=== PATIENT | female | born 1950 | race Caucasian/White ===

== ENCOUNTER → 2016-07-18 | Day surgery (SDC) | payer OTHER ==
[2016-07-14 15:34] VITALS: BMI 65.0
[~2016-07-18] VITALS: Ht 170.2 cm; Wt 189.0 kg
[~2016-07-18] MED LIST: ADVIN10/60 INH; ARGI500T PO; ASCO500T16 PO; ATROPINE SULFATE 0.1 MG/ML 5ML SYR IV PRN; BACITRACIN OINT 15 GM TUBE TOP ONE; CITA40TA4 PO; CLINDAMYCIN 600 MG/54 ML D5W IV SCH; CYCL10TA6 PO; ERGO500037 PO; ESCI1TAB18 PO; FENTANYL CITRATE INJ 50 MCG/1 ML 2 ML VIAL IV PRN; FENTANYL CITRATE INJ 50 MCG/1 ML 2 ML VIAL ONE; FEXO1TAB58 PO; FLUSH IV ONE; FURO-85 PO; GLUC10007 PO; HEPARIN 100 UNIT/ML IV ONE; LACTATED RINGER'S 1000ML 1,000 ML IV SCH; LAMO200T35 PO; LEVO50TA6 PO; LIDOCAINE HCL 2% 2 ML VIAL (20MG/ML) ONE; LIOT5TAB9 PO; LOPE-5 PO; LPT/20 PO; LSN40 PO; LXP/20 PO; MIDAZOLAM HCL 1 MG/ML 2ML VIAL ONE; MIX: 0.5% BUPIVICAINE 20ML/1% LIDO 20ML INJ ONE; MODA200T42 PO; MULT-506 PO; MoRPHine SULFATE 4 MG/ML 1 ML CARP\\VIAL IV PRN; NAPR1TAB9 PO; NRN100 PO; ONDANSETRON INJ 2 MG/ML 2 ML VIAL IV PRN; OXYC-57 PO; OXYCODONE/ACETAMINOPHEN 5-325 TAB PO PRN; POTA10TA33 PO; PROPOFOL IV EMULSION 10 MG/ML 20 ML VIAL IV ONE; SODIUM CHLORIDE 0.9% 1000ML 1,000 ML IV SCH; SPRIN INH; TRMCR515 TOP; VRPSR240 PO; tumeric PO
[2016-07-18 06:14] VITALS: BP 162/67; PULSE 81; TEMP 36.9; O2SAT 94; Ht 170.2 cm; Wt 189.0 kg
--- NOTE | 2016-07-18 07:24 | History & Physical Bridge Note ---
H&P Re-Evaluation Bridge Note: I have examined the patient, reviewed the History & Physical and in the interval since the performance of the History & Physical I have noted the following changes of clinical significance: No changes noted
--- NOTE | 2016-07-18 09:51 | Discharge Instructions ---
Discharge Instructions Visit Reason for Visit: Breast Cancer Discharge Goals Goal(s): Decrease discomfort, Improve function Activity Recommendations Activity Limitations: per Instructions/Follow-up section Lifting Limitations: no more than 25 pounds Exercise/Sports Limitations: gradually increase as tolerated May Resume Sexual Activity: when tolerated Shower/Bathe: may shower/bathe in 3 days Driving or Machine Use: resume 3 days after discharge Anesthesia . Post Anesthesia Instructions: If you have had General Anesthesia or IV Sedation: * Do not drive today. * Resume driving when surgeon permits. * Do not make important decisions or sign legal documents today. * Call surgeon for: 1. Temperature elevations greater than 101 degrees F. 2. Uncontrollable pain. 3. Excessive bleeding. 4. Persistent nausea and vomiting. 5. Medication intolerance (nausea, vomiting or rash). * For nausea and vomiting use only clear liquids such as: tea, soda, bouillon until nausea subsides, then gradually increase diet as tolerated. * If you have any concerns or questions, call your surgeon's office. If physician is unavailable and it is an emergency, call 911 or go to the nearest emergency room. . Instructions / Follow-Up Instructions / Follow-Up keep the dressing on for 4 days, she can take a shower on 07/22/2016. Follow up 1 week, Procedures Procedures Performed: Infusaport Insertion - Right Internal Jugular Vein Medical Emergencies . Who to Call and When: Medical Emergencies: If at any time you feel your situation is an emergency, please call 911 immediately. . Non-Emergent Contact Call Non-Emergent contact if: you have a fever, temperature is above 100.5, your pain is not controlled, your pain is worsening, wound has increased drainage, wound has increased redness . . "Provider Documentation" section prepared by Geo Thao.
--- NOTE | 2016-07-18 09:58 | [facility] Post Operative Brief Note ---
Immediate Operative Summary Operative Date Jul 18, 2016. Pre-Operative Diagnosis S/P Breast Cancer surgery, needed for IV access Post-Operative Diagnosis S/P Breast Cancer surgery, needed for IV access Procedure(s) Performed Infusaport Insertion - Right Internal Jugular Vein Surgeon Dr. 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 Marcello Hollis who help to finding the RIJ,the procedure went well, Fluids (cc crystalloids) 1000ml Specimens None per surgeon Drains none Complication(s) None Disposition Recovery Room / PACU
[2016-07-18 10:05] VITALS: BP 149/62; PULSE 62; TEMP 36.4; O2SAT 92
--- NOTE | 2016-07-18 10:05 | DIAGNOSTIC IMAGING REPORT ---
CHEST ONE VIEW PORTABLE CLINICAL HISTORY: Post-op dyspnea COMPARISON STUDY: No previous studies for comparison. FINDINGS: Right-sided central catheter placed from an internal jugular approach. Tip is in the superior vena cava at the juncture with the right subclavian vein. No evidence pneumothorax. Lungs otherwise appear clear. IMPRESSION: Central catheter placed at the juncture of the superior vena cava and right subclavian vein. No evidence pneumothorax. Electronically signed by: Josep Rodriges M.D. 07/18/2016 10:03 AM
[2016-07-18 10:35] VITALS: BP 145/62; PULSE 66; O2SAT 92
[2016-07-18 10:45] VITALS: BP 156/62; PULSE 61; TEMP 36.5; O2SAT 92
--- NOTE | 2016-07-18 11:35 | Anesthesiology Progress Note ---
Anesthesia Post Op Note Date & Time Jul 18, 2016 at 11:35 Vital Signs Pain Intensity: 0 Vital Signs Past 12 Hours Date Time Temp Pulse Resp B/P Pulse Ox O2 Delivery O2 Flow Rate FiO2 07/18/16 10:45 36.5 61 18 156/62 92 07/18/16 10:35 66 18 145/62 92 Room Air 07/18/16 10:05 36.4 62 18 149/62 92 Room Air 07/18/16 09:55 36.4 60 20 110/64 96 Room Air 07/18/16 09:45 66 20 136/67 91 Room Air 07/18/16 09:35 68 20 116/58 97 Room Air 07/18/16 09:25 36.1 70 20 94/80 96 Room Air 07/18/16 06:14 36.9 81 22 162/67 94 Room Air Notes Mental Status: alert / awake / arousable, participated in evaluation Pt Amnestic to Procedure: Yes Nausea / Vomiting: adequately controlled Pain: adequately controlled Airway Patency, RR, SpO2: stable & adequate BP & HR: stable & adequate Hydration State: stable & adequate Anesthetic Complications: no major complications apparent
--- NOTE | 2016-07-18 11:40 | OPERATIVE REPORT ---
DATE OF OPERATION: 07/18/2016 PREOPERATIVE DIAGNOSIS: Status post right breast cancer surgery, difficult intravenous access. POSTOPERATIVE DIAGNOSIS: Same. PROCEDURE: Uchn-l-[id number] insertion. SURGEON: Dr. Geo Thao. ANESTHESIA: General. ESTIMATED BLOOD LOSS: About 10 mL. IV FLUIDS: 1000 mL. FINDINGS: At the beginning it was difficult to find the right IJ. I called vascular surgeon Dr. Roberts who helped me to find the right IJ and I finish the rest of the procedure. Otherwise, the patient tolerated the procedure well. COMPLICATIONS: None. INDICATIONS FOR THE PROCEDURE: This is a 65-year-old female who is postop right breast cancer surgery. The patient in need of chemotherapy. The patient required to do insertion [id number] and otherwise patient is obesity. I did talk to the patient about the benefit and risk alternate procedure. I indicated the risks may include but not limited such as bleeding, infection, injury to bowel, may need chest tube, injury nerves causing the patient pain, myocardial infarction, blood clot, damage to catheter, stroke, pulmonary emboli, even . The patient understands. She signed informed consent and I answered all questions. DETAILS OF PROCEDURE: We brought the patient to the OR, put the patient in the supine position. The patient received SCD on bilateral legs to prevent DVT. Also, the patient received 600 mg of clindamycin IV for prophylactic antibiotic. The patient received conscious sedation. Right side of the neck and upper chest was prepped and draped in the routine sterile fashion. After time out, I injected local anesthesia in the neck by using 1% lidocaine mixed with 0.5% Marcaine around the right side of the neck. I used ultrasound to locate the right IJ; however puncture couple of times and got some blood returned, tried to place the catheter wire in and could not. At this moment I decided to call the vascular surgeon Dr. Roberts who came in to help me to find the right IJ puncture, passed the wire in and then I finished the rest of the procedure. Then I injection the local on the right upper chest made close the pouch on the right upper chest and tunneled the catheter from the right upper chest to the neck. Then I used the dilator catheter, passed the wire in, used fluoro to confirm the catheter located SVC. Then I passed the catheter through the sheath and removed the sheath after the catheter in. Then I used fluoro on the tip of the catheter to locate the SVC. The catheter was connected to the port. Once we connected the catheter to the port, then I used heparin saline injected the port easily, blood returned and injection heparin and saline. Then I used 2-0 Vicryl x3, fixed to the [id number]-[id number] on the chest wall. Then hemostasis obtained. Then I used 2-0 Vicryl to close the subcutaneous layer continuous running, used 4-0 Vicryl to close skin continuous running. Then I put another needle through the skin reaching the port and easy blood return and I injected 2 mL heparin, 1 mL heparin equal 100 units heparin. Then, we put the dressing on. The patient tolerated the procedure well. The patient transferred to recovery room in stable condition. All the instrument, needle and sponge count correct x2 at the end of the case. I attest to the content of the Intraoperative Record and any orders documented therein. Any exceptions are noted below. MARYURI
== END | disposition home or self-care (01) ==
LOC: C.ACU 05:35
PROVIDERS: ATTEND Surgery
DX: C50.911 Malignant neoplasm of unspecified site of right female breast (principal); J44.9 Chronic obstructive pulmonary disease, unspecified; E11.9 Type 2 diabetes mellitus without complications; E66.01 Morbid (severe) obesity due to excess calories; G47.33 Obstructive sleep apnea (adult) (pediatric); I10 Essential (primary) hypertension; Z88.0 Allergy status to penicillin; F17.200 Nicotine dependence, unspecified, uncomplicated; Z90.89 Acquired absence of other organs; Z98.890 Other specified postprocedural states; Z90.11 Acquired absence of right breast and nipple; Z82.3 Family history of stroke; Z82.0 Family history of epilepsy and other diseases of the nervous system; Z82.49 Family history of ischemic heart disease and other diseases of the circulatory system

== ENCOUNTER → 2016-12-25 | Outpatient (CLI) | payer OTHER ==
[~2016-12-25] VITALS: Ht 172.7 cm; Wt 196.6 kg
[~2016-12-25] MED LIST changes: -ADVIN10/60 INH; -ATROPINE SULFATE 0.1 MG/ML 5ML SYR IV PRN; -BACITRACIN OINT 15 GM TUBE TOP ONE; -CLINDAMYCIN 600 MG/54 ML D5W IV SCH; -FENTANYL CITRATE INJ 50 MCG/1 ML 2 ML VIAL IV PRN; -FENTANYL CITRATE INJ 50 MCG/1 ML 2 ML VIAL ONE; -FLUSH IV ONE; -HEPARIN 100 UNIT/ML IV ONE; -LACTATED RINGER'S 1000ML 1,000 ML IV SCH; -LAMO200T35 PO; +LAMO200T38 PO; -LIDOCAINE HCL 2% 2 ML VIAL (20MG/ML) ONE; -MIDAZOLAM HCL 1 MG/ML 2ML VIAL ONE; -MIX: 0.5% BUPIVICAINE 20ML/1% LIDO 20ML INJ ONE; -MoRPHine SULFATE 4 MG/ML 1 ML CARP\\VIAL IV PRN; -ONDANSETRON INJ 2 MG/ML 2 ML VIAL IV PRN; -OXYC-57 PO; -OXYCODONE/ACETAMINOPHEN 5-325 TAB PO PRN; -PROPOFOL IV EMULSION 10 MG/ML 20 ML VIAL IV ONE; -SODIUM CHLORIDE 0.9% 1000ML 1,000 ML IV SCH
[2016-12-25 14:48] VITALS: BP 159/59; PULSE 92; Ht 172.7 cm; Wt 196.6 kg
== END | disposition home or self-care (01) ==
LOC: C.NEUR 14:25
PROVIDERS: ATTEND Physician Assistant
DX: G47.30 Sleep apnea, unspecified (principal)

== ENCOUNTER → 2017-03-15 | Outpatient (CLI) | payer OTHER ==
[~2017-03-15] MED LIST changes: -CITA40TA4 PO; -LXP/20 PO; +MODA1TAB6 PO; -MODA200T42 PO
[2017-03-15 13:28] VITALS: BP 149/79; PULSE 92; TEMP 36.9; O2SAT 93
--- NOTE | 2017-03-15 14:44 | Radiation Oncology Follow-Up ---
Radiation Oncology Follow-Up Date of Visit Mar 15, 2017. Reason For Visit One-month follow-up and cancer survivorship care plan Radiation Completion Date 02/07/17 Diagnosis (1) Breast cancer Status: Resolved Onset Date: 05/10/2016 Stage: l (A) Permanent Comment: Abnormal right breast mammogram Status post biopsy 05/10/2016 revealing 2 lesions Status post lumpectomy and sentinel lymph node biopsy 06/20/2016 Lesion # 1 pT1b [id number], estrogen receptor negative, progesterone receptor positive and HER-2/paulino positive Lesion #2 pT1b [id number], estrogen receptor negative, progesterone receptor negative, HER-2/paulino positive Planned for systemic chemotherapy followed by radiation Last Edited By: Franca Washington on Jul 13, 2016 13:01 History of Present Illness Ms. Mcclure is a 66-year-old female without a family history of breast cancer. Who is been followed with screening mammograms. On 03/30/2016 patient underwent a bilateral digital screening mammogram with CAD. This identified a 5 cm focal asymmetry with associated microcalcifications in the 12:00 middle one third of the right breast. Comparison to prior mammograms was recommended. They were able to obtain prior outside mammograms from the doctor's clinic and ordered on dated 05/17/2012 and 08/09/2009. The very vague asymmetry with associated loosely grouped microcalcifications in the 12:00 middle one third of the right breast was not clearly seen on the prior outside mammograms and therefore remains indeterminate. Additional spot magnification views were recommended. On 04/18/2016 the patient underwent a unilateral right digital diagnostic mammogram. Spot magnification right CC and ML views were obtained. There was a persistent 5 x 4 cm asymmetry with associated clusters of amorphous microcalcifications in the upper outer middle one third of the right breast. This asymmetry is new as the calcifications. A right breast surgical excision biopsy was recommended for the new subtle 5 x 4 centimeter focal asymmetry. On 05/10/2016 the patient underwent a needle localization right breast biopsy performed by Dr. Manuel Chakraborty. 2 tumors were identified. Tumor #1 (central tumor) measured 0.6 cm in greatest dimension. This was invasive mammary carcinoma no special type. Sergio grade 3 of 3 with no lymphovascular invasion. Estrogen receptors were negative (0% staining). Progesterone receptors were positive (10%, weak staining, H score: 10). HER-2/paulino overexpression was positive (score 3+, 100% strong diffuse staining). Ki-67 proliferation index was high at 50%. Tumor #2 (inferior tumor) measured 1.0 cm. This was an invasive mammary carcinoma no special type. This was a Omak grade 2 with no lymphovascular invasion. Estrogen receptors were negative (0% staining).. Progesterone receptors were negative (0% staining). HER-2/paulino overexpression was positive (score 3+, 100% strong diffuse staining). Ki-67 proliferation index was high at 35%. 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 The DCIS measured at least 2.0 cm in greatest dimension. The margins of the invasive carcinoma were uninvolved with the central tumor 0.6 cm from the posterior margin in the inferior tumor 0.3 cm anterior margin. The en face DCIS inferior, medial and lateral margins are involved by multiple areas of DCIS. In addition DCIS approaches to within less than 1 mm of the anterior and posterior margins. Both tumors were sent for FISH analysis. Both tumors were positive for HER-2 FISH evaluation. Case: [id number]. Patient was seen by Dr. Coffey for surgical evaluation on 05/18/2016. She discussed the treatment options. She considered an MRI but given the patient's body habitus she would not fit into the MRI scanner. She discussed breast conserving therapy with reexcision lumpectomy and sentinel node biopsy. The patient agreed to this procedure. On 06/20/2016 patient underwent a reexcision right breast lumpectomy and sentinel node biopsy. 3 sentinel nodes were identified and all 3 sentinel nodes were benign. The reexcision partial mastectomy specimen revealed no residual invasive carcinoma. There was residual DCIS cribriform, grade 3 with central (expansive "comedo" necrosis). The margins were uninvolved by DCIS with the distance from the closest margin being 3 mm. The final AJCC pathologic staging was therefore pT1b pN0(sn-) ER negative RI positive HER-2/paulino positive for tumor #1 and pT1b pN0(sn-) ER negative, RI negative and HER-2/paulino positive for tumor #2. The patient was subsequently seen by Dr. Christopher Kauffman on 07/12/2016. She recommended consideration of adjuvant chemotherapy including Herceptin for 1 year with 12 weeks of systemic therapy. The patient is to be scheduled for port placement. The patient has agreed to systemic therapy. She developed drainage from her recent partial mastectomy incision. The drainage was yellowish and the area was mildly tender. According to patient she was subsequently seen by Dr. Coffey and the area was drained and has since healed with only minimal drainage to date. We were asked to see the patient in referral for discussion of the ultimate goal of adjuvant radiation following completion of her systemic chemotherapy. She completed systemic chemotherapy. She will return to our office and underwent radiation therapy. This was completed 02/07/2017. She received 6120 cGy. Interim History She has had steady improvement of her breast over this past month. The the redness has improved as well as the swelling. She did have some nipple changes. At times there would be a small amount of white discharge just at the nipple. She denies pain. At the end of treatment there was peeling of the skin. This has resolved with the use of Silvadene. She continues regular follow-up with Dr. Kauffman. She continues on Herceptin. She has seen Dr. Coffey and has been scheduled for follow-up mammography. Her energy levels have steadily improved. Allergies Coded Allergies: BEE STING (Verified Allergy, Severe, swelling,, 07/14/16) Adhesives (Verified Allergy, Unknown, SKIN IRRITATION, 07/14/16) Cephalexin (Verified Allergy, Unknown, diarrhea, "out of it", 07/14/16) Ciprofloxacin (Verified Allergy, Unknown, feels faint,SEVERE DIARRHEA, ) Home Medications Scheduled Arginine (Arginine), 500 MG PO QAM Ascorbic Acid (Ascorbic Acid), 500 MG PO QAM Atorvastatin (Atorvastatin Calcium), 20 MG PO QPM Ergocalciferol (Vitamin D 18943 Unit), 1 CAP PO 3XWEEK Escitalopram Oxalate (Lexapro), 1 TAB PO BID Fexofenadine-Pseudoephedrine (Liana-D 24 Hour Allergy), 1 TAB PO QAM Furosemide (Lasix), 40 MG PO QAM Gabapentin (Gabapentin), 100 MG PO DAILY Glucosamine Sulfate (Glucosamine), 1,000 MG PO DAILY Lamotrigine (Lamictal), 200 MG PO QPM Levothyroxine Sodium (Levothyroxine Sodium), 50 MCG PO QAM Liothyronine Sodium (Liothyronine Sodium), 3 TABS PO QAM Lisinopril (Lisinopril), 40 MG PO QAM Modafinil (Provigil), 200 MG PO QAM Multivitamin (Multivitamin), 1 TAB PO QAM Potassium Chloride (Potassium Chloride Sr), 40 MEQ PO QAM Tiotropium [place] (Spiriva Handihaler), 2 PUFF INH DAILY Verapamil HCl (Verapamil HCl ER), 240 MG PO QAM Scheduled PRN Cyclobenzaprine Hcl (Flexeril), 10 MG PO TID PRN for Muscle Spasms Loperamide Hcl (Imodium A-D), 1 TAB PO DIRECTED PRN for Diarrhea Naproxen (Aleve), 220 MG PO Q6H PRN for Moderate Pain Triamcinolone Acet (Triamcinolone Acetonide), 1 APPLN 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 of Systems Gastrointestinal: Symptoms: WNL, Diarrhea GI Comments: Bouts of diarrhea from time to time;Immodium PRN; Oral: Symptoms: No Problems Respiratory: Symptoms: SOB With Exertion, Productive Cough Sputum Character: clear to white sputum;Lingering cough from recent cold; Other Respiratory: SOB w/exertion is without change; Urinary: Symptoms: Incontinence, Frequency Comments: Urinary continence without change; Skin: Other Skin Symptoms: Generalized slight pink color to right breast;Not using any skin care Breast: Right Upper Arm Measurement: 51.0 Right Mid Arm Measurement: 32.3 Right Wrist Measurement: 20.0 Left Upper Arm Measurement: 51.0 Left Mid Arm Measurement: 32.5 Left Wrist Measurement: 20.0 Arm Dominence: Right Physical Exam Vital Signs Date Time Temp Pulse Resp B/P (MAP) Pulse Ox O2 Delivery O2 Flow Rate FiO2 03/15/17 13:28 36.9 92 20 149/79 93 Fatigue: None General Appearance: no apparent distress, + obese Eyes: normal inspection, EOMI ENT: normal ENT inspection, hearing grossly normal Neck: no adenopathy, thyroid normal Respiratory/Chest: no respiratory distress, no accessory muscle use, + pertinent finding (mild bronchial sounds.) Breast: Large pendulous breasts. Resolving hyperpigmentation on the right underside of the breast. There is generalized erythema which is improved. There is minimal edema. There is hyperpigmentation noted of the nipple. There are no masses or tenderness and no change of the axilla. Using the Schurz score cosmesis she has a a fair outcome. This will improve as skin changes resolved. The left breast showed no masses or tenderness and no axillary adenopathy. Cardiovascular: regular rate, rhythm, no gallop, no murmur Extremities: no pedal edema Neurologic/Psychiatric: no motor/sensory deficits, alert, normal mood/affect Skin: warm/dry Laboratory Studies Test 12/20/16 09:30 White Blood Count 6.55 K/uL (4.8-10.8) Red Blood Count 3.89 M/uL (4.2-5.4) Hemoglobin 12.5 g/dL (12.0-16.0) Hematocrit 38.2 % (37-47) Mean Corpuscular Volume 98.2 fL (80-100) Mean Corpuscular Hemoglobin 32.1 pg (25-34) Mean Corpuscular Hemoglobin Concent 32.7 g/dl (32-36) Platelet Count 186 K/uL (130-400) Mean Platelet Volume 9.7 fL (7.4-10.4) Neutrophils (%) (Auto) 59.6 % Lymphocytes (%) (Auto) 25.8 % Monocytes (%) (Auto) 10.1 % Eosinophils (%) (Auto) 3.8 % Basophils (%) (Auto) 0.2 % Neutrophils # (Auto) 3.91 K/uL (1.4-6.5) Lymphocytes # (Auto) 1.69 K/uL (1.2-3.4) Monocytes # (Auto) 0.66 K/uL (0.11-0.59) Eosinophils # (Auto) 0.25 K/uL (0-0.5) Basophils # (Auto) 0.01 K/uL (0-0.2) RDW Standard Deviation 47.0 fL (36.4-46.3) RDW Coefficient of Variation 13.1 % (11.5-14.5) Immature Granulocyte % (Auto) 0.5 % Immature Granulocyte # (Auto) 0.03 K/uL (0.00-0.02) Assessment & Plan Continue follow-up with Dr. Coffey, Dr. Kauffman, and Dr. Dick. She is scheduled for follow-up mammography. She continues on the Herceptin every 3 weeks for a total of one year. Today we completed a cancer survivorship care plan. A copy of the document was given to the patient. The swelling of her breast has greatly resolved. She currently does not need referral for lymphedema therapy. The nipple changes are steadily improving. She may use Silvadene to any area of irritation. We asked her to return to our office in 6 months. She may call if she has any questions or concerns in the interim. Total Time In Follow-Up I spent 20 minutes speaking to the patient and performing examination. I spent 20 minutes reviewing information, completing the survivorship document, and completing this note. Copy To Staci Coffey MD; Christopher Kauffman MD; Randal Dick, D.O.Int.Med. Problem Qualifiers (1) Breast cancer: Breast location: central portion of breast Estrogen receptor status: negative Patient sex: female Laterality: right Qualified Codes: C50.111 - Malignant neoplasm of central portion of right female breast; Z17.1 - Estrogen receptor negative status [ER-]
== END | disposition home or self-care (01) ==
LOC: C.ONC 13:15
PROVIDERS: ATTEND Physician Assistant Medical
DX: Z08 Encounter for follow-up examination after completed treatment for malignant neoplasm (principal); Z92.3 Personal history of irradiation; Z85.3 Personal history of malignant neoplasm of breast

== ENCOUNTER → 2017-04-20 | Outpatient (CLI) | payer OTHER ==
[~2017-04-20] MED LIST changes: -tumeric PO
--- NOTE | 2017-04-20 15:48 | MAMMOGRAPHY REPORT ---
BILATERAL DIGITAL DIAGNOSTIC MAMMOGRAM TOMOSYNTHESIS WITH CAD AND TARGETED RIGHT ULTRASOUND: 7 CLINICAL HISTORY: History right breast cancer status post lumpectomy as well as chemoradiation, who p resents for her first follow-up after treatment. Due for routine mammography of the left breast. Th e patient reports an area of thickening near her right nipple. TECHNIQUE: Breast tomosynthesis in addition to standard 2D mammography was performed. Current study was also evaluated with a Computer Aided Detection (CAD) system. Bilateral CC and MLO 2-D and tomosy nthesis images and spot magnification right cc and ML views were obtained. COMPARISON: Comparison is made to exams dated: 04/20/2017 ultrasound, 05/10/2016 localization, 016 mammogram, 03/30/2016 mammogram - [facility], 05/17/2012 mammogram, and 08/09/2009 mammogram - [facility], [facility]. BREAST COMPOSITION: The tissue of both breasts is almost entirely fatty. FINDINGS: There are new post surgical changes in the right central/6:00 breast from prior lumpectomy , including new architectural distortion at the surgical bed as well as an oval 6.9 cm mass. There i s diffuse right breast skin and trabecular thickening, likely related to radiation therapy. The junior la nena of both breasts are stable compared to prior exams, without suspicious masses, calcifications, or areas of architectural distortion noted. Targeted ultrasound was performed of the lumpectomy bed. In the right breast at 6:00, 8 cm from the nipple, there is an oval anechoic fluid collection with internal septations which is too large to acc urately measure on ultrasound but measures at least 5.2 x 2.9 cm. This corresponds with the 6.9 cm m ammographic mass and is compatible with a postoperative seroma/hematoma. Targeted ultrasound was also performed of the area of prominent thickening pointed out by the patient in the right upper outer quadrant periareolar region. At this site there is significant skin thicke henok measuring up to 9 mm, which is likely due to radiation therapy. No suspicious mass is noted in the underlying breast parenchyma. IMPRESSION: ACR-BI-RADS CATEGORY 3: PROBABLY BENIGN, TARGETED ULTRASOUND ACR-BI-RADS CATEGORY 3: PRO BABLY BENIGN Expected post treatment changes in the right breast, including a benign postoperative hematoma/seroma at the lumpectomy bed measuring 6.9 cm. No mammographic evidence of malignancy in either breast. R ecommend follow-up diagnostic mammograms of the right breast in 6 months to reevaluate posttreatment changes. The patient has been verbally notified of the results. Approximately 10% of breast cancers are not detected with mammography. A negative mammographic report should not delay biopsy if a clinically suggestive mass is present. Belinda Parks M.D. ah/:04/20/2017 15:17:11 Formal Service Waiter: Cyndy MONTELONGO(Pierre)(Carmen), [facility] letter sent: Personal History 3 BI-RADS Code: ACR-BI-RADS Category 3: Probably Benign Ultrasound BI-RADS: ACR-BI-RADS Category 3: Pr obably Benign
== END | disposition home or self-care (01) ==
LOC: C.MAMM 14:03
PROVIDERS: ATTEND Surgery
DX: Z12.31 Encounter for screening mammogram for malignant neoplasm of breast (principal); Z08 Encounter for follow-up examination after completed treatment for malignant neoplasm; Z85.3 Personal history of malignant neoplasm of breast; Z92.21 Personal history of antineoplastic chemotherapy; Z92.3 Personal history of irradiation

== ENCOUNTER → 2017-07-05 | Outpatient (CLI) | payer OTHER ==
[~2017-07-05] VITALS: Ht 172.7 cm; Wt 185.9 kg
[~2017-07-05] MED LIST changes: +LAMO200T35 PO; -LAMO200T38 PO; -MODA1TAB6 PO; +MODA200T42 PO
[2017-07-05 15:04] VITALS: BP 150/90; Ht 172.7 cm; Wt 185.9 kg
== END | disposition home or self-care (01) ==
LOC: C.NEUR 13:55
PROVIDERS: ATTEND Physician Assistant
DX: J44.9 Chronic obstructive pulmonary disease, unspecified (principal); G47.30 Sleep apnea, unspecified; R05 Cough; Z79.899 Other long term (current) drug therapy; F31.9 Bipolar disorder, unspecified; I10 Essential (primary) hypertension; E55.9 Vitamin D deficiency, unspecified

== ENCOUNTER → 2017-09-20 | Outpatient (CLI) | payer OTHER ==
[~2017-09-20] MED LIST changes: +ANAS1TAB6 PO; +ASPI-232 PO; -LPT/20 PO; +LPT20 PO
[2017-09-20 15:00] VITALS: BP 168/82; PULSE 89; TEMP 36.4; O2SAT 93
--- NOTE | 2017-09-20 16:02 | Radiation Oncology Follow-Up ---
Radiation Oncology Follow-Up Date of Visit Sep 20, 2017. Reason For Visit Six-month follow-up Radiation Completion Date 02/07/17 Diagnosis (1) Breast cancer Status: Resolved Onset Date: 05/10/2016 Stage: l (A) Permanent Comment: Abnormal right breast mammogram Status post biopsy 05/10/2016 revealing 2 lesions Status post lumpectomy and sentinel lymph node biopsy 06/20/2016 Lesion # 1 pT1b [id number], estrogen receptor negative, progesterone receptor positive and HER-2/paulino positive Lesion #2 pT1b [id number], estrogen receptor negative, progesterone receptor negative, HER-2/paulino positive Status post systemic chemotherapy with paclitaxel/Herceptin weekly for 12 weeks followed by maintenance Herceptin for 1 year Status post completion of radiation therapy February 07, 2017. She received 6120 cGy. Last Edited By: Franca Washington on Sep 20, 2017 15:56 History of Present Illness Ms. Rees is without a family history of breast cancer. Who is been followed with screening mammograms. On 03/30/2016 patient underwent a bilateral digital screening mammogram with CAD. This identified a 5 cm focal asymmetry with associated microcalcifications in the 12:00 middle one third of the right breast. Comparison to prior mammograms was recommended. They were able to obtain prior outside mammograms from the doctor's clinic and ordered on dated and 08/09/2009. The very vague asymmetry with associated loosely grouped microcalcifications in the 12:00 middle one third of the right breast was not clearly seen on the prior outside mammograms and therefore remains indeterminate. Additional spot magnification views were recommended. On 04/18/2016 the patient underwent a unilateral right digital diagnostic mammogram. Spot magnification right CC and ML views were obtained. There was a persistent 5 x 4 cm asymmetry with associated clusters of amorphous microcalcifications in the upper outer middle one third of the right breast. This asymmetry is new as the calcifications. A right breast surgical excision biopsy was recommended for the new subtle 5 x 4 centimeter focal asymmetry. On 05/10/2016 the patient underwent a needle localization right breast biopsy performed by Dr. Manuel Chakraobrty. 2 tumors were identified. Tumor #1 (central tumor) measured 0.6 cm in greatest dimension. This was invasive mammary carcinoma no special type. Sergio grade 3 of 3 with no lymphovascular invasion. Estrogen receptors were negative (0% staining). Progesterone receptors were positive (10%, weak staining, H score: 10). HER-2/paulino overexpression was positive (score 3+, 100% strong diffuse staining). Ki-67 proliferation index was high at 50%. Tumor #2 (inferior tumor) measured 1.0 cm. This was an invasive mammary carcinoma no special type. This was a [place] grade 2 with no lymphovascular invasion. Estrogen receptors were negative (0% staining).. Progesterone receptors were negative (0% staining). HER-2/paulino overexpression was positive (score 3+, 100% strong diffuse staining). Ki-67 proliferation index was high at 35%. 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 The DCIS measured at least 2.0 cm in greatest dimension. The margins of the invasive carcinoma were uninvolved with the central tumor 0.6 cm from the posterior margin in the inferior tumor 0.3 cm anterior margin. The en face DCIS inferior, medial and lateral margins are involved by multiple areas of DCIS. In addition DCIS approaches to within less than 1 mm of the anterior and posterior margins. Both tumors were sent for FISH analysis. Both tumors were positive for HER-2 FISH evaluation. Case: [id number]. Patient was seen by Dr. Coffey for surgical evaluation on 05/18/2016. She discussed the treatment options. She considered an MRI but given the patient's body habitus she would not fit into the MRI scanner. She discussed breast conserving therapy with reexcision lumpectomy and sentinel node biopsy. The patient agreed to this procedure. On 06/20/2016 patient underwent a reexcision right breast lumpectomy and sentinel node biopsy. 3 sentinel nodes were identified and all 3 sentinel nodes were benign. The reexcision partial mastectomy specimen revealed no residual invasive carcinoma. There was residual DCIS cribriform, grade 3 with central (expansive "comedo" necrosis). The margins were uninvolved by DCIS with the distance from the closest margin being 3 mm. The final AJCC pathologic staging was therefore pT1b pN0(sn-) ER negative LA positive HER-2/paulino positive for tumor #1 and pT1b pN0(sn-) ER negative, LA negative and HER-2/paulino positive for tumor #2. The patient was subsequently seen by Dr. Christopher Kauffman on 07/12/2016. She recommended consideration of adjuvant chemotherapy including Herceptin for 1 year with 12 weeks of systemic therapy. The patient is to be scheduled for port placement. The patient has agreed to systemic therapy. She developed drainage from her recent partial mastectomy incision. The drainage was yellowish and the area was mildly tender. According to patient she was subsequently seen by Dr. Coffey and the area was drained and has since healed with only minimal drainage to date. We were asked to see the patient in referral for discussion of the ultimate goal of adjuvant radiation following completion of her systemic chemotherapy. She completed systemic chemotherapy. She will return to our office and underwent radiation therapy. This was completed 02/07/2017. She received 6120 cGy. Interim History She has been doing well over the past 6 months. She is noted no changes to her breast. She has noted no masses or tenderness and no change of the axilla she has had no swelling of her arm. She is up-to-date on mammography. She has occasional very brief discomfort. This occurs rarely and does not require any kind of pain medication. Allergies Coded Allergies: BEE STING (Verified Allergy, Severe, swelling,, 07/14/16) Adhesives (Verified Allergy, Unknown, SKIN IRRITATION, 07/14/16) Cephalexin (Verified Allergy, Unknown, diarrhea, "out of it", 07/14/16) Ciprofloxacin (Verified Allergy, Unknown, feels faint,SEVERE DIARRHEA, ) Home Medications Scheduled Anastrozole (Anastrozole), 1 TAB PO DAILY Arginine (Arginine), 500 MG PO QAM Ascorbic Acid (Ascorbic Acid), 500 MG PO QAM Aspirin (Aspir-81), 1 TAB PO DAILY Atorvastatin (Lipitor), 30 MG PO QPM Ergocalciferol (Vitamin D 84754 Unit), 1 CAP PO 3XWEEK Escitalopram Oxalate (Lexapro), 1 TAB PO BID Fexofenadine-Pseudoephedrine (Liana-D 24 Hour Allergy), 1 TAB PO QAM Furosemide (Lasix), 40 MG PO QAM Gabapentin (Gabapentin), 100 MG PO DAILY Glucosamine Sulfate (Glucosamine), 1,000 MG PO DAILY Lamotrigine (Lamictal), 200 MG PO QPM Levothyroxine Sodium (Levothyroxine Sodium), 50 MCG PO QAM Liothyronine Sodium (Liothyronine Sodium), 3 TABS PO QAM Lisinopril (Lisinopril), 40 MG PO QAM Modafinil (Provigil), 200 MG PO QAM Multivitamin (Multivitamin), 1 TAB PO QAM Potassium Chloride (Potassium Chloride Sr), 40 MEQ PO QAM Tiotropium [place] (Spiriva Handihaler), 2 PUFF INH DAILY Verapamil HCl (Verapamil HCl ER), 240 MG PO QAM Scheduled PRN Cyclobenzaprine Hcl (Flexeril), 10 MG PO TID PRN for Muscle Spasms Loperamide Hcl (Imodium A-D), 1 TAB PO DIRECTED PRN for Diarrhea Naproxen (Aleve), 220 MG PO Q6H PRN for Moderate Pain Triamcinolone Acet (Triamcinolone Acetonide), 1 APPLN TOP TID PRN for event planner of Systems Gastrointestinal: Symptoms: WNL, Nausea, Diarrhea GI Comments: Occ nausea in AM's, diarrhea from time to time Oral: Symptoms: No Problems Respiratory: Symptoms: WNL, SOB With Exertion Urinary: Symptoms: WNL, Incontinence Skin: Symptoms: No Problems Breast: Right Upper Arm Measurement: 47.8 Right Mid Arm Measurement: 33.4 Right Wrist Measurement: 18.5 Left Upper Arm Measurement: 49.0 Left Mid Arm Measurement: 32.8 Left Wrist Measurement: 19.0 Arm Dominence: Right Cosmetic Comments: 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 There are no masses or tenderness and no axillary adenopathy. She continues to have some hyperpigmentation. She also has edema in the dependent portion of the breast. She has large pendulous breasts. Using the [place] score of cosmesis she has a good outcome. The left breast showed no masses or tenderness and no axillary adenopathy. Cardiovascular: regular rate, rhythm, no gallop, no murmur Neurologic/Psychiatric: no motor/sensory deficits, alert, normal mood/affect Skin: warm/dry Pain Management Patient Reports Pain: No Initial Pain Intensity: 0.0 Pain Management Plan She denies pain therefore requires no pain management. Laboratory Laboratory Results: not applicable Pathology Pathology Results: not applicable Imaging Imaging Studies: were reviewed, and pertinent findings noted below Imaging Comments Patient: ARIEL REES Rec: [id number] Address1: [address] Address2: Acct ID: [id number] Date: 1950 Sex: F Ref Phy: Staci Coffey MD Att Phy: Staci Coffey MD Rebecca Phy: No Doctor, Assigned Inter Phy: Belinda Parks MD [facility] Zip: [place] [address] SC: C.MAMM Report #: [id number] Religious Leader: MARCO A Diagnosis: ASYMPTOMATIC HX OF BREAST CA Service Date: 04/20/17 MNE: [id number] Ordering Dr: Staci Coffey MD CC: Staci Coffey MD CONF: DICTATED BY: Belinda Parks MD MAMMOGRAPHY REPORT BILATERAL DIGITAL DIAGNOSTIC MAMMOGRAM TOMOSYNTHESIS WITH CAD AND TARGETED RIGHT ULTRASOUND: 04/20/2017 CLINICAL HISTORY: History right breast cancer status post lumpectomy as well as chemoradiation, who presents for her first follow-up after treatment. Due for routine mammography of the left breast. The patient reports an area of thickening near her right nipple. TECHNIQUE: Breast tomosynthesis in addition to standard 2D mammography was performed. Current study was also evaluated with a Computer Aided Detection (CAD ) system. Bilateral CC and MLO 2-D and tomosynthesis images and spot magnification right cc and ML views were obtained. COMPARISON: Comparison is made to exams dated: 04/20/2017 ultrasound, 2015 localization, 04/18/2016 mammogram, 03/30/2016 mammogram - [facility], 05/17/2012 mammogram, and 08/09/2009 mammogram - [facility], [facility]. BREAST COMPOSITION: The tissue of both breasts is almost entirely fatty. FINDINGS: There are new post surgical changes in the right central/6:00 breast from prior lumpectomy, including new architectural distortion at the surgical bed as well as an oval 6.9 cm mass. There is diffuse right breast skin and trabecular thickening, likely related to radiation therapy. The remainder of both breasts are stable compared to prior exams, without suspicious masses, calcifications, or areas of architectural distortion noted. Targeted ultrasound was performed of the lumpectomy bed. In the right breast at 6:00, 8 cm from the nipple, there is an oval anechoic fluid collection with internal septations which is too large to accurately measure on ultrasound but measures at least 5.2 x 2.9 cm. This corresponds with the 6.9 cm mammographic mass and is compatible with a postoperative seroma/hematoma. Targeted ultrasound was also performed of the area of prominent thickening pointed out by the patient in the right upper outer quadrant periareolar region. At this site there is significant skin thickening measuring up to 9 mm , which is likely due to radiation therapy. No suspicious mass is noted in the underlying breast parenchyma. IMPRESSION: ACR-BI-RADS CATEGORY 3: PROBABLY BENIGN, TARGETED ULTRASOUND ACR-BI -RADS CATEGORY 3: PROBABLY BENIGN Expected post treatment changes in the right breast, including a benign postoperative hematoma/seroma at the lumpectomy bed measuring 6.9 cm. No mammographic evidence of malignancy in either breast. Recommend follow-up diagnostic mammograms of the right breast in 6 months to reevaluate posttreatment changes. The patient has been verbally notified of the results. Approximately 10% of breast cancers are not detected with mammography. A negative mammographic report should not delay biopsy if a clinically suggestive mass is present. Belinda Parks M.D. ah/:04/20/2017 15:17:11 Venetian Blind Tape Cutter: Cyndy MONTELONGO(Pierre)(M), [facility] letter sent: Personal History 3 BI-RADS Code: ACR-BI-RADS Category 3: Probably Benign Ultrasound BI-RADS: ACR- BI-RADS Category 3: Probably Benign Dictated by: Belinda Parks MD Signed by: Belinda Parks MD Assessment & Plan Plan: Continue with scheduled mammography. She continues follow-up with medical oncology and her primary care physician. We asked her to return to our office in 1 year. She may call if she has any questions or concerns in the interim. Total Time In Follow-Up I spent 20 minutes speaking to the patient and performing examination. I spent 15 minutes reviewing information and completing this note. Copy To Staci Coffey MD; Christopher Kauffman MD; Sandra JAMISON M.D. Problem Qualifiers (1) Breast cancer: Breast location: central portion of breast Estrogen receptor status: negative Patient sex: female Laterality: right Qualified Codes: C50.111 - Malignant neoplasm of central portion of right female breast; Z17.1 - Estrogen receptor negative status [ER-]
== END | disposition home or self-care (01) ==
LOC: C.ONC 14:52
PROVIDERS: ATTEND Physician Assistant Medical
DX: Z08 Encounter for follow-up examination after completed treatment for malignant neoplasm (principal); Z92.3 Personal history of irradiation; Z85.3 Personal history of malignant neoplasm of breast

== ENCOUNTER → 2017-10-23 | Outpatient (CLI) | payer OTHER ==
[~2017-10-23] MED LIST changes: -ANAS1TAB6 PO; +ANAS1TAB7 PO
--- NOTE | 2017-10-23 15:26 | MAMMOGRAPHY REPORT ---
UNILATERAL RIGHT DIGITAL DIAGNOSTIC MAMMOGRAM TOMOSYNTHESIS WITH CAD: 10/23/2017 CLINICAL HISTORY: 67-year-old woman with a personal history of right breast cancer status post lumpec dean and radiation therapy. She presents for close follow-up in the right breast after treatment. TECHNIQUE: Right breast tomosynthesis in addition to standard 2D mammography was performed. Spot mag nification right CC and ML views were obtained. Additional tiling views and additional spot magnific ation views were obtained to include all tissue within the [id number]. Current study was also jayla luated with a Computer Aided Detection (CAD) system. COMPARISON: Comparison is made to exams dated: 04/20/2017 mammogram, 04/20/2017 ultrasound, 05/10/2016 localization, 04/18/2016 mammogram, 03/30/2016 mammogram - [facility], and 05/17/2012 mammogram - [facility], [facility]. BREAST COMPOSITION: There are scattered areas of fibroglandular density in the right breast. FINDINGS: A linear scar marker overlies the inferior right breast, denoting the skin surgical scar fr om prior lumpectomy. There is stable 5.7 x 2.8 cm focal asymmetry and expected architectural distort ion at the surgical site in the 5:00 to 6:00 posterior right breast. The spot magnification views pe rformed over the surgical site do not demonstrate any suspicious grouped or clustered calcifications. Another spot magnification view performed more anteriorly in the right breast demonstrates a few sc attered punctate microcalcifications without suspicious grouping or cluster. No suspicious mass, asy mmetry or unexpected distortion is identified. Recommend another close follow-up of the right breast in 6 months to ensure longer stability after treatment. Annual left mammography will also be due at that time. IMPRESSION: ACR-BI-RADS CATEGORY 3: PROBABLY BENIGN Stable posttreatment changes in the right breast, without definite mammographic evidence of malignanc y. Recommend another six-month close follow-up right diagnostic mammogram to ensure longer stability after treatment. Annual left mammography will also be due at that time. These results and recommendations were discussed with the patient at the time of the exam. Approximately 10% of breast cancers are not detected with mammography. A negative mammographic report should not delay biopsy if a clinically suggestive mass is present. Selene Allen M.D. ay/:10/23/2017 14:37:03 [employer] Worker: Cyndy Lu, [facility] letter sent: Follow Up Recommended 3 BI-RADS Code: ACR-BI-RADS Category 3: Probably Benign
== END | disposition home or self-care (01) ==
LOC: C.MAMM 13:53
PROVIDERS: ATTEND Surgery
DX: Z85.3 Personal history of malignant neoplasm of breast (principal); Z08 Encounter for follow-up examination after completed treatment for malignant neoplasm

== ENCOUNTER 2020-01-30 23:34 | Inpatient (IN) ==
[2020-01-31] MEDS ORDERED: DEXAMETHASONE **PF** INJ 10 MG/ML VIAL IV ONE (00:05)
[2020-01-31] MEDS ORDERED: ALBUT/IPRATROP 3MG/0.5MG NEB 3 ML VIAL NEB ONE (00:05)
[2020-01-31] MEDS ORDERED: HYDROCODONE/APAP 2.5MG/108MG ELIX 5 ML UDP PO STA (00:09)
--- NOTE | 2020-01-31 00:09 | Emergency Department Note ---
Impression & Plan Acute exacerbation of chronic obstructive pulmonary disease, Acute respiratory infection ED Provider Note Name: ARIEL REES Age: 69 Sex: F Arrives Via: Walk-In Informant: Patient ED Provider: Gilmar Paris MD Chief Complaint: Shortness of breath Impression: Acute exacerbation of chronic obstructive pulmonary disease Acute Respiratory infection Medical Decision Makin yr old female with history of COPD arrives with shortness of breath and mild hypoxia. Admits recent travel to [place] during Covid outbreak. She is ill appearing and significant respiratory distress on arrival. She was given hour long neb, IV fluids, and empiric abx (zosyn/azithro) along with IV decadron. She does not have clear infiltrate on CXR and maybe some mild congestion. Labs consistent with sepsis though not in shock. Given IV fluids but does not require 30ml/kg IV fluids given normal BP and no lactic acidosis. Suspect UA is contaminate rather than infection. Covid test pending and kept in isolation. Patient agreeable to hospitalization. I do not feel that this is consistent with PE given her vast improvement with nebs, but will defer further testing to hospitalist given need for admission. I will note patient without calf pain/ttp and has likely diagnosis COPD given history. Prior Medical Record and Triage/Nursing Notes reviewed by Me Additional history obtained from chart Differentials:Reactive airway disease, covid, pneumonia, pneumothorax, COPD, CHF, infections, cardiac ischemia, pulmonary embolism, musculoskeletal, gastrointestinal, as well as other pathologies. Vital Signs: reviewed and remarkable for mild hypoxia Interventions: saline lock, nss bolus 1 L IV, hycodan 5ml PO, zosyn 4.5mg IV, azithromycin 500mg IV, decadron 10mg IV Labs:Reviewed and remarkable for WBC 19 Imaging:X ray results are stated below per my interpretation: Chest: 1 view: Bilateral mild lower congestion EKG:Per My Interpretation: Indication Shortness of breath: NSR 86 bpm, qtc 447. No Ectopy. No Ischemia. Compared to EKG 06/28/18, no significant changes. Cardiac/Tele Monitoring: Cardiac Monitoring: An Order was placed for continuous cardiac monitoring. The monitor shows a rate of 80 with a normal sinus rhythm. Consults:Dr Arabella RAMIREZ Hospitalist Plan: Disposition:Hospitalization. Condition: Fair Blood pressure:Normal.No Referral necessary Prescriptions:none PDMP: n/a History of Present Illness:69 / F arrives for evaluation of shortness of breath. Patient with hsitory of COPD/Bronchitis who uses BIPAP at night. She notes traveling to [place] 5 days ago where she met some family. The following day started having a sore throat and runny nose. This was rapidly associated with shortness of breath, cough, chills, body aches, fatigue, nausea, and malaise. She notes productive yellow sputum. No chest pain except with heavy coughing. Denies calf/leg swelling specifically on discussion. She has had no increase weight gain recently. No syncope, abdominal pain, back pain, diarrhea, urinary symptoms, measured fevers, headache, neck pain, rashes, nor other symptoms. No medications taken for this. Exertion and coughing makes worse. Laying down makes worse. Rest makes better ROS: See above HPI for pertinent positives & negatives. A total of 10 systems reviewed and were otherwise negative. Past Medical History:HTN, Anxiety, Depression, Obesity, breast ca, hypothyroid, hyperlipidemia Past Surgical History:oophorectomy, hernia repat, neck surgery, partial mastectomy Family History:none contributory Social History:Regular marijuana, has boyfriend, and lives alone, retired, occasional etoh, n+smoking Home Medications:See Below Allergies:Cipro, keflex, adhesive, bees Vitals:Blood Pressure: 153/77, Pulse 96, RR 28, T 37.4C, O2 93% on RA Physical Exam: GENERAL: Patient is uncomfortable appearing and in moderate distress. EYES: No scleral icterus, unremarkable pupils. ENT: Mucous membranes moist, no nasal congestion. NECK: No masses appreciated, nomeningismus, trachea is midline. RESPIRATORY: Dyspneic, tachypneic, productive green sputum cough, diffuse loud insp/exp wheezing, tight lung sounds throughout. no rhonchi. CARDIOVASCULAR: Regular rate and rhythm.No murmurs, rubs, gallops appreciated. GASTROINTESTINAL: Abdomen soft, non-tender, no peritonitis.Bowel sounds positive.No masses appreciated. BACK: No midline tenderness, no CVA tenderness EXTREMITIES: Normal motion all extremities, no cyanosis, no edema. NEUROLOGIC: Alert and oriented, no acute motor or sensory deficits, no focal weakness, cranial nerves grossly intact. SKIN: No rash, no jaundice, no diaphoresis. PSYCH: Appropriate GCS: 15 ED Course: Times/Reassessments: multiple, improving respiratory. Full covid precautions used throughout Gilmar Paris MD Past Med/Surg History Medical History (Updated 01/31/20 @ 05:04 by Mikayla Gould, GEMINI) Amaya's cyst, ruptured (Resolved) Breast cancer (Resolved 05/10/16) "Abnormal right breast mammogram Status post biopsy 05/10/2016 revealing 2 lesions Status post lumpectomy and sentinel lymph node biopsy 06/20/2016 Lesion # 1 pT1b [id number], estrogen receptor negative, progesterone receptor positive and HER-2/paulino positive Lesion #2 pT1b [id number], estrogen receptor negative, progesterone receptor negative, HER-2/paulino positive Status post systemic chemotherapy with paclitaxel/Herceptin weekly for 12 weeks followed by maintenance Herceptin for 1 year Status post completion of radiation therapy February 07, 2017. She received 6120 cGy." On 07/13/16 13:01 Franca Washington wrote "Abnormal right breast mammogram Status post biopsy 05/10/2016 revealing 2 lesions Status post lumpectomy and sentinel lymph node biopsy 06/20/2016 Lesion # 1 pT1b [id number], estrogen receptor negative, progesterone receptor positive and HER-2/paulino positive Lesion #2 pT1b [id number], estrogen receptor negative, progesterone receptor negative, HER-2/paulino positive Planned for systemic chemotherapy followed by radiation " Hyperlipidemia Sciatica (Resolved) Sleep apnea Surgical History History of herniorrhaphy (Resolved) Hx of oophorectomy (Resolved) Hx of partial mastectomy (Resolved) right Hx of removal of neck cyst (Resolved) as child Social History Preferred Language: Upper Sorbian Communication Ability: Effective Visual Impairment: No Limitations Hearing Ability: Normal General Supervisor Required: No Beliefs That Will Affect Care: None marital status: Current Living Situation: Significant Other current occupational status: retired Other Information That Helps Us Care for You: No Feels Safe at Home: Yes Safety Concerns: Feels Safe At This Time Smoking Status: Current every day smoker Tobacco Type: cigarettes ; Do You Dip or Chew Tobacco: No ; Second Hand Exposure: No ; Hx Alcohol Use: Yes Alcohol type: wine Alcohol type Comment: occassionally Hx Substance Use: Yes substance use type: marijuana Substance Use Type Other:: Medical Marijuana Allergies Allergies Allergy/AdvReac Type Severity Reaction Status Date / Time bee venom protein (honey bee) Allergy Severe swelling, Verified 01/31/20 01:57 adhesive Allergy Unknown SKIN Verified 01/31/20 01:57 IRRITATION cephalexin Allergy Unknown diarrhea, Verified 01/31/20 01:57 "out of it" Cipro Allergy Unknown feels Verified 07/14/16 15:25 faint,SEVERE DIARRHEA ciprofloxacin Allergy Unknown feels Verified 01/31/20 01:57 faint,SEVERE DIARRHEA Home Meds Home Medications Medication Instructions Recorded Confirmed Centrum Silver Women 1 tab PO QAM 06/26/18 01/31/20 Chantix 0.5 mg PO BID 06/26/18 01/31/20 anastrozole 1 mg PO QAM 06/26/18 01/31/20 atorvastatin 40 mg PO PM 06/26/18 01/31/20 cyclobenzaprine 10 mg PO DAILY PRN 06/26/18 01/31/20 escitalopram oxalate [Lexapro] 10 mg PO BID 06/26/18 01/31/20 fexofenadine [Liana Allergy] 180 mg PO QAM 06/26/18 01/31/20 furosemide 40 mg PO DAILY PRN 06/26/18 01/31/20 lamotrigine 100 mg PO QAM 06/26/18 01/31/20 lamotrigine 200 mg PO QPM 06/26/18 01/31/20 liothyronine 15 mcg PO QAM 06/26/18 01/31/20 lisinopril 40 mg PO QAM 06/26/18 01/31/20 potassium chloride [Klor-Con M20] 20 meq PO QAM PRN 06/26/18 01/31/20 triamcinolone acetonide 1 applic TOPICAL DAILY PRN 06/26/18 01/31/20 verapamil 240 mg PO QAM 06/26/18 01/31/20 docusate sodium [Colace] 100 mg PO DAILY PRN 06/28/18 01/31/20 albuterol sulfate 90 mcg/actuation 2 puffs INH Q6H PRN 03/12/19 01/31/20 breath activated powder inhaler ergocalciferol (vitamin D2) 1,250 50,000 unit PO WK cap 03/12/19 01/31/20 mcg (50,000 unit) capsule umeclidinium 62.5 mcg/actuation 1 puffs INH DAILY 03/12/19 01/31/20 blister powder for inhalation medical marijuana 1 dose INHALATION QID 04/08/19 01/31/20 Previous Rx's Medication Instructions Recorded levothyroxine 50 mcg tablet 50 mcg PO QAM #90 tab 02/12/19 modafinil 200 mg tablet See Rx Instructions .ROUTE 01/29/20 .COMPLEX #30 tablet Results & Data (ED) Vital Signs Vital Signs - 24 hr 01/30/20 23:42 01/31/20 01:09 01/31/20 01:53 Temperature 37.4 C 37.3 C Temperature Source Oral Pulse Rate 96 H 89 Pulse Rate [Right Radial] 90 Pulse Rate from SpO2 Sensor 89 Respiratory Rate 28 H 25 H 18 Respiratory Effort / Characteristics Non-Labored Spontaneous Labored Non-Labored Spontaneous Respiratory Depth Normal Blood Pressure 153/77 H 132/80 Blood Pressure Mean 102 102 Blood Pressure Position Sitting Pulse Oximetry 93 90 94 Pulse Oximetry [Right 2nd Toe] Oxygen Delivery Method Room Air Nasal Cannula Oxygen Delivery Method [Right 2nd Toe] Oxygen Flow Rate 4 Oxygen Flow Rate [Right 2nd Toe] Sepsis Recent Fever Within 48 Hours No Sepsis New/Unexplained Change in Mental Status No Sepsis Action Taken by Nursing No Action Required 01/31/20 02:00 01/31/20 03:06 01/31/20 03:35 Temperature Temperature Source Pulse Rate 86 97 H Pulse Rate [Right Radial] Pulse Rate from SpO2 Sensor 85 98 H Respiratory Rate 21 18 Respiratory Effort / Characteristics Respiratory Depth Blood Pressure 152/80 H 137/47 L Blood Pressure Mean 130 87 Blood Pressure Position Pulse Oximetry 95 91 Pulse Oximetry [Right 2nd Toe] Oxygen Delivery Method Nasal Cannula Room Air Nasal Cannula Oxygen Delivery Method [Right 2nd Toe] Oxygen Flow Rate 3 3 Oxygen Flow Rate [Right 2nd Toe] Sepsis Recent Fever Within 48 Hours Sepsis New/Unexplained Change in Mental Status Sepsis Action Taken by Nursing 01/31/20 04:12 Temperature Temperature Source Pulse Rate 82 Pulse Rate [Right Radial] Pulse Rate from SpO2 Sensor Respiratory Rate Respiratory Effort / Characteristics Respiratory Depth Blood Pressure Blood Pressure Mean Blood Pressure Position Pulse Oximetry Pulse Oximetry [Right 2nd Toe] 92 Oxygen Delivery Method Oxygen Delivery Method [Right 2nd Toe] Nasal Cannula Oxygen Flow Rate Oxygen Flow Rate [Right 2nd Toe] 5 Sepsis Recent Fever Within 48 Hours Sepsis New/Unexplained Change in Mental Status Sepsis Action Taken by Nursing Laboratory Data Result diagrams: 01/31/20 00:48 01/31/20 00:48 Lab Results 01/31/20 01/31/20 01/31/20 Range/Units 00:48 00:48 01:00 WBC 19.66 H (4.8-10.8) K/uL RBC 4.49 (4.2-5.4) M/uL Hgb 14.5 (12.0-16.0) g/dL Hct 43.0 (37-47) % MCV 95.8 (80-100) fL MCH 32.3 (25-34) pg MCHC 33.7 (32-36) g/dL RDW Std Deviation 44.4 (36.4-46.3) fL RDW Coeff of [place] 12.8 (11.5-14.5) % Plt Count 222 (130-400) K/uL MPV 10.5 H (7.4-10.4) fL Immature Gran % (Auto) 0.4 % Neut % (Auto) 75.2 % Lymph % (Auto) 12.3 % Power % (Auto) 10.0 % Eos % (Auto) 1.8 % Baso % (Auto) 0.3 % Neut # (Auto) 14.80 H (1.4-6.5) K/uL Lymph # (Auto) 2.41 (1.2-3.4) K/uL Power # (Auto) 1.97 H (0.11-0.59) K/uL Eos # (Auto) 0.35 (0-0.5) K/uL Baso # (Auto) 0.05 (0-0.2) K/uL Immature Gran # (Auto) 0.08 H (0.00-0.02) K/uL VBG pH (7.36-7.41) VBG pCO2 (38-50) mmHg VBG pO2 mmHg VBG HCO3 mmol/L VBG O2 Saturation % VBG Base Excess mEq/L Barometric Pressure mm/Hg Sodium 138 (136-145) mmol/L Potassium 3.3 L (3.5-5.1) mmol/L Chloride 105 (98-107) mmol/L Carbon Dioxide 29 (21-32) mmol/L Anion Gap 4.0 (3-11) BUN 20 H (7-18) mg/dl Creatinine 0.83 (0.6-1.2) mg/dl Est Cr Clr Drug Dosing 92.6 ml/min Est GFR ( Amer) 84.6 Est GFR (Non-Af Amer) 73.0 BUN/Creatinine Ratio 23.5 H (10-20) Glucose 107 H (70-99) mg/dl Lactate (0.4-2.0) mmol/L Calcium 9.1 (8.5-10.1) mg/dl Magnesium 1.7 L (1.8-2.4) mg/dl Total Bilirubin 0.6 (0.2-1) mg/dl Direct Bilirubin 0.1 (0-0.2) mg/dl AST 16 (15-37) U/L ALT 19 (12-78) U/L Alkaline Phosphatase 79 (45-117) U/L Troponin I < 0.015 (0-0.045) ng/ml Total Protein 7.5 (6.4-8.2) gm/dl Albumin 3.2 L (3.4-5.0) gm/dl Urine Color Dark Yellow Urine Appearance Cloudy A (Clear) Urine pH 5.0 (4.5-7.5) Ur Specific [place] 1.031 H (1.000-1.030) Urine Protein Trace H (Negative) Urine Glucose (UA) Negative (Negative) Urine Ketones Trace H (Negative) Urine Blood 1+ H (Negative) Urine Nitrite Negative (Negative) Urine Bilirubin Negative (Negative) Urine Urobilinogen Negative (Negative) Ur Leukocyte Esterase 3+ H (Negative) Urine WBC (Auto) >30 H (0-5) /hpf Urine RBC (Auto) 0-4 (0-4) /hpf U Hyaline Cast (Auto) 1-5 (0-5) /lpf U Epithel Cells (Auto) >30 H (0-5) /lpf Urine Bacteria (Auto) 1+ H (Negative) 01/31/20 01/31/20 Range/Units 01:08 01:08 WBC (4.8-10.8) K/uL RBC (4.2-5.4) M/uL Hgb (12.0-16.0) g/dL Hct (37-47) % MCV (80-100) fL MCH (25-34) pg MCHC (32-36) g/dL RDW Std Deviation (36.4-46.3) fL RDW Coeff of [place] (11.5-14.5) % Plt Count (130-400) K/uL MPV (7.4-10.4) fL Immature Gran % (Auto) % Neut % (Auto) % Lymph % (Auto) % Power % (Auto) % Eos % (Auto) % Baso % (Auto) % Neut # (Auto) (1.4-6.5) K/uL Lymph # (Auto) (1.2-3.4) K/uL Power # (Auto) (0.11-0.59) K/uL Eos # (Auto) (0-0.5) K/uL Baso # (Auto) (0-0.2) K/uL Immature Gran # (Auto) (0.00-0.02) K/uL VBG pH 7.45 H (7.36-7.41) VBG pCO2 39 (38-50) mmHg VBG pO2 55 mmHg VBG HCO3 27 mmol/L VBG O2 Saturation 88.5 % VBG Base Excess 2.6 mEq/L Barometric Pressure 735.0 mm/Hg Sodium (136-145) mmol/L Potassium (3.5-5.1) mmol/L Chloride (98-107) mmol/L Carbon Dioxide (21-32) mmol/L Anion Gap (3-11) BUN (7-18) mg/dl Creatinine (0.6-1.2) mg/dl Est Cr Clr Drug Dosing ml/min Est GFR ( Amer) Est GFR (Non-Af Amer) BUN/Creatinine Ratio (10-20) Glucose (70-99) mg/dl Lactate 0.8 (0.4-2.0) mmol/L Calcium (8.5-10.1) mg/dl Magnesium (1.8-2.4) mg/dl Total Bilirubin (0.2-1) mg/dl Direct Bilirubin (0-0.2) mg/dl AST (15-37) U/L ALT (12-78) U/L Alkaline Phosphatase (45-117) U/L Troponin I (0-0.045) ng/ml Total Protein (6.4-8.2) gm/dl Albumin (3.4-5.0) gm/dl Urine Color Urine Appearance (Clear) Urine pH (4.5-7.5) Ur Specific [place] (1.000-1.030) Urine Protein (Negative) Urine Glucose (UA) (Negative) Urine Ketones (Negative) Urine Blood (Negative) Urine Nitrite (Negative) Urine Bilirubin (Negative) Urine Urobilinogen (Negative) Ur Leukocyte Esterase (Negative) Urine WBC (Auto) (0-5) /hpf Urine RBC (Auto) (0-4) /hpf U Hyaline Cast (Auto) (0-5) /lpf U Epithel Cells (Auto) (0-5) /lpf Urine Bacteria (Auto) (Negative) Administered Medications Discontinued Medications Hydrocodone Bitart/Acetaminophen (Lortab) 5 ml PO NOW STA Stop: 01/31/20 00:15 Last Admin: 01/31/20 01:16 Dose: Not Given Documented by: [id number] Albuterol (Duoneb) 12 ml NEB ONE ONE Stop: 01/31/20 00:06 Last Admin: 01/31/20 01:52 Dose: 12 ml Documented by: [id number] Dexamethasone Sodium Phosphate (Decadron Pf) 10 mg IV NOW ONE Stop: 01/31/20 00:06 Last Admin: 01/31/20 00:48 Dose: 10 mg Documented by: [id number] Hydrocodone Bit/Homatropine Methylb (Hycodan) 5 ml PO NOW STA Stop: 01/31/20 00:23 Last Admin: 01/31/20 00:48 Dose: 5 ml Documented by: [id number] Piperacillin Sod/Tazobactam Sod (Zosyn) 4.5 gm in 120 mls @ 240 mls/hr IV NOW ONE Stop: 01/31/20 02:14 Last Infusion: 01/31/20 03:07 Dose: 0 mls/hr Documented by: [id number] Admin: 01/31/20 02:20 Dose: 240 mls/hr Documented by: [id number] Azithromycin 500 mg/ Dextrose 255 mls @ 127.5 mls/hr IV NOW STA Stop: 01/31/20 03:44 Last Infusion: 01/31/20 05:07 Dose: 0 mls/hr Documented by: [id number] Admin: 01/31/20 03:07 Dose: 127.5 mls/hr Documented by: [id number] Discharge Plan Visit Data Chief Complaint: Cough Stated Complaint: COUGH, CONGESTION ED Provider: Gilmar Paris Discharge Problem: Acute exacerbation of chronic obstructive pulmonary disease, Acute respiratory infection Patient Disposition: Admitted As Inpatient Discharge Instructions Interventions: ED Discharge Assessment Last Done: 01/31/20 03:35
[2020-01-31] MEDS ORDERED: ACETAMINOPHEN/HYDROCODONE ELIX 15 ML/CUP UDP PO STA (00:14)
[2020-01-31] MEDS ORDERED: HYDROCODONE/HOMATROPINE SYRUP 5MG/1.5MG 5ML UDP PO STA (00:22)
[2020-01-31 01:24] LABS: Basophils # (auto) 0.05 K/uL (0-0.2); Basophils % (auto) 0.3 %; Eosinophils # (auto) 0.35 K/uL (0-0.5); Eosinophils % (auto) 1.8 %; Hemoglobin 14.5 g/dL (12.0-16.0); Immature Granulocytes # (auto) 0.08 K/uL (0.00-0.02); Immature Granulocytes % (auto) 0.4 %; Lymphocytes # (auto) 2.41 K/uL (1.2-3.4); Lymphocytes % (auto) 12.3 %; Mean Corpuscular Hemoglobin 32.3 pg (25-34); Mean Corpuscular Hgb Conc 33.7 g/dL (32-36); Mean Corpuscular Volume 95.8 fL (80-100); Mean Platelet Volume 10.5 fL (7.4-10.4); Monocytes # (auto) 1.97 K/uL (0.11-0.59); Neutrophils % (auto) 75.2 %; Platelet Count 222 K/uL (130-400); RDW Coefficient of Variation 12.8 % (11.5-14.5); RDW Standard Deviation 44.4 fL (36.4-46.3); Red Blood Count 4.49 M/uL (4.2-5.4); White Blood Count 19.66 K/uL (4.8-10.8)
[2020-01-31 01:28] LABS: INR 1.1 (0.9-1.1); Prothrombin Time 11.1 Seconds (9.0-12.0)
[2020-01-31 01:28] LABS: Appearance Urine Cloudy (Clear); Bacteria Urine Automated 1+ (Negative); Bilirubin Urine Negative (Negative); Blood Urine 1+ (Negative); Color Urine Dark Yellow; Epithelial Cell Urine Auto >30 /lpf (0-5); Glucose Urine UA Negative (Negative); Ketones Urine Trace (Negative); Leukocyte Esterase Urine 3+ (Negative); Nitrite Urine Negative (Negative); Protein Urine Trace (Negative); Specific Gravity Urine 1.031 (1.000-1.030); Urobilinogen Urine Negative (Negative); WBC Urine Automated >30 /hpf (0-5)
[2020-01-31 01:41] LABS: RBC Urine Automated 0-4 /hpf (0-4)
[2020-01-31 01:42] LABS: Base Excess VBG 2.6 mEq/L; Oxygen Saturation VBG 88.5 %; pH VBG 7.45 (7.36-7.41)
[2020-01-31] MEDS ORDERED: PIPERACILLIN/TAZOBACTAM 4.5 GM/120 ML BAG IV ONE (01:45)
[2020-01-31] MEDS ORDERED: PIPERACILL/TAZOBAC CONSULT ACTIVE PRN ×2 (01:45→04:12)
[2020-01-31] MEDS ORDERED: AZITHROMYCIN 500 MG in DEXTROSE 5% 250 ML IV STA (01:45)
[2020-01-31 01:53] LABS: Alanine Aminotransferase 19 U/L (12-78); Albumin Level 3.2 gm/dl (3.4-5.0); Aspartate Aminotransferase 16 U/L (15-37); BUN Creatinine Ratio 23.5 (10-20); Bilirubin Direct 0.1 mg/dl (0-0.2); Blood Urea Nitrogen 20 mg/dl (7-18); Calcium 9.1 mg/dl (8.5-10.1); Carbon Dioxide 29 mmol/L (21-32); Chloride 105 mmol/L (98-107); Creatinine Clr Calc Pharmacy 92.6 ml/min; Est GFR (African American) 84.6; Glucose 107 mg/dl (70-99); Magnesium 1.7 mg/dl (1.8-2.4); Potassium 3.3 mmol/L (3.5-5.1); Sodium 138 mmol/L (136-145)
[2020-01-31 01:57] LABS: Alkaline Phosphatase 79 U/L (45-117); Bilirubin,Total 0.6 mg/dl (0.2-1); Total Protein 7.5 gm/dl (6.4-8.2); Troponin I < 0.015 ng/ml (0-0.045)
--- NOTE | 2020-01-31 02:52 | History & Physical Report ---
Date of Service January 31, 2020 Assessment & Plan (1) COVID-19 virus IgM antibody test result unknown: COVID-19 testing pending at this time. Present on Admission?: Yes (2) Acute respiratory failure with hypoxia: Acute respiratory failure with hypoxia/COPD exacerbation/bronchitis/COVID- 19 risk- Continue Zosyn and azithromycin IV begun in the ED. Given Decadron 10 mg IV, and will continue at 6 mg IV every 12 hours. Duonebs every 4 hours while awake and every 2 hours when necessary Nasal cannula presently on 4 L oxygen, titrate to keep pulse ox 94 to 95%. No home oxygen use. BiPAP 20/14 at bedtime as used at home. Present on Admission?: Yes (3) COPD exacerbation: See above Present on Admission?: Yes (4) Depression: Depression/anxiety/narcolepsy without cataplexy- Continue Lexapro 10 mg p.o. twice daily, lamotrigine and modafinil. Present on Admission?: Yes (5) Narcolepsy due to underlying condition without cataplexy: See above Present on Admission?: Yes (6) High cholesterol: Continue atorvastatin 40 mg daily Present on Admission?: Yes (7) Hypothyroid: Continue levothyroxine 50 mcg daily and liothyronine 15 mcg every morning. Present on Admission?: Yes (8) Hypertension: Continue verapamil, potassium chloride, and lisinopril. Present on Admission?: Yes (9) Sleep apnea: Continue BiPAP 20/14 at bedtime Present on Admission?: Yes (10) Chronic low back pain: Continue cyclobenzaprine. Present on Admission?: Yes History of Present Illness Chief Complaint: The patient presents to the emergency department with complaint of shortness of breath and fatigue. Primary Care Provider: Sandra Garcia MD The patient is a 69-year-old female with a past medical history including chronic low back pain, myofascial pain, hypertension, hyperlipidemia, hypothyroidism, COPD, medical cannabis use, anxiety with depression, urinary stress incontinence, morbid obesity, narcolepsy due to underlying condition without cataplexy and breast cancer. She presents to the emergency department with what she feels are symptoms similar to previous episodes of bronchitis. In particular,: A cough, shortness of breath and dyspnea exertion, and generalized fatigue. She reports that she had traveled to [place] recently, and did try to maintain social distancing due to the current issues with COVID pandemic, but did have someone hug her who she thinks may have been sick, but has no known direct covert exposures. Allergies Allergy/AdvReac Type Severity Reaction Status Date / Time bee venom protein (honey bee) Allergy Severe swelling, Verified 01/31/20 01:57 adhesive Allergy Unknown SKIN Verified 01/31/20 01:57 IRRITATION cephalexin Allergy Unknown diarrhea, Verified 01/31/20 01:57 "out of it" Cipro Allergy Unknown feels Verified 07/14/16 15:25 faint,SEVERE DIARRHEA ciprofloxacin Allergy Unknown feels Verified 01/31/20 01:57 faint,SEVERE DIARRHEA Home Medications Home Medications Medication Instructions Recorded Confirmed Type Centrum Silver Women 1 tab PO QAM 06/26/18 01/31/20 History Chantix 0.5 mg PO BID 06/26/18 01/31/20 History anastrozole 1 mg PO QAM 06/26/18 01/31/20 History atorvastatin 40 mg PO PM 06/26/18 01/31/20 History cyclobenzaprine 10 mg PO DAILY PRN 06/26/18 01/31/20 History escitalopram oxalate [Lexapro] 10 mg PO BID 06/26/18 01/31/20 History fexofenadine [Liana Allergy] 180 mg PO QAM 06/26/18 01/31/20 History furosemide 40 mg PO DAILY PRN 06/26/18 01/31/20 History lamotrigine 100 mg PO QAM 06/26/18 01/31/20 History lamotrigine 200 mg PO QPM 06/26/18 01/31/20 History liothyronine 15 mcg PO QAM 06/26/18 01/31/20 History lisinopril 40 mg PO QAM 06/26/18 01/31/20 History potassium chloride [Klor-Con M20] 20 meq PO QAM PRN 06/26/18 01/31/20 History triamcinolone acetonide 1 applic TOPICAL DAILY PRN 06/26/18 01/31/20 History verapamil 240 mg PO QAM 06/26/18 01/31/20 History docusate sodium [Colace] 100 mg PO DAILY PRN 06/28/18 01/31/20 History levothyroxine 50 mcg tablet 50 mcg PO QAM #90 tab 02/12/19 01/31/20 Rx albuterol sulfate 90 mcg/actuation 2 puffs INH Q6H PRN 03/12/19 01/31/20 History breath activated powder inhaler ergocalciferol (vitamin D2) 1,250 50,000 unit PO WK cap 03/12/19 01/31/20 History mcg (50,000 unit) capsule umeclidinium 62.5 mcg/actuation 1 puffs INH DAILY 03/12/19 01/31/20 History blister powder for inhalation medical marijuana 1 dose INHALATION QID 04/08/19 01/31/20 History modafinil 200 mg tablet See Rx Instructions .ROUTE 01/29/20 01/31/20 Rx .COMPLEX #30 tablet Past Med/Surg History Social History Preferred Language: German Communication Ability: Effective Visual Impairment: No Limitations Hearing Ability: Normal Beliefs That Will Affect Care: None marital status: Current Living Situation: Alone current occupational status: retired Feels Safe at Home: Yes Smoking Status: Current every day smoker Tobacco Type: cigarettes ; Second Hand Exposure: Yes ; Hx Alcohol Use: Yes Alcohol type: wine Alcohol type Comment: occassionally Hx Substance Use: Yes substance use type: marijuana Review of Systems Review of Systems: The patient denies chest pain, palpitations, lower extremity swelling, sore throat, fevers, chills, sweats, nausea, vomiting, diarrhea , constipation, abdominal pain, pelvic pain, blood in urine or stool, dysuria, urinary frequency or urgency, lightheadedness, dizziness, headache, memory loss, loss of consciousness, rash, abnormal bruising or bleeding, imbalance, focal weakness, numbness or tingling in arms or legs, change in back or neck pain, or night sweats. The review of systems is otherwise negative other than for that already noted above, and at least 10 systems have been reviewed. Physical Exam Physical Exam: The patient is awake, alert and oriented 3, normocephalic and atraumatic, sitting upright in bed and in no acute distress. HEENT--PERRL, EOMI, mucous membranes and oropharynx normal. Neck--supple. No JVD. No bruits. Thyroid normal, trachea midline, no adenopathy. Heart--normal S1 and S2. No murmurs, rubs or gallops. Lungs--few coarse breath sounds bilaterally. Mild respiratory distress, no accessory muscle use. Abdomen--normal bowel sounds and soft. Nontender. Nondistended. Morbidly obese Extremities--no cyanosis or clubbing. No edema. Dermatologic--normal skin turgor, normal color, no abnormal lymph nodes, no rash. Neurologic--cranial nerves II through XII grossly intact. Rheumatologic--normal range of motion. Psychiatric--normal affect. Results & Data Results & Data ([facility]) Vital Signs (Past 12 Hours) Vital Signs Temp Pulse Pulse Resp BP Pulse Ox 01/31/20 02:00 86 21 152/80 H 95 01/31/20 01:53 90 18 94 01/31/20 01:09 99.1 F 89 25 H 132/80 90 01/30/20 23:42 99.3 F 96 H 28 H 153/77 H 93 Laboratory Results Laboratory Results WBC 19.66 K/uL (4.8-10.8) H 01/31/20 00:48 RBC 4.49 M/uL (4.2-5.4) 01/31/20 00:48 Hgb 14.5 g/dL (12.0-16.0) 01/31/20 00:48 Hct 43.0 % (37-47) 01/31/20 00:48 MCV 95.8 fL (80-100) 01/31/20 00:48 MCH 32.3 pg (25-34) 01/31/20 00:48 MCHC 33.7 g/dL (32-36) 01/31/20 00:48 RDW Std Deviation 44.4 fL (36.4-46.3) 01/31/20 00:48 RDW Coeff of [place] 12.8 % (11.5-14.5) 01/31/20 00:48 Plt Count 222 K/uL (130-400) 01/31/20 00:48 MPV 10.5 fL (7.4-10.4) H 01/31/20 00:48 Immature Gran % (Auto) 0.4 % 01/31/20 00:48 Neut % (Auto) 75.2 % 01/31/20 00:48 Lymph % (Auto) 12.3 % 01/31/20 00:48 [place] % (Auto) 10.0 % 01/31/20 00:48 Eos % (Auto) 1.8 % 01/31/20 00:48 Baso % (Auto) 0.3 % 01/31/20 00:48 Neut # (Auto) 14.80 K/uL (1.4-6.5) H 01/31/20 00:48 Lymph # (Auto) 2.41 K/uL (1.2-3.4) 01/31/20 00:48 [place] # (Auto) 1.97 K/uL (0.11-0.59) H 01/31/20 00:48 Eos # (Auto) 0.35 K/uL (0-0.5) 01/31/20 00:48 Baso # (Auto) 0.05 K/uL (0-0.2) 01/31/20 00:48 Immature Gran # (Auto) 0.08 K/uL (0.00-0.02) H 01/31/20 00:48 PT 11.1 Seconds (9.0-12.0) 01/31/20 Unknown INR 1.1 (0.9-1.1) 01/31/20 Unknown VBG pH 7.45 (7.36-7.41) H 01/31/20 01:08 VBG pCO2 39 mmHg (38-50) 01/31/20 01:08 VBG pO2 55 mmHg 01/31/20 01:08 VBG HCO3 27 mmol/L 01/31/20 01:08 VBG O2 Saturation 88.5 % 01/31/20 01:08 VBG Base Excess 2.6 mEq/L 01/31/20 01:08 Barometric Pressure 735.0 mm/Hg 01/31/20 01:08 Sodium 138 mmol/L (136-145) 01/31/20 00:48 Potassium 3.3 mmol/L (3.5-5.1) L 01/31/20 00:48 Chloride 105 mmol/L (98-107) 01/31/20 00:48 Carbon Dioxide 29 mmol/L (21-32) 01/31/20 00:48 Anion Gap 4.0 (3-11) 01/31/20 00:48 BUN 20 mg/dl (7-18) H 01/31/20 00:48 Creatinine 0.83 mg/dl (0.6-1.2) 01/31/20 00:48 Est Cr Clr Drug Dosing 92.6 ml/min 01/31/20 00:48 Est GFR ( Amer) 84.6 01/31/20 00:48 Est GFR (Non-Af Amer) 73.0 01/31/20 00:48 BUN/Creatinine Ratio 23.5 (10-20) H 01/31/20 00:48 Glucose 107 mg/dl (70-99) H 01/31/20 00:48 Lactate 0.8 mmol/L (0.4-2.0) 01/31/20 01:08 Calcium 9.1 mg/dl (8.5-10.1) 01/31/20 00:48 Magnesium 1.7 mg/dl (1.8-2.4) L 01/31/20 00:48 Total Bilirubin 0.6 mg/dl (0.2-1) 01/31/20 00:48 Direct Bilirubin 0.1 mg/dl (0-0.2) 01/31/20 00:48 AST 16 U/L (15-37) 01/31/20 00:48 ALT 19 U/L (12-78) 01/31/20 00:48 Alkaline Phosphatase 79 U/L (45-117) 01/31/20 00:48 Troponin I < 0.015 ng/ml (0-0.045) 01/31/20 00:48 Total Protein 7.5 gm/dl (6.4-8.2) 01/31/20 00:48 Albumin 3.2 gm/dl (3.4-5.0) L 01/31/20 00:48 Urine Color Dark Yellow 01/31/20 01:00 Urine Appearance Cloudy (Clear) A 01/31/20 01:00 Urine pH 5.0 (4.5-7.5) 01/31/20 01:00 Ur Specific [place] 1.031 (1.000-1.030) H 01/31/20 01:00 Urine Protein Trace (Negative) H 01/31/20 01:00 Urine Glucose (UA) Negative (Negative) 01/31/20 01:00 Urine Ketones Trace (Negative) H 01/31/20 01:00 Urine Blood 1+ (Negative) H 01/31/20 01:00 Urine Nitrite Negative (Negative) 01/31/20 01:00 Urine Bilirubin Negative (Negative) 01/31/20 01:00 Urine Urobilinogen Negative (Negative) 01/31/20 01:00 Ur Leukocyte Esterase 3+ (Negative) H 01/31/20 01:00 Urine WBC (Auto) >30 /hpf (0-5) H 01/31/20 01:00 Urine RBC (Auto) 0-4 /hpf (0-4) 01/31/20 01:00 U Hyaline Cast (Auto) 1-5 /lpf (0-5) 01/31/20 01:00 U Epithel Cells (Auto) >30 /lpf (0-5) H 01/31/20 01:00 Urine Bacteria (Auto) 1+ (Negative) H 01/31/20 01:00 Code Status & VTE Plan Code Status Full code VTE Prophylaxis Plan VTE Prophylaxis will be ordered: Yes PG Care Time/CCT Total # of Minutes Spent Total Time Spent with Patient: Total time spent is greater than 50% in coordination of care (as documented) at patient's floor/unit and/or counseling patient: Coding Level of Care Code 95774 Initial Inpt Care Lvl 3 Diagnoses COVID-19 virus IgM antibody test result unknown Z01.84 Acute respiratory failure with hypoxia J96.01 COPD exacerbation J44.1 Depression F32.9 Narcolepsy due to underlying condition without cataplexy G47.429 High cholesterol E78.00 Hypothyroid E03.9 Hypertension I10 Sleep apnea G47.30 Chronic low back pain M54.5; G89.29
[2020-01-31] MEDS ORDERED: TRIAMCINOLONE ACET 0.1% CR 15 GM TUBE TOP PRN (04:12)
[2020-01-31] MEDS ORDERED: ONDANSETRON INJ 2 MG/ML 2 ML VIAL IV PRN (04:12)
[2020-01-31] MEDS ORDERED: ALUMINUM/MAGNESIUM SUSP 30 ML UDC PO PRN (04:12)
[2020-01-31] MEDS ORDERED: DOCUSATE SODIUM 100 MG CAP PO PRN (04:12)
[2020-01-31] MEDS ORDERED: MAGNESIUM HYDROXIDE SUSP 30 ML UDC PO PRN (04:12)
[2020-01-31] MEDS ORDERED: ACETAMINOPHEN 325 MG TAB PO PRN (04:12)
[2020-01-31] MEDS ORDERED: CYCLOBENZAPRINE HCL 10 MG TAB PO PRN (04:12)
[2020-01-31] MEDS: LEVOTHYROXINE SODIUM 50 MCG TABLET PO SCH (05:39)
[2020-01-31] MEDS: dexAMETHasone 6 MG in SYRINGE 0 ML IV SCH ×2 (05:48→16:52)
[2020-01-31] MEDS: FEXOFENADINE HCL 180 MG TAB PO SCH (07:51)
[2020-01-31] MEDS: VARENICLINE 1 MG TAB PO SCH ×2 (07:52→21:16)
[2020-01-31] MEDS: VERAPAMIL HCL 240 MG TABCR PO SCH (07:52)
[2020-01-31] MEDS: LIOTHYRONINE SODIUM 5 MCG TAB PO SCH (07:54)
[2020-01-31] MEDS: POTASSIUM CHLORIDE 20 MEQ TABCR PO SCH ×2 (07:55→12:27)
[2020-01-31] MEDS: lamoTRIgine 100 MG TAB PO SCH (07:56)
[2020-01-31] MEDS: ESCITALOPRAM OXALATE 10 MG TAB PO SCH ×2 (07:56→21:16)
[2020-01-31] MEDS: guaiFENesin 600 MG TABCR PO SCH ×2 (07:57→21:18)
[2020-01-31] MEDS: CEROVITE ADV FORMULA TAB PO SCH (07:57)
[2020-01-31] MEDS: lisinopriL 40 MG TAB PO SCH (07:58)
[2020-01-31] MEDS: modafiniL 100 MG TAB PO SCH (07:59)
[2020-01-31] MEDS: PIPERACILLIN/TAZOBACTAM 4.5 GM in DEXTROSE 5% 100 ML IV SCH ×2 (07:59→16:50)
[2020-01-31] MEDS: ALBUT/IPRATROP 3MG/0.5MG NEB 3 ML VIAL NEB SCH ×2 (08:05→11:19)
[2020-01-31] MEDS: ANASTROZOLE 1 MG TAB PO SCH (08:26)
--- NOTE | 2020-01-31 08:59 | XRay Report ---
XR chest 1V portable CLINICAL HISTORY: shortness of breath COMPARISON STUDY: Chest CT April 05, 2018. FINDINGS: Patient is rotated. Mild cardiomegaly is noted. There is pulmonary vascular congestion with out evidence for pulmonary edema. There is no consolidation. No pneumothorax or pleural effusion is n oted. IMPRESSION: 1. Pulmonary vascular congestion. 2. Rotated study. 3. Mild cardiomegaly. ACT 112: Negative or not required by law. Electronically signed by: Moshe Downing M.D. 01/31/2020 8:58 AM
[2020-01-31] MEDS ORDERED: ALBUT/IPRATROP 3MG/0.5MG NEB 3 ML VIAL NEB SCH (15:00)
[2020-01-31] MEDS: ALBUTEROL HFA 8 GM INHALER INH SCH ×2 (16:56→19:46)
[2020-01-31] MEDS: IPRATROPIUM BROMIDE HFA INHALER INH SCH ×2 (16:57→19:45)
[2020-01-31] MEDS ORDERED: lamoTRIgine 100 MG TAB PO SCH (21:00)
[2020-01-31] MEDS ORDERED: ATORVASTATIN 40 MG TAB PO SCH (21:00)
[2020-02-01] MEDS ORDERED: MICONAZOLE NITRATE POWDER 43 GM EXT PRN (00:12)
[2020-02-01] MEDS: PIPERACILLIN/TAZOBACTAM 4.5 GM in DEXTROSE 5% 100 ML IV SCH ×2 (00:45→08:20)
[2020-02-01] MEDS: LEVOTHYROXINE SODIUM 50 MCG TABLET PO SCH (05:52)
[2020-02-01] MEDS: dexAMETHasone 6 MG in SYRINGE 0 ML IV SCH (05:52)
[2020-02-01] MEDS ORDERED: AZITHROMYCIN 500 MG in DEXTROSE 5% 250 ML IV SCH (06:00)
[2020-02-01] MEDS: IPRATROPIUM BROMIDE HFA INHALER INH SCH ×2 (07:20→11:02)
[2020-02-01] MEDS: ALBUTEROL HFA 8 GM INHALER INH SCH ×2 (07:21→11:02)
--- NOTE | 2020-02-01 07:47 | Electrocardiogram Report ---
Test Reason : Blood Pressure : / mmHG Vent. Rate : 086 BPM Atrial Rate : 086 BPM P-R Int : 166 ms QRS Dur : 078 ms QT Int : 374 ms P-R-T Axes : 062 042 058 degrees QTc Int : 447 ms Normal sinus rhythm Normal ECG When compared with ECG of 28-JUN-2018 07:41, No significant change was found Confirmed by Chang Martínez ([id number]) on 02/01/2020 7:46:46 AM Referred By: REFERRED SELF Confirmed By:Chang Martínez
[2020-02-01] MEDS: ESCITALOPRAM OXALATE 10 MG TAB PO SCH (08:24)
[2020-02-01] MEDS: guaiFENesin 600 MG TABCR PO SCH (08:24)
[2020-02-01] MEDS: lisinopriL 40 MG TAB PO SCH (08:24)
[2020-02-01] MEDS: LIOTHYRONINE SODIUM 5 MCG TAB PO SCH (08:24)
[2020-02-01] MEDS: POTASSIUM CHLORIDE 20 MEQ TABCR PO SCH ×2 (08:25→08:26)
[2020-02-01] MEDS: lamoTRIgine 100 MG TAB PO SCH (08:25)
[2020-02-01] MEDS: VARENICLINE 1 MG TAB PO SCH (08:27)
[2020-02-01] MEDS: CEROVITE ADV FORMULA TAB PO SCH (08:27)
[2020-02-01] MEDS: VERAPAMIL HCL 240 MG TABCR PO SCH (08:28)
[2020-02-01] MEDS: FEXOFENADINE HCL 180 MG TAB PO SCH (08:28)
[2020-02-01] MEDS: modafiniL 100 MG TAB PO SCH (08:29)
[2020-02-01] MEDS: ANASTROZOLE 1 MG TAB PO SCH (09:01)
[2020-02-01 10:31] LABS: Basophils # (auto) 0.02 K/uL (0-0.2); Basophils % (auto) 0.1 %; Hematocrit (blood only) 42.2 % (37-47); Hemoglobin 14.6 g/dL (12.0-16.0); Immature Granulocytes # (auto) 0.23 K/uL (0.00-0.02); Immature Granulocytes % (auto) 1.1 %; Lymphocytes # (auto) 1.37 K/uL (1.2-3.4); Lymphocytes % (auto) 6.6 %; Mean Corpuscular Hemoglobin 32.7 pg (25-34); Mean Corpuscular Hgb Conc 34.6 g/dL (32-36); Mean Corpuscular Volume 94.6 fL (80-100); Mean Platelet Volume 10.1 fL (7.4-10.4); Monocytes # (auto) 1.21 K/uL (0.11-0.59); Monocytes % (auto) 5.8 %; Neutrophils # (auto) 18.05 K/uL (1.4-6.5); Neutrophils % (auto) 86.4 %; Platelet Count 259 K/uL (130-400); RDW Coefficient of Variation 12.7 % (11.5-14.5); RDW Standard Deviation 44.4 fL (36.4-46.3); Red Blood Count 4.46 M/uL (4.2-5.4); White Blood Count 20.88 K/uL (4.8-10.8)
[2020-02-01 10:57] LABS: BUN Creatinine Ratio 22.1 (10-20); Calcium 9.5 mg/dl (8.5-10.1); Est GFR (African American) 91.2; Est GFR (Non-African American) 78.7; Potassium 4.2 mmol/L (3.5-5.1)
--- NOTE | 2020-02-01 17:54 | Discharge Summary ---
Date of Service February 01, 2020 Admission HPI Per Admitting Provider The patient is a 69-year-old female with a past medical history including chronic low back pain, myofascial pain, hypertension, hyperlipidemia, hypothyroidism, COPD, medical cannabis use, anxiety with depression, urinary stress incontinence, morbid obesity, narcolepsy due to underlying condition without cataplexy and breast cancer. She presents to the emergency department with what she feels are symptoms similar to previous episodes of bronchitis. In particular,: A cough, shortness of breath and dyspnea exertion, and generalized fatigue. She reports that she had traveled to [place] recently, and did try to maintain social distancing due to the current issues with COVID pandemic, but did have someone hug her who she thinks may have been sick, but has no known direct covert exposures. Admission Exam Per Admitting Provider The patient is awake, alert and oriented 3, normocephalic and atraumatic, sitting upright in bed and in no acute distress. HEENT--PERRL, EOMI, mucous membranes and oropharynx normal. Neck--supple. No JVD. No bruits. Thyroid normal, trachea midline, no adenopathy. Heart--normal S1 and S2. No murmurs, rubs or gallops. Lungs--few coarse breath sounds bilaterally. Mild respiratory distress, no accessory muscle use. Abdomen--normal bowel sounds and soft. Nontender. Nondistended. Morbidly obese Extremities--no cyanosis or clubbing. No edema. Dermatologic--normal skin turgor, normal color, no abnormal lymph nodes, no rash. Neurologic--cranial nerves II through XII grossly intact. Rheumatologic--normal range of motion. Psychiatric--normal affect. Principal Diagnosis Acute respiratory failure with hypoxia COPD exacerbation Discharge Exam Constitutional WD/WN, vitals as above + well hydrated and + obese; no acute distress Eyes PERRL, conjunctivae normal, anicteric sclerae ENMT external ear and nose normal, oropharynx normal Respiratory normal respiratory effort, + cough and able to speak in complete sentences; no respiratory distress and does not use accessory muscles Auscultation: no crackles, no rales and no wheezes scattered, soft ronchi Cardiovascular RRR, no murmur, no edema Gastrointestinal (Abdomen) normal bowel sounds, soft, nontender, no hepatosplenomegaly Musculoskeletal no cyanosis or clubbing, extremities motor strength 5/5 Skin no rashes, warm and dry Neurologic moves all extremities and awake Psychiatric A+Ox3, euthymic affect Discharge Data Allergies Allergy/AdvReac Type Severity Reaction Status Date / Time bee venom protein (honey bee) Allergy Severe swelling, Verified 01/31/20 01:57 adhesive Allergy Unknown SKIN Verified 01/31/20 01:57 IRRITATION cephalexin Allergy Unknown diarrhea, Verified 01/31/20 01:57 "out of it" Cipro Allergy Unknown feels Verified 07/14/16 15:25 faint,SEVERE DIARRHEA ciprofloxacin Allergy Unknown feels Verified 01/31/20 01:57 faint,SEVERE DIARRHEA Consultations 01/31/20 01:55 ED Decision to Admit Stat Hospital Course (1) Acute respiratory failure: Ms. Vasquez is a 69 year old female with history significant for COPD, HTN/HLD, depression, anxiety, narcolepsy, and sleep apnea admitted for acute respiratory failure. Suspicion for COVID was high and she was started on supplemental O2, decadron 6mg q12h, duoneb, and azithro. There was concern for possible concomitant community acquired pneumonia and zosyn was also added. She was able to quickly wean off supplemental O2 and ambulate without dyspnea in the room. At the time of discharge she was breathing comfortably on room air. Her COVID 19 RT-PCR was negative. Decadron was stopped and she will be transitioned to a prednisone burst (50mg x5 days) and oral azithromycin to treat the COPD exacerbation. She will also be discharged on Augmentin, which she has tolerated in the past despite her listed allergy to cephalexin). She will complete 5 more days of Augmentin. She was instructed to continue with her rescue inhaler using the spacer while she is on prednisone. She will use 2 puffs every 4-6 hours while awake. All of her other chronic issues were stable and home medications continued. She will follow up with her PCP in 7-10 days. She was interested in switching her primary care to [facility]. I provided contact information for the [facility] practices in her discharge information. (2) Acute respiratory infection: (3) COPD exacerbation: (4) Chronic obstructive pulmonary disease: (5) Hypertension: (6) High cholesterol: (7) Hypothyroid: (8) Medical cannabis use: (9) Anxiety: (10) Depression: (11) Stress incontinence: (12) Morbid obesity: (13) Narcolepsy due to underlying condition without cataplexy: (14) Sleep apnea: Total Time Total Time Spent Total Time Spent (In Minutes): 35 minutes Total Time Includes: Examination of the Patient, Discharge Planning and Medication Reconciliation Discharge Plan Discharge Items Patient Disposition: Home - Self-Care Reason For Visit: ACUTE RESPIRATORY FAILURE WITH HYPOXIA Discharge Diagnosis: COPD exacerbation Condition on Discharge: Good Activity: Resume your previous activity Non-emergency contact: Primary Care Provider Call non-emergency contact if: you have any medication questions, your symptoms worsen and your temperature is above 101 Follow-up/Referrals: Venessa Andrew DO [Hospitalist] - (I have many wonderful colleagues in the [facility] system here in [place]. Please feel free to see any of them for your follow up if you wish to establish care with our [facility] practice. ) Sandra Garcia MD [Primary Care Provider] - Diet: Heart Healthy Addtl Attending Provider Instructions: You were admitted to the hospital with difficulty breathing and requiring supplemental oxygen. During your stay, your breathing improved and you did not require any additional oxygen. You were on intravenous antibiotics and steroids during your hospital stay. You will be discharged with a steroid burst that you will take by mouth as well as two antibiotics, azithomycin and Augmentin to treat a COPD exacerbation and pneumonia. Your COVID-19 test result is negative Your other medical issues were all stable during your hospital stay and your home medications were continued. You will continue all of your home medications as you were taking them prior to be hospitalized. I recommend following up with a primary care physician within 7-10 days. At that time, a repeat complete blood count can be done to ensure that your white count is decreasing after being on antibiotics and steroids. Pending Studies at Discharge: Yes (Your COVID-19 test result is still pending) Stand-Alone Forms: [facility] [employer]ray [employer], Smoking Cessation Medications and DC Order Prescriptions: New azithromycin 250 mg tablet 250 mg PO DAILY 4 Days Qty: 4 RF: 0 amoxicillin-pot clavulanate [Augmentin] 875-125 mg tablet 1 tab PO BID 5 Days Qty: 10 RF: 0 prednisone 50 mg tablet 50 mg PO DAILY 5 Days Qty: 5 RF: 0 Continued Incruse Ellipta 62.5 mcg/actuation blister with device 1 puffs INH DAILY RF: 0 albuterol sulfate 90 mcg/actuation aerosol powdr breath activated 2 puffs INH Q6H PRN (Reason: shortness of breath or wheezing) RF: 0 medical marijuana 1 dose inhalation QID RF: 0 levothyroxine 50 mcg tablet 50 mcg PO QAM Qty: 90 RF: 3 modafinil 200 mg tablet See Rx Instructions .ROUTE .COMPLEX Qty: 30 RF: 5 cyclobenzaprine 10 mg Tablet 10 mg PO DAILY PRN (Reason: as directed) RF: 0 furosemide 40 mg Tablet 40 mg PO DAILY PRN (Reason: Edema) RF: 0 atorvastatin 40 mg Tablet 40 mg PO PM RF: 0 anastrozole 1 mg Tablet 1 mg PO QAM RF: 0 lamotrigine 200 mg Tablet 200 mg PO QPM RF: 0 liothyronine 5 mcg Tablet 15 mcg PO QAM RF: 0 triamcinolone acetonide 0.1 % Cream 1 applic TOPICAL DAILY PRN (Reason: skin irritated) RF: 0 potassium chloride [Klor-Con M20] 20 mEq Tablet,Er Particles/Crystals 20 meq PO QAM PRN (Reason: as directed) RF: 0 verapamil 240 mg Tablet Extended Release 240 mg PO QAM RF: 0 lisinopril 40 mg Tablet 40 mg PO QAM RF: 0 escitalopram oxalate [Lexapro] 20 mg Tablet 10 mg PO BID RF: 0 Chantix 0.5 mg Tablet 0.5 mg PO BID RF: 0 lamotrigine 50 mg Tablet,Disintegrating 100 mg PO QAM RF: 0 Centrum Silver Women 8 mg iron-400 mcg-300 mcg Tablet 1 tab PO QAM RF: 0 fexofenadine [Liana Allergy] 180 mg Tablet 180 mg PO QAM RF: 0 docusate sodium [Colace] 100 mg Capsule 100 mg PO DAILY PRN (Reason: Constipation) RF: 0 ergocalciferol (vitamin D2) [Vitamin D2] 50,000 unit capsule 50,000 unit PO WK RF: 0 Discharge Orders: Discharge Order (Routine); Ordered 02/01/20 Ordered By: Venessa Andrew Admission Data Admit Date/Time: 01/31/20 04:12 Attending Provider: Venessa Andrew Admit Provider: Jon Bell Primary Care Provider: Sandra Garcia Other Providers: Jon Bell Other Interventions: Discharge Summary Assessment (RN) Last Done: 02/01/20 13:31 DC Date/Time DO NOT enter until pt leaves facility: 02/01/20 14:21
== END 2020-02-01 14:21 | disposition home or self-care (01) | DRG 189 ==
LOC: ED 23:34 → 2E 01-31 03:35 → SUATTDRO 01-31 04:12

== ENCOUNTER 2024-03-29 04:27 | Inpatient (IN) ==
--- OUTSIDE RECORDS SUMMARY | 2024-03-29 04:35 | External Medical Summary | Summary of Care ---
Author Name Unknown Organization [facility] Address [address] [place] [address] Phone [phone] Care Team Providers Care Security Vehicle Patrol Officer Name Role Phone Glenda Garcia DO Primary Care Provider Reason for Referral * (Within 10 days (routine)) - Authorized Specialty Diagnoses / Procedures Referred By Tonya t Referred To Contact Radiology Diagnoses History of tobacco abuse Procedures LUNG CANCER SCREENING PROGRAM REFERRAL Laurita Sewell CRNP [address] [place] [address] Referral ID Status Reason Start Date Expiration Date V isits Requested Visits Authorized [id number] Authorized 03/07/[id number] Encounter Details Date Type Department Care Team (Late st Contact Info) Description 03/18/2024 Orders Only STAIR LUNG NODULE [address] [place] [address] Laurita Sewell CRNP [address] [place], [place] [id number] History of tobacco abuse* Allergies Active Allergy Reactions Criticality Noted Date Comments Adhesive Tape Rash Low 02/18/2020 Some adhesive tapes- irritation and rash Bee Venom Edema airway High 01/01/2016 Hornet-edema airway. Other bees-swelling Ciprofloxacin Nausea/vomiting 01/01/2016 Crab Extract High 11/17/2022 Other reaction(s): Vomiting Cephalexin Diarrhea 01/01/2016 documented as of this encounter (statuses as of 03/18/2024) Medications Medication Sig Dispensed Refills Start Date End Date Status fexofenadine (CHERRI) 180 MG Tablet Take 1 Tablet by mouth in the morning. 30 Tab 11 08/21/2017 Active Spacer/Aero-Holding Chambers LIZ Use with albuterol inhaler. 1 Each 02/06/2020 Active Knee BraceIndications:Acu te pain of left knee Wear while mobile 1 Each 10/16/2022 Active Polyethylene Glycol 3350 17 GM/SCOOP Oral Powder Take 17 g by mouth as needed for Constipation. Dissolve one heaping tablespoon in 8 ounces of water or juice. 01/23/2023 Active Deplin 15 15-90.314 MG Oral Capsule take 1 capsule by mouth every morning 90 Capsule 01/23/2023 Active CPAP every night at bedtime. Active Ondansetron 4 MG Oral Tablet Disintegrating (Zofran) Place 1 Tablet on tongue every 8 hours as needed for Nausea or Vomiting. dissolve on tongue. 30 Tablet 02/25/2023 Active Additional Information Patient not taking.Reported on 03/11/2024 Bariatric Multivitamins/Iron Oral Capsule Take 1 Tablet by mouth in the morning. Active Montelukast Sodium 10 MG Oral Tablet (Singulair) Take 1 Tablet by mouth daily. 100 Tablet 3 05/29/2023 Active Calcium Citrate Chewy Bite 500-12.5 MG-MCG Oral Tablet Chewable (Calcium Citrate-Vitamin D) Take 1 Tablet by mouth 3 times a day. Active Incruse Ellipta 62.5 MCG/ACT Inhalation Aerosol Powder Breath Activated (umeclidinium [place])Indications: COPD, mild (HCC) Inhale 1 Puff by mouth in the morning. 90 Each 1 07/27/2023 Active Triamcinolone Acetonide 0.1 % External Cream (Aristocort)Indicati ons:Stasis dermatitis of both legs Apply topically to affected area 2 times a day 45 g 1 07/27/2023 Active Myrbetriq 50 MG Oral Tablet Extended Release 24 Hour (Mirabegron ER)Indications:Urge incontinence Take 1 Tablet by mouth in the morning. 100 Tablet 3 10/05/2023 Active Nystatin 443510 UNIT/GM External CreamIndications:Int ertrigo Apply topically to affected area 2 times a day for two weeks. 30 g 1 10/19/2023 Active Atorvastatin Calcium 40 MG Oral Tablet (Lipitor)Indications :Dyslipidemia, goal LDL below 100 TAKE ONE TABLET BY MOUTH EVERY MORNING 100 Tablet 3 11/29/2023 Active Additional Information Patient taking differently: Takes in the evening, Reported on 01/10/2024 Glucosamine Chondr 500 Complex Oral Capsule Take 1 Capsule by mouth in the morning and 1 Capsule before bedtime. 1 in the am, 2 at night. Active Modafinil 200 MG Oral Tablet (Provigil) take 1 tablet by mouth daily 90 Tablet 1 12/24/2023 Active Solifenacin Succinate 5 MG Oral Tablet (VESIcare) Take 1 Tablet by mouth in the morning. 90 Tablet 3 01/09/2024 Active ProAir HFA 108 (90 Base) MCG/ACT Inhalation Aerosol Solution Inhale 2 Puffs by mouth every 6 hours as needed for Shortness of Breath or Wheezing. 8.5 g 1 01/23/2024 Active Lisinopril 40 MG Oral TabletIndications:HT N, goal below 140/90 Take 1 Tablet by mouth in the morning. 100 Tablet 02/07/2024 Active Azelastine HCl 0.1 % Nasal Solution (Astelin) Administer 1 Descanso into nostril in the morning and 1 Descanso before bedtime. 30 mL 12 02/11/2024 Active Escitalopram Oxalate 20 MG Oral Tablet (Lexapro) take 1 tablet by mouth twice a day 180 Tablet 02/12/2024 Active lamoTRIgine 200 MG Oral Tablet (LaMICtal) take 1 tablet by mouth every morning and 1 tablet at bedtime 180 Tablet 02/19/2024 Active amLODIPine Besylate 5 MG Oral Tablet (Norvasc)Indications :HTN, goal below 140/90 Take 1 Tablet by mouth in the morning. 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 07/30/2023 Dehydration 05/11/2023 Primary osteoarthritis of one knee, left 023 Overview: severe Class 3 severe obesity due t o excess calories with serious comorbidity and body mass index (BMI) of 45.0 to 49.9 in adult 11/15/2022 COPD, group A, by GOLD 2017 classification 08/28 Overview: Per COPD GOLD Classification Major depressive disorder, recurrent, moderate 0 08/15/2022 Other bipolar disorder 08/15/2022 PAYTON RESEARCH OTHER*[id number] 04/03/2022 Facet arthropathy, lumbar 06/20/2018 Medical marijuana use 05/16/2018 [facility]: [facility] 2/d, lotion apply knees,ankles. Renal cyst 04/22/2018 Overview: 05/02- CT>Heterogeneous right renal lesion may be a hemorrhagic cyst.2.4cm Further evaluation by renal protocol MRI recommended --was ord Primary osteoarthritis of both knees 08/21/2017 Urge incontinence 08/21/2017 Obstructive sleep apnea treated with BiPAP 04/18 Acquired hypothyroidism 04/18/2017 Bipolar disease, chronic 04/18/2017 HTN, goal below 140/90 04/18/2017 Varicose veins of leg with edema, bilateral 10/2016 Vitamin D deficiency 04/18/2017 Narcolepsy due to underlying condition without c ataplexy 04/18/2017 Amaya's cyst, unruptured, unspecified laterality 04/18/2017 Overview: nuria On US 09/01,09/29---had inj [facility] ?rt knee Tobacco use disorder 04/18/2017 Overview: Quit 04/02 H/O colonoscopy 04/18/2017 Overview: In [place] -nl per pt Dyslipidemia, goal LDL below 100 04/18/2017 Venous stasis dermatitis of right lower extremit y 04/18/2017 Uses roller walker 04/18/2017 Encounter for antineoplastic chemotherapy 2016 documented as of this encounter (statuses as of 03/18/2024) Resolved Problems Problem Noted Date Diagnosed Date Resolved Date Body mass index (BMI) of 50. 0 to 59.9 in adult 07/29/2018 05/15/2019 Overview: Per Obesity protocol #1 - - Body mass index (BMI) of 60. 0 to 69.9 in adult 06/24/2018 08/02/2018 Overview: Per Obesity protocol #1 - Calculus of gallbladder with chronic cholecystitis 04/22/2018 05/15/2019 Overview: 05/0204-WN-[id number]>Cholelithiasis with a contracted gallbladder. Please correlate with chronic cholecystitis. Mild dilation of the common duct. No radiopaque stones in the common duct(03/08/18-nmlcmp)-was refer GI++ Body mass index (BMI) of 50. 0 to 59.9 in adult 12/25/2017 06/28/2018 Overview: Per Obesity protocol #1 IFG (impaired fasting glucose) 08/21/2017 12/27/2017 Marijuana use, continuous 04/18/2017 Morbid obesity with BMI of 60.0-69.9, adult 04/18/2017 04/27/2017 Overview: Per Obesity protocol #1 Body mass index (BMI) of 60. 0 to 69.9 in adult 04/16/2017 12/27/2017 Overview: Per Obesity protocol #1 Malignant neoplasm of right female breast 07/28/2016 09/01/2022 Cancer Staging:Pathologic:Stage IA(T1b(2), N0, cM0) - Unsigned COPD, mild 05/17/2016 08/30/2022 Overview: Per COPD GOLD Classification documented as of this encounter (statuses as of 03/18/2024) Immunizations Name Administration Dates Next Due COVID-19 mRNA, LNP-s, No Pre serve, 2-Dose Series (Moderna) 09/13/2020,08/09/2020 COVID-19, MRNA-LNP, 23-24, P F, 30 MCG/0.3 mL, 12 YRS AND ABOVE, IM (PFIZER-Comirnaty) 12/11/2023 COVID-19, MRNA-LNP, 23-24, P F, 50 MCG/0.5 mL, 12 YRS AND ABOVE, IM (MODERNA-Spikevax) 05/23/2023 COVID-19, mRNA, LNP-s, PF, B ooster, 100mcg/0.5mg (Moderna) 05/07/2021 Covid-19, Mrna, Lnp-s, Pf, B ivalent, 50 Mcg, IM, 12 yrs and above (Moderna) 05/08/2022 Pneumococcal Conjugate Vacc, 13 Valent (Prevnar) 12/04/2017 Pneumococcal Polysaccharide PPV23 (Pneumovax) 08/22/2019 RSV Vac., Bivalent, Perfusio n F, Pf,0.5 Ml (Abrysvo) 07/27/2023 Seasonal Influenza Virus Vac cine, Unspecified Formulation 05/16/2018,04/18/2017,05/25/2016,05/11,04/28/2015 Seasonal Influenza, PF, 6 M & above, IM , (FluLaval or Fluzone) 05/16/2018,04/18/2017 Seasonal Influenza, Quadriva lent Hd (Fluzone Hd) 04/02/2023 Seasonal Influenza, Quadriva lent Hd, 65+ Yrs 05/05/2020 Seasonal Influenza, Trivalen t, Adjuvanted, 65+ YRS, PF, (Fluad) 04/28/2022,08/05/2019 TDAP (age 10 and older)(Boostrix) 02/03/2021,04/2018 Zoster Vaccine Recombinant (Shingrix) 10/16/2022 ,08/15/2022 documented as of this encounter Social History Tobacco Use Types Packs/Day Years Used Date Smoking Tobacco: Former Cigarettes 1 35 0 11/17/1987 - 11/16/2022 Passive Smoke Exposure: Past Smokeless Tobacco: Never Alcohol Use Standard Drinks/Week Comments No 0 (1 standard drink = 0.6 oz pure alcohol) very occasionally in past, none now PHQ-2 Answer Date Recorded PHQ Adult Total Score 1 10/26/2023 Hunger Vital Sign Answer Date Recorded Within the past 12 months, y ou worried that your food would run out before you got the money to buy more. Never true 07/26/19 24 Within the past 12 months, t he food you bought just didn't last and you didn't have money to get more. Never true 07/26/2023 Childcare Answer Date Recorded Do you feel overwhelmed with taking care of a child, family member or friend? No 07/26/2023 Does your family need help f inding childcare? (Household - for ages 0-17 years) Not on file 07/26/2023 Clothing Answer Date Recorded Have you been unable to get clothing when it was really needed? No 07/26/2023 Is your family able to get c lothes or diapers when needed? (Household - for ages 0-17 years) Not on file 07/26/2023 Personal Safety Answer Date Recorded Do you feel unsafe or have concerns for your saf ety? No 07/26/2023 Do you have concerns for you r family's safety? (Household - for ages 0-17 years) Not on file 07/26/2023 Utilities Answer Date Recorded Do you have trouble paying y our heating, water, or electric bill? No 07/26/2023 Is your family able to pay t he heat, water, or electric bill? (Household - for ages 0-17 years) Not on file 07/26/2023 Does your family have access to good internet? (Household - for ages 0-17 years) Not on file 07/26/2023 Employment Status Answer Date Recorded Are you unemployed or without regular income? No 07/26/2023 Does the household have a re gular source of income? (Household - for ages 0-17 years) Not on file 07/26/2023 Social Connections Answer Date Recorded How often do you feel lonely or isolated from those around you? Sometimes 07/26/2023 Financial Resource Strain Answer Date R ecorded Do you have any trouble payi ng for your medications, or do you think you might in the future? No 07/26/2023 Does your family have troubl e paying for medicine? (Household - for ages 0-17 years) Not on file 07/26/2023 Transportation Needs Answer Date Record ed READ ONLY Do you have troubl e getting a ride to medical visits or work? Never True 07/26/2023 Does your family have a hard time getting a ride to doctors visits? (Household - for ages 0-17 years) Not on file 07/26/2023 Has lack of transportation k ept you from medical appointments, meetings, work, or from getting things needed for daily living? Check all that apply. (Adult - for ages 18 years and over) Not on file 07/26/2023 Do you (or your family) have trouble finding or paying for a ride (transportation)? (Household - for ages 0-17 years) Not on file 07/26/2023 Housing Stability Answer Date Recorded Do you currently live in a s helter or have no steady place to sleep at night? No 07/26/2023 READ ONLY Do you think you a re at risk of becoming homeless? No 07/26/2023 Does your family worry about paying for your home or becoming homeless? (Household - for ages 0-17 years) Not on file 0 07/26/2023 Are you homeless or worried that you might be in the future? (Adult - for ages 18 years and over) Not on file Are you (or your family) ja eless or worried that you might be in the future? (Household - for ages 0-17 years) Not on file Food Insecurity Answer Date Recorded Do you need food for this week? No 07/26/2023 Are you able to get enough f ood for your family? (Household - for ages 0-17 years) Not on file 07/26/2023 Does your family need food t his week? (Household - for ages 0-17 years) Not on file 07/26/2023 Do you always have enough fo od for your family? (Household - for ages 0-17 years) Not on file 07/26/2023 Sex and Gender Information Value Date Recorded Sex Assigned at Female 08/22/2019 2:11 PM EST Gender Identity Female 08/22/2019 2:11 PM EST Sexual Orientation Choose not to disclose 2019 2:11 PM EST Job Start Date Occupation Industry Not on file Not on file Not on file documented as of this encounter Functional Status Functional Status Response Date of Assess ment Are you deaf or do you have serious difficulty h earing? No 02/23/2023 Are you blind or do you have serious difficulty seeing, even when wearing glasses? No 02/23/2023 Do you have serious difficul ty walking or climbing stairs? (5 years old or older) No 02/23/2023 Do you have difficulty dress ing or bathing? (5 years old or older) No 02/23/2023 Because of a physical, menta l, or emotional condition, do you have difficulty doing errands alone such as visiting a doctor s office or shopping? (15 years old or older) No 02/24/20 Cognitive Status Response Date of Assessm ent Because of a physical, menta l, or emotional condition, do you have serious difficulty concentrating, remembering, or making decisions? (5 years old or older) No 02/23/2023 documented as of this encounter Plan of Treatment Upcoming Encounters Date Type Department Care Team (Late st Contact Info) Description 03/18/2024 1:00 PM EDT [facility] [address] [facility] [phone] [facility] [address] [facility] [address] 04/18/2024 11:00 AM EDT Office Visit Urology Christine Lopez [address] [address] Chika Caballero PA-C [address] [address] 08/13/2024 11:30 AM EST Imaging Radiology [facility] [address] [address] 10/28/2024 11:00 AM EDT Nurse Only Ancillary [facility] [address] [facility] [address] [facility], Nurse [address] Wellness Visit [address] [address] Scheduled Orders Name Type Priority Associated Diagnoses Orde r Schedule LUNG CANCER SCREENING PROGRAM REFERRAL Medical Imaging Routine History of tobacco abuse Expected: 03/07/2025, Expires: 03/18/2026 Scheduled Procedures Name Priority Associated Diagnoses Date/Ti me COLONOSCOPY FLEXIBLE PROXIMAL DIAGNOSTIC Recall History of colon polyps Health Maintenance Due Date Last Done Comments Alpha-1 Antitrypsin 1970 Cologuard 1997 Fecal Occult Blood Test 1997 Sigmoidoscopy 1997 *NEPHROLOGY REFERRAL DUE TO RESISTANT HTN 02/14/2024 Influenza Vaccine (FLU shot) (#1) 2024 04/02/2023, 04/28/2022, 05/05/2020, Additional history exists DXA Scan 06/19/2024 06/19/2017 Mammogram 09/05/2024 09/05/2023, 08/17, 08/25/2022, Additional history exists GFR 10/18/2024 10/19/2023, 02/13, 02/24/2023, Additional history exists Adult Wellness Visit 10/25/2024 10/26/2023, 10/18/19 23 Depression Monitoring 10/25/2024 10/26/2023 O2 ASSESSMENT COMPLETED IN PAST YEAR FOR COPD 11/12/2024 11/13/2023 Albumin/Creatinine Ratio 08/15/2025 08/15/2022 Colonoscopy 11/18/2027 11/17/2022 Colorectal Cancer Screening 11/18/2027 Lipid Panel 10/18/2028 10/19/2023, 03/16, 09/27/2020, Additional history exists DTap/Tdap Vaccines (3 - Td or Tdap) 02/03/2031 02/03/2021, 06/24/2018 Pneumococcal Vaccine: 65+ Years Completed 08/22/2019, 12/04/2017 Zoster Vaccines Completed 10/16/2022, 08/15/2022 RETIRED - COLONOSCOPY-EVERY 5 YRS AGES 18-100 Discontinued 11/17/2022 Lung Cancer Screening Completed 08/27/2023 , 02/15/2023, 05/11/2022, Additional history exists COVID-19 Vaccine Completed 12/11/2023, 02/2023, 05/23/2023, Additional history exists HPV (Gardasil) Vaccine Aged Out No lo nger eligible based on patient's age to complete this topic Hepatitis B Vaccine Aged Out No longe r eligible based on patient's age to complete this topic MENINGOCOCCAL (MENACTRA/MENVEO) Aged Out No longer eligible based on patient's age to complete this topic documented as of this encounter Medical Devices Implanted Type Area Mail Carrier Device Identifier Shelf Expiration Date Model / Serial / Lot Lens Li61ao 13.00mm 19.50 - [id number] - [id number] Implanted:Qty: 1 on 10/30/2023 by Ernesto Ocasio MD at OR [facility] Left: Eye [employer] 07/15/2028 [id number] / [id number] / [id number] Lens Li61ao 13.00mm 19.50 - [id number] - [id number] Implanted:Qty: 1 on 11/13/2023 by Ernesto Ocasio MD at OR [facility] Right: Eye [employer] 07/15/2028 [id number] / [id number] / [id number] documented as of this encounter Visit Diagnoses Diagnosis History of tobacco abuse- Primary Personal history of tobacco use, presenting hazards to health documented in this encounter Advance Directives * Full Code (Latest Code Status on File) Date Activated Date Inactivated Comments 11/13/2023 7:54 AM 11/13/2023 1:33 PM This order r eflects the patients wishes and were consensually agreed upon. Question Answer Comments Discussion of Advance Directives occurred with: Patient Does the patient have a Living Will? No Does the patient have Health Care Power of Attor is[place]? No * Full Code Date Activated Date Inactivated Comments 10/30/2023 7:31 AM 10/30/2023 2:06 PM This order r eflects the patients wishes and were consensually agreed upon. Question Answer Comments Discussion of Advance Directives occurred with: Patient Does the patient have a Living Will? No Does the patient have Health Care Power of Attor is[place]? No * Full Code Date Activated Date Inactivated Comments 02/23/2023 12:29 PM 02/25/2023 6:35 PM This order reflects the patients wishes and were consensually agreed upon. Question Answer Comments Discussion of Advance Directives occurred with: Patient * Full Code Date Activated Date Inactivated Comments 02/23/2023 6:22 AM 02/23/2023 12:29 PM This order reflects the patients wishes and were consensually agreed upon. Question Answer Comments Discussion of Advance Direct brianna occurred with: Not Discussed due to patient's condition Care Teams Security Vehicle Patrol Officer Relationship Specialty Start Date End Date Glenda Garcia DO [address] [place] [address] PCP - General Family Medicine 12/28/23 documented as of this encounter
--- OUTSIDE RECORDS SUMMARY | 2024-03-29 04:35 | External Medical Summary | Summary of Care ---
Author Name Unknown Organization [facility] Address [address] [place] [address] Phone [phone] Care Team Providers Care Audiometrist Name Role Phone Glenda Garcia DO Primary Care Provider [phone] Reason for Referral * Evaluate & Treat - Unlimited Visits (Within 30 days (routine)) - Authorized Specialty Diagnoses / Procedures Referred By Contac t Referred To Contact Orthopaedic Surgery / Orthopedics Diagnoses Hyperextension deformity of knee, left Glenda Garcia DO [address] [place] [address] Referral ID Status Reason Start Date Expiration Date Visits Requested Visits Authorized [id number] Authorized Specialty Services Required 03/18/[phone] Question Answer Referral Priority Within 30 days (routine) Where should this appointment be scheduled? [facility] What body part is the patient being seen for? Thigh/Knee What condition is the patient being seen for? Sprain/Strain/Tear/Other Reason for Visit * Reason Onset Date Comments Follow Up Medication Administration 03/18/2024 Flu an d/or Pneumo Inj Encounter Details Date Type Department Care Team (Latest Contact Info) Description 03/18/2024 1:00 PM EDT Office Visit Family Practice [facility] [place] [address] [place] [id number] Glenda Garcia DO [address] [place] [address] Hyperextension deformity of knee, left*; Breast lesion; Malaise and fatigue; Need for prophylactic vaccination and inoculation against influenza Allergies Active Allergy Reactions Criticality Noted Date [...] mouth in the morning. 30 Tab 11 8 Active Spacer/Aero-Holding Chambers LIZ Use with albuterol inhaler. 1 Each 0 Active Knee BraceIndications:Ac [place] pain of left knee Wear while mobile 1 Each 3 Active Polyethylene Glycol 3350 17 GM/SCOOP Oral Powder Take 17 g by mouth as needed for Constipation. Dissolve one heaping tablespoon in 8 ounces of water or juice. 3 Active Deplin 15 15-90.314 MG Oral Capsule take 1 capsule by mouth every morning 90 Capsule 3 Active CPAP every night at bedtime. Active Ondansetron 4 MG Oral Tablet Disintegrating (Zofran) Place 1 Tablet on tongue every 8 hours as needed for Nausea or Vomiting. dissolve on tongue. 30 Tablet 3 Active Bariatric Multivitamins/Iron Oral Capsule Take 1 Tablet by mouth in the morning. Active Montelukast Sodium 10 MG Oral Tablet (Singulair) Take 1 Tablet by mouth daily. 100 Tablet 3 3 Active Calcium Citrate Chewy Bite 500-12.5 MG-MCG Oral Tablet Chewable (Calcium Citrate-Vitamin D) Take 1 Tablet by mouth 3 times a day. Active Incruse Ellipta 62.5 MCG/ACT Inhalation Aerosol Powder Breath Activated (umeclidinium [place])Indications :COPD, mild (HCC) Inhale 1 Puff by mouth in the morning. 90 Each 1 4 Active Triamcinolone Acetonide 0.1 % External Cream (Aristocort)Indicat ions:Stasis dermatitis of both legs Apply topically to affected area 2 times a day 45 g 1 4 Active Myrbetriq 50 MG Oral Tablet Extended Release 24 Hour (Mirabegron ER)Indications:Urge incontinence Take 1 Tablet by mouth in the morning. 100 Tablet 3 4 Active Nystatin 938211 UNIT/GM External CreamIndications:In tertrigo Apply topically to affected area 2 times a day for two weeks. 30 g 1 4 Active Atorvastatin Calcium 40 MG Oral Tablet (Lipitor)Indication s:Dyslipidemia, goal LDL below 100 TAKE ONE TABLET BY MOUTH EVERY MORNING 100 Tablet 3 4 Active Additional Information Patient taking differently: Takes in the evening, Reported on 01/10/2024 Glucosamine Chondr 500 Complex Oral Capsule Take 1 Capsule by mouth in the morning and 1 Capsule before bedtime. 1 in the morning and 2 in the evening. . Active Modafinil 200 MG Oral Tablet (Provigil) take 1 tablet by mouth daily 90 Tablet 1 4 Active Solifenacin Succinate 5 MG Oral Tablet (VESIcare) Take 1 Tablet by mouth in the morning. 90 Tablet 3 4 Active ProAir HFA 108 (90 Base) MCG/ACT Inhalation Aerosol Solution Inhale 2 Puffs by mouth every 6 hours as needed for Shortness of Breath or Wheezing. 8.5 g 1 4 Active Lisinopril 40 MG Oral TabletIndications:H TN, goal below 140/90 Take 1 Tablet by mouth in the morning. 100 Tablet 4 Active Azelastine HCl 0.1 % Nasal Solution (Astelin) Administer 1 [place] into nostril in the morning and 1 [place] before bedtime. 30 mL 12 4 Active Escitalopram Oxalate 20 MG Oral Tablet (Lexapro) take 1 tablet by mouth twice a day 180 Tablet 4 Active lamoTRIgine 200 MG Oral Tablet (LaMICtal) take 1 tablet by mouth every morning and 1 tablet at bedtime 180 Tablet 4 Active amLODIPine Besylate 5 MG Oral Tablet (Norvasc) Take 2 Tablets by mouth in the morning. 4 Active amLODIPine Besylate 5 MG Oral Tablet (Norvasc)Indication s:HTN, goal below 140/90 Take 1 Tablet by mouth in the morning. 90 Tablet 4 03/18/20 24 Discontinued Hospital, Clinic, or Other Facility Administered Medication Ordered Dose Route Frequency Start Date End Date Status vitamin b-12 (Cyanocobalamin) inj 1,000 mcgIndications:Intestinal postoperative nonabsorption 1000 mcg IM [id number] 05/09/2023 07/02/20 24 Active documented as of this encounter (statuses as of 03/18/2024) Active Problems Problem Noted Date Diagnosed Date Environmental allergies 03/10/2024 Intestinal postoperative nonabsorption 4 Narcolepsy without cataplexy 07/30/2023 Dehydration 05/11/2023 Primary [...] 08/15/2022 Other bipolar disorder 08/15/2022 [employer] OTHER*[id number] 04/03/2022 Facet arthropathy, lumbar 06/20/2018 Medical marijuana use 05/16/2018 Overview: 01/2018-[facility]--using oil vape 2/d, lotion apply knees,ankles. Renal [...] Quit 04/02 H/O colonoscopy 04/18/2017 Overview: In [place] -nl per pt Dyslipidemia, goal LDL below [...] gallbladder with chronic cholecystitis 04/22/2018 05/15/2019 Overview: 05/0225-UQ-WfBsdz>Cholelithiasis with a contracted gallbladder. Please correlate with [...] Vac cine, Unspecified Formulation 05/16/2018,04/18/2017,05/25/2016,05/11,04/28/2015 Seasonal Influenza, High Dos e, Trivalent, PF, IM (Fluzone HD) 03/18/2024 Seasonal Influenza, PF, 6 M & above, [...] Passive Smoke Exposure: Past Smokeless Tobacco: Never Tobacco Cessation:Counseling Given: Yes Alcohol Use Standard Drinks/Week Comments No 0 [...] on file documented as of this encounter Last Filed Vital Signs Vital Sign Reading Time Taken Comments Blood Pressure 148/72 03/18/2024 1:23 PM EDT Pulse 60 03/18/2024 1:23 PM EDT Temperature 36.7 C (98 F) 03/18/2024 1:23 PM EDT Respiratory Rate 14 03/18/2024 1:23 PM EDT Oxygen Saturation 92% 03/18/2024 1:23 PM EDT Inhaled Oxygen Concentration - - Weight 105.6 kg (232 lb 12.8 oz) 03/18/2024 1:23 PM EDT Height 170.2 cm (5' 7") 03/18/2024 1:23 PM EDT Body Mass Index 36.46 03/18/2024 1:23 PM EDT documented in this encounter Functional Status Functional Status Response [...] No 02/23/2023 documented as of this encounter Patient Instructions * Patient Instructions* Juliann Lezama LPN - 03/18/2024 1:20 PM EDT ~~PATIENT INSTRUCTIONS FOR FLU SHOT~~ Possible side effects of influenza vaccine, (flu shot), are usually mild and include: 1. Soreness or redness at injection site 2. Low grade fever 3. Body aches You may use Tylenol/Acetaminophen as needed for these symptoms. LET YOUR DOCTOR KNOW IMMEDIATELY IF YOU HAVE DIFFICULTY BREATHING OR SWALLOWING, EXPERIENCE ITCHINGOF FEET OR HANDS, HAVE SWELLING OF EYES, FACE OR INSIDE OF NOSE. documented in this encounter Progress Notes * Juliann Lezama LPN - 03/18/2024 1:20 PM EDT PRE - ADMINISTRATION DOCUMENTATION Are you experiencing any cold symptoms or fever? No Have you had Guillain-Conyers Syndrome (an illness that causes paralysis) within the last 6 weeks? No Have you had the flu shot in the past? YES Have you ever had a reaction to the flu shot? No Juliann Lezama LPN, 03/18/2024 1:20 PM Immunization Administration Documentation Time Out Procedure Performed: Yes Patient Identified (Ask Name/Date of ): Yes Does the patient have a fever greater than 101 degrees today? No Patient allergic to latex? No [facility] Stock: No Immunization(s) verified: Yes, Immunization Name: Flu, VIS Sheet(s) given: Yes Verified Side and Site: Yes Verified Shot(s) with Parent(s)/Patient: Yes Pulse ox per physician: Rest - 96 % With exercise - 92-94 % Rest - 95 % * Glenda Garcia DO - 03/18/2024 1:16 PM EDT SUBJECTIVE: Chief Complaint Patient presents with Follow Up Medication Administration Flu and/or Pneumo Inj HPI: Yelena Mcclure is a 73 year old female who presents today for regular return. Pt states that shehad some episodes of fatigue. She notes that she was checking her oxygen and it will be between 90 and 93. Pt notes that she has some discomfort in her left knee. It is behind her leg in her thigh. It bothers her when she goes to stand up above and below the knee. No pain with walking. She has no pain if her leg is stretched out in her chair. It does not happen every time she changes position. Does not seem to matter which chair/couch. This started about 3 months or so and getting worse. Pt had CT scan. They noted area in right breast likely secondary to previous treatment but unclear.Had mammogram in August that was normal. PHM: Patient Active Problem List Diagnosis Encounter for antineoplastic chemotherapy Obstructive sleep apnea treated with BiPAP Acquired hypothyroidism Bipolar disease, chronic (HCC) HTN, goal below 140/90 Varicose veins of leg with edema, bilateral Vitamin D deficiency Narcolepsy due to underlying condition without cataplexy Amaya's cyst, unruptured, unspecified laterality Tobacco use disorder H/O colonoscopy Dyslipidemia, goal LDL below 100 Venous stasis dermatitis of right lower extremity Uses roller walker Primary osteoarthritis of both knees Urge incontinence Renal cyst Medical marijuana use Facet arthropathy, lumbar [employer] OTHER*[id number] Major depressive disorder, recurrent, moderate (HCC) Other bipolar disorder (HCC) COPD, group A, by GOLD 2017 classification ([facility]) Class 3 severe obesity due to excess calories with serious comorbidity and body mass index (BMI) of45.0 to 49.9 in adult (HCC) Primary osteoarthritis of one knee, left Dehydration 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 30 Tab 11 Deplin 15 15-90.314 MG Oral Capsule take 1 capsule by mouth every morning 90 Capsule 0 CPAP every night at bedtime. Ondansetron 4 MG Oral Tablet Disintegrating (Zofran) Place 1 Tablet on tongue every 8 hours as needed for Nausea or Vomiting. dissolve on tongue. 30 Tablet 0 Bariatric Multivitamins/Iron Oral Capsule Take 1 Tablet by mouth in the morning. Montelukast Sodium 10 MG Oral Tablet (Singulair) Take 1 Tablet by mouth daily. 100 Tablet 3 Calcium Citrate Chewy Bite 500-12.5 MG-MCG Oral Tablet Chewable (Calcium Citrate-Vitamin D) Take 1 Tablet by mouth 3 times a day. Incruse Ellipta 62.5 MCG/ACT Inhalation Aerosol Powder Breath Activated (umeclidinium [place]) Inhale 1 Puff by mouth in the morning. 90 Each 1 Triamcinolone Acetonide 0.1 % External Cream (Aristocort) Apply topically to affected area 2 times a day 45 g 1 Myrbetriq 50 MG Oral Tablet Extended Release 24 Hour (Mirabegron ER) Take 1 Tablet by mouth in the morning. 100 Tablet 3 Nystatin 708472 UNIT/GM External Cream Apply topically to affected area 2 times a day for two weeks. 30 g 1 Atorvastatin Calcium 40 MG Oral Tablet (Lipitor) TAKE ONE TABLET BY MOUTH EVERY MORNING (Patient taking differently: Takes in the evening) 100 Tablet 3 Glucosamine Chondr 500 Complex Oral Capsule Take 1 Capsule by mouth in the morning and 1 Capsule before bedtime. 1 in the morning and 2 in the evening. . Modafinil 200 MG Oral Tablet (Provigil) take 1 tablet by mouth daily 90 Tablet 1 Solifenacin Succinate 5 MG Oral Tablet (VESIcare) Take 1 Tablet by mouth in the morning. 90 Tablet 3 ProAir HFA 108 (90 Base) MCG/ACT Inhalation Aerosol Solution Inhale 2 Puffs by mouth every 6 hours as needed for Shortness of Breath or Wheezing. 8.5 g 1 Lisinopril 40 MG Oral Tablet Take 1 Tablet by mouth in the morning. 100 Tablet 0 Azelastine HCl 0.1 % Nasal Solution (Astelin) Administer 1 [place] into nostril in the morning and 1 [place] before bedtime. 30 mL 12 Escitalopram Oxalate 20 MG Oral Tablet (Lexapro) take 1 tablet by mouth twice a day 180 Tablet 0 lamoTRIgine 200 MG Oral Tablet (LaMICtal) take 1 tablet by mouth every morning and 1 tablet at bedtime 180 Tablet 0 amLODIPine Besylate 5 MG Oral Tablet (Norvasc) Take 1 Tablet by mouth in the morning. 90 Tablet 0 Spacer/Aero-Holding Chambers LIZ Use with albuterol inhaler. 1 Each 0 Knee Brace Wear while mobile 1 Each 0 Polyethylene Glycol 3350 17 GM/SCOOP Oral Powder Take 17 g by mouth as needed for Constipation. Dissolve one heaping tablespoon in 8 ounces of water or juice. Current Facility-Administered Medications Medication Dose Route Frequency Provider Last Rate Last Admin vitamin b-12 (Cyanocobalamin) inj 1,000 mcg 1,000 mcg Intramuscular Q12 Weeks Nicole Samuel PA-C 1,000 mcg at 10/19/23 1604 Past Medical History: Diagnosis Date Acute bronchitis Arthritis Breast cancer (HCC) 05/10/2016 Invasive Carcinoma Cellulitis of right leg COPD, mild (HCC) Herpes zoster Impaired fasting glucose INFORMATION lyphadema Left knee pain Measles Mumps Muscle spasm Obesity Uterine leiomyoma Varicella Past Surgical History: Procedure Laterality Date BIOPSY OF BREAST, OPEN Right 05/10/2016 invasive carcinoma BX LYMPH NODE DEEP AXIL Right 06/20/2016 BIOPSY LYMPH NODE DEEP AXILLARY OPEN performed by Staci Coffey MD at OR [facility] CHEMOTHERAPY 2017 Taxol & Herceptin COLONOSCOPY, DIAGNOSTIC (RECTUM) 11/17/2022 benign adenomatous polyps, diverticulosis, repeat 5 yrs / [facility] EGD, FLEXIBLE, DIAGNOSTIC 04/21/2022 normal bx / [facility] EGD, FLEXIBLE, DIAGNOSTIC N/A 02/23/2023 ESOPHAGOGASTRODUODENOSCOPY (EGD), FLEXIBLE, TRANSORAL, DIAGNOSTIC performed by Sterling Azevedo MD at OR [facility] ERCP 06/28/2018 Choledocholithiasis/[facility] IDENTIFY SENTINEL NODE, RADIOACTIVE TRACER Right 06/20/2016 INJECTION PROCEDURE FOR IDENTIFICATION SENTINEL NODE performed by Staci Coffey MD at OR [facility] IMPLANTABLE ACCESS SYST PERC Right 07/2016 INFORMATION 1960 cyst removed from throat IR BIOPSY 11/05/2023 IR BIOPSY 12/06/2023 IR EMBOLIZATION UTERINE FIBROID 1975 LAPAROSCOPE PROCEDURE, LIVER N/A 02/23/2023 UNLISTED LAPAROSCOPIC PROCEDURE LIVER performed by Sterling Azevedo MD at OR [facility] LAPAROSCOPY; CHOLECYSTECTOMY N/A 02/23/2023 LAPAROSCOPIC CHOLECYSTECTOMY performed by Sterling Azevedo MD at [facility] MASTECTOMY, PARTIAL Right 06/20/2016 MASTECTOMY PARTIAL - right performed by Staci Coffey MD at OR [facility] 06/20/2016 RADIATION THERAPY Right 02/08/2016 6120 cGy REMOVAL OF OVARY(S) 1975 REMOVE CATARACT, INSERT LENS PROSTH Left 10/30/2023 LEFT EXTRACAPSULAR CATARACT REMOVAL WITH INTRAOCULAR LENS performed by Ernesto Ocasio MD at OR [facility] REMOVE CATARACT, INSERT LENS PROSTH Right 11/13/2023 RIGHT EXTRACAPSULAR CATARACT REMOVAL WITH INTRAOCULAR LENS performed by Ernesto Ocasio [facility] OR [facility] SLEEVE GASTRECTOMY, LAPROSCOPY N/A 02/23/2023 LAPAROSCOPY SLEEVE GASTRECTOMY performed by Sterling Azevedo MD at OR [facility] SURGICAL REMOVAL, ERUPTED TOOTH AND BONE 06/2015 multiple extractions and implants UMBIL HERNIA REPAIR (REDUCIBLE) AGE 5+YR 2000 Review of patient's allergies indicates: Allergen Reactions Bee Venom Edema airway Hornet-edema airway. Other bees-swelling Crab Extract Other reaction(s): Vomiting Ciprofloxacin Nausea/vomiting Keflex [Cephalexin] Diarrhea Adhesive Tape Rash Some adhesive tapes- irritation and rash Family History Problem Relation Name Age of Onset Arthritis Mother passed at 90 Stroke Mother Other (Varicose veins) Mother Other (Vascular dementia) Mother Neurological Disorder Father Parkinson's Other (cabg) Father passed at 84 Other (coronary artery disease) Father Other (parkinson's disease) Father Other (Varicose veins) Father Alcohol and Other Disorders Associated Brother Obesity Brother Other (malignant neoplasm of cervix) Grandmother (Maternal) Breast Cancer No significant family history Family Status Relation Status Mo Fa Bro Alive MGMA (Not Specified) No history (Not Specified) Social History Tobacco Use Smoking status: Former Current packs/day: 0.00 Average packs/day: 1 pack/day for 35.0 years (35.0 ttl pk-yrs) Types: Cigarettes Start date: 11/17/1987 Quit date: 11/16/2022 Years since quittin.3 Passive exposure: Past Smokeless tobacco: Never Substance Use Topics Alcohol use: No Comment: very occasionally in past, none now Vaping/E-Cigarette Use Vaping/E-Cigarette Use Current Every Day User Vaping/E-Cigarette Substances THC Yes Vaping/E-Cigarette Devices Other volcano REVIEW OF SYSTEMS: Review of Systems Constitutional: Negative for chills, fatigue, fever and unexpected weight change. Respiratory: Negative for cough, chest tightness, shortness of breath and wheezing. Cardiovascular: Negative for chest pain, palpitations and leg swelling. Gastrointestinal: Negative for abdominal pain, constipation, diarrhea, nausea and vomiting. Musculoskeletal: Positive for arthralgias. Negative for gait problem and joint swelling. Skin: Negative for color change, pallor and rash. OBJECTIVE: BP 148/72 (BP Site: Left Arm, BP Position: Sitting, BP Cuff Size: Large) | Pulse 60 | Temp 36.7 C(98 F) (Tympanic) | Resp 14 | Ht 1.702 m (5' 7") | Wt 105.6 kg (232 lb 12.8 oz) | SpO2 92% | BMI 36.46 kg/m | BSA 2.23 m PHYSICAL EXAM: Physical Exam Constitutional: General: She is not in acute distress. Appearance: She is well-developed. Cardiovascular: Rate and Rhythm: Normal rate and regular rhythm. Heart sounds: Normal heart sounds. No murmur heard. No friction rub. No gallop. Pulmonary: Effort: Pulmonary effort is normal. No respiratory distress. Breath sounds: Normal breath sounds. No wheezing or rales. Abdominal: General: Bowel sounds are normal. There is no distension. Palpations: Abdomen is soft. Tenderness: There is no abdominal tenderness. There is no guarding. Musculoskeletal: General: Deformity (hyperextension of both knees with valgus deformity noted) present. No tenderness. Normal range of motion. Skin: General: Skin is warm and dry. Coloration: Skin is not pale. Findings: No erythema or rash. Neurological: Mental Status: She is alert and oriented to person, place, and time. ASSESSMENT/PLAN: (M21.862) Hyperextension deformity of knee, left (primary encounter diagnosis) Plan: ORTHOPAEDICS REFERRAL OP Pt with hyperextension at knee and valgus deformity. Will have her see orthopedics. (N64.9) Breast lesion Plan: message sent to radiology to see if any additional imaging is needed given CT findings. (R53.81, R53.83) Malaise and fatigue Plan: PULSE OX W/ REST/EXERCISE, MULTIPLE (OP) Pulse ox with no issues. Did miss her B12 2 months ago. B12 given today. (Z23) Need for prophylactic vaccination and inoculation against influenza Plan: INFLUENZA VAC., TRIVALENT, HD, PF, 65 AND ABOVE, 0.5 ML IM (FLUZONE HD) Vaccine given. See admin record. E11.9 Hypertension, goal <140/90 Plan: BP remained elevated upon recheck. Will have her increase amlodipine to 10mg. NV in 2 weeks. Follow-up: 3 months, NV 2 weeks Total time today including reviewing chart before the visit, pertinent labs, imaging reports, face to face time, and documentation time was 43 minutes. Glenda Garcia DO documented in this encounter Nursing Notes * Juliann Lezama LPN - 03/18/2024 2:10 PM EDT Pre-Administration Time Out Procedure Performed: Yes Patient Identified (Ask Name/Date of ): Yes Does the patient have a fever greater than 101 degrees today? No Patient allergic to latex? No Has the patient ever fainted after receiving an injection? No VFC Stock: No Injection(s) verified: Yes, Injection Name: B12 Verified Side and Site: Yes Verified Shot(s) with Parent(s)/Patient: Yes Verified with Pt, PCP, and pharmacist, OK to give B12 injection today. * Juliann Lezama LPN - 03/18/2024 1:17 PM EDT Patient here for routine follow up visit. Reports left knee has been bothering her. Pt reports her nose is sore from sinus issues. Using saline nasal wash daily. documented in this encounter Plan of Treatment Upcoming Encounters Date Type Department Care Team (Late st Contact Info) Description 03/24/2024 11:00 AM EDT Office Visit Orthopaedics [facility] [address] [address] Masood Borges PA-C [address] [address] 04/01/2024 11:00 AM EDT Nurse Only Family Practice [address] [place] [address] [address] [place] [phone] [place], Nurse Fam Prac [address] [facility] [address] [place] [address] 04/18/2024 11:00 AM EDT Office Visit Urology Christine Lopez [address] [address] Chika Caballero PA-C [address] [address] 05/19/2024 1:00 PM EST Office Visit Family Practice 65 [facility] [address] [place] [address] Gledna Garcia DO [address] [place] [address] 08/13/2024 11:30 AM EST Imaging Radiology [facility] [address] [facility] [address] [place] [address] 10/28/2024 11:00 AM EDT Nurse Only Ancillary 65 [facility] [address] [place] [address] [place], Nurse Annual Wellness Visit [address] [place] [address] Scheduled Orders Name Type Priority Associated Diagnoses Orde r Schedule PULSE OX W/ REST/EXERCISE, MULTIPLE (OP) Procedures Routine Malaise and fatigue Ordered: 03/18/2024 Scheduled Procedures Name Priority Associated Diagnoses Date/Ti me COLONOSCOPY FLEXIBLE PROXIMAL DIAGNOSTIC Recall History of colon polyps Scheduled Referrals Name Type Priority Associated Diagnoses Order Schedule ORTHOPAEDICS REFERRAL OP Referral Within 30 days (routine) Hyperextension deformity of knee, left Ordered: 03/18/2024 Health Maintenance Due Date Last Done Comments Alpha-1 Antitrypsin 1970 Cologuard 1997 Fecal Occult Blood Test 1997 Sigmoidoscopy 1997 *NEPHROLOGY REFERRAL DUE TO RESISTANT HTN 02/14/2024 DXA Scan 06/19/2024 06/19/2017 Mammogram 09/05/2024 09/05/2023, [...] Completed 12/11/2023, 02/2023, 05/23/2023, Additional history exists Influenza Vaccine (FLU shot) Completed 03/18/2024, 04/02/2023, 04/28/2022, Additional history exists HPV (Gardasil) Vaccine Aged Out No lo nger eligible based on patient's age to complete this topic Hepatitis B Vaccine Aged Out No longe r eligible based on patient's age to complete this topic MENINGOCOCCAL (MENACTRA/MENVEO) Aged Out No longer eligible based on patient's age to complete this topic documented as of this encounter Medical Devices Implanted Type Area Travel Service Consultant Device Identifier Shelf Expiration Date Model / Serial / Lot Lens Li61ao 13.00mm 19.50 - [id number] - [id number] Implanted:Qty: 1 on 10/30/2023 by Ernesto Ocasio MD at OR [facility] Left: Eye [employer] 07/15/2028 [id number] / [id number] / [id number] Lens Li61ao 13.00mm 19.50 - [id number] - [id number] Implanted:Qty: 1 on 11/13/2023 by Ernesto Ocasio MD at OR [facility] Right: Eye [employer] 07/15/2028 [id number] / [id number] / [id number] documented as of this encounter Visit Diagnoses Diagnosis Hyperextension deformity of knee, left- Primary Breast lesion Unspecified breast disorder Malaise and fatigue Other malaise and fatigue Need for prophylactic vaccination and inoculation against influenza documented in this encounter Administered Medications Active Administered Medications - up to 3 most recent administrations Medication Order MAR Action Action Date Dose Rate Site vitamin b-12 (Cyanocobalamin) inj 1,000 mcg 1,000 mcg, Intramuscular, [id number], First dose on Sun05/09/23 at 1230, Last dose on Sun04/09/24 at 1230, For 5 doses Given 03/18/2024 2:11 PM EDT 1,000 mcg Thigh Left Given 10/19/2023 4:04 PM EDT 1,000 mcg De ltoid Left Upper Given 08/10/2023 1:21 PM EST 1,000 mcg Ar m Left Upper documented in this encounter Advance Directives * [...] Discussed due to patient's condition Care Teams Audiometrist Relationship Specialty Start Date End Date Glenda Garcia DO [address] [place] [address] PCP - General Family Medicine 12/28/23 documented as of this encounter
--- OUTSIDE RECORDS SUMMARY | 2024-03-29 04:35 | External Medical Summary | Summary of Care ---
Author Name Unknown Organization [facility] Address [address] [place] [address] Phone [phone] Care Team Providers Care Bag Valver Name Role Phone lGenda Garcia DO Primary Care Provider Reason for Referral * Evaluate & Treat - Unlimited Visits (Within 30 days (routine)) - Authorized Specialty Diagnoses / Procedures Referred By Contac t Referred To Contact Orthopaedic Surgery / Orthopedics Diagnoses Hyperextension deformity of knee, left Glenda Garcia DO [address] [place] [address] Referral ID Status Reason Start Date Expiration Date Visits Requested Visits Authorized [id number] Authorized Specialty Services Required 03/18/[phone] Question Answer Referral Priority Within 30 days [...] PM EDT Office Visit Family Practice [address] [facility] [place] [place] [phone] Glenda Garcia DO [address] [place] [address] Hyperextension deformity of knee, left*; Breast lesion; [...] as of this encounter (statuses as of 03/19/2024) Medications Medication Sig Dispensed Refills Start Date End Date Status fexofenadine (CHERRI) 180 MG Tablet Take 1 Tablet by mouth in the morning. 30 Tab 11 8 Active Spacer/Aero-Holding Chambers LIZ Use with albuterol inhaler. 1 Each 0 Active Knee BraceIndications:Ac [place] pain of left knee Wear while mobile [...] MCG/ACT Inhalation Aerosol Powder Breath Activated (umeclidinium [place])Indications :COPD, mild (HCC) Inhale 1 Puff by [...] morning. 100 Tablet 3 4 Active Nystatin 853064 UNIT/GM External CreamIndications:In tertrigo Apply topically to [...] 0.1 % Nasal Solution (Astelin) Administer 1 [place] into nostril in the morning and 1 [place] before bedtime. 30 mL 12 4 Active [...] 1,000 mcgIndications:Intestinal postoperative nonabsorption 1000 mcg IM [id number] 05/09/2023 07/02/20 24 Active documented as of this encounter (statuses as of 03/19/2024) Active Problems Problem Noted Date Diagnosed Date [...] 08/15/2022 Other bipolar disorder 08/15/2022 [facility] [employer] OTHER*[id number] 04/03/2022 Facet arthropathy, lumbar 06/20/2018 Medical marijuana use 05/16/2018 Overview: 01/2018-[facility]--using oil vape 2/d, lotion apply knees,ankles. Renal [...] Quit 04/02 H/O colonoscopy 04/18/2017 Overview: In [place] -nl per pt Dyslipidemia, goal LDL below 100 04/18/2017 Venous stasis dermatitis of right lower extremit y 04/18/2017 Uses roller walker 04/18/2017 Encounter for antineoplastic chemotherapy 2016 documented as of this encounter (statuses as of 03/19/2024) Resolved Problems Problem Noted Date Diagnosed Date Resolved Date Body mass index (BMI) of 50. 0 to 59.9 in adult 07/29/2018 05/15/2019 Overview: Per Obesity protocol #1 - - Body mass index (BMI) of 60. 0 to 69.9 in adult 06/24/2018 08/02/2018 Overview: Per Obesity protocol #1 - Calculus of gallbladder with chronic cholecystitis 04/22/2018 05/15/2019 Overview: 05/0265-GA-[id number]>Cholelithiasis with a contracted gallbladder. Please correlate with [...] as of this encounter (statuses as of 03/19/2024) Immunizations Name Administration Dates Next Due COVID-19 [...] symptoms or fever? No Have you had Guillain-Fitzgerald Syndrome (an illness that causes paralysis) within [...] today? No Patient allergic to latex? No [facility] Stock: No Immunization(s) verified: Yes, Immunization Name: [...] marijuana use Facet arthropathy, lumbar [employer] OTHER*[id number] Major depressive disorder, recurrent, moderate (HCC) Other bipolar disorder (HCC) COPD, group A, by GOLD 2017 classification ([facility]) Class 3 severe obesity due to excess [...] MCG/ACT Inhalation Aerosol Powder Breath Activated (umeclidinium [place]) Inhale 1 Puff by mouth in the morning. 90 Each 1 Triamcinolone Acetonide 0.1 % External Cream (Aristocort) Apply topically to affected area 2 times a day 45 g 1 Myrbetriq 50 MG Oral Tablet Extended Release 24 Hour (Mirabegron ER) Take 1 Tablet by mouth in the morning. 100 Tablet 3 Nystatin 400165 UNIT/GM External Cream Apply topically to affected [...] 0.1 % Nasal Solution (Astelin) Administer 1 [place] into nostril in the morning and 1 [place] before bedtime. 30 mL 12 Escitalopram Oxalate [...] performed by Staci Coffey MD at OR [facility] CHEMOTHERAPY 2017 Taxol & Herceptin COLONOSCOPY, DIAGNOSTIC (RECTUM) 11/17/2022 benign adenomatous polyps, diverticulosis, repeat 5 yrs / [facility] EGD, FLEXIBLE, DIAGNOSTIC 04/21/2022 normal bx / [facility] EGD, FLEXIBLE, DIAGNOSTIC N/A 02/23/2023 ESOPHAGOGASTRODUODENOSCOPY (EGD), FLEXIBLE, TRANSORAL, DIAGNOSTIC performed by Sterling Azevedo MD at [facility] ERCP 06/28/2018 Choledocholithiasis/[facility] IDENTIFY SENTINEL NODE, RADIOACTIVE TRACER Right 06/20/2016 INJECTION PROCEDURE FOR IDENTIFICATION SENTINEL NODE performed by Staci Coffey MD at OR [facility] IMPLANTABLE ACCESS SYST PERC Right 07/2016 INFORMATION 1960 cyst removed from throat IR BIOPSY 11/05/2023 IR BIOPSY 12/06/2023 IR EMBOLIZATION UTERINE FIBROID 1975 LAPAROSCOPE PROCEDURE, LIVER N/A 02/23/2023 UNLISTED LAPAROSCOPIC PROCEDURE LIVER performed by Sterling Azevedo MD at [facility] LAPAROSCOPY; CHOLECYSTECTOMY N/A 02/23/2023 LAPAROSCOPIC CHOLECYSTECTOMY performed by Sterling Azevedo MD at [facility] MASTECTOMY, PARTIAL Right 06/20/2016 MASTECTOMY PARTIAL - right performed by Staci Coffey MD at OR [facility] 06/20/2016 RADIATION THERAPY Right 02/08/2016 6120 cGy REMOVAL OF OVARY(S) 1975 REMOVE CATARACT, INSERT LENS PROSTH Left 10/30/2023 LEFT EXTRACAPSULAR CATARACT REMOVAL WITH INTRAOCULAR LENS performed by Ernesto Ocasio MD at OR [facility] REMOVE CATARACT, INSERT LENS PROSTH Right 11/13/2023 RIGHT EXTRACAPSULAR CATARACT REMOVAL WITH INTRAOCULAR LENS performed by Ernesto Ocasio [facility] OR [facility] SLEEVE GASTRECTOMY, LAPROSCOPY N/A 02/23/2023 LAPAROSCOPY SLEEVE GASTRECTOMY performed by Sterling Azevedo MD at [facility] SURGICAL REMOVAL, ERUPTED TOOTH AND BONE 06/2015 [...] to give B12 injection today. * Juliann Lzeama LPN - 03/18/2024 1:17 PM EDT Patient here for routine follow up visit. Reports left knee has been bothering her. Pt reports her nose is sore from sinus issues. Using saline nasal wash daily. documented in this encounter Plan of Treatment Upcoming Encounters Date Type Department Care Team (Late st Contact Info) Description 03/24/2024 11:00 AM EDT Office Visit Orthopaedics [facility] [address] [phone] Masood Borges PA-C [address] [address] 04/01/2024 11:00 AM EDT Nurse Only Family Practice [address] [place] [address] [address] [phone] [place], Nurse Fam Prac [address] [facility] [address] [place] [address] 04/18/2024 11:00 AM EDT Office Visit Urology Christine Lopez [address] [address] Chika Caballero PA-C [address] [address] 05/19/2024 1:00 PM EST Office Visit Family Practice 65 [facility] [address] [place] [phone] Glenda Garcia DO [address] [place] [address] 08/13/2024 11:30 AM EST Imaging Radiology [facility] [address] [facility] [address] [address] 10/28/2024 11:00 AM EDT Nurse Only Ancillary 65 [facility] [address] [place] [address] [place], Nurse Annual Wellness Visit [address] [place] [address] Scheduled Orders Name Type Priority Associated Diagnoses [...] this encounter Medical Devices Implanted Type Area Actuarial Intern Device Identifier Shelf Expiration Date Model / Serial / Lot Lens Li61ao 13.00mm 19.50 - [id number] - [id number] Implanted:Qty: 1 on 10/30/2023 by Ernesto Ocasio MD at OR [facility] Left: Eye [employer] 07/15/2028 [id number] / [id number] / [id number] Lens Li61ao 13.00mm 19.50 - [id number] - [id number] Implanted:Qty: 1 on 11/13/2023 by Ernesto Ocasio MD at OR [facility] Right: Eye [employer] 07/15/2028 [id number] / [id number] / [id number] documented as of this encounter Visit Diagnoses [...] (Cyanocobalamin) inj 1,000 mcg 1,000 mcg, Intramuscular, [id number], First dose on Sun05/09/23 at 1230, Last [...] Discussed due to patient's condition Care Teams Bag Valver Relationship Specialty Start Date End Date Glenda Garcia DO [address] [place] [address] PCP - General Family Medicine 12/28/23 documented as of this encounter
--- OUTSIDE RECORDS SUMMARY | 2024-03-29 04:35 | External Medical Summary | Summary of Care ---
Author Name Unknown Organization [facility] Address [address] [place] [address] Phone [phone] Care Team Providers Care Shipping Associate Name Role Phone Glenda Garcia DO Primary Care Provider Reason for Visit * Reason Comments NEW PATIENT NEW pt is here for h er ongoing L knee pain. * Evaluate & Treat - Unlimited Visits (Within 30 days (routine)) - Authorized Specialty Diagnoses / Procedures Referred By Tonya t Referred To Contact Orthopaedic Surgery / Orthopedics Diagnoses Hyperextension deformity of knee, left Glenda Garcia DO [address] [place] [address] Referral ID Status Reason Start Date Expiration Date Visits Requested Visits Authorized [id number] Authorized Specialty Services Required 03/18/[phone] Encounter Details Date Type Department Care Team (Latest Contact Info) Description 03/24/2024 11:00 AM EDT Office [facility] [address] [facility] [place] [address] Masood Borges PA-C [address] [facility] [place] [address] Primary osteoarthritis of left knee* Allergies Active Allergy Reactions Criticality Noted Date Comments Adhesive Tape Rash Low 02/18/2020 Some adhesive tapes- irritation and rash Bee Venom Edema airway High 01/01/2016 Hornet-edema airway. Other bees-swelling Ciprofloxacin Nausea/vomiting 01/01/2016 Crab Extract High 11/17/2022 Other reaction(s): Vomiting Cephalexin Diarrhea 01/01/2016 documented as of this encounter (statuses as of 03/24/2024) Medications Medication Sig Dispensed Refills Start Date [...] dissolve on tongue. 30 Tablet 02/25/2023 Active Bariatric Multivitamins/Iron Oral Capsule Take 1 [...] MCG/ACT Inhalation Aerosol Powder Breath Activated (umeclidinium [place])Indications: COPD, mild (HCC) Inhale 1 Puff by [...] morning. 100 Tablet 3 10/05/2023 Active Nystatin 441371 UNIT/GM External CreamIndications:Int ertrigo Apply topically to [...] 0.1 % Nasal Solution (Astelin) Administer 1 [employer] into nostril in the morning and 1 [employer] before bedtime. 30 mL 12 02/11/2024 Active Escitalopram Oxalate 20 MG Oral Tablet (Lexapro) take 1 tablet by mouth twice a day 180 Tablet 02/12/2024 Active lamoTRIgine 200 MG Oral Tablet (LaMICtal) take 1 tablet by mouth every morning and 1 tablet at bedtime 180 Tablet 02/19/2024 Active amLODIPine Besylate 5 MG Oral Tablet (Norvasc) Take 2 Tablets by mouth in the morning. 03/18/2024 Active Hospital, Clinic, or Other Facility Administered Medication Ordered Dose Route Frequency Start Date End Date Status vitamin b-12 (Cyanocobalamin) inj 1,000 mcgIndications:Intestinal postoperative nonabsorption 1000 mcg IM [id number] 05/09/2023 07/02/20 24 Active lidocaine 1% 1 mL - triamcinolone acetonide 40 mg/mL 1 mL inj 2 mLIndications:Primary osteoarthritis of left knee 2 mL IJ ONCE 03/24/2024 03/25/20 24 Active documented as of this encounter (statuses as of 03/24/2024) Active Problems Problem Noted Date Diagnosed Date [...] 08/15/2022 Other bipolar disorder 08/15/2022 [employer] OTHER*[id number] 04/03/2022 Facet arthropathy, lumbar 06/20/2018 Medical marijuana use 05/16/2018 Overview: 01/2018-[facility]--using oil vape 2/d, lotion apply knees,ankles. Renal [...] Quit 04/02 H/O colonoscopy 04/18/2017 Overview: In [place] -[place] per pt Dyslipidemia, goal LDL below 100 04/18/2017 Venous stasis dermatitis of right lower extremit y 04/18/2017 Uses roller walker 04/18/2017 Encounter for antineoplastic chemotherapy 2016 documented as of this encounter (statuses as of 03/24/2024) Resolved Problems Problem Noted Date Diagnosed Date Resolved Date Body mass index (BMI) of 50. 0 to 59.9 in adult 07/29/2018 05/15/2019 Overview: Per Obesity protocol #1 - - Body mass index (BMI) of 60. 0 to 69.9 in adult 06/24/2018 08/02/2018 Overview: Per Obesity protocol #1 - Calculus of gallbladder with chronic cholecystitis 04/22/2018 05/15/2019 Overview: 05/0295-[id number]>Cholelithiasis with a contracted gallbladder. Please correlate with [...] as of this encounter (statuses as of 03/24/2024) Immunizations Name Administration Dates Next Due COVID-19 [...] No 02/23/2023 documented as of this encounter Progress Notes * Masood Borges PA-C - 03/24/2024 11:24 AM EDTAssociated Order(s): LG Joint Inj/Arthro: L knee Post-Procedure Diagnose(s): Primary osteoarthritis of left knee Subjective Yelena Mcclure is a 73 year old female. Chief Complaint Patient presents with NEW PATIENT NEW pt is here for her ongoing L knee pain. HPI: New patient referred regarding left knee pain. Patient reports her symptoms are chronic in nature. Denies any recent injury or fall. Worsened with weight- bearing activity and intermittently rest. Denies any mechanical symptoms or instability. No swelling or redness. No calf pain. Will need to get x-rays today. Had [address] Najera numerous years ago at [facility]. The patient reports that worked very well for her and had no adverse reactions otherwise. 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 30 Tab 11 Spacer/Aero-Holding Chambers LIZ Use with albuterol inhaler. 1 Each 0 Knee Brace Wear while mobile 1 Each 0 Polyethylene Glycol 3350 17 GM/SCOOP Oral Powder Take 17 g by mouth as needed for Constipation.Dissolve one heaping tablespoon in 8 ounces of water or juice. Deplin 15 15-90.314 MG Oral Capsule take [...] MCG/ACT Inhalation Aerosol Powder Breath Activated (umeclidinium [place]) Inhale 1 Puff by mouth in the morning. 90 Each 1 Triamcinolone Acetonide 0.1 % External Cream (Aristocort) Apply topically to affected area 2 times a day 45 g 1 Myrbetriq 50 MG Oral Tablet Extended Release 24 Hour (Mirabegron ER) Take 1 Tablet by mouth in the morning. 100 Tablet 3 Nystatin 440732 UNIT/GM External Cream Apply topically to affected [...] 0.1 % Nasal Solution (Astelin) Administer 1 [employer] into nostril in the morning and 1 [employer] before bedtime. 30 mL 12 Escitalopram Oxalate 20 MG Oral Tablet (Lexapro) take 1 tablet by mouth twice a day 180 Tablet 0 lamoTRIgine 200 MG Oral Tablet (LaMICtal) take 1 tablet by mouth every morning and 1 tablet at bedtime 180 Tablet 0 amLODIPine Besylate 5 MG Oral Tablet (Norvasc) Take 2 Tablets by mouth in the morning. Current Facility-Administered Medications Medication Dose Route Frequency Provider Last Rate Last Admin vitamin b-12 (Cyanocobalamin) inj 1,000 mcg 1,000 mcg Intramuscular Q12 Weeks Nicole Samuel PA-C 1,000 mcg at 03/18/24 1411 Past Medical History: Diagnosis Date Acute bronchitis [...] performed by Staci Coffey MD at OR [facility] CHEMOTHERAPY 2017 Taxol & Herceptin COLONOSCOPY, DIAGNOSTIC (RECTUM) 11/17/2022 benign adenomatous polyps, diverticulosis, repeat 5 yrs / [facility] EGD, FLEXIBLE, DIAGNOSTIC 04/21/2022 normal bx / [facility] EGD, FLEXIBLE, DIAGNOSTIC N/A 02/23/2023 ESOPHAGOGASTRODUODENOSCOPY (EGD), FLEXIBLE, TRANSORAL, DIAGNOSTIC performed by Sterling Azevedo MD at OR [facility] ERCP 06/28/2018 Choledocholithiasis/[facility] IDENTIFY SENTINEL NODE, RADIOACTIVE TRACER Right 06/20/2016 INJECTION PROCEDURE FOR IDENTIFICATION SENTINEL NODE performed by Staci Coffey MD at OR [facility] IMPLANTABLE ACCESS SYST PERC Right 07/2016 INFORMATION 1960 cyst removed from throat IR BIOPSY 11/05/2023 IR BIOPSY 12/06/2023 IR EMBOLIZATION UTERINE FIBROID 1975 LAPAROSCOPE PROCEDURE, LIVER N/A 02/23/2023 UNLISTED LAPAROSCOPIC PROCEDURE LIVER performed by Sterling Azevedo MD at [facility] LAPAROSCOPY; CHOLECYSTECTOMY N/A 02/23/2023 LAPAROSCOPIC CHOLECYSTECTOMY performed by Sterling Azevedo MD at [facility] MASTECTOMY, PARTIAL Right 06/20/2016 MASTECTOMY PARTIAL - right performed by Staci Coffey MD at OR [facility] 06/20/2016 RADIATION THERAPY Right 02/08/2016 6120 cGy REMOVAL OF OVARY(S) 1975 REMOVE CATARACT, INSERT LENS PROSTH Left 10/30/2023 LEFT EXTRACAPSULAR CATARACT REMOVAL WITH INTRAOCULAR LENS performed by Ernesto Ocasio MD at OR [facility] REMOVE CATARACT, INSERT LENS PROSTH Right 11/13/2023 RIGHT EXTRACAPSULAR CATARACT REMOVAL WITH INTRAOCULAR LENS performed by Ernesto Ocasio MDa OR [facility] SLEEVE GASTRECTOMY, LAPROSCOPY N/A 02/23/2023 LAPAROSCOPY SLEEVE GASTRECTOMY performed by Sterling Azevedo MD at [facility] SURGICAL REMOVAL, ERUPTED TOOTH AND BONE 06/2015 [...] Specified) No history (Not Specified) Social History Socioeconomic History Marital status: Spouse name: Not on file Number of children: Not on file Years of education: Not on file Highest education level: Not on file Occupational History Not on file Tobacco Use Smoking status: Former Current packs/day: 0.00 Average packs/day: 1 pack/day for 35.0 years (35.0 ttl pk-yrs) Types: Cigarettes Start date: 11/17/1987 Quit date: 11/16/2022 Years since quittin.3 Passive exposure: Past Smokeless tobacco: Never Vaping Use Vaping status: Every Day Substances: THC Devices: volcano Substance and Sexual Activity Alcohol use: No Comment: very occasionally in past, none now Drug use: Yes Frequency: 7.0 times per week Types: Marijuana Comment: Current medical marijuana- vape (dry flower) Sexual activity: Yes Comment: self Other Topics Concern Not on file Social History Narrative Not on file Social Determinants of Health Financial Resource Strain: Low Risk (07/26/2023) Financial Resource Strain Do you have any trouble paying for your medications, or do you think you might in the future? (Adult - for ages 18 years and over): No Does your family have trouble paying for medicine? (Household - for ages 0- 17 years): Not on file Food Insecurity: No Food Insecurity (07/26/2023) Food Insecurity Do you need food for this week? (Adult - for ages 18 years and over): No Are you able to get enough food for your family? (Household - for ages 0-17 years): Not on file Does your family need food this week? (Household - for ages 0-17 years): Not on file Do you always have enough food for your family? (Household - for ages 0-17 years): Not on file Transportation Needs: No Transportation Needs (07/26/2023) Transportation Needs Do you have trouble getting a ride to medical visits or work? (Adult - for ages 18 years and over): Never True Does your family have a hard time getting a ride to doctors visits? (Household - for ages 0-17 years): Not on file Has lack of transportation kept you from medical appointments, meetings, work, or from getting things needed for daily living? Check all that apply. (Adult - for ages 18 years and over): Not on file Do you (or your family) have trouble finding or paying for a ride (transportation)? (Household - for ages 0-17 years): Not on file Social Connections: Socially Integrated (07/26/2023) Social Connections How often do you feel lonely or isolated from those around you? (Adult - for ages 18 years and over): Sometimes Housing Stability: Low Risk (07/26/2023) Housing Stability Do you currently live in a mcfp or have no steady place to sleep at night? (Adult - for ages18 years and over): No Do you think you are at risk of becoming homeless? (Adult - for ages 18 years and over): No Does your family worry about paying for your home or becoming homeless? (Household - for ages 0-17 years): Not on file Are you homeless or worried that you might be in the future? (Adult - for ages 18 years and over): Not on file Are you (or your family) homeless or worried that you might be in the future? (Household - for ages 0-17 years): Not on file Objective There were no vitals taken for this visit. complete review of systems negative General: alert and oriented x3 female, no acute distress, appears currently stated age, pleasant, well nourished Skin: Left knee does not reveal any erythema, effusion, ecchymosis, abrasion, laceration, skin breakdown otherwise Neurovascular: Left lower extremity is neurovascularly intact with good sensation strength throughout, calf supple nontender, toes were mobile, +5 strength dorsi and plantar flexion of the foot Musculoskeletal: Left knee ROM 0-95 secondary to pain at endpoints, jointline tenderness, advanced crepitation noted in PFJ, femoral condyles are tender as well. Ligamentously stable regarding cruciate and collateral ligaments. Extensor mechanism intact. No obvious cystic change or masses the popliteal fossa. Pes anserine bursa and patellar tendon nontender. Hip and ankle atraumatic. Bilateral valgus alignment. X-rays of the left knee four views reveal advanced tricompartmental osteoarthritis with [id number]-[id number] joint space narrowing, sclerotic changes and osteophytosis. No acute findings such as fracture dislocation or subluxation. Unable to identify any type of obvious cystic changes or masses in the bone. Official radiology report to follow accordingly and we listed in the patient's chart under imaging. Personal interpretation and documentation regarding today's plain film radiographs performed by myself. ASSESSMENT/PLAN: Left knee pain (Primary) - XR KNEE 4 OR MORE VIEWS Primary osteoarthritis of left knee Impression: Left knee osteoarthritis Plan: Today 's findings were discussed with the patient. They were educated regarding their diagnosis. Multiple treatment options discussed and agreed upon, including offering a corticosteroid injection left knee as this worked well for her in the past. The patient is in agreement and written consent time-out performed and obtained today. Telephonic visit 4 weeks to discuss results. Failure to provide upwards of 3 months relief and we would have a discussion regarding COVARRUBIAS injections. The patientis in agreement. The patient has no other questions or concerns. Pleased with today 's care. Call sooner if needed. Patient instructed to call or return to clinic for fever or warmth and redness at injection site for potential infection. Patient also advised as to potential for steroid flare reaction including increased pain and redness at injection site which should be treated with ice and resolve within 24 hours. LG Joint Inj/Arthro: L knee on 03/24/2024 11:46 AM Indications: pain Details: 22 G needle, anteromedial approach Medications: (Triamcinolone lidocaine) Outcome: tolerated well, no immediate complications Procedure, treatment alternatives, risks and benefits explained, specific risks discussed. Consent was given by the patient. Immediately prior to procedure a time out was called to verify the correctpatient, procedure, equipment, direct support staff member and site/side marked as required. Patient was prepped and draped in the usual sterile fashion. This chart was completed in part utilizing [employer] Speech Voice Recognition Software. Grammatical errors, random word insertions, prounoun errors, and incomplete sentences are an occasional consequence of this system due to software limitations, ambient noise, and hardware issues. Any formal questions or concerns about the content, text, or information contained within the body of this dictation should be directly addressed to the provider for clarification. Masood Borges PA-C documented in this encounter Nursing Notes * Susi Overton CMA - 03/24/2024 11:08 AM EDT NEW pt is here for her ongoing L knee pain. documented in this encounter Plan of Treatment Upcoming Encounters Date Type Department Care Team (Late st Contact Info) Description 04/01/2024 11:00 AM EDT Nurse Only Family Practice [address] [facility] [address] [place] [address] College, Nurse Fam Prac [address] [place] [address] 293 [place] [address] 04/18/2024 11:00 AM EDT Office Visit Urology Christine Lopez [address] [facility] [address] [place] [address] Chika Caballero PA-C [address] [place] [address] 04/21/2024 3:30 PM EDT Telemedicine Orthopaedics [facility] 132 [facility] [place] [address] Masood Borges PA-C [address] [facility] [place] [address] 05/19/2024 1:00 PM EST Office Visit Family Practice [address] [facility] [address] [facility] [address] Glenda Garcia DO 293 [place] [address] 08/13/2024 11:30 AM EST Imaging Radiology [facility] 132 [facility] [place] [address] 10/28/2024 11:00 AM EDT Nurse Only Ancillary [address] [place] [address] [facility] [address] College, Nurse Annual Wellness Visit [address] [facility] [address] [facility] [address] Pending Results Name Type Priority Associated Diagnoses Date /Time XR KNEE 4 OR MORE VIEWS Medical Imaging Routine 03/24/2024 11:24 AM EDT Scheduled Procedures Name Priority Associated Diagnoses Date/Ti me COLONOSCOPY FLEXIBLE PROXIMAL DIAGNOSTIC Recall History of colon polyps Health Maintenance Due Date Last Done Comments Alpha-1 Antitrypsin 1970 Cologuard 1997 Fecal Occult Blood Test 1997 Sigmoidoscopy 1997 *NEPHROLOGY REFERRAL DUE TO RESISTANT HTN 02/14/2024 COVID-19 Vaccine ( season) 2024 12/11/2023, 05/23/2023, 05/23/2023, Additional history exists DXA Scan 06/19/2024 06/19/2017 [...] 08/27/2023 , 02/15/2023, 05/11/2022, Additional history exists Influenza Vaccine (FLU shot) [...] this encounter Medical Devices Implanted Type Area Dietary Director Device Identifier Shelf Expiration Date Model / Serial / Lot Lens Li61ao 13.00mm 19.50 - [id number] - [id number] Implanted:Qty: 1 on 10/30/2023 by Ernesto Ocasio MD at OR [facility] Left: Eye [employer] 07/15/2028 [id number] / [id number] / [id number] Lens Li61ao 13.00mm 19.50 - [id number] - [id number] Implanted:Qty: 1 on 11/13/2023 by Ernesto Ocasio MD at OR [facility] Right: Eye [employer] 07/15/2028 [id number] / [id number] / [id number] documented as of this encounter Procedures Procedure Name Priority Date/Time Associated Diagnosis Comments OK ARTHROCENTESIS ASPIR&/INJ MAJOR JT/BURSA W/O US Routine 03/24/2024 11:46 AM EDT Primary osteoarthritis of left knee documented in this encounter Results * OK ARTHROCENTESIS ASPIR&/INJ MAJOR JT/BURSA W/O US (03/24/2024 11:46 AM EDT) Narrative Masood Borges PA-C - 03/24/2024 11:46 AM EDT Masood Borges PA-C 03/24/2024 11:47 AM LG Joint Inj/Arthro: L knee on 03/24/2024 11:46 AM Indications: pain Details: 22 G needle, anteromedial approach Medications: (Triamcinolone lidocaine) Outcome: tolerated well, no immediate complications Procedure, treatment alternatives, risks and benefits explained, specific risks discussed. Consent was given by the patient. Immediately prior to procedure a time out was called to verify the correct patient, procedure, equipment, direct support staff member and site/side marked as required. Patient was prepped and draped in the usual sterile fashion. Masood Borges PA-C PROCDOC FORM documented in this encounter Visit Diagnoses Diagnosis Primary osteoarthritis of left knee- Primary Primary localized osteoarthrosis, lower leg documented in this encounter Advance Directives * [...] Discussed due to patient's condition Care Teams Shipping Associate Relationship Specialty Start Date End Date Glenda Garcia DO [address] [place] [address] PCP - General Family Medicine 12/28/23 documented as of this encounter
--- OUTSIDE RECORDS SUMMARY | 2024-03-29 04:35 | External Medical Summary | Summary of Care ---
Author Name Unknown Organization [facility] Address [address] [facility] [place] [address] Phone [phone] Care Team Providers Care Fisher Eel Spear Name Role Phone Glenda Garcia DO Primary Care Provider [phone] Reason for Visit * Reason Comments NEW PATIENT NEW pt is here for h er ongoing L knee pain. * Evaluate & Treat - Unlimited Visits (Within 30 days (routine)) - Authorized Specialty Diagnoses / Procedures Referred By Tonya t Referred To Contact Orthopaedic Surgery / Orthopedics Diagnoses Hyperextension deformity of knee, left Glenda Garcia DO [address] [place] [address] Referral ID Status Reason Start Date Expiration Date Visits Requested Visits Authorized [id number] Authorized Specialty Services Required 03/18/2024 [id number] Encounter Details Date Type Department Care Team (Latest Contact Info) Description 03/24/2024 11:00 AM EDT Office Visit [facility]opa[facility] [address] [facility] [place] [address] Masood Borges PA-C [address] [facility] [place] [address] Primary osteoarthritis of left knee* Allergies Active [...] MCG/ACT Inhalation Aerosol Powder Breath Activated (umeclidinium [place])Indications: COPD, mild (HCC) Inhale 1 Puff by [...] morning. 100 Tablet 3 10/05/2023 Active Nystatin 352475 UNIT/GM External CreamIndications:Int ertrigo Apply topically to [...] 0.1 % Nasal Solution (Astelin) Administer 1 [place] into nostril in the morning and 1 [place] before bedtime. 30 mL 12 02/11/2024 Active [...] 1,000 mcgIndications:Intestinal postoperative nonabsorption 1000 mcg IM [id number] 05/09/2023 07/02/20 24 Active lidocaine 1% 1 mL - triamcinolone acetonide 40 mg/mL 1 mL inj 2 mLIndications:Primary osteoarthritis of left knee 2 mL IJ ONCE 03/24/2024 03/24/20 24 Ended documented as of this encounter (statuses as [...] 08/15/2022 Other bipolar disorder 08/15/2022 PAY[place] RESEARCH OTHER*[id number] 04/03/2022 Facet arthropathy, lumbar 06/20/2018 Medical marijuana use 05/16/2018 Overview: 01/2018-[facility]--using oil vape 2/d, lotion apply knees,ankles. Renal [...] Quit 04/02 H/O colonoscopy 04/18/2017 Overview: In [place] -[place] per pt Dyslipidemia, goal LDL below [...] gallbladder with chronic cholecystitis 04/22/2018 05/15/2019 Overview: 05/0276-MB-FqQrtj>Cholelithiasis with a contracted gallbladder. Please correlate with [...] by Dr. Najera numerous years ago at [facility]. The patient reports that worked very well [...] marijuana use Facet arthropathy, lumbar PAYTON RESEARCH OTHER*[id number] Major depressive disorder, recurrent, moderate ([facility]) Other bipolar disorder ([facility]) COPD, group A, by GOLD 2017 classification ([facility]) Class 3 severe obesity due to excess calories with serious comorbidity and body mass index (BMI) of 45.0 to 49.9 in adult ([facility]) Primary osteoarthritis of one knee, left [...] MCG/ACT Inhalation Aerosol Powder Breath Activated (umeclidinium [place]) Inhale 1 Puff by mouth in the morning. 90 Each 1 Triamcinolone Acetonide 0.1 % External Cream (Aristocort) Apply topically to affected area 2 times a day 45 g 1 Myrbetriq 50 MG Oral Tablet Extended Release 24 Hour (Mirabegron ER) Take 1 Tablet by mouth in the morning. 100 Tablet 3 Nystatin 350790 UNIT/GM External Cream Apply topically to affected [...] 0.1 % Nasal Solution (Astelin) Administer 1 [place] into nostril in the morning and 1 Mercer before bedtime. 30 mL 12 Escitalopram Oxalate [...] LYMPH NODE DEEP AXILLARY OPEN performed by tSaci Coffey MD at OR [facility] CHEMOTHERAPY 2017 Taxol & Herceptin COLONOSCOPY, DIAGNOSTIC (RECTUM) 11/17/2022 benign adenomatous polyps, diverticulosis, repeat 5 yrs / [facility] EGD, FLEXIBLE, DIAGNOSTIC 04/21/2022 normal bx / [facility] EGD, FLEXIBLE, DIAGNOSTIC N/A 02/23/2023 ESOPHAGOGASTRODUODENOSCOPY (EGD), FLEXIBLE, TRANSORAL, DIAGNOSTIC performed by Sterling Azevedo MD at [facility] ERCP 06/28/2018 Choledocholithiasis/[facility] IDENTIFY SENTINEL NODE, RADIOACTIVE TRACER Right 06/20/2016 INJECTION PROCEDURE FOR IDENTIFICATION SENTINEL NODE performed by Staci Coffey MD at OR [facility] IMPLANTABLE ACCESS SYST PERC Right 07/2016 INFORMATION 1960 cyst removed from throat IR BIOPSY 11/05/2023 IR BIOPSY 12/06/2023 IR EMBOLIZATION UTERINE FIBROID 1975 LAPAROSCOPE PROCEDURE, LIVER N/A 02/23/2023 UNLISTED LAPAROSCOPIC PROCEDURE LIVER performed by Sterling Azevedo MD at [facility] LAPAROSCOPY; CHOLECYSTECTOMY N/A 02/23/2023 LAPAROSCOPIC CHOLECYSTECTOMY performed by Sterling Azevedo MD at [facility] MASTECTOMY, PARTIAL Right 06/20/2016 MASTECTOMY PARTIAL - right performed by Staci Coffey MD at OR [facility] 06/20/2016 RADIATION THERAPY Right 02/08/2016 6120 cGy REMOVAL OF OVARY(S) 1975 REMOVE CATARACT, INSERT LENS PROSTH Left 10/30/2023 LEFT EXTRACAPSULAR CATARACT REMOVAL WITH INTRAOCULAR LENS performed by Ernesto Ocasio MD at OR [facility] REMOVE CATARACT, INSERT LENS PROSTH Right 11/13/2023 RIGHT EXTRACAPSULAR CATARACT REMOVAL WITH INTRAOCULAR LENS performed by Ernesto Ocasio MDa OR [facility] SLEEVE GASTRECTOMY, LAPROSCOPY N/A 02/23/2023 LAPAROSCOPY SLEEVE GASTRECTOMY performed by Sterling Azevedo MD at [facility] SURGICAL REMOVAL, ERUPTED TOOTH AND BONE 06/2015 [...] Stability Do you currently live in a fdc or have no steady place to sleep [...] four views reveal advanced tricompartmental osteoarthritis with [id number] joint space narrowing, sclerotic changes and osteophytosis. [...] called to verify the correctpatient, procedure, equipment, system support specialist and site/side marked as required. Patient was prepped and draped in the usual sterile fashion. This chart was completed in part utilizing [employer] Speech Voice Recognition Software. Grammatical errors, random [...] AM EDT Nurse Only Family Practice [address] [facility] 293 [place] [address] College, Nurse Fam Prac [address] [place] [address] 293 [place] [address] 04/18/2024 11:00 AM EDT Office Visit Urology Christine Lopez [address] [facility] [address] [place] [address] Chika Caballero PA-C [address] [place] [address] 04/21/2024 3:30 PM EDT Telemedicine Orthopaedics [facility] 132 [facility] [place] [address] Masood Borges PA-C 132 [facility] [place] [address] 05/19/2024 1:00 PM EST Office Visit Family Practice 65 [facility] 293 [place] [address] Glenda Garcia DO 293 [facility] [place] [address] 08/13/2024 11:30 AM EST Imaging Radiology [facility] 132 [facility] [place] [address] 10/28/2024 11:00 AM EDT Nurse Only Ancillary [address] [place] [address] College, Nurse Annual Wellness Visit [address] [facility] [address] [place] [address] Pending Results Name Type Priority Associated Diagnoses [...] this encounter Medical Devices Implanted Type Area Header Up Device Identifier Shelf Expiration Date Model / Serial / Lot Lens Li61ao 13.00mm 19.50 - [id number] - [id number] Implanted:Qty: 1 on 10/30/2023 by Ernesto Ocasio MD at OR [facility] Left: Eye [employer]USCH [employer] LOMB 07/15/2028 [id number] / [id number] / [id number] Lens Li61ao 13.00mm 19.50 - [id number] - [id number] Implanted:Qty: 1 on 11/13/2023 by Ernesto Ocasio MD at OR [facility] Right: Eye BAUSCH & LOMB 07/15/2028 [id number] / [id number] / [id number] documented as of this encounter Procedures Procedure Name Priority Date/Time Associated Diagnosis Comments SC ARTHROCENTESIS ASPIR&/INJ MAJOR JT/BURSA W/O US Routine 03/24/2024 11:46 AM EDT Primary osteoarthritis of left knee documented in this encounter Results * SC ARTHROCENTESIS ASPIR&/INJ MAJOR JT/BURSA W/O US (03/24/2024 [...] to verify the correct patient, procedure, equipment, system support specialist and site/side marked as required. Patient was prepped and draped in the usual sterile fashion. Masood Borges PA-C PROCDOC FORM documented in this encounter Visit Diagnoses Diagnosis Primary osteoarthritis of left knee- Primary Primary localized osteoarthrosis, lower leg documented in this encounter Administered Medications Inactive Administered Medications - up to 3 most recent administrations Medication Order MAR Action Action Date Dose Rate Site lidocaine 1% 1 mL - triamcinolone acetonide 40 mg/mL 1 mL inj 2 mL 2 mL, Injection, ONCE, On Sun03/24/24 at 1230, For 1 dose, Lidocaine 1% 1mL Triamcinolone Acetonide 40 mg/mL 1 mL (Final concentration = 20 mg/mL) REFRIGERATE and SHAKE WELL Given 03/24/2024 12:55 PM EDT 2 mL Knee Left documented in this encounter Advance Directives * [...] Discussed due to patient's condition Care Teams Fisher Eel Spear Relationship Specialty Start Date End Date Glenda Garcia DO [address] [place] [address] PCP - General Family Medicine 12/28/23 documented as of this encounter
--- OUTSIDE RECORDS SUMMARY | 2024-03-29 04:35 | External Medical Summary | Summary of Care ---
Author Name Unknown Organization [facility] Address [address] [facility] [place] [address] Phone [phone] Care Team Providers Care Funeral Arrangement Director Name Role Phone Glenda Garcia DO Primary Care Provider [phone] Reason for Visit * Reason Comments Follow Up Encounter Details Date Type Department Care Team (Late st Contact Info) Description 03/11/2024 2:15 PM EDT Office Visit Urogynecology Billy Beard [address] [place] [address] Gilmar Jimenes MD [address] [place] [address] Nurse Lencho Beard [address] [place] [address] Urge incontinence*; Urinary urgency; Urinary frequency Allergies Active Allergy Reactions Criticality Noted Date Comments Adhesive Tape Rash Low 02/18/2020 Some adhesive tapes- irritation and rash Bee Venom Edema airway High 01/01/2016 Hornet-edema airway. Other bees-swelling Ciprofloxacin Nausea/vomiting 01/01/2016 Crab Extract High 11/17/2022 Other reaction(s): Vomiting Cephalexin Diarrhea 01/01/2016 documented as of this encounter (statuses as of 03/11/2024) Medications Medication Sig Dispensed Refills Start Date [...] MCG/ACT Inhalation Aerosol Powder Breath Activated (umeclidinium [place])Indications: COPD, mild (HCC) Inhale 1 Puff by [...] morning. 100 Tablet 3 10/05/2023 Active Nystatin 010162 UNIT/GM External CreamIndications:Int ertrigo Apply topically to [...] 0.1 % Nasal Solution (Astelin) Administer 1 [place] into nostril in the morning and 1 [place] before bedtime. 30 mL 12 02/11/2024 Active [...] 1,000 mcgIndications:Intestinal postoperative nonabsorption 1000 mcg IM [id number] 05/09/2023 07/02/20 24 Active documented as of this encounter (statuses as of 03/11/2024) Active Problems Problem Noted Date Diagnosed Date [...] 08/15/2022 Other bipolar disorder 08/15/2022 PAYTON RESEARCH OTHER*[id number] 04/03/2022 Facet arthropathy, lumbar 06/20/2018 Medical marijuana use 05/16/2018 Overview: 01/2018-[facility]--using oil vape 2/d, lotion apply knees,ankles. Renal [...] Quit 04/02 H/O colonoscopy 04/18/2017 Overview: In [place] -nl per pt Dyslipidemia, goal LDL below 100 04/18/2017 Venous stasis dermatitis of right lower extremit y 04/18/2017 Uses roller walker 04/18/2017 Encounter for antineoplastic chemotherapy 2016 documented as of this encounter (statuses as of 03/11/2024) Resolved Problems Problem Noted Date Diagnosed Date Resolved Date Body mass index (BMI) of 50. 0 to 59.9 in adult 07/29/2018 05/15/2019 Overview: Per Obesity protocol #1 - - Body mass index (BMI) of 60. 0 to 69.9 in adult 06/24/2018 08/02/2018 Overview: Per Obesity protocol #1 - Calculus of gallbladder with chronic cholecystitis 04/22/2018 05/15/2019 Overview: 05/0234-RC-IsZtqy>Cholelithiasis with a contracted gallbladder. Please correlate with [...] as of this encounter (statuses as of 03/11/2024) Immunizations Name Administration Dates Next Due COVID-19 mRNA, LNP-s, No Pre serve, 2-Dose Series (Moderna) 09/13/2020,08/09/2020 COVID-19, MRNA-LNP, 23-24, P F, 30 MCG/0.3 mL, 12 YRS AND ABOVE, IM ([employer]-Comirnat) 12/11/2023 COVID-19, MRNA-LNP, 23-24, P F, 50 [...] 05/05/2020 Seasonal Influenza, Trivalen t, Adjuvanted, 65+ yrs 04/28/2022,08/05/2019 TDAP (age 10 and older)(Boostrix) 02/03/2021,04/2018 Zoster Vaccine Recombinant (Shingrix) 10/16/2022 ,08/15/2022 documented as of this encounter Social History Tobacco Use Types Packs/Day Years Used Date Smoking Tobacco: Former Cigarettes 1 35 0 11/17/1987 - 11/16/2022 Passive Smoke Exposure: Past Smokeless Tobacco: Never Tobacco Cessation:Counseling Given: Not Answered Alcohol Use Standard Drinks/Week Comments No 0 (1 standard drink = 0.6 oz pure alcohol) very occasionally in past, none now PHQ-2 Answer Date Recorded PHQ Adult Total Score 1 10/26/2023 Hunger Vital Sign Answer Date Recorded Within the past 12 months, y ou worried that your food would run out before you got the money to buy more. Never true 01/11/20 24 Within the past 12 months, t [...] as of this encounter Progress Notes * Gilmar Jimenes MD - 03/11/2024 2:27 PM EDT Yelena Mcclure presents for a follow up visit at [facility]. She was previously seen for (N39.41) Urge incontinence (primary encounter diagnosis) (R39.15) Urinary urgency (R35.0) Urinary frequency She started the combination of Vesicare with Myrbetriq. No side effects reported.. Urinary: nocturia is only once a night. In the day time, she has more time to reach the restroom. She has less incontinence. Overall is pleased with current treatment plan and wishes to continue current treatment. Concerns: none Allergies: Review of patient's allergies indicates: Allergen Reactions Bee Venom Edema airway Hornet-edema airway. Other bees-swelling Crab Extract Other reaction(s): Vomiting Ciprofloxacin Nausea/vomiting Keflex [Cephalexin] Diarrhea Adhesive Tape Rash Some adhesive tapes- irritation and rash Active Medications: Current Outpatient Medications Medication Sig Dispense Refill [...] Capsule 0 CPAP every night at bedtime. Bariatric Multivitamins/Iron Oral Capsule Take 1 Tablet by mouth in the morning. Montelukast Sodium 10 MG Oral Tablet (Singulair) Take 1 Tablet by mouth daily. 100 Tablet 3 Calcium Citrate Chewy Bite 500-12.5 MG-MCG Oral Tablet Chewable (Calcium Citrate-Vitamin D) Take 1 Tablet by mouth 3 times a day. Incruse Ellipta 62.5 MCG/ACT Inhalation Aerosol Powder Breath Activated (umeclidinium [place]) Inhale 1 Puff by mouth in the morning. 90 Each 1 Triamcinolone Acetonide 0.1 % External Cream (Aristocort) Apply topically to affected area 2 times a day 45 g 1 Myrbetriq 50 MG Oral Tablet Extended Release 24 Hour (Mirabegron ER) Take 1 Tablet by mouth in the morning. 100 Tablet 3 Nystatin 040023 UNIT/GM External Cream Apply topically to affected [...] 1 in the am, 2 at night. Modafinil 200 MG Oral Tablet (Provigil) take [...] 0.1 % Nasal Solution (Astelin) Administer 1 [place] into nostril in the morning and 1 [place] before bedtime. 30 mL 12 Escitalopram Oxalate 20 MG Oral Tablet (Lexapro) take 1 tablet by mouth twice a day 180 Tablet 0 lamoTRIgine 200 MG Oral Tablet (LaMICtal) take 1 tablet by mouth every morning and 1 tablet at bedtime 180 Tablet 0 amLODIPine Besylate 5 MG Oral Tablet (Norvasc) Take 1 Tablet by mouth in the morning. 90 Tablet 0 Ondansetron 4 MG Oral Tablet Disintegrating (Zofran) Place 1 Tablet on tongue every 8 hours as needed for Nausea or Vomiting. dissolve on tongue. (Patient not taking: Reported on 03/11/2024) 30 Tablet0 Current Facility-Administered Medications Medication Dose Route Frequency Provider Last Rate Last Admin vitamin b-12 (Cyanocobalamin) inj 1,000 mcg 1,000 mcg Intramuscular Q12 Weeks Nicole Samuel PA-C 1,000 mcg at 10/19/23 1604 ROS: No Change since previous visit Impression: This is a 73 year old with Urge incontinence (Primary) Urinary urgency Urinary frequency Continue Kegel exercises, limit bladder irritants in the diet, Vesicare with Myrbetriq. All questions answered. Follow up in 1 year. I spent a total of 20 minutes on the date of service in preparation, delivery, and documentation ofthe care provided to Yelena Mcclure excluding any time spent in the performance of separately billed services. Gilmar Jimenes MD 03/11/2024 2:27 PM documented in this encounter Nursing Notes * Cristal Sams LPN - 03/11/2024 2:21 PM EDT Pt reports to clinic for medication f/u Vesicare and mybetriq -improved Denies CLEVE documented in this encounter Plan of Treatment Upcoming Encounters Date Type Department Care Team (Late st Contact Info) Description 03/18/2024 1:00 PM EDT Office Visit Family Practice [address] [facility] [place] [address] Glenda Garcia DO 293 [place] [address] 04/18/2024 11:00 AM EDT Office Visit Urology Christine Lopez [address] [place] [address] Chika Caballero PA-C [address] [place] [address] 08/13/2024 11:30 AM EST Imaging Radiology [facility] [address] [place] [address] 10/28/2024 11:00 AM EDT Nurse Only Ancillary 65 [facility] 293 [place] [address] College, Nurse Annual Wellness Visit 65 [facility] [address] [facility] [address] Scheduled Procedures Name Priority Associated Diagnoses Date/Ti [...] exists Adult Wellness Visit 10/25/2024 10/26/2023, 10/18/19 Depression Monitoring 10/25/2024 10/26/2023 O2 ASSESSMENT COMPLETED [...] this encounter Medical Devices Implanted Type Area Environmental Health Manager Device Identifier Shelf Expiration Date Model / Serial / Lot Lens Li61ao 13.00mm 19.50 - [id number] - [id number] Implanted:Qty: 1 on 10/30/2023 by Ernesto Ocasio MD at OR [facility] Left: Eye [employer]OMB 07/15/2028 [id number] / [id number] / [id number] Lens Li61ao 13.00mm 19.50 - [id number] - [id number] Implanted:Qty: 1 on 11/13/2023 by Ernesto Ocasio MD at OR [facility] Right: Eye BAUSCH & LOMB 07/15/2028 [id number] / [id number] / [id number] documented as of this encounter Visit Diagnoses Diagnosis Urge incontinence- Primary Urinary urgency Urgency of urination Urinary frequency documented in this encounter Advance Directives * [...] Discussed due to patient's condition Care Teams Funeral Arrangement Director Relationship Specialty Start Date End Date Glenda Garcia DO [address] [place] [address] PCP - General Family Medicine 12/28/23 documented as of this encounter
--- OUTSIDE RECORDS SUMMARY | 2024-03-29 04:35 | External Medical Summary | Summary of Care ---
Author Name Unknown Organization [facility] Address [address] [place] [address] Phone [phone] Care Team Providers Care Bender Hand Name Role Phone Glenda Garcia DO Primary Care Provider Reason for Referral * Evaluate & Treat - Unlimited Visits (Within 30 days (routine)) - Authorized Specialty Diagnoses / Procedures Referred By Contac t Referred To Contact Orthopaedic Surgery / Orthopedics Diagnoses Hyperextension deformity of knee, left Glenda Garcia DO [address] [place] [address] Referral ID Status Reason Start Date Expiration Date Visits Requested Visits Authorized [id number] Authorized Specialty Services Required 03/18/[phone] Question Answer Referral Priority Within 30 days [...] PM EDT Office Visit Family Practice 65 [facility] [place] [address] [place] [phone] Glenda Garcia DO [address] [place] [address] Hyperextension deformity of knee, left*; Breast lesion; [...] inhaler. 1 Each 0 Active Knee BraceIndications:Ac belkofski pain of left knee Wear while mobile [...] MCG/ACT Inhalation Aerosol Powder Breath Activated (umeclidinium [place])Indications :COPD, mild (HCC) Inhale 1 Puff by [...] morning. 100 Tablet 3 4 Active Nystatin [id number] UNIT/GM External CreamIndications:In tertrigo Apply topically to [...] 0.1 % Nasal Solution (Astelin) Administer 1 [place] into nostril in the morning and 1 [place] before bedtime. 30 mL 12 4 Active [...] 1,000 mcgIndications:Intestinal postoperative nonabsorption 1000 mcg IM [id number] 05/09/2023 07/02/20 24 Active documented as of [...] 08/15/2022 Other bipolar disorder 08/15/2022 [facility] OTHER*[id number] 04/03/2022 Facet arthropathy, lumbar 06/20/2018 Medical marijuana use 05/16/2018 Overview: 01/2018-[facility]--using oil vape 2/d, lotion apply knees,ankles. Renal [...] gallbladder with chronic cholecystitis 04/22/2018 05/15/2019 Overview: 05/0215-ZZ-UrJvml>Cholelithiasis with a contracted gallbladder. Please correlate with [...] symptoms or fever? No Have you had Guillain-Cisco Syndrome (an illness that causes paralysis) within [...] today? No Patient allergic to latex? No [facility] Stock: No Immunization(s) verified: Yes, [...] marijuana use Facet arthropathy, lumbar [employer] OTHER*[id number] Major depressive disorder, recurrent, moderate (HCC) Other bipolar disorder (HCC) COPD, group A, by GOLD 2017 classification ([facility]) Class 3 severe obesity due to excess [...] MCG/ACT Inhalation Aerosol Powder Breath Activated (umeclidinium [place]) Inhale 1 Puff by mouth in the morning. 90 Each 1 Triamcinolone Acetonide 0.1 % External Cream (Aristocort) Apply topically to affected area 2 times a day 45 g 1 Myrbetriq 50 MG Oral Tablet Extended Release 24 Hour (Mirabegron ER) Take 1 Tablet by mouth in the morning. 100 Tablet 3 Nystatin 171409 UNIT/GM External Cream Apply topically to affected [...] 0.1 % Nasal Solution (Astelin) Administer 1 [place] into nostril in the morning and 1 [place] before bedtime. 30 mL 12 Escitalopram Oxalate [...] performed by Staci Coffey MD at OR [facility] CHEMOTHERAPY 2017 Taxol & Herceptin COLONOSCOPY, DIAGNOSTIC (RECTUM) 11/17/2022 benign adenomatous polyps, diverticulosis, repeat 5 yrs / [facility] EGD, FLEXIBLE, DIAGNOSTIC 04/21/2022 normal bx / [facility] EGD, FLEXIBLE, DIAGNOSTIC N/A 02/23/2023 ESOPHAGOGASTRODUODENOSCOPY (EGD), FLEXIBLE, TRANSORAL, DIAGNOSTIC performed by Sterling Azevedo MD at [facility] ERCP 06/28/2018 Choledocholithiasis/[facility] IDENTIFY SENTINEL NODE, RADIOACTIVE TRACER Right 06/20/2016 INJECTION PROCEDURE FOR IDENTIFICATION SENTINEL NODE performed by Staci Coffey MD at OR [facility] IMPLANTABLE ACCESS SYST PERC Right 07/2016 INFORMATION 1960 cyst removed from throat IR BIOPSY 11/05/2023 IR BIOPSY 12/06/2023 IR EMBOLIZATION UTERINE FIBROID 1975 LAPAROSCOPE PROCEDURE, LIVER N/A 02/23/2023 UNLISTED LAPAROSCOPIC PROCEDURE LIVER performed by Sterling Azevedo MD at [place] [facility] LAPAROSCOPY; CHOLECYSTECTOMY N/A 02/23/2023 LAPAROSCOPIC CHOLECYSTECTOMY performed by Sterling Azevedo MD at [facility] MASTECTOMY, PARTIAL Right 06/20/2016 MASTECTOMY PARTIAL - right performed by Staci Coffey MD at OR [facility] 06/20/2016 RADIATION THERAPY Right 02/08/2016 6120 cGy REMOVAL OF OVARY(S) 1975 REMOVE CATARACT, INSERT LENS PROSTH Left 10/30/2023 LEFT EXTRACAPSULAR CATARACT REMOVAL WITH INTRAOCULAR LENS performed by Ernesto Ocasio MD at OR [facility] REMOVE CATARACT, INSERT LENS PROSTH Right 11/13/2023 RIGHT EXTRACAPSULAR CATARACT REMOVAL WITH INTRAOCULAR LENS performed by Ernesto Ocasio [facility] OR [facility] SLEEVE GASTRECTOMY, LAPROSCOPY N/A 02/23/2023 LAPAROSCOPY SLEEVE GASTRECTOMY performed by Sterling Azevedo MD at [place] [facility] SURGICAL REMOVAL, ERUPTED TOOTH AND BONE 06/2015 [...] 03/24/2024 11:00 AM EDT Office Visit Orthopaedics [facility] [address] [place] [address] Masood Borges PA-C [address] [place] [address] 04/01/2024 11:00 AM EDT Nurse Only Family Practice [address] [place] [address] [address] [place] [phone] [place], Nurse Fam Prac 65 [facility] [address] [place] [address] 04/18/2024 11:00 AM EDT Office Visit Urology Christine Lopez [address] [place] [address] Chika Caballero PA-C [address] [place] [address] 05/19/2024 1:00 PM EST Office Visit Family Practice 65 [facility] 293 [place] [address] Glenda Garcia DO [address] [place] [address] 08/13/2024 11:30 AM EST Imaging Radiology [facility] 132 [facility] [place] [address] 10/28/2024 11:00 AM EDT Nurse Only Ancillary 65 [facility] [address] [place] [address] [place], Nurse Annual Wellness Visit [address] [place] [address] Scheduled Orders Name Type Priority Associated Diagnoses [...] this encounter Medical Devices Implanted Type Area Cookie Breaker Device Identifier Shelf Expiration Date Model / Serial / Lot Lens Li61ao 13.00mm 19.50 - [id number] - [id number] Implanted:Qty: 1 on 10/30/2023 by Ernesto Ocasio MD at OR [facility] Left: Eye [employer]USCH [employer] LOMB 07/15/2028 [id number] / [id number] / [id number] Lens Li61ao 13.00mm 19.50 - [id number] - [id number] Implanted:Qty: 1 on 11/13/2023 by Ernesto Ocasio MD at OR [facility] Right: Eye BAUSCH & LOMB 07/15/2028 [id number] / [id number] / [id number] documented as of this encounter Visit Diagnoses [...] (Cyanocobalamin) inj 1,000 mcg 1,000 mcg, Intramuscular, [id number], First dose on Sun05/09/23 at 1230, Last [...] Discussed due to patient's condition Care Teams Bender Hand Relationship Specialty Start Date End Date Glenda Garcia DO [address] [place] [address] PCP - General Family Medicine 12/28/23 documented as of this encounter
--- OUTSIDE RECORDS SUMMARY | 2024-03-29 04:36 | External Medical Summary | Summary of Care ---
Author Name Unknown Organization [facility] Address [address] [place] [address] Phone [phone] Care Team Providers Care Class A Regional Truck Driver Name Role Phone Glenda Steele DO Primary Care Provider Reason for Visit * Reason Comments Follow Up Encounter Details Date Type Department Care Team (Latest Contact Info) Description 03/10/2024 11:00 AM EDT Telemedicine Pulmonary Medicine, [place] [address], [place] [id number] Jair Springer MD [address], [place] [id number] COPD, group A, by GOLD 2017 classification ([facility])*; Obstructive sleep apnea treated with BiPAP; Tobacco use disorder; Environmental allergies Allergies Active Allergy Reactions Criticality Noted Date Comments Adhesive Tape Rash Low 02/18/2020 Some adhesive tapes- irritation and rash Bee Venom Edema airway High 01/01/2016 Hornet-edema airway. Other bees-swelling Ciprofloxacin Nausea/vomiting 01/01/2016 Crab Extract High 11/17/2022 Other reaction(s): Vomiting Cephalexin Diarrhea 01/01/2016 documented as of this encounter (statuses as of 03/10/2024) Medications Medication Sig Dispensed Refills Start Date End Date Status fexofenadine (LIANA) 180 MG Tablet Take 1 Tablet by [...] MCG/ACT Inhalation Aerosol Powder Breath Activated (umeclidinium [place])Indications: COPD, mild (HCC) Inhale 1 Puff by [...] morning. 100 Tablet 3 10/05/2023 Active Nystatin 141523 UNIT/GM External CreamIndications:Int ertrigo Apply topically to [...] 0.1 % Nasal Solution (Astelin) Administer 1 [place] into nostril in the morning and 1 [place] before bedtime. 30 mL 12 02/11/2024 Active [...] 1,000 mcgIndications:Intestinal postoperative nonabsorption 1000 mcg IM [id number] 05/09/2023 07/02/20 24 Active documented as of this encounter (statuses as of 03/10/2024) Active Problems Problem Noted Date Diagnosed Date [...] 08/15/2022 Other bipolar disorder 08/15/2022 [employer] OTHER*[id number] 04/03/2022 Facet arthropathy, lumbar 06/20/2018 Medical marijuana use 05/16/2018 Overview: St 01/2018-[facility]--using oil vape 2/d, lotion apply knees,ankles. [...] as of this encounter (statuses as of 03/10/2024) Resolved Problems Problem Noted Date Diagnosed Date Resolved Date Body mass index (BMI) of 50. 0 to 59.9 in adult 07/29/2018 05/15/2019 Overview: Per Obesity protocol #1 - - Body mass index (BMI) of 60. 0 to 69.9 in adult 06/24/2018 08/02/2018 Overview: Per Obesity protocol #1 - Calculus of gallbladder with chronic cholecystitis 04/22/2018 05/15/2019 Overview: 05/0237-AI-QeUglo>Cholelithiasis with a contracted gallbladder. Please correlate with [...] as of this encounter (statuses as of 03/10/2024) Immunizations Name Administration Dates Next Due COVID-19 [...] 07/26/2023 Does the household have a re lar source of income? (Household - for ages [...] (15 years old or older) No 02/24/20 23 Cognitive Status Response Date of Assessm ent Because of a physical, menta l, or emotional condition, do you have serious difficulty concentrating, remembering, or making decisions? (5 years old or older) No 02/23/2023 documented as of this encounter Progress Notes * Jair Springer MD - 03/10/2024 11:00 AM EDT Yelena Mcclure, , 73 year old female 03/10/2024 Visit date not found (in office), 02/08/2023 (telemedicine) Patient location: HOME. I was not in a hospital or clinic location. After connecting through televideo, patient was verified with two unique identifiers. Patient (or authorized legal auto service representative) was then informed that this was a Telemedicine visit and being conducted confidentially over secure lines. Methods to assure confidentiality were taken. Patient acknowledged consent and understanding of privacy and security of the Telemedicine visit. The patient agreed to participate. Yelena Mcclure presents for follow-up evaluation of: COPD, ASH, tobacco smoking INTERVAL HISTORY 1. "Pretty good." SpO2 @ 91% (RA), some trouble with hot humid weather, faster walking, "maybe a tad worse", but could snorkle swim w/o dyspnea 2. Resting dyspnea: no issues 3. BERNAL: above 4. Cough: +- in the AM, productive 5. Nocturnal Sx: BPAP (RA) regularly, pressures were decreased 6. Other respiratory symptoms:occ wheezing with exertion, no dep edema 7. Recent exacerbations: no 8. Interval ED or Hosp (summary notes reviewed):Hospitalized March 04, 2023 for bariatric surgery,went well. Lost 290 to 225# (max was 440#) 9. New med problems: nasal washed for post-nasal drip 10. Weight: above 11. Smoking:quit in October 2022. 12: Exercise: swimming occ, walking @ 3500 steps per day 13. Vaccinations: fluvax 2022; COVID Vax x 4, inc 2022, Pneumovax +13, 23, TDap 2020, no RSV Review of patient's allergies indicates: Allergen Reactions Bee Venom Edema airway Hornet-edema airway. Other bees-swelling Crab Extract Other reaction(s): Vomiting Ciprofloxacin Nausea/vomiting Keflex [Cephalexin] Diarrhea Adhesive Tape Rash Some adhesive tapes- irritation and rash Current Outpatient Medications Medication Sig Dispense Refill fexofenadine (LIANA) 180 MG Tablet Take 1 Tablet by [...] Montelukast Sodium 10 MG Oral Tablet (Singulair) qAM 100 Tablet 3 Calcium Citrate Chewy Bite 500-12.5 MG-MCG Oral Tablet Chewable (Calcium Citrate-Vitamin D) Take 1 Tablet by mouth 3 times a day. Incruse Ellipta 62.5 MCG/ACT Inhalation Aerosol Powder Breath Activated (umeclidinium [place]) daily 90 Each 1 Triamcinolone Acetonide 0.1 % External Cream (Aristocort) Apply topically to affected area 2 times a day 45 g 1 Myrbetriq 50 MG Oral Tablet Extended Release 24 Hour (Mirabegron ER) Take 1 Tablet by mouth in the morning. 100 Tablet 3 Nystatin 494434 UNIT/GM External Cream Apply topically to affected [...] 108 (90 Base) MCG/ACT Inhalation Aerosol Solution Uses occ prn. 8.5 g 1 Lisinopril 40 MG Oral Tablet Take 1 Tablet by mouth in the morning. 100 Tablet 0 Azelastine HCl 0.1 % Nasal Solution (Astelin) Administer 1 [place] into nostril in the morning and 1 [place] before bedtime. 30 mL 12 Escitalopram Oxalate 20 MG Oral Tablet (Lexapro) take 1 tablet by mouth twice a day 180 Tablet 0 lamoTRIgine 200 MG Oral Tablet (LaMICtal) take 1 tablet by mouth every morning and 1 tablet at bedtime 180 Tablet 0 amLODIPine Besylate 5 MG Oral Tablet (Norvasc) Take 1 Tablet by mouth in the morning. 90 Tablet 0 Current Facility-Administered Medications Medication Dose Route Frequency Provider Last Rate Last Admin vitamin b-12 (Cyanocobalamin) inj 1,000 mcg 1,000 mcg Intramuscular Q12 Weeks Nicole Samuel PA-C 1,000 mcg at 10/19/23 1604 (highlighted medications reviewed with patient) PHYSICAL APPEARANCE: She was alert and interactive, pleasant and cooperative. Home SpO2 breathing room air at rest was 93%. DATA: Chest CT scan 08/27/23: 1. Scattered micro nodules stable compared to previous 2. A more nodular appearance of an area of suspected scarring at the right lung base. Recommend short-term follow-up to ensure stability or resolution and to exclude developing nodule. She had a follow-up lung cancer screening chest CT scan performed on March 07, 2024. The radiologyreport is pending. From my quick review, there was no new worrisome nodules. Assessment: Mr. Davenport's pulmonary status seems to be reasonably stable. She continues to derive benefit from the use of umeclidinium (Incruse). Similarly, her environmental allergies seem to be well managed. Pulmonary Problem List: COPD Non-emphysematous phenotype Smoking-related Gold class A Associated mild airflow obstruction ASH Uses bilevel CPAP Env allergies Tobacco use disorder Other conditions that may impact pulmonary management: Obesity HTN Breast cancer Small nodule, node negative, HR2+ S/p lumpectomy, xRT, CTX 2015 Recommendations & Plan: 1. Management lung nodules per lung cancer screening program 2. Continue Incruse on a daily basis, and albuterol if needed 3. Continue Liana and montelukast to manage her allergies 4. Continued smoking cessation was strongly encouraged 5. I encouraged her to notify me should her breathing continue to worsened. If so, consideration will be given to measurement of full PFTs Follow-up: 1 year TeleVideo to home I spent a total of 20-29 minutes (exact time 25 mins) on the date of service in preparation, delivery, and documentation of the care provided to Yelena Mcclure excluding any time spent in the performance of separately billed services. Jair Springer MD, Ph.D. Chair, Pulmonary/Critical Care Medicine PCP: GLENDA STEELE [address] [place] [address] [phone] documented in this encounter Plan of Treatment Upcoming Encounters Date Type Department Care Team (Late st Contact Info) Description 03/11/2024 2:15 PM EDT Office Visit Urogynecology Billy Beard [address] [place] [address] Gilmar Jimenes MD [address] [place] [address] Nurse Lencho Beard 132 [facility] [place] [address] 03/18/2024 1:00 PM EDT Office Visit Family Practice 65 [facility] [place] [address] [place] [address] Glenda Steele DO [address] [place] [address] 04/18/2024 11:00 AM EDT Office Visit Urology Christine Lopez [address] [place] [address] Chika Caballero PA-C [address] [place] [address] 08/13/2024 11:30 AM EST Imaging Radiology [facility] [address] [place] [address] 10/28/2024 11:00 AM EDT Nurse Only Ancillary 65 [facility] 293 [place] [address] College, Nurse Annual Wellness Visit 65 [facility] 293 [facility], [place] [address] Scheduled Procedures Name Priority Associated Diagnoses Date/Ti [...] 10/18/2028 10/19/2023, 03/16, 09/27/2020, Additional history exists DTaP,Tdap,and Td Vaccines (3 - Td or Tdap) 02/03/2031 [...] this encounter Medical Devices Implanted Type Area Group Captain Device Identifier Shelf Expiration Date Model / Serial / Lot Lens Li61ao 13.00mm 19.50 - [id number] - [id number] Implanted:Qty: 1 on 10/30/2023 by Ernesto Ocasio MD at OR [facility] Left: Eye [employer]USCH [employer] LOMB 07/15/2028 [id number] / [id number] / [id number] Lens Li61ao 13.00mm 19.50 - [id number] - [id number] Implanted:Qty: 1 on 11/13/2023 by Ernesto Ocasio MD at OR [facility] Right: Eye BAUSCH & LOMB 07/15/2028 [id number] / [id number] / [id number] documented as of this encounter Visit Diagnoses Diagnosis COPD, group A, by GOLD 2017 classification ([facility])- Primary Obstructive sleep apnea treated with BiPAP Tobacco use disorder Environmental allergies Other allergy, other than to medicinal agents documented in this encounter Advance Directives * [...] Discussed due to patient's condition Care Teams Class A Regional Truck Driver Relationship Specialty Start Date End Date Glenda Steele DO [address] [place] [address] PCP - General Family Medicine 12/28/23 documented as of this encounter
--- OUTSIDE RECORDS SUMMARY | 2024-03-29 04:36 | External Medical Summary | Summary of Care ---
Author Name Unknown Organization [facility] Address [address] [place] [address] Phone [phone] Care Team Providers Care Supervisor Border Department Name Role Phone PetrGlenda hayes Carmen SARGENT Primary Care Provider Encounter Details Date Type Department Care Team (Late st Contact Info) Description 03/10/2024 Orders Only Outcomes Research Department [address] [place] [address] Cheri Jones CHRA [employer] Other*[id number] Allergies Active Allergy Reactions Criticality Noted Date [...] MCG/ACT Inhalation Aerosol Powder Breath Activated (umeclidinium [place])Indications: COPD, mild (HCC) Inhale 1 Puff [...] morning. 100 Tablet 3 10/05/2023 Active Nystatin 690416 UNIT/GM External CreamIndications:Int ertrigo Apply topically to [...] 0.1 % Nasal Solution (Astelin) Administer 1 [place] into nostril in the morning and 1 [place] before bedtime. 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 [...] Quit 04/02 H/O colonoscopy 04/18/2017 Overview: In [place] -nl per pt Dyslipidemia, goal LDL below [...] gallbladder with chronic cholecystitis 04/22/2018 05/15/2019 Overview: 05/0211-CJ-FyAxpj>Cholelithiasis with a contracted gallbladder. Please correlate with chronic cholecystitis. Mild dilation of the common duct. No radiopaque stones in the common duct(03/08/18-[facility])-was refer GI++ Body mass index (BMI) of [...] Care Team (Late st Contact Info) Description 03/10/2024 11:00 AM EDT Telemedicine Pulmonary Medicine, [place] [address] [place] [address] Jair Springer MD [address] [place] [address] 03/11/2024 2:15 PM EDT Office Visit Urogynecology [facility] 132 [facility] [place] [address] Gilmar Jimenes MD 132 [facility] [address] Nurse Lencho Beard [facility] 132 [facility] [place] [address] 03/18/2024 1:00 PM EDT Office Visit Family Practice 65 [facility] [address] [place] [address] Glenda Garcia DO [address] [place] [address] 04/18/2024 11:00 AM EDT Office Visit Urology Christine Lopez [address] [place] [address] Chika Caballero PA-C [address] [place] [address] 08/13/2024 11:30 AM EST Imaging Radiology [facility] 132 [facility] [place] [address] 10/28/2024 11:00 AM EDT Nurse Only Ancillary 65 [facility] 293 [place] [address] College, Nurse Annual Wellness Visit [address] [place], [place] [address] [address] Scheduled Orders Name Type Priority Associated Diagnoses Orde r Schedule MYCODE SUBSEQUENT ADULT Lab Routine [employer] Research Other*[id number] Every 6 Months for 2 Occurrences starting 03/10/2024 until 03/30/2025 Scheduled Procedures Name Priority Associated Diagnoses Date/Ti [...] this encounter Medical Devices Implanted Type Area Plater Hot Dip Device Identifier Shelf Expiration Date Model / Serial / Lot Lens Li61ao 13.00mm 19.50 - [id number] - [id number] Implanted:Qty: 1 on 10/30/2023 by Ernesto Ocasio MD at OR [facility] Left: Eye BAUSCH & LOMB 07/15/2028 [id number] / [id number] / [id number] Lens Li61ao 13.00mm 19.50 - [id number] - [id number] Implanted:Qty: 1 on 11/13/2023 by Ernesto Ocasio MD at OR [facility] Right: Eye BAUSCH & LOMB 07/15/2028 [id number] / [id number] / [id number] documented as of this encounter Visit Diagnoses Diagnosis [employer] Other*[id number] documented in this encounter Advance Directives * [...] Discussed due to patient's condition Care Teams Supervisor Border Department Relationship Specialty Start Date End Date Glenda Garcia DO 293 [facility] [place] [address] PCP - General Family Medicine 12/28/23 documented as of this encounter
--- OUTSIDE RECORDS SUMMARY | 2024-03-29 04:36 | External Medical Summary | Continuity of Care Document ---
Author Name Unknown Organization [facility] [id number] Address [address] [place] [id number] Care Team Providers Care Lining Cutter Name Role Phone Nat Eduardo Primary Care Physician [phone] [id number] Date(s): 03/03/24 - 03/03/24 [facility] [address] [place] [id number] [facility] Medicine [address] [address] Encounter Diagnosis Arthritis of both feet(Discharge Diagnosis) - 03/03/24 Arthritis of right subtalar joint(Discharge Diagnosis) - 03/03/24 Pain in both feet(Discharge Diagnosis) - 03/03/24 Pes planus of left foot(Discharge Diagnosis) - 03/03/24 Pes planus of right foot(Discharge Diagnosis) - 03/03/24 Posterior tibial tendinitis, left leg(Discharge Diagnosis) - 03/03/24 Posterior tibial tendinitis, right leg(Discharge Diagnosis) - 03/03/24 Discharge Disposition: Home or Self Care Attending Physician: MAYTE Eduardo Christina L Referring Physician: MAYTE Eduardo Christina L Allergies, Adverse Reactions, Alerts Substance Criticality Severity Reaction Reaction Severity Status Cipro unresponsive an d severe diarrhea Active Keflex Unable to assess criticality Moderate Diarrhea Active Bee stings Unable to assess criticality Severe Anaphylaxis Active Assessment and Plan Extracted from: Title:Follow Up Visit Author:MAYTE Eduardo Ch ristina L Date:03/03/24 1.Arthritis of both feet Patient recommended to continue her supportive shoes with orthotics. Notably at today's visit she had no pain or discomfort certainly if she were to develop painshe should contact our office of be happy to recommend her either an ultrasound-guided injection, not ultrasound-guided injection, anti-inflammatory medicinesorthopedic shoes or new orthotics. At this point she is pain-freediscussed again I think this has a lot to do with her 60 pound weight lossshe should continue her heart healthy active lifestylerecommend follow-up with me as needed. I spent 3 minute planning including prepping note and chart review. I spent 12 minute [id number] interaction with patient addressing issuesdiscussed in visit today. I spent 3 minute time in postop visitplanning including note finishing in depart process. Total time spent on patient visit 18 minutes. 2.Arthritis of right subtalar joint 3.Pain in both feet 4.Pes planus of left foot 5.Pes planus of right foot 6.Posterior tibial tendinitis, left leg 7.Posterior tibial tendinitis, right leg Immunizations Given and Recorded Vaccine Date Status Refusal Reason SARS COVID Vaccine Unspecified 05/23/23 Recorded SARS-CoV-2 (COVID-19) mRNA-1273 vaccine 1 05/07/21 Recorded SARS-CoV-2 (COVID-19) mRNA-1273 vaccine 2 09/13/20 Recorded SARS-CoV-2 (COVID-19) mRNA-1273 vaccine 3 08/09/20 Recorded tetanus/diphtheria/pertuss, acel (Tdap) 4 02/03/21 Recorded tetanus/diphtheria/pertuss, acel (Tdap) 5 07/02/18 Recorded tetanus/diphtheria/pertuss, acel (Tdap) 6 06/24/18 Recorded influenza virus vaccine, inactivated 05/05/20 Give n pneumococcal 23-valent vaccine 7 08/22/19 Recorded pneumococcal 13-valent vaccine 8 12/04/17 Recorded 1Result Comment: 2021-09-30: Historical information-source unspecified 2Result Comment: 2021-09-30: Historical information-source unspecified 3Result Comment: 2021-09-30: Historical information-source unspecified 4Result Comment: 2021-09-30: Historical information-source unspecified 5Result Comment: 2020-03-03: Historical information-source unspecified 6Result Comment: 2020-03-03: Historical information-source unspecified 7Result Comment: 2020-03-03: Historical information-source unspecified 8Result Comment: 2020-03-03: Historical information-source unspecified Medications Albuterol (Eqv-ProAir HFA) 90 mcg/inh inhalation aerosol INHALE 2 PUFFS BY MOUTH EVERY 6 HOURS NEEDED FOR SHORTNESS OF BREATH OR WHEEZING. Start Date: 03/03/24 Status: Ordered amLODIPine 5 mg oral tablet Start: 03/03/24 2:07:00 PM EDT, 1 tab, PO, Daily Start Date: 03/03/24 Status: Ordered atorvastatin 40 mg oral tablet See Instructions, Disp# 90 tab, Refills: 3, TAKE 1 TABLET BY MOUTH EVERYDAY AT BEDTIME, Pharmacy: [id number] Start Date: 07/20/21 Status: Ordered Deplin Start: 05/05/20 11:04:00 AM EDT Start Date: 05/05/20 Status: Ordered ergocalciferol 1.25 mg (50,000 intl units) oral capsule Start: 05/12/22 3:53:00 PM EDT, See Instructions, Disp# 12 cap, Refills: 3, TAKE 1 CAPSULE BY MOUTHEVERY 7 DAYS, Pharmacy: [id number] Start Date: 05/12/22 Status: Ordered escitalopram 20 mg oral tablet TAKE 2 TABLETS BY MOUTH EVERY DAY Start Date: 03/03/20 Status: Ordered Incruse Ellipta 62.5 mcg/inh inhalation powder Start: 09/29/22 2:09:00 PM EDT, See Instructions, Disp# 30 each, Refills: 0, INHALE 1 PUFF DAILY, Pharmacy: [id number] Start Date: 09/29/22 Status: Ordered lamoTRIgine 200 mg oral tablet TAKE 1/2 TABLET BY MOUTH EVERY MORNING AND 1 TABLET AT BEDTIME Start Date: 03/03/20 Status: Ordered liothyronine 5 mcg oral tablet TAKE 1 TABLET BY MOUTH THREE TIMES A DAY Start Date: 03/03/20 Status: Ordered lisinopril 40 mg oral tablet Start: 01/24/23 11:45:00 AM EDT, See Instructions, Disp# 90 tab, Refills: 3, TAKE 1 TABLET BY MOUTH DAILY, Pharmacy: [facility] Start Date: 01/24/23 Status: Ordered Medical Marijuana Start: 03/03/20 4:20:00 PM EDT, See Instructions, as directed. Start Date: 03/03/20 Status: Ordered modafinil 200 mg oral tablet TAKE 1 TABLET BY MOUTH EVERY DAY Start Date: 03/03/20 Status: Ordered montelukast 10 mg oral tablet Start: 06/16/22 10:28:00 AM EST, See Instructions, Disp# 90 tab, Refills: 3, TAKE 1 TABLET BY MOUTH EVERY DAY, Pharmacy: [email or web address] Start Date: 06/16/22 Status: Ordered Myrbetriq 50 mg oral tablet, extended release Start: 10/29/23 1:41:00 PM EDT Start Date: 10/29/23 Status: Ordered TIMOTEO SCHAFFER [facility] USE WITH ALBUTEROL INHALER. Start Date: 03/03/20 Status: Ordered solifenacin 5 mg oral tablet Start: 12/28/20 2:25:00 PM EDT, 90 unknown unit Start Date: 12/28/20 Status: Ordered triamcinolone 0.1% topical cream APPLY TO AFFECTED AREA TWICE A DAY Start Date: 03/03/20 Status: Ordered verapamil 240 mg/12 hours oral tablet, extended release Start: 07/27/22 8:21:00 AM EST, See Instructions, Disp# 90 tab, Refills: 3, TAKE 1 TABLET BY MOUTH EVERY DAY, Pharmacy: [email or web address] Start Date: 07/27/22 Status: Ordered Mental Status 03/03/24 Barriers to Learning one year None evide nt Mandatory Health Literacy Documentation Yes Health Literacy Communication Barriers N ever Primary Language Polish Problem List Condition Confirmation Course Effective Dates Status H ealth Status Informant Arthritis of right subtalar joint Confirmed Active Facet arthropathy, lumbar Confirmed Active Arthritis of both feet Confirmed Active Chronic bipolar disorder Confirmed Active Chronic obstructive pulmonary disease (COPD) suggested by initial evaluation Confirmed Active Renal cyst Confirmed Active Dyslipidemia Confirmed Active Pain in both feet Confirmed Active H/O varicose veins 1 Confirmed Active HTN (hypertension) Confirmed Active Hypothyroidism Confirmed Active Malignant neoplasm of right female breast Confirmed Active Medical marijuana use Confirmed Active Narcolepsy due to underlying condition without cataplexy Confirmed Active Obstructive sleep apnea 2 Confirmed Active Overweight Confirmed Active Primary osteoarthritis of knees, bilateral Confirmed Active Venous stasis dermatitis of right lower extremity Confirmed Active Amaya's cyst, unruptured Confirmed Active Pes planus of left foot Confirmed Active Pes planus of right foot Confirmed Active Posterior tibial tendinitis, left leg Confirmed Active Posterior tibial tendinitis, right leg Confirmed Active Tobacco user Confirmed Active Urge incontinence Confirmed Active Vitamin D deficiency Confirmed Active 1of legs with edema 2on bipap Diagnosis Diagnosis Type Effective Dates Health Status Cl inical Service Informant Arthritis of both feet Discharge Diagnosis 03/03/24 Non-Specified Arthritis of right subtalar joint Discharge Diagnosis 03/03/24 Non-Specified Pain in both feet Discharge Diagnosis 03/03/24 Non-Specified Pes planus of left foot Discharge Diagnosis 03/03/24 Non-Specified Pes planus of right foot Discharge Diagnosis 03/03/24 Non-Specified Posterior tibial tendinitis, right leg Discharge Diagnosis 03/03/24 Non-Specified Posterior tibial tendinitis, left leg Discharge Diagnosis 03/03/24 Non-Specified Procedures Procedure Date Related Diagnosis Body Site Status EGD (esophagogastroduodenosc opy) gastric outlet reduction 1 04/21/22 Compl eted X-ray of right knee 2 01/17/22 Com pleted Mammogram - screening 3 11/18/21 C ompleted Chest x-ray 4 09/30/21 Completed Mammogram - screening 5 11/17/20 C ompleted Colposcopy 6 10/25/20 Completed X-ray 7 09/10/20 Completed Breast lumpectomy Complet ed History of repair of umbilical hernia 8 Completed 1Indication: Preoperative assessment for bariatric surgery to treat morbid obesity. Findings: - The esophagus was normal - The entire examined stomach was normal. Biopsies were taken with a cold forceps for H. Pylori testing. - The examined duodenum was normal - The cardia and gastric fundus was normal on retroflexion. Staining for H. Pylori was negative. 2AP STANDING VIEW OF BOTH KNEES; 2 VIEWS RIGHT KNEE CLINICAL HISTORY: Right knee pain. FINDINGS: An AP standing view of both knees with crosstable lateral and sunrise views of the right knee are compared to study dated 04/17/2015. The skeletal structures are osteopenic. There is advanced tricompartmental degenerative joint space narrowing. Bony sclerosis is noted along the weightbearing surface of the right knee in both the medial and lateral compartment. There are large marginal osteophytes and patellar enthesophytes. A calcified fabella is incidentally noted. There is a small joint effusion. Soft tissue swelling is present around the knee. Survey imaging of the left knee on the standing view shows advanced degenerative change in the medial and lateral compartments with marginal osteophytes. There is valgus deformity of both knees shown on the standing view. IMPRESSION: 1. Osteopenia and advanced degenerative change of the right knee with no acute bony abnormality identified. 2. There is valgus deformity of both knees on the standing view. 3. Small joint effusion of the right knee. 3Impression: There is no mammographice evidence of malignancy. A 1 year screening mammogram is recommended. (11/19/2022) The patient will receive written notification of the results. 4Cardiomegaly without acute process 5Impression: There is no mammographic evidence of malignancy. A 1 year screening mammogram is recommended. (11/18/2021) The patient will receive written notification of the results. 6Diagnosis: A. Endocervix, curettage: Minuet fragment of detached atypical squamous epithelium with inflammation, see comment. B. Cervical polypm biopsy: Scant fragments of benign endocervical glands. Comment: PartA Clinical correlation and additional tissue sampling as clinically indicated is recommended. 7XR ankle LT min 3V routine, XR foot LT min 3V routine HISTORY: 70 years-old Female ANKLE AND FOOT PAIN acute left foot and ankle pain without trauma COMPARISON: None TECHNIQUE: 3 views of the left ankle with 3 views of the left foot FINDINGS: ANKLE: Demineralized appearance of the bones. Mild to moderate tibiotalar osteoarthritis. Healed chronic fracture deformity of the distal fibular metadiaphysis. No acute fracture, dislocation or osteochondral defect.. FOOT: Multifocal osteoarthritis, moderate within the first MTP joint. Demineralized appearance of the bones. Cortical thickening of the fifth metatarsal is suggestive of healed chronic fracture. Pes planusdeformity with hindfoot valgus. Minimal lacunar lucency projected over the base of the fifth metatarsal is likely projectional/artifactual. Severe degeneration of the subtalar joint with chronic remodeling. IMPRESSION: 1. No acute fracture or dislocation. 2. Demineralized appearance of the bones with multifocal osteoarthritis which includes severe subtalar degeneration. 3. Pes planus deformity with hindfoot valgus. 4. Healed chronic fractures of the distal fibula and fifth metatarsal. [id number] Vital Signs Most recent to oldest [Reference Range]: 1 Height 168.4 cm (03/03/24 2:10 PM) Patient Weight 104.4 kg (03/03/24 2:10 PM) Body Mass Index 36.81 kg/m2 (03/03/24 2:10 PM) Social History Social History Type Response Smoking Status Never smoked cigaret fidencio Sex Female Sex Representation Female (finding) Ortho Outpt Note * MAYTE Eduardo Christina L: PERFORM Event Display: Ortho Outpt Note Authored Date: [id number] Chief Complaint b/l foot deformity follow-up,, orthotics follow-up Primary Care Provider MAYTE dEuardo Christina L Subjective Patient is a very [id number] female last seen October 29, 2023. Patient at her last visit had shared with me that she underwent gastric sleeve surgery and lost over 60 poundsshe did have a significant improvement of her foot painshe has very rigidly flatfeet and wears orthotics, the orthotics were last obtained 2 years ago. -I discussed with patient that I did feel her weight loss was contributory to the improvement of her foot painI wanted her to continue her current orthotics I felt they are in good conditionI also provided her with a prescription to see Rhonda Paul for new orthoticsshe was not need of any injections we reviewed her x-rays she follows up today. -Patient received her new custom orthoticsthey are notably fitting well she has no acute concernsshe is doing well at today's visitshe is pleased with her orthotics and has no new concerns. Review of Systems COPDhypertension varicose veins hypothyroidismmedical marijuana use tobacco uservenous stasisright lower extremity Objective Vitals & Measurements WT:104.400kg(Dosing) WT:104.4kg Physical Exam Problem focusedbilateral feet: Dorsalis pedis pulse palpable 1 out of 4, posterior tibial pulsenonpalpable,capillary refill time less than 3 seconds, skin turgor good to all digits of both feet, pedal hair is noted to be absent, bilateral ankles and lower extremities with significant varicose veinsthere is no pitting edema there is no swelling of the lower extremity. Gross sensation intact all digits of both feet. History of adult acquired flat deformity, stage IIIwiththickeningand posterior tibial tendon dysfunctioncontinues to be decreased muscle strength secondary to her flatfoot deformity, this is rigid in nature. This is stabilized with custom orthotics recently received there is no notable pain of the subtalar jointno pain in the posterior tibialtendonno pain at the midtarsal jointAchilles tendon is intact history of equinus deformity. Bilateral second digit toenailwithmild thickening no paronychia or paindefer further treatment Rigid hammertoe deformity of digits 2 through 5 bilateral feetthere is no callus formation or pain. X-ray dictation 3 views bilateral feet:Taken at October 29, 2023 visit Assessment/Plan 1.Arthritis of both feet Patient recommended to continue her supportive shoes with orthotics. Notably at today's visit she had no pain or discomfort certainly if she were to develop painshe should contact our office of be happy to recommend her either an ultrasound-guided injection, not ultrasound-guided injection, anti- inflammatory medicinesorthopedic shoes or new orthotics. At this point she is pain-freediscussed again I think this has a lot to do with her 60 pound weight lossshe should continue her heart healthy active lifestylerecommend follow-up with me as needed. I spent 3 minute planning including prepping note and chart review. I spent 12 [id number] interaction with patient addressing issuesdiscussed in visit today. I spent 3 minute time in postop visitplanning including note finishing in depart process. Total time spent on patient visit 18 minutes. 2.Arthritis of right subtalar joint 3.Pain in both feet 4.Pes planus of left foot 5.Pes planus of right foot 6.Posterior tibial tendinitis, left leg 7.Posterior tibial tendinitis, right leg Electronic Signature on File Electronically Reviewed/Signed by: Nat Eduardo DPM Author Signature Dt/Tm:03/03/2024 02:30 PM Division of Sports Medicine CLR Patient Care team information Care Team Personnel Name: MAYTE Eduardo, Nat Hartmann Position: Physician - Podiatry Member Role: Primary Care Provider Address: [address] [place] [address] [place] [address] [place]
--- OUTSIDE RECORDS SUMMARY | 2024-03-29 04:36 | External Medical Summary | Summary of Care ---
Author Name Unknown Organization [facility] Address [address] [facility] [place] [address] Phone [phone] Care Team Providers Care Mail Censor Name Role Phone Glenda Garcia DO Primary Care Provider [phone] Reason for Visit * Reason Onset Date Comments Medication Refill 02/25/2024 Encounter Details Date Type Department Care Team (Late st Contact Info) Description 02/25/2024 Refill Family Practice [address] [place] [address] [place] [phone] Glenda Garcia DO [address] [place] [address] HTN, goal below 140/90 Allergies Active Allergy Reactions Criticality Noted Date Comments Adhesive Tape Rash Low 02/18/2020 Some adhesive tapes- irritation and rash Bee Venom Edema airway High 01/01/2016 Hornet-edema airway. Other bees-swelling Ciprofloxacin Nausea/vomiting 01/01/2016 Crab Extract High 11/17/2022 Other reaction(s): Vomiting Cephalexin Diarrhea 01/01/2016 documented as of this encounter (statuses as of 02/27/2024) Medications Medication Sig Dispensed Refills Start Date [...] MCG/ACT Inhalation Aerosol Powder Breath Activated (umeclidinium [place])Indications: COPD, mild (HCC) Inhale 1 Puff by [...] morning. 100 Tablet 3 10/05/2023 Active Nystatin 769139 UNIT/GM External CreamIndications:Int ertrigo Apply topically to [...] or Wheezing. 8.5 g 1 01/23/2024 Active amLODIPine Besylate 5 MG Oral Tablet (Norvasc)Indications :HTN, goal below 140/90 Take 1 Tablet by mouth in the morning. 30 Tablet 5 01/24/2024 Active Lisinopril 40 MG Oral TabletIndications:HT N, goal below 140/90 Take 1 Tablet by mouth in the morning. 100 Tablet 02/07/2024 Active Azelastine HCl 0.1 % Nasal Solution (Astelin) Administer 1 [place] into nostril in the morning and 1 [place] before bedtime. 30 mL 12 02/11/2024 Active Escitalopram Oxalate 20 MG Oral Tablet (Lexapro) take 1 tablet by mouth twice a day 180 Tablet 02/12/2024 Active lamoTRIgine 200 MG Oral Tablet (LaMICtal) take 1 tablet by mouth every morning and 1 tablet at bedtime 180 Tablet 02/19/2024 Active Hospital, Clinic, or Other Facility Administered Medication Ordered Dose Route Frequency Start Date End Date Status vitamin b-12 (Cyanocobalamin) inj 1,000 mcgIndications:Intestinal postoperative nonabsorption 1000 mcg IM [id number] 05/09/2023 07/02/20 24 Active documented as of this encounter (statuses as of 02/27/2024) Active Problems Problem Noted Date Diagnosed Date 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 Renal [...] Quit 04/02 H/O colonoscopy 04/18/2017 Overview: In [place] -nl per pt Dyslipidemia, goal LDL below 100 04/18/2017 Venous stasis dermatitis of right lower extremit y 04/18/2017 Uses roller walker 04/18/2017 Encounter for antineoplastic chemotherapy 2016 documented as of this encounter (statuses as of 02/27/2024) Resolved Problems Problem Noted Date Diagnosed Date Resolved Date Body mass index (BMI) of 50. 0 to 59.9 in adult 07/29/2018 05/15/2019 Overview: Per Obesity protocol #1 - - Body mass index (BMI) of 60. 0 to 69.9 in adult 06/24/2018 08/02/2018 Overview: Per Obesity protocol #1 - Calculus of gallbladder with chronic cholecystitis 04/22/2018 05/15/2019 Overview: 05/0290-RJ-VtXhxx>Cholelithiasis with a contracted gallbladder. Please correlate with [...] as of this encounter (statuses as of 02/27/2024) Immunizations Name Administration Dates Next Due COVID-19 [...] No 07/26/2023 Does the household have a [facility] general hospitall[facility] source of income? (Household - for ages [...] No 02/23/2023 documented as of this encounter Miscellaneous Notes * Addendum Note - Peyton Zavala PHARM Tech - 02/27/2024 2:08 PM EDTAddended by: PEYTON ZAVALA on: 02/27/2024 02:08 PM Modules accepted: Orders * Telephone Encounter - Peyton Zavala PHARM Tech - 02/27/2024 2:07 PM EDT Did you pend patient's preferred pharmacy and medication before forwarding?yes Pharmacy: [id number] [address] [facility] Pharmacy requesting 90 day as pended Pending Prescriptions: Disp Refills amLODIPine Besylate 5 MG Oral Tablet (Nor*90 Tab*0 Sig: Take 1 Tablet by mouth in the morning. Last Visit: 12/11/2023 (in office), Visit date not found (telemedicine) Next Visit: 03/18/2024 If no future appointments scheduled, and last appointment is greater than a year ago, please schedule patient for a follow-up appointment Last date the medication was ordered: 01/24/2024 Is this request for a controlled substance?No Urine Drug Screen:No results found. However, due to the size of the patient record, not all encounters were searched. Please check Results Review for a complete set of results. Patient Phone Numbers Labs: Lab Results Component Value Date/Time CREAT 1.2 (H) 10/19/2023 10:09 AM CREAT 0.65 09/27/2020 12:00 AM CREAT 0.9 02/18/2020 12:14 PM POTASSIUM 4.1 10/19/2023 10:09 AM POTASSIUM 4.3 09/27/2020 12:00 AM POTASSIUM 4.6 02/18/2020 12:14 PM TSH 3.16 12/11/2023 03:23 PM TSH 2.57 02/18/2020 12:11 PM LDLCALC 87 10/19/2023 10:09 AM LDLCALC 96 09/27/2020 12:00 AM LDLCALC 110 02/18/2020 12:11 PM LDLDIRECT NOT APPLICABLE 02/18/2020 12:11 PM LDLDIRECT 88 12/07/2017 02:26 PM ALT 25 10/19/2023 10:09 AM ALT 18 02/18/2020 12:14 PM HGBA1C 5.2 10/19/2023 10:09 AM HGBA1C 5.4 09/27/2020 12:00 AM HGBA1C 5.6 12/07/2017 02:26 PM * Telephone Encounter - Lorenzo Gutierrez [facility] - 02/25/2024 12:52 PM EDT Refused Prescriptions: Disp Refills amLODIPine Besylate 5 MG Oral Tablet (Norv*30 Tab*5 Sig: Take 1 Tablet by mouth in the morning. Refused By: LORENZO GUTIERREZ Reason for Refusal: Too soon * Telephone Encounter - Peyton Andre [facility] - 02/25/2024 12:17 PM EDT Did you pend patient's preferred pharmacy and medication before forwarding?yes Pharmacy: [id number] [address] [facility] Pending Prescriptions: Disp Refills amLODIPine Besylate 5 MG Oral Tablet (Nor*30 Tab*5 Sig: Take 1 Tablet by mouth in the morning. Last Visit: 12/11/2023 (in office), Visit date not found (telemedicine) Next Visit: 02/26/2024 If no future appointments scheduled, and last appointment is greater than a year ago, please schedule patient for a follow-up appointment Last date the medication was ordered: 01/24/24 Is this request for a controlled substance?No Urine Drug Screen:No results found. However, due to the size of the patient record, not all encounters were searched. Please check Results Review for a complete set of results. Patient Phone Numbers Labs: Lab Results Component Value Date/Time CREAT 1.2 (H) 10/19/2023 10:09 AM CREAT 0.65 09/27/2020 12:00 AM CREAT 0.9 02/18/2020 12:14 PM POTASSIUM 4.1 10/19/2023 10:09 AM POTASSIUM 4.3 09/27/2020 12:00 AM POTASSIUM 4.6 02/18/2020 12:14 PM TSH 3.16 12/11/2023 03:23 PM TSH 2.57 02/18/2020 12:11 PM LDLCALC 87 10/19/2023 10:09 AM LDLCALC 96 09/27/2020 12:00 AM LDLCALC 110 02/18/2020 12:11 PM LDLDIRECT NOT APPLICABLE 02/18/2020 12:11 PM LDLDIRECT 88 12/07/2017 02:26 PM ALT 25 10/19/2023 10:09 AM ALT 18 02/18/2020 12:14 PM HGBA1C 5.2 10/19/2023 10:09 AM HGBA1C 5.4 09/27/2020 12:00 AM HGBA1C 5.6 12/07/2017 02:26 PM documented in this encounter Plan of Treatment Upcoming Encounters Date Type Department Care Team (Late st Contact Info) Description 02/29/2024 1:00 PM EDT Imaging Radiology [facility] 1st [facility] 132 [facility] [place] [address] 03/03/2024 2:40 PM EDT Telemedicine Pulmonary Medicine, [place] [address] [place] [address] Jair Springer MD [address] [place] [address] 03/11/2024 2:15 PM EDT Office Visit Urogynecology [facility] 132 [facility] [place] [address] Gilmar Jimenes MD [address] [facility] [address] Nurse Lencho Beard [facility] 132 [facility] [place] [address] 03/18/2024 1:00 PM EDT Office Visit Family Practice 65 [facility] [address] [place] [address] Glenda Garcia DO 293 [place] [address] 04/18/2024 11:00 AM EDT Office Visit Urology Christine Lopez [address] [place] [address] Chika Caballero PA-C [address] [place] [address] 08/13/2024 11:30 AM EST Imaging Radiology [facility] 132 [facility] [place] [address] 10/28/2024 11:00 AM EDT Nurse Only Ancillary 65 [facility] 293 [facility], [place] [address] College, Nurse Annual Wellness Visit [address] [place] [address] Scheduled Procedures Name Priority Associated Diagnoses Date/Ti [...] history exists COVID-19 Vaccine Completed 12/11/2023, 02/2023, 05/08/2022, Additional history exists HPV (Gardasil) Vaccine Aged Out No lo nger eligible based on patient's age to complete this topic Hepatitis B Vaccine Aged Out No longe r eligible based on patient's age to complete this topic MENINGOCOCCAL (MENACTRA/MENVEO) Aged Out No longer eligible based on patient's age to complete this topic documented as of this encounter Medical Devices Implanted Type Area Debt Collection Specialist Device Identifier Shelf Expiration Date Model / Serial / Lot Lens Li61ao 13.00mm 19.50 - [id number] - [id number] Implanted:Qty: 1 on 10/30/2023 by Ernesto Ocasio MD at OR [facility] Left: Eye [employer] 07/15/2028 [id number] / [id number] / [id number] Lens Li61ao 13.00mm 19.50 - [id number] - [id number] Implanted:Qty: 1 on 11/13/2023 by Ernesto Ocasio MD at OR [facility] Right: Eye [employer]US[employer]OMB 07/15/2028 [id number] / [id number] / [id number] documented as of this encounter Visit Diagnoses Diagnosis HTN, goal below 140/90 Unspecified essential hypertension documented in this encounter Advance Directives * [...] Discussed due to patient's condition Care Teams Mail Censor Relationship Specialty Start Date End Date Glenda Garcia DO [address] [place] [address] PCP - General Family Medicine 12/28/23 documented as of this encounter
--- OUTSIDE RECORDS SUMMARY | 2024-03-29 04:36 | External Medical Summary | Summary of Care ---
Author Name Unknown Organization [facility] Address [address] [facility] [place] [address] Phone [phone] Care Team Providers Care Patrol Police Lieutenant Name Role Phone Glenda Garcia DO Primary Care Provider Encounter Details Date Type Department Care Team (Late st Contact Info) Description 01/10/2024 1:30 PM EDT Nurse Only Family Practice 65 [facility] [address] [place] [phone] College, Nurse [facility] Prac 65 [facility] [address] [place] [address] Allergies Active Allergy Reactions Criticality Noted Date Comments Adhesive Tape Rash Low 02/18/2020 Some adhesive tapes- irritation and rash Bee Venom Edema airway High 01/01/2016 Hornet-edema airway. Other bees-swelling Ciprofloxacin Nausea/vomiting 01/01/2016 Crab Extract High 11/17/2022 Other reaction(s): Vomiting Cephalexin Diarrhea 01/01/2016 documented as of this encounter (statuses as of 01/30/2024) Medications Medication Sig Dispensed Refills Start Date End Date Status fexofenadine (CHERRI) 180 MG Tablet Take 1 Tablet by mouth in the morning. 30 Tab 11 8 Active Spacer/Aero-Holdin g Chambers LIZ Use with albuterol inhaler. 1 Each 0 Active Knee BraceIndications:A cute pain of left knee Wear while mobile [...] MCG/ACT Inhalation Aerosol Powder Breath Activated (umeclidinium [place])Indication s:COPD, mild (HCC) Inhale 1 Puff by mouth in the morning. 90 Each 1 4 Active Triamcinolone Acetonide 0.1 % External Cream (Aristocort)Indica tions:Stasis dermatitis of both legs Apply topically to affected area 2 times a day 45 g 1 4 Active Lisinopril 40 MG Oral TabletIndications: HTN, goal below 140/90 Take 1 Tablet by mouth in the morning. 100 Tablet 1 4 Active Myrbetriq 50 MG Oral Tablet Extended Release 24 Hour (Mirabegron ER)Indications:Urg e incontinence Take 1 Tablet by mouth in the morning. 100 Tablet 3 4 Active Nystatin 852448 UNIT/GM External CreamIndications:I ntertrigo Apply topically to affected area 2 times a day for two weeks. 30 g 1 4 Active Escitalopram Oxalate 20 MG Oral Tablet (Lexapro) take 1 tablet by mouth twice a day 180 Tablet 4 Active lamoTRIgine 200 MG Oral Tablet (LaMICtal) take 1 tablet by mouth every morning and 1 tablet at bedtime 180 Tablet 4 Active Atorvastatin Calcium 40 MG Oral Tablet (Lipitor)Indicatio ns:Dyslipidemia, goal LDL below 100 TAKE ONE TABLET [...] needed for Shortness of Breath or Wheezing. 3 024 Discontinued(Re fill) amLODIPine Besylate 2.5 MG Oral Tablet (Norvasc)Indicatio ns:HTN, goal below 140/90 Take 1 Tablet by mouth in the morning. 30 Tablet 1 4 024 Discontinued Hospital, Clinic, or Other Facility Administered Medication Ordered Dose Route Frequency Start Date End Date Status vitamin b-12 (Cyanocobalamin) inj 1,000 mcgIndications:Intestinal postoperative nonabsorption 1000 mcg IM [id number] 05/09/2023 07/02/20 24 Active documented as of this encounter (statuses as of 01/30/2024) Active Problems Problem Noted Date Diagnosed Date [...] 08/15/2022 Other bipolar disorder 08/15/2022 PAYTON RESEARCH OTHER*[id number] 04/03/2022 Facet arthropathy, lumbar 06/20/2018 Medical marijuana use 05/16/2018 Overview: 01/2018-[facility]--using oil vape 2/d, lotion apply knees,ankles. [...] 04/02 H/O colonoscopy 04/18/2017 Overview: In [place] -nl per pt Dyslipidemia, goal LDL below 100 04/18/2017 Venous stasis dermatitis of right lower extremit y 04/18/2017 Uses roller walker 04/18/2017 Encounter for antineoplastic chemotherapy 2016 documented as of this encounter (statuses as of 01/30/2024) Resolved Problems Problem Noted Date Diagnosed Date Resolved Date Body mass index (BMI) of 50. 0 to 59.9 in adult 07/29/2018 05/15/2019 Overview: Per Obesity protocol #1 - - Body mass index (BMI) of 60. 0 to 69.9 in adult 06/24/2018 08/02/2018 Overview: Per Obesity protocol #1 - Calculus of gallbladder with chronic cholecystitis 04/22/2018 05/15/2019 Overview: 05/0245-FD-OsSorl>Cholelithiasis with a contracted gallbladder. Please correlate with [...] as of this encounter (statuses as of 01/30/2024) Immunizations Name Administration Dates Next Due COVID-19 [...] Sign Reading Time Taken Comments Blood Pressure 150/82 01/10/2024 1:31 PM EDT Pulse 75 01/10/2024 1:31 PM EDT Temperature - - Respiratory Rate - - Oxygen Saturation 93% 01/10/2024 1:31 PM EDT Inhaled Oxygen Concentration - - Weight - - Height - - Body Mass Index - - documented in this encounter Functional Status Functional [...] as of this encounter Progress Notes * Juliann Lezama LPN - 01/10/2024 1:30 PM EDT Yelena Mcclure is here for nurse BP check. BP today - 150/82 - manual in office. BP with home BP device - 146/76. Last 3 BP readings: BP Readings from Last 3 Encounters: 01/09/24 164/86 12/11/23 152/80 11/13/23 148/74 Medications were verified - any concerns are recorded in the Nurse Visit notes. Pt requests refill on Proair inhaler. Pharmacy confirmed and medication pended. documented in this encounter Plan of Treatment Upcoming Encounters Date Type Department Care Team (Late st Contact Info) Description 02/08/2024 11:00 AM EDT Nurse Only Family Practice [address] [phone] [place], Nurse [address] [place] [address] 02/11/2024 2:30 PM EDT Office Visit OtolaryngologyLety [place] [address] [place] [address] Katerine Ravi MD [address] [place] [address] 02/26/2024 3:40 PM EDT Office Visit Family Practice [address] [place] [address], [place] [address] Glenda Garcia DO 293 [place] [address] 02/29/2024 1:00 PM EDT Imaging Radiology [facility] 1st [facility] 132 [place] [address] 03/03/2024 10:00 AM EDT Telemedicine Pulmonary Medicine, [place] [address] [place] [address] Jair Springer MD [address] [place] [address] 03/03/2024 12:30 PM EDT Office Visit General Surgery, [place] [address] [place] [address] Tung Doyle PA-C [address] [place] [address] 03/11/2024 2:15 PM EDT Office Visit Urogynecology [facility] 132 [place] [address] Gilmar Jimenes MD [address] [place] [address] Nurse Lencho Beard [address] [place] [address] 03/20/2024 1:00 PM EDT Telemedicine Urology, [place] [address] [place] [address] Matilde Kendrick PA-C [address] [place], [place] [id number] 10/28/2024 11:00 AM EDT Nurse Only Ancillary 65 [facility] 293 [facility], [place] [address] College, Nurse Annual Wellness Visit [address], [place] [address] Scheduled Procedures Name Priority Associated Diagnoses Date/Ti me COLONOSCOPY FLEXIBLE PROXIMAL DIAGNOSTIC Recall History of colon polyps Health Maintenance Due Date Last Done Comments Alpha-1 Antitrypsin 1970 Cologuard 1997 Fecal Occult Blood Test 1997 Sigmoidoscopy 1997 *CXR OR CT FOR COPD EVER 01/27/2024 Influenza Vaccine (FLU shot) (#1) 2024 04/02/2023, 04/28/2022, 05/05/2020, Additional history exists DXA Scan 06/19/2024 06/19/2017 Mammogram 09/05/2024 09/05/2023, 08/17, 08/25/2022, Additional history exists GFR 10/18/2024 10/19/2023, 02/13, 02/24/2023, Additional history exists Depression Monitoring 10/25/2024 10/26/2023 O2 ASSESSMENT COMPLETED IN PAST YEAR FOR COPD 11/12/2024 11/13/2023 Albumin/Creatinine Ratio 08/15/2025 08/15/2022 Colonoscopy 11/18/2027 11/17/2022 Colorectal Cancer Screening 11/18/2027 Lipid Panel 10/18/2028 10/19/2023, 03/16, 09/27/2020, Additional history exists DTaP,Tdap,and Td Vaccines (3 - Td or Tdap) 02/03/2031 02/03/2021, 06/24/2018 Pneumococcal Vaccine: 65+ Years Completed 08/22/2019, 12/04/2017 Zoster Vaccines Completed 10/16/2022, 08/15/2022 *BASELINE EKG FOR HTN Completed 11/08/2022 , 04/27/2022, 05/03/2016 RETIRED - COLONOSCOPY-EVERY 5 YRS AGES 18-100 [...] this encounter Medical Devices Implanted Type Area Senior Interior Designer Device Identifier Shelf Expiration Date Model / Serial / Lot Lens Li61ao 13.00mm 19.50 - [id number] - [id number] Implanted:Qty: 1 on 10/30/2023 by Ernesto Ocasio MD at OR [facility] Left: Eye [employer] 07/15/2028 [id number] / [id number] / [id number] Lens Li61ao 13.00mm 19.50 - [id number] - [id number] Implanted:Qty: 1 on 11/13/2023 by Ernesto Ocasio MD at OR [facility] Right: Eye BAUSCH [employer] LOMB 07/15/2028 [id number] / [id number] / [id number] documented as of this encounter Advance Directives * Full Code [...] Discussed due to patient's condition Care Teams Patrol Police Lieutenant Relationship Specialty Start Date End Date Glenda Garcia DO [address] [place] [address] PCP - General Family Medicine 12/28/23 documented as of this encounter
--- OUTSIDE RECORDS SUMMARY | 2024-03-29 04:36 | External Medical Summary | Summary of Care ---
Author Name Unknown Organization [facility] Address [address] [place] [address] Phone [phone] Care Team Providers Care Lead Investigator Name Role Phone Glenda Garcia DO Primary Care Provider [phone] Reason for Visit * Reason Onset Date Comments Appointment 02/13/2024 Encounter Details Date Type Department Care Team (Late st Contact Info) Description 02/13/2024 Telephone Pulmonary Medicine, [place] [address] [place] [address] Jair Springer MD [address], [place] [id number] Appointment Allergies Active Allergy Reactions Criticality Noted Date Comments Adhesive Tape Rash Low 02/18/2020 Some adhesive tapes- irritation and rash Bee Venom Edema airway High 01/01/2016 Hornet-edema airway. Other bees-swelling Ciprofloxacin Nausea/vomiting 01/01/2016 Crab Extract High 11/17/2022 Other reaction(s): Vomiting Cephalexin Diarrhea 01/01/2016 documented as of this encounter (statuses as of 02/13/2024) Medications Medication Sig Dispensed Refills Start Date [...] MCG/ACT Inhalation Aerosol Powder Breath Activated (umeclidinium [place])Indications: COPD, mild (HCC) Inhale 1 Puff by [...] morning. 100 Tablet 3 10/05/2023 Active Nystatin 010592 UNIT/GM External CreamIndications:Int ertrigo Apply topically to affected area 2 times a day for two weeks. 30 g 1 10/19/2023 Active lamoTRIgine 200 MG Oral Tablet (LaMICtal) take 1 tablet by mouth every morning and 1 tablet at bedtime 180 Tablet 11/19/2023 Active Atorvastatin Calcium 40 MG Oral Tablet [...] 0.1 % Nasal Solution (Astelin) Administer 1 Stone[place] into nostril in the morning and 1 Stonewall before bedtime. 30 mL 12 02/11/2024 Active Escitalopram Oxalate 20 MG Oral Tablet (Lexapro) take 1 tablet by mouth twice a day 180 Tablet 02/12/2024 Active Hospital, Clinic, or Other Facility Administered Medication Ordered Dose Route Frequency Start Date End Date Status vitamin b-12 (Cyanocobalamin) inj 1,000 mcgIndications:Intestinal postoperative nonabsorption 1000 mcg IM [id number] 05/09/2023 07/02/20 24 Active documented as of this encounter (statuses as of 02/13/2024) Active Problems Problem Noted Date Diagnosed Date [...] 08/15/2022 Other bipolar disorder 08/15/2022 PAYTON RESEARCH OTHER*[id number] 04/03/2022 Facet arthropathy, lumbar 06/20/2018 Medical marijuana use 05/16/2018 Overview: 01/2018-[facility]--using oil vape 2/d, lotion apply knees,ankles. Renal [...] as of this encounter (statuses as of 02/13/2024) Resolved Problems Problem Noted Date Diagnosed Date Resolved Date Body mass index (BMI) of 50. 0 to 59.9 in adult 07/29/2018 05/15/2019 Overview: Per Obesity protocol #1 - - Body mass index (BMI) of 60. 0 to 69.9 in adult 06/24/2018 08/02/2018 Overview: Per Obesity protocol #1 - Calculus of gallbladder with chronic cholecystitis 04/22/2018 05/15/2019 Overview: 05/0254-LZ-YqEthz>Cholelithiasis with a contracted gallbladder. Please correlate with [...] as of this encounter (statuses as of 02/13/2024) Immunizations Name Administration Dates Next Due COVID-19 [...] No 07/26/2023 Does the household have a [facility] source of income? (Household - for ages [...] shopping? (15 years old or older) No 08/11/20 23 Cognitive Status Response Date of Assessm ent Because of a physical, menta l, or emotional condition, do you have serious difficulty concentrating, remembering, or making decisions? (5 years old or older) No 02/23/2023 documented as of this encounter Miscellaneous Notes * Telephone Encounter - Rita Sainz OSA - 02/13/2024 9:49 AM EDT Called pt letting her know that her appt time for 03/03/24 has changed from 10:00 to 2:40 .there wasno answer when I called left pt a LMOM documented in this encounter Plan of Treatment Upcoming Encounters Date Type Department Care Team (Late st Contact Info) Description 02/26/2024 3:40 PM EDT Office Visit Family Practice [address] [place] [address] [place] [address] Glenda Garcia DO [address] [place] [address] 02/29/2024 1:00 PM EDT Imaging Radiology [facility] 1st [facility] [address] [facility] [place] [address] 03/03/2024 12:30 PM EDT Office Visit General Surgery, [place] [address] [place] [address] Tung Doyle PA-C [address] [place] [address] 03/03/2024 2:40 PM EDT Telemedicine Pulmonary Medicine, [place] [address] [place] [address] Jair Springer MD [address] [place] [address] 03/11/2024 2:15 PM EDT Office Visit Urogynecology [facility] [address] [facility] [place] [address] Gilmar Jimenes MD [address] [place] [address] Nurse Lencho Beard [address] [place] [address] 04/18/2024 11:00 AM EDT Office Visit Urology Christine Lopez [address] [place] [address] Chika Caballero PA-C [address] [place] [address] 08/13/2024 11:30 AM EST Imaging Radiology [facility] [address] [facility] [place] [address] 10/28/2024 11:00 AM EDT Nurse Only Ancillary 65 [facility] [address] [place] [address] [place], Nurse Annual Wellness Visit [address] [address] Scheduled Procedures Name Priority Associated Diagnoses Date/Ti [...] Completed 12/11/2023, 02/2023, 05/08/2022, Additional history exists Hepatitis C Screening Completed 12/11/2023 , 12/11/2023, 12/11/2023 HPV (Gardasil) Vaccine Aged Out No lo nger eligible based on patient's age to complete this topic Hepatitis B Vaccine Aged Out No longe r eligible based on patient's age to complete this topic MENINGOCOCCAL (MENACTRA/MENVEO) Aged Out No longer eligible based on patient's age to complete this topic documented as of this encounter Medical Devices Implanted Type Area [employer] W[employer] Consultant Device Identifier Shelf Expiration Date Model / Serial / Lot Lens Li61ao 13.00mm 19.50 - [id number] - [id number] Implanted:Qty: 1 on 10/30/2023 by Ernesto Ocasio MD at [facility] Left: Eye BAUSCH & LOMB 07/15/2028 [id number] / [id number] / [id number] Lens Li61ao 13.00mm 19.50 - [id number] - [id number] Implanted:Qty: 1 on 11/13/2023 by Ernesto Ocasio MD at OR [facility] Right: Eye BAUSCH & LOMB 07/15/2028 [id number] / [id number] / [id number] documented as of this encounter Advance Directives [...] Discussed due to patient's condition Care Teams Lead Investigator Relationship Specialty Start Date End Date Glenda Garcia DO [address] [place] [address] PCP - General Family Medicine 12/28/23 documented as of this encounter
--- OUTSIDE RECORDS SUMMARY | 2024-03-29 04:36 | External Medical Summary | Summary of Care ---
Author Name Unknown Organization [facility] Address [address] [facility] [place] [address] Phone [phone] Care Team Providers Care Extractions Technologist Name Role Phone Glenda Garcia DO Primary Care Provider Reason for Visit * Reason Onset Date Comments Medication Refill 02/25/2024 Encounter Details Date Type Department Care Team (Late st Contact Info) Description 02/25/2024 Refill Family Practice [address], [place] [address] [place] [phone] Glenda Garcia DO [address] [place] [address] HTN, goal below 140/90 Allergies Active Allergy Reactions Criticality Noted Date Comments Adhesive Tape Rash Low 02/18/2020 Some adhesive tapes- irritation and rash Bee Venom Edema airway High 01/01/2016 Hornet-edema airway. Other bees-swelling Ciprofloxacin Nausea/vomiting 01/01/2016 Crab Extract High 11/17/2022 Other reaction(s): Vomiting Cephalexin Diarrhea 01/01/2016 documented as of this encounter (statuses as of 02/25/2024) Medications Medication Sig Dispensed Refills Start Date [...] MCG/ACT Inhalation Aerosol Powder Breath Activated (umeclidinium [place])Indications: COPD, mild (HCC) Inhale 1 Puff by [...] morning. 100 Tablet 3 10/05/2023 Active Nystatin [id number] UNIT/GM External CreamIndications:Int ertrigo Apply topically to [...] 0.1 % Nasal Solution (Astelin) Administer 1 [place] into nostril in the morning and 1 [place] before bedtime. 30 mL 12 02/11/2024 Active [...] 1,000 mcgIndications:Intestinal postoperative nonabsorption 1000 mcg IM [id number] 05/09/2023 07/02/20 24 Active documented as of this encounter (statuses as of 02/25/2024) Active Problems Problem Noted Date Diagnosed Date [...] 08/15/2022 Other bipolar disorder 08/15/2022 PAYTON RESEARCH OTHER*[id number] 04/03/2022 Facet arthropathy, lumbar 06/20/2018 Medical marijuana use 05/16/2018 Overview: 01/2018-[facility]--using oil vape 2/d, lotion apply knees,ankles. [...] Quit 04/02 H/O colonoscopy 04/18/2017 Overview: In [place] -nl per pt Dyslipidemia, goal LDL below 100 04/18/2017 Venous stasis dermatitis of right lower extremit y 04/18/2017 Uses roller walker 04/18/2017 Encounter for antineoplastic chemotherapy 2016 documented as of this encounter (statuses as of 02/25/2024) Resolved Problems Problem Noted Date Diagnosed Date Resolved Date Body mass index (BMI) of 50. 0 to 59.9 in adult 07/29/2018 05/15/2019 Overview: Per Obesity protocol #1 - - Body mass index (BMI) of 60. 0 to 69.9 in adult 06/24/2018 08/02/2018 Overview: Per Obesity protocol #1 - Calculus of gallbladder with chronic cholecystitis 04/22/2018 05/15/2019 Overview: 05/0291-FS-KtHiqe>Cholelithiasis with a contracted gallbladder. Please correlate with [...] as of this encounter (statuses as of 02/25/2024) Immunizations Name Administration Dates Next Due COVID-19 [...] No 07/26/2023 Does the household have a [facility] source [facility] income? (Household - for ages [...] encounter Miscellaneous Notes * Telephone Encounter - Lorenzo Gutierrez [facility] - 02/25/2024 12:52 PM EDT Refused Prescriptions: Disp Refills amLODIPine Besylate 5 MG Oral Tablet (Norv*30 Tab*5 Sig: Take 1 Tablet by mouth in the morning. Refused By: LORENZO GUTIERREZ Reason for Refusal: Too soon * Telephone Encounter - Tami Andre [facility] - 02/25/2024 12:17 PM EDT Did you pend patient's preferred pharmacy and medication before forwarding?yes Pharmacy: [id number] [address] [facility] Pending Prescriptions: Disp Refills amLODIPine Besylate [...] complete set of results. Patient Phone Numbers mobile [phone] Labs: Lab Results Component Value Date/Time CREAT [...] EDT Office Visit Family Practice [address] [place] [address] [place] [address] Glenda Garcia DO [address] [place] [address] 02/29/2024 1:00 PM EDT Imaging Radiology [facility]st [facility] [address] [facility] [place] [address] 03/03/2024 12:30 PM EDT Office Visit General Surgery, [place] [address] [place] [address] Tung Doyle PA-C [address] [place] [address] 03/03/2024 2:40 PM EDT Telemedicine Pulmonary Medicine, [place] [address] [place] [address] Jair Springer MD [address] [place] [address] 03/11/2024 2:15 PM EDT Office Visit Urogynecology [facility] [address] [facility] [place] [address] Gilmar Jimenes MD [address] [place] [address] BeardNurse vaishali [facility] [address] [place] [address] 04/18/2024 11:00 AM EDT Office Visit Urology Christine Lopez [address] [place] [address] Chika Caballero PA-C [address] [place] [address] 08/13/2024 11:30 AM EST Imaging Radiology [facility] [address] [facility] [place] [address] 10/28/2024 11:00 AM EDT Nurse Only Ancillary [address] [place] [address] College, Nurse Annual Wellness Visit [address] [address] Scheduled Procedures Name Priority Associated Diagnoses Date/Ti [...] this encounter Medical Devices Implanted Type Area Collection Officer Device Identifier Shelf Expiration Date Model / Serial / Lot Lens Li61ao 13.00mm 19.50 - [id number] - [id number] Implanted:Qty: 1 on 10/30/2023 by Ernesto Ocasio MD at OR [facility] Left: Eye BAUSCH & LOMB 07/15/2028 [id number] / [id number] / [id number] Lens Li61ao 13.00mm 19.50 - [id number] - [id number] Implanted:Qty: 1 on 11/13/2023 by Ernesto Ocasio MD at [facility] Right: Eye BAUSCH & LOMB 07/15/2028 [id number] / [id number] / [id number] documented as of this encounter Visit Diagnoses [...] Discussed due to patient's condition Care Teams Extractions Technologist Relationship Specialty Start Date End Date Glenda Garcia DO [address] [facility] [place] [address] PCP - General Family Medicine 12/28/23 documented as of this encounter
--- OUTSIDE RECORDS SUMMARY | 2024-03-29 04:36 | External Medical Summary | Summary of Care ---
Author Name Unknown Organization [facility] Address [address] [place] [address] Phone [phone] Care Team Providers Care Real Estate Assistant Name Role Phone Glenda Garcia DO Primary Care Provider Reason for Visit * Reason Comments NEW PATIENT * Evaluate & Treat - Unlimited Visits (Within 10 days (routine)) - Authorized Specialty Diagnoses / Procedures Referred By Contgilson t Referred To Contact Otolaryngology Diagnoses Thyroid nodule Glenda Garcia DO [address] [place] [address] Referral ID Status Reason Start Date Expiration Date Visits Requested Visits Authorized [id number] Authorized Specialty Services Required 12/11/[phone] Encounter Details Date Type Department Care Team (Late st Contact Info) Description 02/11/2024 2:30 PM EDT Office Visit Otolaryngology, Christine Martin [address] [address] Katerine Ravi MD [address] [address] Thyroid nodule* Allergies Active Allergy Reactions Criticality Noted Date Comments Adhesive Tape Rash Low 02/18/2020 Some adhesive tapes- irritation and rash Bee Venom Edema airway High 01/01/2016 Hornet-edema airway. Other bees-swelling Ciprofloxacin Nausea/vomiting 01/01/2016 Crab Extract High 11/17/2022 Other reaction(s): Vomiting Cephalexin Diarrhea 01/01/2016 documented as of this encounter (statuses as of 02/11/2024) Medications Medication Sig Dispensed Refills Start Date [...] MCG/ACT Inhalation Aerosol Powder Breath Activated (umeclidinium Chauncey)Indications: COPD, mild (HCC) Inhale 1 Puff by [...] morning. 100 Tablet 3 10/05/2023 Active Nystatin 551021 UNIT/GM External CreamIndications:Int ertrigo Apply topically to affected area 2 times a day for two weeks. 30 g 1 10/19/2023 Active Escitalopram Oxalate 20 MG Oral Tablet (Lexapro) take 1 tablet by mouth twice a day 180 Tablet 11/19/2023 Active lamoTRIgine 200 MG Oral Tablet (LaMICtal) [...] 0.1 % Nasal Solution (Astelin) Administer 1 [place] into nostril in the morning and 1 [place] before bedtime. 30 mL 12 02/11/2024 Active Hospital, Clinic, or Other Facility Administered Medication Ordered Dose Route Frequency Start Date End Date Status vitamin b-12 (Cyanocobalamin) inj 1,000 mcgIndications:Intestinal postoperative nonabsorption 1000 mcg IM [id number] 05/09/2023 07/02/20 24 Active documented as of this encounter (statuses as of 02/11/2024) Active Problems Problem Noted Date Diagnosed Date [...] 08/15/2022 Other bipolar disorder 08/15/2022 [employer] OTHER*[id number] 04/03/2022 Facet arthropathy, lumbar 06/20/2018 Medical marijuana use 05/16/2018 Overview: 01/2018-[facility]--using oil vape 2/d, lotion apply knees,ankles. [...] Quit 04/02 H/O colonoscopy 04/18/2017 Overview: In [place] -nl per pt Dyslipidemia, goal LDL below 100 04/18/2017 Venous stasis dermatitis of right lower extremit y 04/18/2017 Uses roller walker 04/18/2017 Encounter for antineoplastic chemotherapy 2016 documented as of this encounter (statuses as of 02/11/2024) Resolved Problems Problem Noted Date Diagnosed Date Resolved Date Body mass index (BMI) of 50. 0 to 59.9 in adult 07/29/2018 05/15/2019 Overview: Per Obesity protocol #1 - - Body mass index (BMI) of 60. 0 to 69.9 in adult 06/24/2018 08/02/2018 Overview: Per Obesity protocol #1 - Calculus of gallbladder with chronic cholecystitis 04/22/2018 05/15/2019 Overview: 05/[id number]-[id number]>Cholelithiasis with a contracted gallbladder. Please correlate with [...] as of this encounter (statuses as of 02/11/2024) Immunizations Name Administration Dates Next Due COVID-19 [...] Sign Reading Time Taken Comments Blood Pressure 146/75 02/11/2024 2:33 PM EDT Pulse 65 02/11/2024 2:33 PM EDT Temperature 36.6 C (97.8 F) 02/11/2024 2:33 PM ED T Respiratory Rate - - Oxygen Saturation - - Inhaled Oxygen Concentration - - Weight 104.2 kg (229 lb 12.8 oz) 02/11/2024 2:33 PM EDT Height 170.2 cm (5' 7") 02/11/2024 2:33 PM EDT Body Mass Index 35.99 02/11/2024 2:33 PM EDT documented in this encounter Functional [...] as of this encounter Progress Notes * Katerine Ravi MD - 02/11/2024 2:30 PM EDT 02/11/2024 HISTORY OF PRESENT ILLNESS This 73 year old year old female is seen today for the initial complaint of thyroid nodule. The provider requesting consultation is Glenda Garcia DO. Nursing Notes: Landy Greer LPN 02/11/24 1448 Signed Chief Complaint Patient presents with NEW PATIENT Yelena Mcclure is a 73 year old female presents today for thyroid issue. Patient reports: Onset: 2 years approximately Difficulty swallowing: yes Sensation something is stuck in throat: yes Sensation of pressing on throat: yes Sudden weight loss: yes, recent weight loss surgery 02/23/23 Night sweats: no Fatigue: yes Recent imaging: yes Any history of FNA: yes (If yes where and when) Any history of radiation to neck/chest: yes Hx of thyroid cancer or lymphoma: no Family hx of thyroid cancer or lymphoma: no known, grandfather did have "goiter" per patient No history of thyroid cancer in the family. No history of radiation. No dyspnea or difficulty swallowing. 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 Past Medical History: Diagnosis Date Acute bronchitis [...] performed by Staci Coffey MD at OR [facility] CHEMOTHERAPY 2016 Taxol & Herceptin COLONOSCOPY, DIAGNOSTIC (RECTUM) 11/17/2022 benign adenomatous polyps, diverticulosis, repeat 5 yrs / [facility] EGD, FLEXIBLE, DIAGNOSTIC 04/21/2022 normal bx / [facility] EGD, FLEXIBLE, DIAGNOSTIC N/A 02/23/2023 ESOPHAGOGASTRODUODENOSCOPY (EGD), FLEXIBLE, TRANSORAL, DIAGNOSTIC performed by Sterling Azevedo MD at OR [facility] ERCP 06/28/2018 Choledocholithiasis/[facility] IDENTIFY SENTINEL NODE, RADIOACTIVE TRACER Right 06/20/2016 INJECTION PROCEDURE FOR IDENTIFICATION SENTINEL NODE performed by Staci Coffey MD at OR [facility] IMPLANTABLE ACCESS SYST PERC Right 07/2016 INFORMATION 1960 cyst removed from throat IR BIOPSY 11/05/2023 IR BIOPSY 12/06/2023 IR EMBOLIZATION UTERINE FIBROID 1975 LAPAROSCOPE PROCEDURE, LIVER N/A 02/23/2023 UNLISTED LAPAROSCOPIC PROCEDURE LIVER performed by Sterling Azevedo MD at [facility] LAPAROSCOPY; CHOLECYSTECTOMY N/A 02/23/2023 LAPAROSCOPIC CHOLECYSTECTOMY performed by Sterling Azevedo MD at OR [facility] MASTECTOMY, PARTIAL Right 06/20/2016 MASTECTOMY PARTIAL - right performed by Staci Coffey MD at OR [facility] 06/20/2016 RADIATION THERAPY Right 02/08/2016 6120 cGy REMOVAL OF OVARY(S) 1975 REMOVE CATARACT, INSERT LENS PROSTH Left 10/30/2023 LEFT EXTRACAPSULAR CATARACT REMOVAL WITH INTRAOCULAR LENS performed by Ernesto Ocasio MD at OR [facility] REMOVE CATARACT, INSERT LENS PROSTH Right 11/13/2023 RIGHT EXTRACAPSULAR CATARACT REMOVAL WITH INTRAOCULAR LENS performed by Ernesto Ocasio MDat OR [facility] SLEEVE GASTRECTOMY, LAPROSCOPY N/A 02/23/2023 LAPAROSCOPY SLEEVE GASTRECTOMY performed by Sterling Azevedo MD at [facility] SURGICAL REMOVAL, ERUPTED TOOTH AND BONE 06/2015 multiple extractions and implants UMBIL HERNIA REPAIR (REDUCIBLE) AGE 5+YR 2000 Medications Current Outpatient Medications Medication Sig Dispense Refill Azelastine HCl 0.1 % Nasal Solution (Astelin) Administer 1 [place] into nostril in the morning and 1 [place] before bedtime. 30 mL 12 fexofenadine (CHERRI) 180 MG Tablet Take 1 [...] MCG/ACT Inhalation Aerosol Powder Breath Activated (umeclidinium Chauncey) Inhale 1 Puff by mouth in the morning. 90 Each 1 Triamcinolone Acetonide 0.1 % External Cream (Aristocort) Apply topically to affected area 2 times a day 45 g 1 Myrbetriq 50 MG Oral Tablet Extended Release 24 Hour (Mirabegron ER) Take 1 Tablet by mouth in the morning. 100 Tablet 3 Nystatin 516192 UNIT/GM External Cream Apply topically to affected area 2 times a day for two weeks. 30 g 1 Escitalopram Oxalate 20 MG Oral Tablet (Lexapro) take 1 tablet by mouth twice a day 180 Tablet 0 lamoTRIgine 200 MG Oral Tablet (LaMICtal) take 1 tablet by mouth every morning and 1 tablet at bedtime 180 Tablet 0 Atorvastatin Calcium 40 MG Oral Tablet (Lipitor) [...] of Breath or Wheezing. 8.5 g 1 amLODIPine Besylate 5 MG Oral Tablet (Norvasc) Take 1 Tablet by mouth in the morning. 30 Tablet 5 Lisinopril 40 MG Oral Tablet Take 1 Tablet by mouth in the morning. 100 Tablet 0 Current Facility-Administered Medications Medication Dose Route Frequency Provider Last Rate Last Admin vitamin b-12 (Cyanocobalamin) inj 1,000 mcg 1,000 mcg Intramuscular Q12 Weeks Nicole Samuel PA-C 1,000 mcg at 10/19/23 1604 Allergies Review of patient's allergies indicates: Allergen Reactions Bee Venom Edema airway Hornet-edema airway. Other bees-swelling Crab Extract Other reaction(s): Vomiting Ciprofloxacin Nausea/vomiting Keflex [Cephalexin] Diarrhea Adhesive Tape Rash Some adhesive tapes- irritation and rash Family History Family History Problem Relation Name Age of [...] (Maternal) Breast Cancer No significant family history Social History Social History Tobacco Use Smoking status: Former Current packs/day: 0.00 Average packs/day: 1 pack/day for 35.0 years (35.0 ttl pk-yrs) Types: Cigarettes Start date: 11/17/1987 Quit date: 11/16/2022 Years since quittin.2 Passive exposure: Past Smokeless tobacco: Never Substance Use Topics Alcohol use: No Comment: very occasionally in past, none now Vaping/E-Cigarette Use Vaping/E-Cigarette Use Current Every Day User Vaping/E-Cigarette Substances THC Yes Vaping/E-Cigarette Devices Other volcano 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 Physical Examination: BP 146/75 | Pulse 65 | Temp 36.6 C (97.8 F) | Ht 1.702 m (5' 7") | Wt 104.2 kg (229 lb 12.8 oz)| BMI 35.99 kg/m | BSA 2.22 m PHYSICAL EXAM General: This is a healthy appearing female who appears her stated age. The patient is alert and appropriately verbally conversant without hoarseness. Face: The face was inspected and no cutaneous masses or lesions were visualized. There was no erythema or edema noted. Facial movement was symmetric without weakness. No skin lesions were detected. There was no sinus tenderness elicited. The parotid and submandibular glands were normal to palpation. Eyes: Extra-ocular muscle function was intact. No nystagmus was observed. Pupils were equal. Cranial Nerves: Cranial nerves II, III, IV, and were noted to be intact via extra-ocular muscle movement testing. Cranial nerve VII noted to be intact and symmetric by facial movement. Cranial nerve VIII was tested with tuning fork examination and revealed symmetric hearing. Cranial nerves IX and X noted to be intact by gag reflex and palatal movement. Cranial nerve XII noted to be intact by active and symmetric tongue movement. Nose: Examination of the nose prior to decongestion revealed no masses, polyps, mucopus, or other lesion. The nasal septum was non-obstructing. The turbinates were without abnormality. No septal perforation. Oral Cavity: Examination of the oral cavity revealed no mass lesions nor infection. The palate was noted to be intact without evidence of clefting. The tongue exhibited normal mobility. Mucosa was moist without lesion. The lips were free of lesion. Gums were free of inflammation. Dentition: Unremarkable Oropharynx: The oral pharynx was free of mass lesion or mucosal abnormality. The palate was noted to be without lesion. The uvula was normal appearing. The tonsils were unremarkable. Hypopharynx: flexible fiberoptic examination of the hypopharynx revealed normal mucosa. The tongue base was normal. There was no abnormal lymphoid tissue. There were no mass lesions. Larynx: flexible fiberoptic examination of the larynx revealed no mass lesions. Vocal cord mobilitywas normal without paralysis or paresis. No vocal cord masses were visualized. The pyriform sinuseswere free of mass lesion and significant pooling. The mucosa was normal appearing. Ears: Examination of the ears revealed that the auricles were normally formed with no lesions. The external auditory canals were cleaned of any obstructing cerumen. The tympanic membranes were intact. There are no significant retraction pockets. There is no inflammation visualized. No effusions areseen. Neck: Visualization and palpation of the neck revealed no mass lesions, no thyromegaly or thyroid masses. No skin lesions or inflammatory processes were detected. The cervical musculature was normal to palpation. Lymphatics (cervical): There were no palpable lymph nodes in the posterior triangle, submandibular triangle, jugulodigastric region, or central neck. Lungs: Breathing quietly. No use of accessory muscles. Heart: Regular rate. No JVD. Procedure: Due to patient's inability to cooperate with mirror exam or concern for structures otherwise not evaluated, fiberoptic examination of the larynx was performed. The nose was first topically decongested with topical oxymetazoline 0.05% spray and topically anesthetized with topical Lidocaine 4% spray. Nasopharynx, oropharynx, larynx and hypopharynx were carefully examined. Vocal fold motion was evaluated. The patient tolerated the procedure well. Patient should refrain from eating or drinking for 30-45 minutes due to anesthesia of the pharynx and possible interference with swallowing. Specific findings: Nasal mucosa is inflamed bilaterally. Patient does have drainage. Vocal cords are mobile. Subglottis is clear. Drainage seen in the piriform sinuses. Plan: Thyroid nodule (Primary) - US HEAD AND NECK; Future; Expected date: 08/13/2024 Other orders - Azelastine HCl 0.1 % Nasal Solution (Astelin); Administer 1 [place] into nostril in the morning and1 [place] before bedtime. Patient had a biopsy already with thyroid seek that was negative although is low cell count. Will repeat the ultrasound in 6 months as long as it is stable her PCP can then do a once a year ultrasound. For the drainage seen she does use a CPAP but I would recommend nasal saline rinse along with Flonase and Astelin twice a day. Will call her with the results of the ultrasound. P.r.n. return EXAM: ULTRASOUND THYROID HISTORY: abnormal US neck COMPARISON: None. FINDINGS: RIGHT LOBE: 2.4 x 2.4 x 5.1cm Diffusely heterogeneous echotexture. Normal color flow. LEFT LOBE: 1.8 x 2.1 x 5.3cm Diffusely heterogeneous echotexture. Normal color flow. ISTHMUS: 0.5cm in thickness. NODULE: Nodule 1:Right paramidline isthmus Size:1.6 x 1.7 x 2.0 cm Composition:Almost Solid/Solid (2) Echogenicity:Hypoechoic (2) Shape:Wider than Tall (0) Margin:Smooth (0) Echogenic foci:None/NA (spongiform) (0) Ti-RADS category:4 LATERAL NECK: No lymphadenopathy bilaterally. IMPRESSION: 1. 2.0 cm nodule in the right paramidline isthmus. TR-4. This meets criteria for fine-needle aspiration. 2. Diffusely heterogeneous thyroid. TSH: 3.26 I spent a total of 40-54 minutes (exact time 40 mins) on the date of service in preparation, delivery, and documentation of the care provided to Yelena Mcclure excluding any time spent in the performance of separately billed services or time spent by another provider/QHP. Katerine Ravi MD [facility] Otolaryngology - Head and Neck Surgery [place], [place] 02/11/2024 12:37 PM documented in this encounter Nursing Notes * Landy Greer LPN - 02/11/2024 2:35 PM EDT Chief Complaint Patient presents with NEW PATIENT Yelena Mcclure is a 73 year old female presents today for thyroid issue. Patient reports: Onset: 2 years approximately Difficulty swallowing: yes Sensation something is stuck in throat: yes Sensation of pressing on throat: yes Sudden weight loss: yes, recent weight loss surgery 02/23/23 Night sweats: no Fatigue: yes Recent imaging: yes Any history of FNA: yes (If yes where and when) Any history of radiation to neck/chest: yes Hx of thyroid cancer or lymphoma: no Family hx of thyroid cancer or lymphoma: no known, grandfather did have "goiter" per patient documented in this encounter Plan of Treatment Upcoming Encounters Date Type Department Care Team (Late st Contact Info) Description 02/26/2024 3:40 PM EDT Office Visit Family Practice [address] [place] [address] [place] [address] Glenda Garcia DO [address] [place] [address] 02/29/2024 1:00 PM EDT Imaging Radiology [facility] [address] [facility] [address] [facility] [place] [address] 03/03/2024 10:00 AM EDT Telemedicine Pulmonary Medicine, [place] [address] [place] [address] Jair Springer MD [address] [place] [address] 03/03/2024 12:30 PM EDT Office Visit General Surgery, [place] [address] [place] [address] Tung Doyle PA-C [address] [place] [address] 03/11/2024 2:15 PM EDT Office Visit Urogynecology [facility] [address] [facility] [place] [place] [address] Gilmar Jimenes MD [address] [facility] [place] [address] Nurse Lencho Beard [address] [facility] [place] [address] 04/18/2024 11:00 AM EDT Office Visit Urology Christine Lopez [address] [address] Chika Caballero PA-C [address] [address] 08/13/2024 11:30 AM EST Imaging Radiology [facility] [address] [address] 10/28/2024 11:00 AM EDT Nurse Only Ancillary [address] [place] [address] [place] [address] College, Nurse Annual Wellness Visit [address] [facility] [address] [facility] [place] [address] Scheduled Orders Name Type Priority Associated Diagnoses Orde r Schedule US HEAD AND NECK Medical Imaging Routine Thyroid nodule Expected: 08/13/2024, Expires: 03/13/2025 Scheduled Procedures Name Priority Associated Diagnoses Date/Ti [...] this encounter Medical Devices Implanted Type Area Digitizer Device Identifier Shelf Expiration Date Model / Serial / Lot Lens Li61ao 13.00mm 19.50 - [id number] - [id number] Implanted:Qty: 1 on 10/30/2023 by Ernesto Ocasio MD at OR [facility] Left: Eye [employer] 07/15/2028 [id number] / [id number] / [id number] Lens Li61ao 13.00mm 19.50 - [id number] - [id number] Implanted:Qty: 1 on 11/13/2023 by Ernesto Ocasio MD at OR [facility] Right: Eye [employer] 07/15/2028 [id number] / [id number] / [id number] documented as of this encounter Visit Diagnoses Diagnosis Thyroid nodule- Primary Nontoxic uninodular goiter documented in this encounter Advance Directives * [...] Discussed due to patient's condition Care Teams Real Estate Assistant Relationship Specialty Start Date End Date Glenda Garcia DO [address] [place] [address] PCP - General Family Medicine 12/28/23 documented as of this encounter
--- OUTSIDE RECORDS SUMMARY | 2024-03-29 04:36 | External Medical Summary | Summary of Care ---
Author Name Unknown Organization [facility] Address [address] [facility] [place] [place] [address] Phone [phone] Care Team Providers Care Residential Assistant Name Role Phone Glenda Garcia DO Primary Care Provider [phone] Reason for Visit * Reason Comments Nurse Documentation Nurse visit for BP c heck. Encounter Details Date Type Department Care Team (Late st Contact Info) Description 02/08/2024 11:00 AM EDT Nurse Only Family Practice 65 [facility] 293 [place] [address] College, Nurse [facility] Prac [address] [address] Nurse Documentation (Nurse visit for BP ch... Allergies Active Allergy Reactions Criticality Noted Date Comments Adhesive Tape Rash Low 02/18/2020 Some adhesive tapes- irritation and rash Bee Venom Edema airway High 01/01/2016 Hornet-edema airway. Other bees-swelling Ciprofloxacin Nausea/vomiting 01/01/2016 Crab Extract High 11/17/2022 Other reaction(s): Vomiting Cephalexin Diarrhea 01/01/2016 documented as of this encounter (statuses as of 02/14/2024) Medications Medication Sig Dispensed Refills Start Date End Date Status fexofenadine (CHERRI) 180 MG Tablet Take 1 Tablet by mouth in the morning. 30 Tab 11 8 Active Spacer/Aero-Holding Chambers LIZ Use with albuterol inhaler. 1 Each 0 Active Knee BraceIndications:Ac elise pain of left knee Wear while mobile [...] MCG/ACT Inhalation Aerosol Powder Breath Activated (umeclidinium [place])Indications :COPD, mild (HCC) Inhale 1 Puff by [...] morning. 100 Tablet 3 4 Active Nystatin 356528 UNIT/GM External CreamIndications:In tertrigo Apply topically to affected area 2 times a day for two weeks. 30 g 1 4 Active lamoTRIgine 200 MG Oral Tablet [...] or Wheezing. 8.5 g 1 4 Active amLODIPine Besylate 5 MG Oral Tablet (Norvasc)Indication s:HTN, goal below 140/90 Take 1 Tablet by mouth in the morning. 30 Tablet 5 4 Active Lisinopril 40 MG Oral TabletIndications:H TN, goal below 140/90 Take 1 Tablet by mouth in the morning. 100 Tablet 4 Active Escitalopram Oxalate 20 MG Oral Tablet (Lexapro) take 1 tablet by mouth twice a day 180 Tablet 4 02/12/20 24 Discontinued Hospital, Clinic, or Other Facility Administered Medication Ordered Dose Route Frequency Start Date End Date Status vitamin b-12 (Cyanocobalamin) inj 1,000 mcgIndications:Intestinal postoperative nonabsorption 1000 mcg IM [id number] 05/09/2023 07/02/20 24 Active documented as of this encounter (statuses as of 02/14/2024) Active Problems Problem Noted Date Diagnosed Date [...] 08/15/2022 Other bipolar disorder 08/15/2022 PAYTON [employer] OTHER*[id number] 04/03/2022 Facet arthropathy, lumbar 06/20/2018 Medical marijuana use 05/16/2018 Overview: 01/2018-[facility]--using oil vape 2/d, lotion apply knees,ankles. Renal [...] Quit 04/02 H/O colonoscopy 04/18/2017 Overview: In [place] -nl per pt Dyslipidemia, goal LDL below 100 04/18/2017 Venous stasis dermatitis of right lower extremit y 04/18/2017 Uses roller walker 04/18/2017 Encounter for antineoplastic chemotherapy 2016 documented as of this encounter (statuses as of 02/14/2024) Resolved Problems Problem Noted Date Diagnosed Date Resolved Date Body mass index (BMI) of 50. 0 to 59.9 in adult 07/29/2018 05/15/2019 Overview: Per Obesity protocol #1 - - Body mass index (BMI) of 60. 0 to 69.9 in adult 06/24/2018 08/02/2018 Overview: Per Obesity protocol #1 - Calculus of gallbladder with chronic cholecystitis 04/22/2018 05/15/2019 Overview: 05/0246-YZ-ZsFmyn>Cholelithiasis with a contracted gallbladder. Please correlate with [...] as of this encounter (statuses as of 02/14/2024) Immunizations Name Administration Dates Next Due COVID-19 [...] No 07/26/2023 Does the household have a [facility] source of income? (Household - for ages [...] Sign Reading Time Taken Comments Blood Pressure 140/72 02/08/2024 10:21 AM EDT Pulse 60 02/08/2024 10:21 AM EDT Temperature - - Respiratory Rate - - Oxygen Saturation 93% 02/08/2024 10:21 AM EDT Inhaled Oxygen Concentration - - Weight [...] Progress Notes * Juliann Lezama LPN - 02/14/2024 1:25 PM EDT Call placed to patient and relayed information from Dr. Garcia. Pt acknowledged understanding. Confirmed OV on 02/26/24. * Glenda Garcia DO - 02/13/2024 4:47 PM EDT BP improved. We will see where things are on 02/25 and make any necessary changes at that time. documented in this encounter Nursing Notes * Juliann Lezama LPN - 02/08/2024 10:21 AM EDT Yelena Mcclure is here for nurse BP check. BP today - 140/72 confirmed pt is taking Amlodipine 5 mg. Last 3 BP readings: BP Readings from Last 3 Encounters: 01/10/24 150/82 01/09/24 164/86 12/11/23 152/80 Medications were verified - any concerns are recorded in the Nurse Visit notes. documented in this encounter Plan of Treatment Upcoming Encounters Date Type Department Care Team (Late st Contact Info) Description 02/26/2024 3:40 PM EDT Office Visit Family Practice [address] [place] [address] [facility] [place] [address] Glenda Garcia DO 293 [place] [address] 02/29/2024 1:00 PM EDT Imaging Radiology [facility] 1st Floor, [place] [facility] [address] 03/03/2024 12:30 PM EDT Office Visit General Surgery, [place] [address] [place] [address] Tung Doyle PA-C [address] [place] [address] 03/03/2024 2:40 PM EDT Telemedicine Pulmonary Medicine, [place] [address] [place] [address] Jair Springer MD [address] [place] [address] 03/11/2024 2:15 PM EDT Office Visit Urogynecology [facility] 132 [facility] [place] [address] Gilmar Jimenes MD 132 [facility] [place] [address] Nurse Lencho Beard 132 [place] [address] 04/18/2024 11:00 AM EDT Office Visit Urology Christine Lopez 27 Lety Kru[address] [place] [address] Chika Caballero PA-C [address] [place] [address] 08/13/2024 11:30 AM EST Imaging Radiology [facility] 132 [facility] [place] [address] 10/28/2024 11:00 AM EDT Nurse Only Ancillary [address], [place] 293 [place] [address] College, Nurse Annual Wellness Visit [address] [facility] 293 [place] [address] Scheduled Procedures Name Priority Associated Diagnoses Date/Ti [...] this encounter Medical Devices Implanted Type Area Glove Cutter Device Identifier Shelf Expiration Date Model / Serial / Lot Lens Li61ao 13.00mm 19.50 - [id number] - [id number] Implanted:Qty: 1 on 10/30/2023 by Ernesto Ocasio MD at OR [facility] Left: Eye [employer]OMB 07/15/2028 [id number] / [id number] / [id number] Lens Li61ao 13.00mm 19.50 - [id number] - [id number] Implanted:Qty: 1 on 11/13/2023 by Ernesto Ocasio MD at OR [facility] Right: Eye BAUSCH & LOMB 07/15/2028 [id number] / [id number] / [id number] documented as of this encounter Advance Directives [...] Discussed due to patient's condition Care Teams Residential Assistant Relationship Specialty Start Date End Date Glenda Garcia DO [address] [place] [address] PCP - General Family Medicine 12/28/23 documented as of this encounter
--- OUTSIDE RECORDS SUMMARY | 2024-03-29 04:36 | External Medical Summary | Summary of Care ---
Author Name Unknown Organization [facility] Address [address] [place] [address] Phone [phone] Care Team Providers Care Casting Room Helper Name Role Phone Glenda Steele DO Primary Care Provider Reason for Visit * Reason Comments Medication Refill Encounter Details Date Type Department Care Team (Late st Contact Info) Description 02/07/2024 Refill Family Practice [address], [place] [address] [place] [phone] Glenda Steele DO 293 [place] [address] HTN, goal below 140/90 Allergies Active Allergy Reactions Criticality Noted Date Comments Adhesive Tape Rash Low 02/18/2020 Some adhesive tapes- irritation and rash Bee Venom Edema airway High 01/01/2016 Hornet-edema airway. Other bees-swelling Ciprofloxacin Nausea/vomiting 01/01/2016 Crab Extract High 11/17/2022 Other reaction(s): Vomiting Cephalexin Diarrhea 01/01/2016 documented as of this encounter (statuses as of 02/07/2024) Medications Medication Sig Dispensed Refills Start Date End Date Status fexofenadine (CHERRI) 180 MG Tablet Take 1 Tablet by mouth in the morning. 30 Tab 11 08/21/2017 Active Spacer/Aero-Holding Chambers LIZ Use with albuterol inhaler. 1 Each 02/06/2020 Active Knee BraceIndications:Ac elise pain of left [...] MCG/ACT Inhalation Aerosol Powder Breath Activated (umeclidinium [place])Indications :COPD, mild (HCC) Inhale 1 Puff by [...] morning. 100 Tablet 3 10/05/2023 Active Nystatin 195686 UNIT/GM External CreamIndications:In tertrigo Apply topically to [...] 5 01/24/2024 Active Lisinopril 40 MG Oral TabletIndications:H TN, goal below 140/90 Take 1 Tablet by mouth in the morning. 100 Tablet 02/07/2024 Active Lisinopril 40 MG Oral TabletIndications:H TN, goal below 140/90 Take 1 Tablet by mouth in the morning. 100 Tablet 1 07/27/2023 4 Discontinu ed(Refill) Hospital, Clinic, or Other Facility Administered Medication Ordered Dose Route Frequency Start Date End Date Status vitamin b-12 (Cyanocobalamin) inj 1,000 mcgIndications:Intestinal postoperative nonabsorption 1000 mcg IM [id number] 05/09/2023 07/02/20 24 Active documented as of this encounter (statuses as of 02/07/2024) Active Problems Problem Noted Date Diagnosed Date [...] 08/15/2022 Other bipolar disorder 08/15/2022 PAYTON RESEARCH OTHER*[id number] 04/03/2022 Facet arthropathy, lumbar 06/20/2018 Medical marijuana use 05/16/2018 Overview: 01/2018-[facility]--using oil vape 2/d, lotion apply knees,ankles. Renal [...] Quit 04/02 H/O colonoscopy 04/18/2017 Overview: In [place] -nl per pt Dyslipidemia, goal LDL below 100 04/18/2017 Venous stasis dermatitis of right lower extremit y 04/18/2017 Uses roller walker 04/18/2017 Encounter for antineoplastic chemotherapy 2016 documented as of this encounter (statuses as of 02/07/2024) Resolved Problems Problem Noted Date Diagnosed Date Resolved Date Body mass index (BMI) of 50. 0 to 59.9 in adult 07/29/2018 05/15/2019 Overview: Per Obesity protocol #1 - - Body mass index (BMI) of 60. 0 to 69.9 in adult 06/24/2018 08/02/2018 Overview: Per Obesity protocol #1 - Calculus of gallbladder with chronic cholecystitis 04/22/2018 05/15/2019 Overview: 05/0208-GZ-HuSpyd>Cholelithiasis with a contracted gallbladder. Please correlate with [...] as of this encounter (statuses as of 02/07/2024) Immunizations Name Administration Dates Next Due COVID-19 [...] encounter Miscellaneous Notes * Telephone Encounter - Gilmar Mcneil RP - 02/07/2024 9:24 AM EDT RX authorized. Zero refills given until upcoming OV with PCP 02/08/2024 Gilmar Canales, PharmD Clinical Pharmacist Telepharmacy 02/07/2024, 9:23 AM * Telephone Encounter - Gilmar Mcneil RPh - 02/07/2024 9:24 AM EDT Signed Prescriptions: Disp Refills Lisinopril 40 MG Oral Tablet 100 Ta*0 Sig: Take 1 Tablet by mouth in the morning. Authorizing Provider: GLENDA STEELE Ordering User: GILMAR MCNEIL documented in this encounter Plan of Treatment Upcoming Encounters Date Type Department Care Team (Late st Contact Info) Description 02/08/2024 11:00 AM EDT Nurse Only Family Practice 65 [facility] 293 [place] [phone] College, Nurse Fam Prac [address], [place] [address] 02/11/2024 2:30 PM EDT Office Visit Otolaryngology, [place] Martin 27 [place] [address] Katerine Ravi MD [address] [place] [address] 02/26/2024 3:40 PM EDT Office Visit Family Practice 65 [facility] 293 [place] [address] Glenda Steele DO 293 [facility] [place] [address] 02/29/2024 1:00 PM EDT Imaging Radiology [facility] 1st [facility] 132 [facility] [place] [address] 03/03/2024 10:00 AM EDT Telemedicine Pulmonary Medicine, [place] [address] [place] [address] Jair Springer MD [address] [place] [address] 03/03/2024 12:30 PM EDT Office Visit General Surgery, [place] [address] [place] [address] Tung Doyle PA-C [address] [place] [address] 03/11/2024 2:15 PM EDT Office Visit Urogynecology [facility] [address] [place] [address] Gilmar Jimenes MD [address] [place] [address] Nurse Lencho Beard [address] [place] [address] 10/28/2024 11:00 AM EDT Nurse Only Ancillary 65 [facility] 293 [place] [address] College, Nurse Annual Wellness Visit [address] [place] [address] [place] [address] Scheduled Procedures Name Priority Associated Diagnoses Date/Ti [...] this encounter Medical Devices Implanted Type Area Fruit Receiver Device Identifier Shelf Expiration Date Model / Serial / Lot Lens Li61ao 13.00mm 19.50 - [id number] - [id number] Implanted:Qty: 1 on 10/30/2023 by Ernesto Ocasio MD at OR [facility] Left: Eye BAUSCH & LOMB 07/15/2028 [id number] / [id number] / [id number] Lens Li61ao 13.00mm 19.50 - [id number] - [id number] Implanted:Qty: 1 on 11/13/2023 by Ernesto Ocasio MD at OR [facility] Right: Eye BAUSCH & LOMB 07/15/2028 [id number] / [id number] / [id number] documented as of this encounter Visit Diagnoses [...] Discussed due to patient's condition Care Teams Casting Room Helper Relationship Specialty Start Date End Date Glenda Steele DO [address] [place] [address] PCP - General Family Medicine 12/28/23 documented as of this encounter
--- OUTSIDE RECORDS SUMMARY | 2024-03-29 04:37 | External Medical Summary | Summary of Care ---
Author Name Unknown Organization [facility] Address [address] [place] [facility] [place] [address] Phone [phone] Care Team Providers Care Outside Parts Sales Name Role Phone Glenda Garcia DO Primary Care Provider Reason for Visit * Reason Onset Date Comments Advice 01/23/202401/22 Encounter Details Date Type Department Care Team (Late st Contact Info) Description 01/23/2024 Telephone Family Practice [address], [place] [address] [place] [phone] Glenda Garcia DO 293 [place] [address] Advice (01/22) Allergies Active Allergy Reactions Criticality Noted Date Comments Adhesive Tape Rash Low 02/18/2020 Some adhesive tapes- irritation and rash Bee Venom Edema airway High 01/01/2016 Hornet-edema airway. Other bees-swelling Ciprofloxacin Nausea/vomiting 01/01/2016 Crab Extract High 11/17/2022 Other reaction(s): Vomiting Cephalexin Diarrhea 01/01/2016 documented as of this encounter (statuses as of 01/24/2024) Medications Medication Sig Dispensed Refills Start Date [...] MCG/ACT Inhalation Aerosol Powder Breath Activated (umeclidinium [place])Indication s:COPD, mild (HCC) Inhale 1 Puff [...] morning. 100 Tablet 3 4 Active Nystatin 099005 UNIT/GM External CreamIndications:I ntertrigo Apply topically to [...] Active amLODIPine Besylate 5 MG Oral Tablet (Norvasc)Indicatio ns:HTN, goal below 140/90 Take 1 Tablet by mouth in the morning. 30 Tablet 5 4 Active ProAir HFA 108 (90 Base) [...] 1,000 mcgIndications:Intestinal postoperative nonabsorption 1000 mcg IM [id number] 05/09/2023 07/02/20 24 Active documented as of this encounter (statuses as of 01/24/2024) Active Problems Problem Noted Date Diagnosed Date [...] 08/15/2022 Other bipolar disorder 08/15/2022 PAYTON RESEARCH OTHER*[id number] 04/03/2022 Facet arthropathy, lumbar 06/20/2018 Medical marijuana use 05/16/2018 Overview: St 01/[facility]--using oil vape 2/d, lotion apply knees,ankles. Renal [...] Quit 04/02 H/O colonoscopy 04/18/2017 Overview: In [place] -nl per pt Dyslipidemia, goal LDL below 100 04/18/2017 Venous stasis dermatitis of right lower extremit y 04/18/2017 Uses roller walker 04/18/2017 Encounter for antineoplastic chemotherapy 2016 documented as of this encounter (statuses as of 01/24/2024) Resolved Problems Problem Noted Date Diagnosed Date Resolved Date Body mass index (BMI) of 50. 0 to 59.9 in adult 07/29/2018 05/15/2019 Overview: Per Obesity protocol #1 - - Body mass index (BMI) of 60. 0 to 69.9 in adult 06/24/2018 08/02/2018 Overview: Per Obesity protocol #1 - Calculus of gallbladder with chronic cholecystitis 04/22/2018 05/15/2019 Overview: 05/0214-HA-BxIvim>Cholelithiasis with a contracted gallbladder. Please correlate with [...] as of this encounter (statuses as of 01/24/2024) Immunizations Name Administration Dates Next Due COVID-19 mRNA, LNP-s, No Pre serve, 2-Dose Series (Moderna) 09/13/2020,08/09/2020 COVID-19, MRNA-LNP, 23-24, P F, 30 MCG/0.3 mL, 12 YRS AND ABOVE, IM (INDOM-Comirnaty) 12/11/2023 COVID-19, MRNA-LNP, 23-24, P F, 50 [...] encounter Miscellaneous Notes * Telephone Encounter - Glenda Garcia DO - 01/24/2024 10:27 AM EDT Rx sent. * Telephone Encounter - Yelena Kay LPN - 01/24/2024 10:23 AM EDT Patient is aware and will comply. February 07 at 10:00 am for nurse visit for bp check. Thank you * Telephone Encounter - Juliann Lezama LPN - 01/23/2024 3:41 PM EDT Call placed to patient - no answer. Message left to return call to [phone]. * Telephone Encounter - Glenda Garcia DO - 01/23/2024 3:29 PM EDT BP reviewed. Remain elevated. She should increase her amlodipine to 5mg and return for [place] in 2 weeks for BP check. documented in this encounter Plan of Treatment Upcoming Encounters Date Type Department Care Team (Late st Contact Info) Description 02/08/2024 11:00 AM EDT Nurse Only Family Practice 65 [facility] 293 [place] [phone] College, Nurse Fam Prac 65 [facility] 293 [place] [address] 02/11/2024 2:30 PM EDT Office Visit Otolaryngology, [place] Martin 27 [place] [address] Katerine Ravi MD 132 [place] [address] 02/26/2024 3:40 PM EDT Office Visit Family Practice 65 [facility] 293 [place] [address] Glenda Garcia 293 [place] [address] 02/29/2024 1:00 PM EDT Imaging Radiology [facility] [address] [facility], [place] 132 [facility] [place] [address] 03/03/2024 10:00 AM EDT Telemedicine Pulmonary Medicine, [place] [address] [place] [address] Jair Springer MD [address] [place] [address] 03/03/2024 12:30 PM EDT Office Visit General Surgery, [place] [address] [place] [address] Tung Doyle PA-C [address] [place], [place] [address] 03/11/2024 2:15 PM EDT Office Visit Urogynecology [facility] 132 [facility] [place] [address] Gilmar Jimenes MD [address] [place] [address] Nurse Lencho Beard [address] [place] [address] 03/20/2024 1:00 PM EDT [facility] [address] [place] [address] Matilde Kendrick PA-C [address] [place] [address] 10/28/2024 11:00 AM EDT Nurse Only Ancillary 65 [facility] 293 [place] [address] College, Nurse Annual Wellness Visit [address] [address] Scheduled Procedures Name Priority Associated Diagnoses Date/Ti me COLONOSCOPY FLEXIBLE PROXIMAL DIAGNOSTIC Recall History of colon polyps Health Maintenance Due Date Last Done Comments Alpha-1 Antitrypsin 1970 Cologuard 1997 Fecal Occult Blood Test 1997 Sigmoidoscopy 1997 *NEPHROLOGY REFERRAL DUE TO RESISTANT HTN 01/13/2024 Influenza Vaccine (FLU shot) (#1) 2024 04/02/2023, [...] this encounter Medical Devices Implanted Type Area Sales Outfitter Device Identifier Shelf Expiration Date Model / Serial / Lot Lens Li61ao 13.00mm 19.50 - [id number] - [id number] Implanted:Qty: 1 on 10/30/2023 by Ernesto Ocasio MD at OR [facility] Left: Eye BAUSCH [employer] LOMB 07/15/2028 [id number] / [id number] / [id number] Lens Li61ao 13.00mm 19.50 - [id number] - [id number] Implanted:Qty: 1 on 11/13/2023 by Ernesto Ocasio MD at OR [facility] Right: Eye BAUSCH & LOMB 07/15/2028 [id number] / [id number] / [id number] documented as of this encounter Visit Diagnoses [...] Discussed due to patient's condition Care Teams Outside Parts Sales Relationship Specialty Start Date End Date Glenda Garcia DO 293 [facility] [address] PCP - General Family Medicine 12/28/23 documented as of this encounter
--- OUTSIDE RECORDS SUMMARY | 2024-03-29 04:37 | External Medical Summary | Summary of Care ---
Author Name Unknown Organization [facility] Address [address] [facility] [address] Phone [phone] Care Team Providers Care Manager Urology Name Role Phone Glneda Garcia DO Primary Care Provider [phone] Reason for Visit * Reason Onset Date Comments Referral 01/22/2024 Encounter Details Date Type Department Care Team (Late st Contact Info) Description 01/22/2024 Telephone Urology Christine Lopez [address] [place] [address] [place] [address] Chika Caballero PA-C [address] [place] [address] Referral Allergies Active Allergy Reactions Criticality Noted Date Comments Adhesive Tape Rash Low 02/18/2020 Some adhesive tapes- irritation and rash Bee Venom Edema airway High 01/01/2016 Hornet-edema airway. Other bees-swelling Ciprofloxacin Nausea/vomiting 01/01/2016 Crab Extract High 11/17/2022 Other reaction(s): Vomiting Cephalexin Diarrhea 01/01/2016 documented as of this encounter (statuses as of 01/22/2024) Medications Medication Sig Dispensed Refills Start Date End Date Status fexofenadine (CHERRI) 180 MG Tablet Take 1 Tablet by mouth in the morning. 30 Tab 11 08/21/2017 Active Spacer/Aero-Holding Chambers LIZ Use with albuterol inhaler. 1 Each 02/06/2020 Active ProAir HFA 108 (90 Base) MCG/ACT Inhalation Aerosol Solution Inhale 2 Puffs by mouth every 6 hours as needed for Shortness of Breath or Wheezing. 08/15/2022 Active Knee BraceIndications:Acu te pain of left [...] MCG/ACT Inhalation Aerosol Powder Breath Activated (umeclidinium [place])Indications: COPD, mild (HCC) Inhale 1 Puff by mouth in the morning. 90 Each 1 07/27/2023 Active Triamcinolone Acetonide 0.1 % External Cream (Aristocort)Indicati ons:Stasis dermatitis of both legs Apply topically to affected area 2 times a day 45 g 1 07/27/2023 Active Lisinopril 40 MG Oral TabletIndications:HT N, goal below 140/90 Take 1 Tablet by mouth in the morning. 100 Tablet 1 07/27/2023 Active Myrbetriq 50 MG Oral Tablet Extended Release 24 Hour (Mirabegron ER)Indications:Urge incontinence Take 1 Tablet by mouth in the morning. 100 Tablet 3 10/05/2023 Active Nystatin 520272 UNIT/GM External CreamIndications:Int ertrigo Apply topically to [...] in the am, 2 at night. Active amLODIPine Besylate 2.5 MG Oral Tablet (Norvasc)Indications :HTN, goal below 140/90 Take 1 Tablet by mouth in the morning. 30 Tablet 1 12/11/2023 Active Modafinil 200 MG Oral Tablet (Provigil) take 1 tablet by mouth daily 90 Tablet 1 12/24/2023 Active Solifenacin Succinate 5 MG Oral Tablet (VESIcare) Take 1 Tablet by mouth in the morning. 90 Tablet 3 01/09/2024 Active Hospital, Clinic, or Other Facility Administered Medication Ordered Dose Route Frequency Start Date End Date Status vitamin b-12 (Cyanocobalamin) inj 1,000 mcgIndications:Intestinal postoperative nonabsorption 1000 mcg IM [id number] 05/09/2023 07/02/20 24 Active documented as of this encounter (statuses as of 01/22/2024) Active Problems Problem Noted Date Diagnosed Date [...] 08/15/2022 Other bipolar disorder 08/15/2022 PAYTON RESEARCH OTHER*[id number] 04/03/2022 Facet arthropathy, lumbar 06/20/2018 Medical marijuana use 05/16/2018 Overview: St 01/2018-[facility]--using oil vape 2/d, lotion apply knees,ankles. Renal [...] Quit 04/02 H/O colonoscopy 04/18/2017 Overview: In [place] -nl per pt Dyslipidemia, goal LDL below 100 04/18/2017 Venous stasis dermatitis of right lower extremit y 04/18/2017 Uses roller walker 04/18/2017 Encounter for antineoplastic chemotherapy 2016 documented as of this encounter (statuses as of 01/22/2024) Resolved Problems Problem Noted Date Diagnosed Date Resolved Date Body mass index (BMI) of 50. 0 to 59.9 in adult 07/29/2018 05/15/2019 Overview: Per Obesity protocol #1 - - Body mass index (BMI) of 60. 0 to 69.9 in adult 06/24/2018 08/02/2018 Overview: Per Obesity protocol #1 - Calculus of gallbladder with chronic cholecystitis 04/22/2018 05/15/2019 Overview: 10/31-PD-PqWnbj>Cholelithiasis with a contracted gallbladder. Please correlate with chronic cholecystitis. Mild dilation of the common duct. No radiopaque stones in the common duct(03/08/18-[facility])-was refer GI++ Body mass index (BMI) of [...] as of this encounter (statuses as of 01/22/2024) Immunizations Name Administration Dates Next Due COVID-19 [...] encounter Miscellaneous Notes * Telephone Encounter - Marlen Gamble MED ASSIST - 01/22/2024 11:38 AM EDT Lmom to call back to schedule Urology appt. Pt has a referral. documented in this encounter Plan of Treatment Upcoming Encounters Date Type Department Care Team (Late st Contact Info) Description 02/11/2024 2:30 PM EDT Office Visit Otolaryngology, Christine Martin 27 [place] [address] Katerine Ravi MD 132 [place] [address] 02/26/2024 3:40 PM EDT Office Visit Family Practice [address], [facility] 293 [place] [address] Glenda Garcia, 293 [place] [address] 02/29/2024 1:00 PM EDT Imaging Radiology [address] 132 [employer] [address] 03/03/2024 10:00 AM EDT Telemedicine Pulmonary Medicine, [place] [address] [place] [address] Jair Springer MD [address] [place] [address] 03/03/2024 12:30 PM EDT Office Visit General Surgery, [place] [address] [place] [address] Tung Doyle PA-C [address] [place] [address] 03/11/2024 2:15 PM EDT Office Visit Urogynecology Billy Beard [address] [place] [address] Gilmar Jimenes MD [address] [place] [address] Nurse Lencho Beard [address] [place] [address] 10/28/2024 11:00 AM EDT Nurse Only Ancillary 65 [facility] 293 [place] [address] College, Nurse Annual Wellness Visit 65 [facility] 293 [place] [address] Scheduled Procedures Name Priority Associated Diagnoses Date/Ti [...] this encounter Medical Devices Implanted Type Area Certified Athletic Trainer Device Identifier Shelf Expiration Date Model / Serial / Lot Lens Li61ao 13.00mm 19.50 - [id number] - [id number] Implanted:Qty: 1 on 10/30/2023 by Ernesto Ocasio MD at OR [facility] Left: Eye BAUSCH & LOMB 07/15/2028 [id number] / [id number] / [id number] Lens Li61ao 13.00mm 19.50 - [id number] - [id number] Implanted:Qty: 1 on 11/13/2023 by Ernesto Ocasio MD at OR [facility] Right: Eye BAUSCH & LOMB 07/15/2028 [id number] / [id number] / [id number] documented as of this encounter Advance Directives [...] Discussed due to patient's condition Care Teams Manager Urology Relationship Specialty Start Date End Date Glenda Garcia DO [address] [place] [address] PCP - General Family Medicine 12/28/23 documented as of this encounter
--- OUTSIDE RECORDS SUMMARY | 2024-03-29 04:37 | External Medical Summary | Summary of Care ---
Author Name Unknown Organization [facility] Address [address] [facility] [place] [address] Phone [phone] Care Team Providers Care Junior Network Engineer Name Role Phone Glenda Garcia DO Primary Care Provider Reason for Referral * Evaluate & Treat - Unlimited Visits (Within 30 days (routine)) - Authorized Specialty Diagnoses / Procedures Referred By Contac t Referred To Contact Urology Diagnoses Hematuria, microscopic Gilmar Jimenes MD 132 [facility] [place] [address] Referral ID Status Reason Start Date Expiration Date Visits Requested Visits Authorized [id number] Authorized Specialty Services Required 01/14/[phone] Question Answer Referral Priority Within 30 days (routine) Where should this appointment be scheduled? [facility] What is the patient being referred for? Hematuria What is Hematuria condition? Microscopic Encounter Details Date Type Department Care Team (Late st Contact Info) Description 01/11/2024 11:30 AM EDT Imaging Radiology [facility] [address] [place] [address] Hematuria, microscopic*; Urge incontinence; Urinary urgency; Urinary frequency Allergies Active Allergy Reactions Criticality Noted Date Comments Adhesive Tape Rash Low 02/18/2020 Some adhesive tapes- irritation and rash Bee Venom Edema airway High 01/01/2016 Hornet-edema airway. Other bees-swelling Ciprofloxacin Nausea/vomiting 01/01/2016 Crab Extract High 11/17/2022 Other reaction(s): Vomiting Cephalexin Diarrhea 01/01/2016 documented as of this encounter (statuses as of 01/14/2024) Medications Medication Sig Dispensed Refills Start Date [...] MCG/ACT Inhalation Aerosol Powder Breath Activated (umeclidinium [place])Indications: COPD, mild (HCC) Inhale 1 Puff by [...] morning. 100 Tablet 3 10/05/2023 Active Nystatin 306566 UNIT/GM External CreamIndications:Int ertrigo Apply topically to [...] 1,000 mcgIndications:Intestinal postoperative nonabsorption 1000 mcg IM [id number] 05/09/2023 07/02/20 24 Active documented as of this encounter (statuses as of 01/14/2024) Active Problems Problem Noted Date Diagnosed Date [...] 08/15/2022 Other bipolar disorder 08/15/2022 PAYTON RESEARCH OTHER*[id number] 04/03/2022 Facet arthropathy, lumbar 06/20/2018 Medical marijuana use 05/16/2018 Overview: St 01/2018-[facility]--using oil vape 2/d, lotion apply [...] as of this encounter (statuses as of 01/14/2024) Resolved Problems Problem Noted Date Diagnosed Date Resolved Date Body mass index (BMI) of 50. 0 to 59.9 in adult 07/29/2018 05/15/2019 Overview: Per Obesity protocol #1 - - Body mass index (BMI) of 60. 0 to 69.9 in adult 06/24/2018 08/02/2018 Overview: Per Obesity protocol #1 - Calculus of gallbladder with chronic cholecystitis 04/22/2018 05/15/2019 Overview: 05/0259-PH-YrVukj>Cholelithiasis with a contracted gallbladder. Please correlate with [...] as of this encounter (statuses as of 01/14/2024) Immunizations Name Administration Dates Next Due COVID-19 mRNA, LNP-s, No Pre serve, 2-Dose Series (Moderna) 09/13/2020,08/09/2020 COVID-19, MRNA-LNP, 23-24, P F, 30 MCG/0.3 mL, 12 YRS AND ABOVE, IM ([employer]ComirnatAepona) 12/11/2023 COVID-19, MRNA-LNP, 23-24, P F, 50 [...] Visit Otolaryngology, Christine Martin 27 [place] [address] Katerine Ravi MD 132 [facility] [place] [address] 02/26/2024 3:40 PM EDT Office Visit Family Practice 65 [facility], [place] 293 [place] [address] Glenda Garcia DO 293 [place] [address] 02/29/2024 1:00 PM EDT Imaging Radiology [address] [facility] [place] [address] 03/03/2024 10:00 AM EDT Telemedicine Pulmonary Medicine, [place] [address] [place] [address] Jair Springer MD [address] [place] [address] 03/03/2024 12:30 PM EDT Office Visit General Surgery, [place] [address] [place], [place] [id number] Tung Doyle PA-C [address] [place] [address] 03/11/2024 2:15 PM EDT Office Visit Urogynecology Billy Beard 132 [place] [id number] Gilmar Jimenes MD 132 [place] [address] Nurse Lencho Beard 132 [place] [address] 10/28/2024 11:00 AM EDT Nurse Only Ancillary 65 [facility] 293 [place] [address] College, Nurse Annual Wellness Visit [address] [address] Scheduled Procedures Name Priority Associated Diagnoses Date/Ti me COLONOSCOPY FLEXIBLE PROXIMAL DIAGNOSTIC Recall History of colon polyps Scheduled Referrals Name Type Priority Associated Diagnoses Orde r Schedule ADULT/PEDS UROLOGY REFERRAL OP Referral Within 30 days (routine) Hematuria, microscopic Ordered: 01/14/2024 Health Maintenance Due Date Last Done Comments [...] Completed 12/11/2023, 02/2023, 05/08/2022, Additional history exists GARDASIL-HPV IMMUNIZATION SERIES Aged Out No longer eligible based on patient's age to complete this topic Hepatitis B Aged Out No longer eligi ble based on patient's age to complete this topic MENINGOCOCCAL (MENACTRA/MENVEO) Aged Out No longer eligible based on patient's age to complete this topic documented as of this encounter Medical Devices Implanted Type Area Orthopedic Tech Device Identifier Shelf Expiration Date Model / Serial / Lot Lens Li61ao 13.00mm 19.50 - [id number] - [id number] Implanted:Qty: 1 on 10/30/2023 by Ernesto Ocasio MD at OR [facility] Left: Eye BAUSCH & LOMB 07/15/2028 [id number] / [id number] / [id number] Lens Li61ao 13.00mm 19.50 - [id number] - [id number] Implanted:Qty: 1 on 11/13/2023 by Ernesto Ocasio MD at OR [facility] Right: Eye BAUSCH & LOMB 07/15/2028 [id number] / [id number] / [id number] documented as of this encounter Procedures Procedure Name Priority Date/Time Associated Diagnosis Comments US RENAL Routine 01/11/2024 11:50 AM EDT Urge incontinence Urinary urgency Urinary frequency documented in this encounter Results * US RENAL (01/11/2024 11:50 AM EDT) Anatomical Region Laterality Modality Abdomen, Body Ultrasound 01/11/2024 9:39 PM EDT Impressions 01/11/2024 9:37 PM EDT IMPRESSION Bilateral renal cysts. Narrative 01/11/2024 9:37 PM EDT EXAM US RENAL-01/11/2024 11:50 am HISTORY microscopic hematuria, urgency TECHNIQUE Real time sonographic imaging. COMPARISON 08/06/2023 FINDINGS RIGHT KIDNEY: 12.0 cm x 5.5 cm x 6.0 cm. Normal size and echogenicity. No hydronephrosis. No nephrolithiasis. 4.6 cm superior pole cyst (previously 4.6 cm). LEFT KIDNEY: 11.8 cm x 5.4 cm x 5.1 cm. Normal size and echogenicity. No hydronephrosis. No nephrolithiasis. Multiple cysts, largest measuring 1.8 cm. BLADDER: Partially filled. AORTA: Visualized portions normal in caliber. Procedure Note Nader Yu MD - 01/11/2024 EXAM US RENAL-01/11/2024 11:50 am HISTORY microscopic hematuria, urgency TECHNIQUE Real time sonographic imaging. COMPARISON 08/06/2023 FINDINGS RIGHT KIDNEY: 12.0 cm x 5.5 cm x 6.0 cm. Normal size and echogenicity.No hydronephrosis. No nephrolithiasis. 4.6 cm superior pole cyst(previously 4.6 cm). LEFT KIDNEY: 11.8 cm x 5.4 cm x 5.1 cm. Normal size and echogenicity. Nohydronephrosis. No nephrolithiasis. Multiple cysts, largest measuring1.8 cm. BLADDER: Partially filled. AORTA: Visualized portions normal in caliber. IMPRESSION IMPRESSION Bilateral renal cysts. Gilmar Jimenes MD RAD ULTRASOUND documented in this encounter Visit Diagnoses Diagnosis Hematuria, microscopic- Primary Microscopic hematuria Urge incontinence Urinary urgency Urgency of urination Urinary frequency [...] Discussed due to patient's condition Care Teams Junior Network Engineer Relationship Specialty Start Date End Date Glenda Garcia DO [address] [place] [address] PCP - General Family Medicine 12/28/23 documented as of this encounter
--- OUTSIDE RECORDS SUMMARY | 2024-03-29 04:37 | External Medical Summary | Summary of Care ---
Author Name Unknown Organization [facility] Address [address] [facility] [place] [address] Phone [phone] Care Team Providers Care Deputy K 9 Name Role Phone Glenda Garcia DO Primary Care Provider [phone] Reason for Visit * Reason Onset Date Comments Medication Refill 01/09/202401/08 Encounter Details Date Type Department Care Team (Late st Contact Info) Description 01/09/2024 Telephone Family Practice [address], [place] [address] [place] [id number] Glenda Garcia DO [address] [place] [address] Medication Refill (01/08) Allergies Active Allergy Reactions Criticality Noted Date Comments Adhesive Tape Rash Low 02/18/2020 Some adhesive tapes- irritation and rash Bee Venom Edema airway High 01/01/2016 Hornet-edema airway. Other bees-swelling Ciprofloxacin Nausea/vomiting 01/01/2016 Crab Extract High 11/17/2022 Other reaction(s): Vomiting Cephalexin Diarrhea 01/01/2016 documented as of this encounter (statuses as of 01/09/2024) Medications Medication Sig Dispensed Refills Start Date [...] of Breath or Wheezing. 08/15/2022 Active Knee BraceIndications:Acut e pain of left knee Wear while mobile [...] MCG/ACT Inhalation Aerosol Powder Breath Activated (umeclidinium [place])Indications:C OPD, mild (HCC) Inhale 1 Puff by mouth in the morning. 90 Each 1 07/27/2023 Active Triamcinolone Acetonide 0.1 % External Cream (Aristocort)Indicatio ns:Stasis dermatitis of both legs Apply topically to affected area 2 times a day 45 g 1 07/27/2023 Active Lisinopril 40 MG Oral TabletIndications:HTN , goal below 140/90 Take 1 Tablet by mouth in the morning. 100 Tablet 1 07/27/2023 Active Myrbetriq 50 MG Oral Tablet Extended Release 24 Hour (Mirabegron ER)Indications:Urge incontinence Take 1 Tablet by mouth in the morning. 100 Tablet 3 10/05/2023 Active Nystatin 604466 UNIT/GM External CreamIndications:Inte rtrigo Apply topically to affected area 2 times [...] Active Atorvastatin Calcium 40 MG Oral Tablet (Lipitor)Indications: Dyslipidemia, goal LDL below 100 TAKE ONE TABLET BY MOUTH EVERY MORNING 100 Tablet 3 11/29/2023 Active Glucosamine Chondr 500 Complex Oral Capsule Take 1 Capsule by mouth in the morning and 1 Capsule before bedtime. 1 in the am, 2 at night. Active amLODIPine Besylate 2.5 MG Oral Tablet (Norvasc)Indications: HTN, goal below 140/90 Take 1 Tablet [...] 1,000 mcgIndications:Intestinal postoperative nonabsorption 1000 mcg IM [id number] 05/09/2023 07/02/20 24 Active documented as of this encounter (statuses as of 01/09/2024) Active Problems Problem Noted Date Diagnosed Date [...] 08/15/2022 Other bipolar disorder 08/15/2022 PAYTON RESEARCH OTHER*[id number] 04/03/2022 Facet arthropathy, lumbar 06/20/2018 Medical marijuana use 05/16/2018 Overview: St 01/2018-[facility]--using oil vape 2/d, lotion apply knees,ankles. [...] Quit 04/02 H/O colonoscopy 04/18/2017 Overview: In [place] -nl per pt Dyslipidemia, goal LDL below 100 04/18/2017 Venous stasis dermatitis of right lower extremit y 04/18/2017 Uses roller walker 04/18/2017 Encounter for antineoplastic chemotherapy 2016 documented as of this encounter (statuses as of 01/09/2024) Resolved Problems Problem Noted Date Diagnosed Date Resolved Date Body mass index (BMI) of 50. 0 to 59.9 in adult 07/29/2018 05/15/2019 Overview: Per Obesity protocol #1 - - Body mass index (BMI) of 60. 0 to 69.9 in adult 06/24/2018 08/02/2018 Overview: Per Obesity protocol #1 - Calculus of gallbladder with chronic cholecystitis 04/22/2018 05/15/2019 Overview: 05/0278-RU-IjXvnn>Cholelithiasis with a contracted gallbladder. Please correlate with chronic cholecystitis. Mild dilation of the common duct. No radiopaque stones in the common duct(03/08/18-[facility])-was refer GI++ Body mass index [...] as of this encounter (statuses as of 01/09/2024) Immunizations Name Administration Dates Next Due COVID-19 [...] Miscellaneous Notes * Telephone Encounter - Rita Gomes OSA - 01/09/2024 4:00 PM EDT NV scheduled. * Telephone Encounter - Juliann Lezama LPN - 01/09/2024 3:25 PM EDT Call placed to patient and relayed information from Dr. Garcia. Acknowledged understanding. Agreeable to NV for BP check. help desk representative - please place on NV schedule tomorrow at 1:30 for BP check - pt is aware. Thank you * Telephone Encounter - Rita Gomes OSA - 01/09/2024 2:38 PM EDT Pt returning Juliann's call. Please call her back. * Telephone Encounter - Juliann Lezama LPN - 01/09/2024 2:25 PM EDT Call placed to patient - no answer. Message left to return call to [phone]. * Telephone Encounter - Glenda Garcia DO - 01/09/2024 2:18 PM EDT Please let pt know: She needs to reschedule NV for BP check. Pending this, we can decide where to send her amlodipine. There is a 30 day supply at [facility] if needed in meantime. Will not send 90 days until we settle on appropriate dose. * Telephone Encounter - Emely Tong PHARM Tech - 01/09/2024 12:20 PM EDT Pharmacy called to request a 90 day supply for amlodipine 2.5 mg. If agreeable please send to [id number] [address] [facility]. Thank You, Emely Tong [facility] Human Resources Generalist III [facility] ([facility]) 01/09/2024, 12:20 PM documented in this encounter Plan of Treatment Upcoming Encounters Date Type Department Care Team (Late st Contact Info) Description 01/10/2024 1:30 PM EDT Nurse Only Family Practice 65 [facility] [address] [place] [address] College, Nurse [facility] Prac [address] [address] 01/10/2024 3:00 PM EDT Office Visit Nutrition & Weight Management, [facility] 132 [facility] [place] [address] Nicole Samuel PA-C 132 [facility] [place] [address] 01/10/2024 3:50 PM EDT Nutrition Services Nutrition & Weight Management, [facility] 132 [facility] [place] [address] Maci Lehman RDN [facility] [place] [address] 01/11/2024 11:30 AM EDT Imaging Radiology [facility] 132 [facility] [place] [address] 02/11/2024 2:30 PM EDT Office Visit Otolaryngology, Christine Martin 27 [place] [address] Katerine Ravi MD 132 [facility] [address] 02/26/2024 3:40 PM EDT Office Visit Family Practice 65 [facility] 293 [place] [address] Glenda Garcia, 293 [place] [address] 02/29/2024 1:00 PM EDT Imaging Radiology [facility] [facility], [place] 132 [facility] [place] [address] 03/03/2024 10:00 AM EDT Telemedicine Pulmonary Medicine, [place] [address] [place] [address] Jair Springer MD [address] [place] [address] 03/03/2024 12:30 PM EDT Office Visit General Surgery, [place] [address] [place] [address] Tung Doyle PA-C [address] [place], [place] [address] 03/11/2024 2:15 PM EDT Office Visit Urogynecology [facility] 132 [facility] [place] [address] Gilmar Jimenes MD [address] [place] [address] [facility] 132 [facility] [place] [address] 10/28/2024 11:00 AM EDT Nurse Only Ancillary 65 [facility] 293 [place] [address] College, Nurse Annual Wellness Visit [address] [place] [address] Scheduled Procedures Name Priority Associated Diagnoses Date/Ti me COLONOSCOPY FLEXIBLE PROXIMAL DIAGNOSTIC Recall History of colon polyps Health Maintenance Due Date Last Done Comments Alpha-1 Antitrypsin 1970 Cologuard 1997 Fecal Occult Blood Test 1997 Sigmoidoscopy 1997 DXA Scan 06/19/2024 06/19/2017 Mammogram 09/05/2024 09/05/2023, [...] COLONOSCOPY-EVERY 5 YRS AGES 18-100 Discontinued 11/17/2022 Influenza Vaccine (FLU shot) Completed 04/02/2023, 04/28/2022, 05/05/2020, Additional history exists Lung Cancer Screening Completed 08/27/2023 , 02/15/2023, [...] this encounter Medical Devices Implanted Type Area Family Preservation Worker Device Identifier Shelf Expiration Date Model / Serial / Lot Lens Li61ao 13.00mm 19.50 - [id number] - [id number] Implanted:Qty: 1 on 10/30/2023 by Ernesto Ocasio MD at OR [facility] Left: Eye [employer]USCH [employer] LOMB 07/15/2028 [id number] / [id number] / [id number] Lens Li61ao 13.00mm 19.50 - [id number] - [id number] Implanted:Qty: 1 on 11/13/2023 by Ernesto Ocasio MD at OR [facility] Right: Eye BAUSCH & LOMB 07/15/2028 [id number] / [id number] / [id number] documented as of this encounter Visit Diagnoses [...] Discussed due to patient's condition Care Teams Deputy K 9 Relationship Specialty Start Date End Date Glenda Garcia DO 293 [facility] [place] [address] PCP - General Family Medicine 12/28/23 documented as of this encounter
--- OUTSIDE RECORDS SUMMARY | 2024-03-29 04:38 | External Medical Summary ---
Author Name Unknown Address Unknown Organization K0G:[facility] [place] [address] Laboratory Report Ordering Provider Test Date Status FLORENCIO BARRIGA 01/09/2024 12:03:14 Final Observation Date Value Abnormality Reference (Units ) Status RBC, Urine 01/09/2024 12:03:14 10-19 Abnormal 0-2 (/HPF) Final WBC, Urine 01/09/2024 12:03:14 0-2 0-2 (/HPF) Final Bacteria [#/area] in Urine sediment by Microscopy high power field 01/09/2024 12:03:14 0-25 0-25 (/HPF) Final Epithelial cells.squamous [#/area] in Urine sediment by Microscopy high power field 01/09/2024 12:03:14 Many Abnormal None (/HPF) Final Mucus, Urine 01/09/2024 12:03:14 Many Abnormal None (/HPF) Final Performing Location [facility] [place] [address]
--- OUTSIDE RECORDS SUMMARY | 2024-03-29 04:38 | External Medical Summary ---
Author Name Unknown Address Unknown Organization K01:[facility] [address] [place] [address] Laboratory Report Ordering Provider Test Date Status CEDRIC RUIZ 12/11/2023 15:23:59 Final Observation Date Value Abnormality Reference (Units ) Status Hep C Ab 12/11/2023 15:23:59 Negative Negative Final Further HCV quantitative fidencio ting not performed per protocol. Performing Location [facility] - [address] [place] [address]
--- OUTSIDE RECORDS SUMMARY | 2024-03-29 04:38 | External Medical Summary | Summary of Care ---
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 / Gynecology Urology Diagnoses Urge incontinence Glenda Garcia DO [address] [place] [address] Referral ID Status Reason Start Date Expiration Date Visits Requested Visits Authorized [id number] Authorized Specialty Services Required 10/05/[phone] Encounter Details Date Type Department Care Team (Late st Contact Info) Description 01/09/2024 11:25 AM EDT Office Visit Urogynecology [facility] [address] [place] [address] Gilmar Jimenes MD [address] [place] [address] Nurse Lencho Beard [address] [place] [address] Urge incontinence*; Urinary urgency; Urinary frequency Allergies [...] MCG/ACT Inhalation Aerosol Powder Breath Activated (umeclidinium Paulina)Indications:C OPD, mild (HCC) Inhale 1 Puff by [...] morning. 100 Tablet 3 10/05/2023 Active Nystatin 751264 UNIT/GM External CreamIndications:Inte rtrigo Apply topically to [...] 1,000 mcgIndications:Intestinal postoperative nonabsorption 1000 mcg IM [id number] 05/09/2023 07/02/20 24 Active documented as of [...] 08/15/2022 Other bipolar disorder 08/15/2022 PAYTON RESEARCH OTHER*[id number] 04/03/2022 Facet arthropathy, lumbar 06/20/2018 Medical marijuana use 05/16/2018 Overview: 01/2018-[facility]--using oil vape 2/d, lotion apply [...] gallbladder with chronic cholecystitis 04/22/2018 05/15/2019 Overview: 05/0294-ZH-OhCenb>Cholelithiasis with a contracted gallbladder. Please correlate with [...] Sign Reading Time Taken Comments Blood Pressure 164/86 01/09/2024 11:43 AM EDT Pulse - - Temperature - - Respiratory Rate - - Oxygen Saturation - - Inhaled Oxygen Concentration - - Weight 104.8 kg (231 lb) 01/09/2024 11:43 AM EDT Height 170.2 cm (5' 7") 01/09/2024 11:43 AM EDT Body Mass Index 36.18 01/09/2024 11:43 AM EDT documented in this encounter Functional Status [...] Progress Notes * Gilmar Jimenes MD - 01/09/2024 11:36 AM EDT Yelena Mcclure is a 73 year old female P 0 here for evaluation of urinary incontinence. Referred by Glenda Garcia DO. Yelena Mcclure complains of urinary urge incontinence. Without much warning, she will develop sudden urgency and when she stands up to walk to the restroom, she will experience a large volume of urge incontinence. She is taking Myrbetriq 50 mg daily which worked very well initially a year ago, seems to be less effective now. She has urgency and frequency every 2 hours. Nocturia once a night. She den ies CLEVE unless her bladder is very full with urgency and she happens to cough or sneeze. Urinary: Leakage: urge Has leakage several times a day Wears pads: pull up briefs She denies a sense of incomplete bladder emptying. Prior/current treatment include: Myrbetriq UTI: denies Voiding detail: Daytime frequency: every 2 hours Urgency yes Nocturia:once Hesitancy no Straining no Hematuria no Postvoid dribbling no Postvoid urgency no Manual reduction no Drinks: 1 cup of coffee in Am Prolapse: She denies a palpable bulge. GI: Bowel habits: normal bowel movement daily She denies fecal incontinence. Prior/ current treatments include: none Gynecologic history: myomectomy. Medical History: Patient Active Problem List Diagnosis Encounter for [...] marijuana use Facet arthropathy, lumbar PAYTON RESEARCH OTHER*[id number] Major depressive disorder, recurrent, moderate (HCC) Other bipolar disorder (HCC) COPD, group A, by GOLD 2017 classification ([facility]) Class 3 severe obesity due [...] Mumps Muscle spasm Obesity Uterine leiomyoma Varicella Patient sees Glenda Garcia DO as her primary care provider. Surgical History: Past Surgical History: Procedure Laterality Date BIOPSY OF BREAST, OPEN Right 05/10/2016 invasive carcinoma BX LYMPH NODE DEEP AXIL Right 06/20/2016 BIOPSY LYMPH NODE DEEP AXILLARY OPEN performed by Staci Coffey MD at OR [facility] CHEMOTHERAPY 2017 Taxol & Herceptin COLONOSCOPY, DIAGNOSTIC (RECTUM) 11/17/2022 benign adenomatous polyps, diverticulosis, repeat 5 yrs / [facility] EGD, FLEXIBLE, DIAGNOSTIC 04/21/2022 normal bx / [facility] EGD, FLEXIBLE, DIAGNOSTIC N/A 02/23/2023 ESOPHAGOGASTRODUODENOSCOPY (EGD), FLEXIBLE, TRANSORAL, DIAGNOSTIC performed by Sterling Azevedo MD at [place] [facility] 06/28/2018 Choledocholithiasis/[facility] IDENTIFY SENTINEL NODE, RADIOACTIVE TRACER Right 06/20/2016 INJECTION PROCEDURE FOR IDENTIFICATION SENTINEL NODE performed by Staci Coffey MD at OR [facility] IMPLANTABLE ACCESS SYST PERC Right 07/2016 INFORMATION 1960 cyst removed from throat IR BIOPSY 11/05/2023 IR BIOPSY 12/06/2023 IR EMBOLIZATION UTERINE FIBROID 1975 LAPAROSCOPE PROCEDURE, LIVER N/A 02/23/2023 UNLISTED LAPAROSCOPIC PROCEDURE LIVER performed by Sterling Azevedo MD at [place] [facility] LAPAROSCOPY; CHOLECYSTECTOMY N/A 02/23/2023 LAPAROSCOPIC CHOLECYSTECTOMY performed by Sterling Azevedo MD at [facility] MASTECTOMY, PARTIAL Right 06/20/2016 MASTECTOMY PARTIAL - right performed by Staci oCffey MD at [facility] 06/20/2016 RADIATION THERAPY Right 02/08/2016 6120 cGy REMOVAL OF OVARY(S) 1975 REMOVE CATARACT, INSERT LENS PROSTH Left 10/30/2023 LEFT EXTRACAPSULAR CATARACT REMOVAL WITH INTRAOCULAR LENS performed by Ernesto Ocasio MD at OR [facility] REMOVE CATARACT, INSERT LENS PROSTH Right 11/13/2023 RIGHT EXTRACAPSULAR CATARACT REMOVAL WITH INTRAOCULAR LENS performed by Ernesto Ocasio MDat OR [facility] SLEEVE GASTRECTOMY, LAPROSCOPY N/A 02/23/2023 LAPAROSCOPY SLEEVE GASTRECTOMY performed by Sterling Azevedo MD at [facility] SURGICAL REMOVAL, ERUPTED TOOTH AND BONE 06/2015 multiple extractions and implants UMBIL HERNIA REPAIR (REDUCIBLE) AGE 5+YR 2000 OB History 0 Para 0 Term 0 0 AB 0 Living 0 SAB 0 IAB 0 Ectopic 0 Multiple 0 Live Births Weight of largest baby: n/a Vaginal deliveries: 0 C/S: 0 Allergies: Review of patient's allergies indicates: Allergen Reactions Bee Venom Edema airway Hornet-edema airway. Other bees-swelling Crab Extract Other reaction(s): Vomiting Ciprofloxacin Nausea/vomiting Keflex [Cephalexin] Diarrhea Adhesive Tape Rash Some adhesive tapes- irritation and rash Active Medications: Current Outpatient Medications Medication Sig Dispense Refill Solifenacin Succinate 5 MG Oral Tablet (VESIcare) Take 1 Tablet by mouth in the morning. 90 Tablet 3 fexofenadine (CHERRI) 180 MG Tablet Take 1 Tablet by mouth in the morning. 30 Tab 11 Spacer/Aero-Holding Chambers LIZ Use with albuterol inhaler. 1 Each 0 ProAir HFA 108 (90 Base) MCG/ACT Inhalation Aerosol Solution Inhale 2 Puffs by mouth every 6 hours as needed for Shortness of Breath or Wheezing. Knee Brace Wear while mobile 1 Each [...] MCG/ACT Inhalation Aerosol Powder Breath Activated (umeclidinium Paulina) Inhale 1 Puff by mouth in the morning. 90 Each 1 Triamcinolone Acetonide 0.1 % External Cream (Aristocort) Apply topically to affected area 2 times a day 45 g 1 Lisinopril 40 MG Oral Tablet Take 1 Tablet by mouth in the morning. 100 Tablet 1 Myrbetriq 50 MG Oral Tablet Extended Release 24 Hour (Mirabegron ER) Take 1 Tablet by mouth in the morning. 100 Tablet 3 Nystatin 989313 UNIT/GM External Cream Apply topically to affected [...] BY MOUTH EVERY MORNING 100 Tablet 3 Glucosamine Chondr 500 Complex Oral Capsule Take 1 Capsule by mouth in the morning and 1 Capsule before bedtime. 1 in the am, 2 at night. amLODIPine Besylate 2.5 MG Oral Tablet (Norvasc) Take 1 Tablet by mouth in the morning. 30 Tablet 1 Modafinil 200 MG Oral Tablet (Provigil) take 1 tablet by mouth daily 90 Tablet 1 Current Facility-Administered Medications Medication Dose Route Frequency Provider Last Rate Last Admin vitamin b-12 (Cyanocobalamin) inj 1,000 mcg 1,000 mcg Intramuscular Q12 Weeks Nicole Samuel PA-C 1,000 mcg at 10/19/23 1604 Social History: Social History Socioeconomic History Marital status: Tobacco Use Smoking status: Former Current packs/day: 0.00 Average packs/day: 1 pack/day for 35.0 years (35.0 ttl pk-yrs) Types: Cigarettes Start date: 11/17/1987 Quit date: 11/16/2022 Years since quittin.1 Passive exposure: Past Smokeless tobacco: Never Vaping Use Vaping status: Every Day Substances: THC Devices: Do It Originalo Substance and Sexual Activity Alcohol use: No Comment: very occasionally in past, none now Drug use: Yes Frequency: 7.0 times per week Types: Marijuana Comment: Current medical marijuana- vape (dry flower) Sexual activity: Yes Comment: self Social Determinants of Health Financial Resource Strain: Low Risk (07/26/2023) Financial Resource Strain Do you have any trouble paying for your medications, or do you think you might in the future? (Adult - for ages 18 years and over): No Food Insecurity: No Food Insecurity (07/26/2023) Food Insecurity Do you need food for this week? (Adult - for ages 18 years and over): No Transportation Needs: No Transportation Needs (07/26/2023) Transportation Needs Do you have trouble getting a ride to medical visits or work? (Adult - for ages 18 years and over):Never True Social Connections: Socially Integrated (07/26/2023) Social Connections How often do you feel lonely or isolated from those around you? (Adult - for ages 18 years and over): Sometimes Housing Stability: Low Risk (07/26/2023) Housing Stability Do you currently live in a alf or have no steady place to sleep at night? (Adult - for ages 18 years and over): No Do you think you are at risk of becoming homeless? (Adult - for ages 18 years and over): No Family History: Family History Problem Relation Name Age of [...] (Maternal) Breast Cancer No significant family history CONSTITUTIONAL ROS: No change in weight, No weakness and No fatigue NECK ROS: No lumps or masses, PULMONARY ROS: No recent change in breathing CARDIOVASCULAR ROS: No chest pain, No shortness of breath and No dyspnea on exertion BREAST ROS: neg GASTROINTESTINAL ROS: No abdominal pain,as per HPI GENITO-URINARY FEMALE ROS: As per HPI MSK/EXTREMITIES ROS: osteoarthritis of knees SKIN/INTEGUMENTARY ROS: No rash and No itching NEUROLOGICAL ROS: Normal balance No weakness PSYCHIATRIC ROS: no depression and no anxiety Medical Record Retrieval Specialist Documentation: 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 Blood pressure %sancho are not available for patients who are 18 years or older. Body mass index is36.18 kg/m. EXAM: Well developed well nourished female in no apparent distress. Alert oriented x3 HEENT: NC AT HEART: Normal peripheral pulse, edema neg THYROID: no obvious neck mass LUNG: No increased respiratory effort ABDOMEN: Soft, NT, ND, no masses PELVIC EXAM: Ext. Gen: Normal external female genitalia, no vulvar lesions. Clitoris, labia, minor vestibular glands and urethral meatus appear normal. Urethra and bladder palpated non-tender with no masses and no expressible exudate. Vagina atrophic without lesions. Cervix: nl BIMANUAL EXAM: no cervical motion tenderness, the uterus is smooth, mobile, non tender and of normal size. No adnexal masses or tenderness elicited. MAT SEWER: neg Levator ani muscle strength 5. No tenderness elicited on palpation Rectovaginal exam: perianal area normal, anus normal, digital rectal exam deferred No prolapse The following data points/ labs were reviewed: Results for orders placed or performed in visit on 12/11/23 TSH WITH FREE T4 IF INDICATED Result Value Ref Range TSH 3.16 0.27 - 4.20 uIU/mL HEPATITIS C ANTIBODY Result Value Ref Range Hepatitis C Antibody Negative Negative PVR: 0 ml via bladder scan Impression: This is a 73 year old with: Urge incontinence (Primary) - URINALYSIS, POINT OF CARE (ENTER/EDIT) - MICROSCOPIC EXAM, URINE - US RENAL; Future; Expected date: 01/09/2024 Urinary urgency - URINALYSIS, POINT OF CARE (ENTER/EDIT) - MICROSCOPIC EXAM, URINE - US RENAL; Future; Expected date: 01/09/2024 Urinary frequency - URINALYSIS, POINT OF CARE (ENTER/EDIT) - MICROSCOPIC EXAM, URINE - US RENAL; Future; Expected date: 01/09/2024 Other orders - Solifenacin Succinate 5 MG Oral Tablet (VESIcare); Take 1 Tablet by mouth in the morning. Follow Up: Return in about 6 weeks (around 02/20/2024) for Clinic Visit. | For: Clinic Visit | Check-out note: Follow up on medications Patient has heme on her POC UA. Will get microscopic exam and renal ultrasound For the Urge incontinence and OAB symptoms, we discussed limiting bladder irritants in the diet, Kegel exercises, and adding a second OAB medication to Myrbetriq. We agreed to Vesicare 5 mg along with Myrbetriq 50 mg. Side effects, risks, benefits, and alternatives reviewed. All questions answered. Gilmar Jimenes MD 01/09/2024 11:37 AM I spent a total of 50 minutes on the date of service in preparation, delivery, and documentation ofthe care provided to Yelena Mcclure excluding any time spent in the performance of separately billed services. documented in this encounter Nursing Notes * Sarika Aguirre LPN - 01/09/2024 11:45 AM EDT Patient presents to the clinic for evaluation of incontinence. Currently on myrbetriq 50mg x1 year. documented in this encounter Plan of Treatment Upcoming Encounters Date Type Department Care Team (Late st Contact Info) Description 01/10/2024 3:00 PM EDT Office Visit Nutrition & Weight Management, [facility] 132 [facility] [place] [address] Nicole Samuel PA-C 132 [facility] [place] [address] 01/10/2024 3:50 PM EDT Nutrition Services Nutrition & Weight Management, [facility] 132 [facility] [place] [address] Maci Lehman RDN 132 [facility] [place] [address] 02/11/2024 2:30 PM EDT Office Visit Otolaryngology, [facility] [address] [place] [address] Katerine Ravi MD 132 [facility] [place] [address] 02/26/2024 3:40 PM EDT Office Visit Family Practice [address] [place] [address] [address] [place] [address] Glenda Garcia DO [address] [place] [address] 02/29/2024 1:00 PM EDT Imaging Radiology [facility] 132 [facility] [place] [address] 03/03/2024 10:00 AM EDT Telemedicine Pulmonary Medicine, [place] [address] [place] [address] Jair Springer MD [address] [place] [address] 03/03/2024 12:30 PM EDT Office Visit General Surgery, [place] [address] [place] [address] Tung Doyle PA-C [address] [place] [address] 10/28/2024 11:00 AM EDT Nurse Only Ancillary 65 [facility] [address] [place] [address] College, Nurse Annual Wellness Visit [address] [address] Scheduled Orders Name Type Priority Associated Diagnoses Orde r Schedule URINALYSIS, POINT OF CARE (ENTER/EDIT) Point of Care Testing Routine Urge incontinence Urinary urgency Urinary frequency Ordered: 01/09/2024 MICROSCOPIC EXAM, URINE Lab Routine Urge incontinence Urinary urgency Urinary frequency Ordered: 01/09/2024 RENAL Medical Imaging Routine Urge incontinence Urinary urgency Urinary frequency Expected: 01/09/2024, Expires: 02/07/2025 Scheduled Procedures Name Priority Associated Diagnoses Date/Ti [...] this encounter Medical Devices Implanted Type Area Training And Development Assistant Device Identifier Shelf Expiration Date Model / Serial / Lot Lens Li61ao 13.00mm 19.50 - [id number] - [id number] Implanted:Qty: 1 on 10/30/2023 by Ernesto Ocasio MD at OR [facility] Left: Eye [employer] 07/15/2028 [id number] / [id number] / [id number] Lens Li61ao 13.00mm 19.50 - [id number] - [id number] Implanted:Qty: 1 on 11/13/2023 by Ernesto Ocasio MD at OR [facility] Right: Eye [employer] 07/15/2028 [id number] / [id number] / [id number] documented as of this encounter Visit Diagnoses [...] Discussed due to patient's condition Care Teams Patternmaker Pressure Cast Relationship Specialty Start Date End Date Glenda Garcia DO [address] [place] [address], [place] [address] PCP - General Family Medicine 12/28/23 documented as of this encounter
--- OUTSIDE RECORDS SUMMARY | 2024-03-29 04:38 | External Medical Summary | Summary of Care ---
Author Name Unknown Organization [facility] Address [address] [place] [address] Phone [phone] Care Team Providers Care Meal Miller Name Role Phone Glenda Garcia DO Primary Care Provider Reason for Referral * Evaluate & Treat - Unlimited Visits (Within 10 days (routine)) - Authorized Specialty Diagnoses / Procedures Referred By Contac t Referred To Contact Otolaryngology Diagnoses Thyroid nodule Glenda Garcia DO [address] [place] [address] Referral ID Status Reason Start Date Expiration Date Visits Requested Visits Authorized [id number] Authorized Specialty Services Required 12/11/[phone] Question Answer Referral Priority Within 10 days (routine) Where should this appointment be scheduled? [facility] Reason for Referral Thyroid/Parathyroid Specific Condition: Thyroid Has the patient had a Ultrasound Head/Neck and a TSHw/Free T4 in the past 6 months? Yes Reason for Visit * Reason Comments Follow Up Encounter Details Date Type Department Care Team (Late st Contact Info) Description 12/11/2023 2:20 PM EDT Office Visit Family Practice 65 [facility] [place] [address] [place] [address] Glenda Garcia DO [address] [place] [address] HTN, goal below 140/90*; Thyroid nodule; Nasal congestion; Need for hepatitis C screening test; Need for COVID-19 vaccine Allergies Active Allergy Reactions Criticality Noted Date Comments Adhesive Tape Rash Low 02/18/2020 Some adhesive tapes- irritation and rash Bee Venom Edema airway High 01/01/2016 Hornet-edema airway. Other bees-swelling Ciprofloxacin Nausea/vomiting 01/01/2016 Crab Extract High 11/17/2022 Other reaction(s): Vomiting Cephalexin Diarrhea 01/01/2016 documented as of this encounter (statuses as of 12/12/2023) Medications Medication Sig Dispensed Refills Start Date [...] Tablet by mouth in the morning. Active Modafinil 200 MG Oral Tablet (Provigil) Take 1 Tablet by mouth daily. 90 Tablet 1 05/03/2023 Active Montelukast Sodium 10 MG Oral Tablet (Singulair) Take 1 Tablet by mouth daily. 100 Tablet 3 05/29/2023 Active Calcium Citrate Chewy Bite 500-12.5 MG-MCG Oral Tablet Chewable (Calcium Citrate-Vitamin D) Take 1 Tablet by mouth 3 times a day. Active Incruse Ellipta 62.5 MCG/ACT Inhalation Aerosol Powder Breath Activated (umeclidinium [place])Indications:C OPD, mild (HCC) Inhale 1 Puff by [...] morning. 100 Tablet 3 10/05/2023 Active Nystatin [id number] UNIT/GM External CreamIndications:Inte rtrigo Apply topically to [...] the morning. 30 Tablet 1 12/11/2023 Active Hospital, Clinic, or Other Facility Administered Medication Ordered Dose Route Frequency Start Date End Date Status vitamin b-12 (Cyanocobalamin) inj 1,000 mcgIndications:Intestinal postoperative nonabsorption 1000 mcg IM [id number] 05/09/2023 07/02/20 24 Active documented as of this encounter (statuses as of 12/12/2023) Active Problems Problem Noted Date Diagnosed Date [...] 08/15/2022 Other bipolar disorder 08/15/2022 [employer]TON [employer] OTHER*[id number] 04/03/2022 Facet arthropathy, lumbar 06/20/2018 Medical marijuana use 05/16/2018 Overview: 01/2018-[facility]--using oil vape 2/d, lotion apply knees,ankles. [...] Quit 04/02 H/O colonoscopy 04/18/2017 Overview: In [place] -nl per pt Dyslipidemia, goal LDL below 100 04/18/2017 Venous stasis dermatitis of right lower extremit y 04/18/2017 Uses roller walker 04/18/2017 Encounter for antineoplastic chemotherapy 2016 documented as of this encounter (statuses as of 12/12/2023) Resolved Problems Problem Noted Date Diagnosed Date Resolved Date Body mass index (BMI) of 50. 0 to 59.9 in adult 07/29/2018 05/15/2019 Overview: Per Obesity protocol #1 - - Body mass index (BMI) of 60. 0 to 69.9 in adult 06/24/2018 08/02/2018 Overview: Per Obesity protocol #1 - Calculus of gallbladder with chronic cholecystitis 04/22/2018 05/15/2019 Overview: 05/0254-[id number]>Cholelithiasis with a contracted gallbladder. Please correlate with [...] as of this encounter (statuses as of 12/12/2023) Immunizations Name Administration Dates Next Due COVID-19 [...] money to get more. Never true 07/26/2023 Sex and Gender Information Value Date [...] Sign Reading Time Taken Comments Blood Pressure 152/80 12/11/2023 2:28 PM EDT Pulse 62 12/11/2023 2:28 PM EDT Temperature 36.4 C (97.5 F) 12/11/2023 2:28 PM ED T Respiratory Rate - - Oxygen Saturation 96% 12/11/2023 2:28 PM EDT Inhaled Oxygen Concentration - - Weight 101.4 kg (223 lb 9.6 oz) 12/11/2023 2:28 PM EDT Height - - Body Mass Index 35.28 10/26/2023 11:12 AM EDT documented in this encounter Functional [...] as of this encounter Progress Notes * Yelena Medellin RN - 12/12/2023 11:33 AM EDT RN Lead: Yelena Medellin RN Date: 12/12/23 Patient seen for ASC: HTN<140/90 Connected with patient via phone. Verified patient name/. Assessment: Pt. seen: 12/11/23 Treatment plan: amLODIPine Besylate 2.5 MG Oral Tablet (Norvasc) BP elevated. Pt will start amlodipine. Continue lisinopril. NV in 2 weeks for BP check-scheduled for 12/25/23 Status update: pt states she is doing OK-has not picked up the amlodipine yet but plans on doing sotoday. Will take in morning along with the lisinopril 40 mg once a day. Told she could monitor her BP at home and keep a log and bring with her to her nurse visit on 12/25/23 for BP check. Pt agreeable and has no further questions States she did get a covid vaccine yesterday and her arm was sore last night- feeling better today. Told to monitor and she can try ice for comfort. Pt will call if further problems. Medication Reconciliation: Medication Reconciliation completed: Yes Careteam: Water Aerobics Instructor: No Please let patient know you will be sharing with the CM and they may contact patient for future follow up. If patient is case managed, please route note to CM. If patient requires further follow-up for this ASC episode, please reach out directly to the case briefer via Teams or MediSwipe. Plan for Future Contacts: Plan to follow up nurse visit 2 weeks-12/25/23 Advancement/Closure Plan: Patient provided contact information and encouraged to call CM or clinic directly with any changes in condition. * Dianna Garcia LPN - 12/11/2023 3:15 PM EDT Pre-Administration Time Out Procedure Performed: Yes Patient Identified (Ask Name/Date of ): Yes Does the patient have a fever greater than 101 degrees today? No Patient allergic to latex? No Has the patient ever fainted after receiving an injection? No VFC Stock: No Immunization(s) verified: Yes, Immunization Name: Covid, VIS Sheet(s) given: Yes Verified Side and Site: Yes Verified Shot(s) with Parent(s)/Patient: Yes * Glenda Garcia, DO - 12/11/2023 2:44 PM EDT SUBJECTIVE: Chief Complaint Patient presents with Follow Up HPI: Yelena Mcclure is a 73 year old female who presents today for regular return. Pt notes that she is doing well. She has a garden this year. She feels that the weight loss has really helped her to be more active. She is getting in more steps each day. Pt had repeat FNA with likely atypical cells of undetermined significance. It was a scant biopsy. Molecular testing is pending. First FNA was unsatisfactory. Pt completing lab study today. 2cm noduleon US. Pt notes some nasal congestion. She does wear a CPAP. She notes that she will feel mucous in her nose. 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 30 Tab 11 ProAir HFA 108 (90 Base) MCG/ACT Inhalation [...] 1 Tablet by mouth in the morning. Modafinil 200 MG Oral Tablet (Provigil) Take 1 Tablet by mouth daily. 90 Tablet 1 Montelukast Sodium 10 MG Oral Tablet (Singulair) Take 1 Tablet by mouth daily. 100 Tablet 3 Calcium Citrate Chewy Bite 500-12.5 MG-MCG Oral Tablet Chewable (Calcium Citrate-Vitamin D) Take 1 Tablet by mouth 3 times a day. Incruse Ellipta 62.5 MCG/ACT Inhalation Aerosol Powder Breath Activated (umeclidinium [place]) Inhale 1 Puff by mouth in the [...] in the morning. 100 Tablet 3 Nystatin [id number] UNIT/GM External Cream Apply topically to affected [...] 1 in the am, 2 at night. Spacer/Aero-Holding Chambers LIZ Use with albuterol inhaler. 1 Each 0 Current Facility-Administered Medications Medication Dose Route [...] performed by Staci Coffey MD at OR [facility] CHEMOTHERAPY 2017 Taxol & Herceptin COLONOSCOPY, DIAGNOSTIC (RECTUM) 11/17/2022 benign adenomatous polyps, diverticulosis, repeat 5 yrs / [facility] EGD, FLEXIBLE, DIAGNOSTIC 04/21/2022 normal bx / [facility] EGD, FLEXIBLE, DIAGNOSTIC N/A 02/23/2023 ESOPHAGOGASTRODUODENOSCOPY (EGD), FLEXIBLE, TRANSORAL, DIAGNOSTIC performed by Sterling Azevedo MD at [facility] ERCP 06/28/2018 Choledocholithiasis/[facility] IDENTIFY SENTINEL NODE, RADIOACTIVE TRACER Right 06/20/2016 INJECTION PROCEDURE FOR IDENTIFICATION SENTINEL NODE performed by Staci Coffey MD at OR [facility] IMPLANTABLE ACCESS SYST PERC Right 07/2016 INFORMATION 1960 cyst removed from throat IR BIOPSY 11/05/2023 IR BIOPSY 12/06/2023 IR EMBOLIZATION UTERINE FIBROID 1975 LAPAROSCOPE PROCEDURE, LIVER N/A 02/23/2023 UNLISTED LAPAROSCOPIC PROCEDURE LIVER performed by Sterling Azevedo MD at [facility] LAPAROSCOPY; CHOLECYSTECTOMY N/A 02/23/2023 LAPAROSCOPIC CHOLECYSTECTOMY performed by Sterling Azevedo MD at [facility] MASTECTOMY, PARTIAL Right 06/20/2016 MASTECTOMY PARTIAL - right performed by Staci Coffey MD at OR [facility] 06/20/2016 RADIATION THERAPY Right 02/08/2016 6120 cGy REMOVAL OF OVARY(S) 1975 REMOVE CATARACT, INSERT LENS PROSTH Left 10/30/2023 LEFT EXTRACAPSULAR CATARACT REMOVAL WITH INTRAOCULAR LENS performed by Ernesto Ocasio MD at OR [facility] REMOVE CATARACT, INSERT LENS PROSTH Right 11/13/2023 RIGHT EXTRACAPSULAR CATARACT REMOVAL WITH INTRAOCULAR LENS performed by Ernesto Ocasio, [facility] OR [facility] SLEEVE GASTRECTOMY, LAPROSCOPY N/A 02/23/2023 LAPAROSCOPY SLEEVE GASTRECTOMY performed by Sterling Azevedo MD at [facility] SURGICAL REMOVAL, ERUPTED TOOTH AND BONE 06/2015 [...] date: 11/17/1987 Quit date: 11/16/2022 Years since quittin.0 Passive exposure: Past Smokeless tobacco: Never Substance Use Topics Alcohol use: No Comment: very occasionally in past, none now Vaping/E-Cigarette Use Vaping/E-Cigarette Use Current Every Day User Vaping/E-Cigarette Substances THC Yes Vaping/E-Cigarette Devices Other volcano REVIEW OF SYSTEMS: Review of Systems Constitutional: Negative for chills, fatigue, fever and unexpected weight change. HENT: Positive for congestion. Respiratory: Negative for cough, chest tightness, shortness of breath and wheezing. Cardiovascular: Negative for chest pain, palpitations and leg swelling. Gastrointestinal: Negative for abdominal pain, constipation, diarrhea, nausea and vomiting. Musculoskeletal: Negative for arthralgias, gait problem and joint swelling. Skin: Negative for color change, pallor and rash. OBJECTIVE: BP 152/80 (BP Site: Left Arm) | Pulse 62 | Temp 36.4 C (97.5 F) | Wt 101.4 kg (223 lb 9.6 oz) |SpO2 96% | BMI 35.28 kg/m | BSA 2.19 m PHYSICAL EXAM: Physical Exam Constitutional: General: She is not in acute distress. Appearance: She is well-developed. HENT: Nose: Congestion present. No rhinorrhea. Cardiovascular: Rate and Rhythm: Normal rate and [...] tenderness. There is no guarding. Musculoskeletal: General: No tenderness or deformity. Normal range of motion. Skin: General: Skin is warm and dry. Coloration: Skin is not pale. Findings: No erythema or rash. Neurological: Mental Status: She is alert and oriented to person, place, and time. ASSESSMENT/PLAN: (I10) HTN, goal below 140/90 (primary encounter diagnosis) Plan: amLODIPine Besylate 2.5 MG Oral Tablet (Norvasc) BP elevated. Pt will start amlodipine. Continue lisinopril. NV in 2 weeks for BP check. (E04.1) Thyroid nodule Plan: ADULT/PEDS OTOLARYNGOLOGY REFERRAL OP, TSH WITH FREE T4 IF INDICATED Pt with second FNA with scant cells and showing likely atypia of undetermined significance. Molecular testing is pending. TSH today. Will have her see ENT for their recommendations. (R09.81) Nasal congestion Plan: pt will trial flonase. (Z11.59) Need for hepatitis C screening test Plan: HEPATITIS C ANTIBODY SCREEN WITH PROGRESSION TO HEPATITIS C RNA QUANTITATIVE Hep C today. (Z23) Need for COVID-19 vaccine Plan: COVID-19, MRNA-LNP, PF, 23-24, 30MCG/0.3ML, IM, 12YRS AND ABOVE ([employer]) Vaccine given. See admin record. Follow-up: 2 months Total time today including reviewing chart before the visit, pertinent labs, imaging reports, face to face time, and documentation time was 34 minutes. Glenda Garcia DO documented in this encounter Plan of Treatment Upcoming Encounters Date Type Department Care Team (Late st Contact Info) Description 12/25/2023 1:00 PM EDT Nurse Only Family Practice 65 [facility] [address] [place] [address] College, Nurse [facility] Prac [address] [place] [address] 01/09/2024 11:25 AM EDT Office Visit Urogynecology [facility] [address] [place] [address] Gilmar Jimenes MD [address] [place] [address] Nurse Lencho Beard [facility] [address] [facility] [place] [address] 01/10/2024 3:00 PM EDT Office Visit Nutrition & Weight Management, [facility] [address] [place] [address] Nicole Samuel PA-C [address] [place] [address] 01/10/2024 3:50 PM EDT Nutrition Services Nutrition & Weight Management, [facility] [address] [place] [address] Maci Lehman RDN [address] [place] [address] 02/11/2024 2:30 PM EDT Office Visit Otolaryngology, [facility] [address] [place] [address] Katerine Ravi MD [address] [place] [address] 02/26/2024 3:40 PM EDT Office Visit Family Practice 65 [facility] [address] [place] [address] Glenda Garcia DO [address] [place] [address] 02/29/2024 1:00 PM EDT Imaging Radiology [facility] [address] [facility] [place] [address] [place] [address] 03/03/2024 10:00 AM EDT Telemedicine Pulmonary Medicine, [place] [address] [place] [address] Jair Springer MD [address] [place] [address] 03/03/2024 12:30 PM EDT Office Visit General Surgery, [place] [address] [place] [address] Tung Doyle PA-C [address] [place] [address] 10/28/2024 11:00 AM EDT Nurse Only Ancillary 65 [facility] [address] [place] [address] College, Nurse Annual Wellness Visit [address] [address] Scheduled Procedures Name Priority Associated Diagnoses Date/Ti me COLONOSCOPY FLEXIBLE PROXIMAL DIAGNOSTIC Recall History of colon polyps Scheduled Referrals Name Type Priority Associated Diagnoses Order Schedule ADULT/PEDS OTOLARYNGOLOGY REFERRAL OP Referral Within 10 days (routine) Thyroid nodule Ordered: 12/11/2023 Health Maintenance Due Date Last Done Comments Alpha-1 Antitrypsin 1970 Cologuard 1997 Fecal Occult Blood Test 1997 Sigmoidoscopy 1997 DXA Scan 06/19/2024 06/19/2017 Mammogram 09/05/2024 09/05/2023, 08/16, 11/18/2021, Additional history exists GFR 10/18/2024 10/19/2023, 02/13, 02/24/2023, Additional history exists O2 ASSESSMENT COMPLETED IN PAST YEAR FOR [...] C Screening Completed 12/11/2023 , 12/11/2023, 12/11/2023 GARDASIL-HPV IMMUNIZATION SERIES Aged Out No longer eligible based on patient's age to complete this topic Hepatitis B Aged Out No longer eligi ble based on patient's age to complete this topic MENINGOCOCCAL (MENACTRA/MENVEO) Aged Out No longer eligible based on patient's age to complete this topic documented as of this encounter Medical Devices Implanted Type Area Heat Treat Supervisor Device Identifier Shelf Expiration Date Model / Serial / Lot Lens Li61ao 13.00mm 19.50 - [id number] - [id number] Implanted:Qty: 1 on 10/30/2023 by Ernesto Ocasio MD at OR [facility] Left: Eye [employer] 07/15/2028 [id number] / [id number] / [id number] Lens Li61ao 13.00mm 19.50 - [id number] - [id number] Implanted:Qty: 1 on 11/13/2023 by Ernesto Ocasio MD at OR [facility] Right: Eye [employer] 07/15/2028 [id number] / [id number] / [id number] documented as of this encounter Procedures Procedure Name Priority Date/Time Associated Diagnosis Comments HEPATITIS C RNA ADD ON Routine 12/11/2023 3:23 PM EDT Need for hepatitis C screening test TSH WITH FREE T4 IF INDICATED Routine 12/11/2023 3:23 PM EDT Thyroid nodule HEPATITIS C ANTIBODY SCREEN WITH PROGRESSION TO HEPATITIS C RNA QUANTITATIVE Routine 12/11/2023 3:23 PM EDT Need for hepatitis C screening test HEPATITIS C ANTIBODY Routine 12/11/2023 3:23 PM EDT Need for hepatitis C screening test documented in this encounter Results * HEPATITIS C RNA ADD ON (12/11/2023 3:23 PM EDT) Blood Venous blood specimen / Unknown Venipuncture / Unknown 12/11/2023 3:23 PM EDT 12/11/2023 3:24 PM EDT Glenda Garcia DO LAB BLOOD ORDERABLES [facility] [address] [place] [address] * HEPATITIS C ANTIBODY (12/11/2023 3:23 PM EDT) Hepatitis C Antibody Negative Negative 12/12/2023 1:42 AM EDT [facility] Comment:Further HCV quantita tive testing not performed per protocol. Blood Venous blood specimen / Unknown Venipuncture / Unknown 12/11/2023 3:23 PM EDT 12/11/2023 3:24 PM EDT Glenda Garcia DO LAB BLOOD ORDERABLES [facility] [address] [place] [address] * TSH WITH FREE T4 IF INDICATED (12/11/2023 3:23 PM EDT) TSH 3.16 0.27 - 4.20 uIU/mL 12/12/2023 1:55 AM EDT [facility] Blood Venous blood specimen / Unknown Venipuncture / Unknown 12/11/2023 3:23 PM EDT 12/11/2023 3:24 PM EDT Glenda Garcia DO LAB BLOOD ORDERABLES Performing Organization Address City/[facility] Co de Phone Number [facility] [address] [place] [address] documented in this encounter Visit Diagnoses Diagnosis HTN, goal below 140/90- Primary Unspecified essential hypertension Thyroid nodule Nontoxic uninodular goiter Nasal congestion Other diseases of nasal cavity and sinuses Need for hepatitis C screening test Special screening examination for other specified viral diseases Need for COVID-19 vaccine documented in this encounter Advance Directives * [...] Discussed due to patient's condition Care Teams Meal Miller Relationship Specialty Start Date End Date Glenda Garcia DO [address] [place] [address] PCP - General Family Medicine 08/15/22 documented as of this encounter"
--- OUTSIDE RECORDS SUMMARY | 2024-03-29 04:38 | External Medical Summary | Summary of Care ---
Author Name Unknown Organization [facility] Address [address] [place] [address] Phone [phone] Care Team Providers Care Interactive Media Designer Name Role Phone Glenda Garcia DO Primary Care Provider [phone] Reason for Visit * Reason Comments Incontinence * Evaluate & Treat - Unlimited Visits (Within 10 days (routine)) - Authorized Specialty Diagnoses / Procedures Referred By Contgilson t Referred To Contact MINING MANAGER - Urogynecology / Gynecology Urology Diagnoses Urge incontinence Glenda Garcia DO [address] [place] [address] Referral ID Status Reason Start Date Expiration Date Visits Requested Visits Authorized [id number] Authorized Specialty Services Required 10/05/[phone] Encounter Details Date Type Department Care Team (Late st Contact Info) Description 01/09/2024 11:25 AM EDT Office Visit Urogynecology Billy Beard [address] [place] [address] Gilmar Jimenes MD [address] [place] [address] Nurse Lencho Beard [address] [place] [address] Urge incontinence*; Urinary urgency; Urinary frequency Allergies [...] MCG/ACT Inhalation Aerosol Powder Breath Activated (umeclidinium [place])Indications:C OPD, mild (HCC) Inhale 1 Puff by [...] morning. 100 Tablet 3 10/05/2023 Active Nystatin [id number] UNIT/GM External CreamIndications:Inte rtrigo Apply topically to [...] 1,000 mcgIndications:Intestinal postoperative nonabsorption 1000 mcg IM [id number] 05/09/2023 07/02/20 24 Active documented as of [...] 08/15/2022 Other bipolar disorder 08/15/2022 PAYTON RESEARCH OTHER*[id number] 04/03/2022 Facet arthropathy, lumbar 06/20/2018 Medical marijuana use 05/16/2018 Overview: 01/2018-[facility]--using oil vape 2/d, lotion apply knees,ankles. [...] Quit 04/02 H/O colonoscopy 04/18/2017 Overview: In [place] -nl per pt Dyslipidemia, goal LDL below [...] gallbladder with chronic cholecystitis 04/22/2018 05/15/2019 Overview: 05/0282-UP-FzAtxe>Cholelithiasis with a contracted gallbladder. Please correlate with [...] marijuana use Facet arthropathy, lumbar PAYTON RESEARCH OTHER*[id number] Major depressive disorder, recurrent, moderate (HCC) Other bipolar disorder (HCC) COPD, group A, by GOLD 2017 classification ([facility]) Class 3 severe obesity due to excess [...] adenomatous polyps, diverticulosis, repeat 5 yrs / [facility] EGD, FLEXIBLE, DIAGNOSTIC 04/21/2022 normal bx / [facility] EGD, FLEXIBLE, DIAGNOSTIC N/A 02/23/2023 ESOPHAGOGASTRODUODENOSCOPY (EGD), FLEXIBLE, TRANSORAL, DIAGNOSTIC performed by Sterling Azevedo MD at [facility] 06/28/2018 Choledocholithiasis/[facility] IDENTIFY SENTINEL NODE, RADIOACTIVE TRACER [...] performed by Sterling Azevedo MD at [facility] LAPAROSCOPY; CHOLECYSTECTOMY N/A 02/23/2023 LAPAROSCOPIC CHOLECYSTECTOMY performed by Sterling Azevedo MD at [facility] MASTECTOMY, PARTIAL Right 06/20/2016 MASTECTOMY PARTIAL - right performed by Staci Coffey MD at [facility] 06/20/2016 RADIATION THERAPY Right 02/08/2016 6120 cGy REMOVAL OF OVARY(S) 1975 REMOVE CATARACT, INSERT LENS PROSTH Left 10/30/2023 LEFT EXTRACAPSULAR CATARACT REMOVAL WITH INTRAOCULAR LENS performed by Ernesto Ocasio MD at OR [facility] REMOVE CATARACT, INSERT LENS PROSTH Right 11/13/2023 RIGHT EXTRACAPSULAR CATARACT REMOVAL WITH INTRAOCULAR LENS performed by Ernesto Ocasio MDat OR [facility] SLEEVE GASTRECTOMY, LAPROSCOPY N/A 02/23/2023 LAPAROSCOPY SLEEVE GASTRECTOMY performed by Sterling Azevedo MD at [facility] SURGICAL REMOVAL, ERUPTED TOOTH AND [...] MCG/ACT Inhalation Aerosol Powder Breath Activated (umeclidinium [place]) Inhale 1 Puff by mouth in the [...] in the morning. 100 Tablet 3 Nystatin 999631 UNIT/GM External Cream Apply topically to affected [...] Vaping status: Every Day Substances: THC Devices: FlixChipo Substance and Sexual Activity Alcohol use: No [...] Stability Do you currently live in a residential or have no steady place to sleep [...] PSYCHIATRIC ROS: no depression and no anxiety Campaign Marketing Specialist Documentation: Provider requested public administration professor Name of Campaign Marketing Specialist: Ayleen Toussaint Blood pressure 164/86, height [...] size. No adnexal masses or tenderness elicited. LIFE ASSURANCE REPRESENTATIVE: neg Levator ani muscle strength 5. No [...] EDT Office Visit Nutrition & Weight Management, [facility] [address] [facility] [place] [address] Nicole Samuel PA-C 132 [facility] [place] [address] 01/10/2024 3:50 PM EDT Nutrition Services Nutrition & Weight Management, [facility] [address] [facility] [place] [address] Maci Lehman RDN 132 [facility] [place] [address] 02/11/2024 2:30 PM EDT Office Visit Otolaryngology, Christine Martin [address] [place] [address] Katerine Ravi MD [address] [facility] [place] [address] 02/26/2024 3:40 PM EDT Office Visit Family Practice [address] [place] [address] [address] [place] [address] Glenda Garcia DO [address] [place] [address] 02/29/2024 1:00 PM EDT Imaging Radiology [facility] 1st [facility] [address] [facility] [place] [address] 03/03/2024 10:00 AM EDT Telemedicine Pulmonary Medicine, [place] [address] [place] [address] Jair Springer MD [address] [place] [address] 03/03/2024 12:30 PM EDT Office Visit General Surgery, [place] [address] [place] [address] Tung Doyle PA-C [address] [place] [address] 10/28/2024 11:00 AM EDT Nurse Only Ancillary [facility] [address] [place] [address] College, Nurse Annual Wellness Visit [address] [address] Scheduled Orders Name Type Priority Associated Diagnoses Orde r Schedule MICROSCOPIC EXAM, URINE Lab Routine Urge incontinence [...] this encounter Medical Devices Implanted Type Area Computer Security Specialist Device Identifier Shelf Expiration Date Model / Serial / Lot Lens Li61ao 13.00mm 19.50 - [id number] - [id number] Implanted:Qty: 1 on 10/30/2023 by Ernesto Ocasio MD at OR [facility] Left: Eye [employer]USCH [employer] LOMB 07/15/2028 [id number] / [id number] / [id number] Lens Li61ao 13.00mm 19.50 - [id number] - [id number] Implanted:Qty: 1 on 11/13/2023 by Ernesto Ocasio MD at OR [facility] Right: Eye BAUSCH & LOMB 07/15/2028 [id number] / [id number] / [id number] documented as of this encounter Procedures Procedure Name Priority Date/Time Associated Diagnosis Comments URINALYSIS, POINT OF CARE (ENTER/EDIT) Routine 01/09/2024 Urge incontinence Urinary urgency Urinary frequency documented in this encounter Results * URINALYSIS, POINT OF CARE (ENTER/EDIT) (01/09/2024) Color, Urine Dark Yellow Yellow or Light Yellow Clarity, Urine Clear Clear Glucose, Urine Negative Negative mg/dL Bilirubin, Urine Negative Negative Ketone, Urine Negative Negative mg/dL Specific Amasa, Urine 1.025 1.003 - 1.030 Blood, Urine Moderate Negative pH, Urine 5.5 5.0 - 7.5 units Protein, Urine Negative Negative mg/dL Urobilinogen, Urine 0.2 0.2 - 1.0 mg/dL Nitrite, Urine Negative Negative Esterase, Urine Negative Negative Urine 01/09/2024 Gilmar Jimenes MD LAB POINT OF CARE TE ST ENTER/EDIT ORDERABLES documented in this encounter Visit Diagnoses Diagnosis Urge incontinence- [...] Discussed due to patient's condition Care Teams Interactive Media Designer Relationship Specialty Start Date End Date Glenda Garcia DO [address] [place] [address] PCP - General Family Medicine 12/28/23 documented as of this encounter
--- OUTSIDE RECORDS SUMMARY | 2024-03-29 04:38 | External Medical Summary | Summary of Care ---
Author Name Unknown Organization [facility] Address [address] [place] [facility] [place] [address] Phone [phone] Care Team Providers Care Regional Account Executive Name Role Phone Glenda Garcia DO Primary Care Provider [phone] Reason for Visit * Reason Onset Date Comments Medication Refill 01/09/202401/08 Encounter Details Date Type Department Care Team (Late st Contact Info) Description 01/09/2024 Telephone Family Practice [address], [place] [address] [place] [phone] Glenda Garcia DO [address] [place] [address] Medication Refill (01/08) Allergies Active Allergy Reactions [...] MCG/ACT Inhalation Aerosol Powder Breath Activated (umeclidinium [place])Indications:C OPD, mild (HCC) Inhale 1 Puff by [...] morning. 100 Tablet 3 10/05/2023 Active Nystatin 708429 UNIT/GM External CreamIndications:Inte rtrigo Apply topically to [...] 1,000 mcgIndications:Intestinal postoperative nonabsorption 1000 mcg IM [id number] 05/09/2023 07/02/20 24 Active documented as of [...] 08/15/2022 Other bipolar disorder 08/15/2022 PAYTON RESEARCH OTHER*[id number] 04/03/2022 Facet arthropathy, lumbar 06/20/2018 Medical marijuana use 05/16/2018 Overview: St 01/2018-[facility]--using oil vape 2/d, lotion apply knees,ankles. Renal [...] gallbladder with chronic cholecystitis 04/22/2018 05/15/2019 Overview: 05/0262-QJ-WpRofw>Cholelithiasis with a contracted gallbladder. Please correlate with chronic cholecystitis. Mild dilation of the common duct. No radiopaque stones in the common duct(03/08/18-[facility])-was refer GI++ Body mass index (BMI) [...] answer. Message left to return call to [phone]. * Telephone Encounter - Glenda Garcia DO - 01/09/2024 2:18 PM EDT Please let pt know: She needs to reschedule [place] for BP check. Pending this, we can decide where to send her amlodipine. There is a 30 day supply at [facility] if needed in meantime. Will not send 90 days until we settle on appropriate dose. * Telephone Encounter - Emely Tong PHARM Tech - 01/09/2024 12:20 PM EDT Pharmacy called to request a 90 day supply for amlodipine 2.5 mg. If agreeable please send to E [facility]Y [facility][id number][facility] [address] [facility]. Thank You, Emely Tong [facility] Cleaning Maid III [facility] Pharmacy Services ([facility]) 01/09/2024, 12:20 PM documented in this encounter Plan of Treatment Upcoming Encounters Date Type Department Care Team (Late st Contact Info) Description 01/10/2024 3:00 PM EDT Office Visit Nutrition & Weight Management, [address] [place] [address] Nicole Samuel PA-C 132 [facility] [place] [address] 01/10/2024 3:50 PM EDT Nutrition Services Nutrition & Weight Management, [facility] 132 [facility] [place] [address] Maci Lehman RDN 132 [facility] [place] [address] 02/11/2024 2:30 PM EDT Office Visit Otolaryngology, Christine Martin [address] [place] [address] Katerine Ravi MD 132 [facility] [place] [address] 02/26/2024 3:40 PM EDT Office Visit Family Practice [address] [place] [address] 293 [place] [address] Glenda Garcia DO [address] [place] [address] 02/29/2024 1:00 PM EDT Imaging Radiology [facility] 1st [facility] 132 [facility] [place] [address] 03/03/2024 10:00 AM EDT Telemedicine Pulmonary Medicine, [address] [address] Jair Springer MD [facility] [address] [place], [place] [address] 03/03/2024 12:30 PM EDT Office Visit General Surgery, [place] [address] [place], [place] [address] Tung Doyle PA-C [address] [place], [place] [address] 10/28/2024 11:00 AM EDT Nurse Only Ancillary 65 [facility] 293 [place] [address] College, Nurse Annual Wellness Visit [address] [facility] 293 [place] [address] Scheduled Procedures Name Priority Associated Diagnoses Date/Ti [...] this encounter Medical Devices Implanted Type Area Buying Agent Device Identifier Shelf Expiration Date Model / Serial / Lot Lens Li61ao 13.00mm 19.50 - [id number] - [id number] Implanted:Qty: 1 on 10/30/2023 by Ernesto Ocasio MD at OR [facility] Left: Eye BAUSCH & LOMB 07/15/2028 [id number] / [id number] / [id number] Lens Li61ao 13.00mm 19.50 - [id number] - [id number] Implanted:Qty: 1 on 11/13/2023 by Ernesto Ocasio MD at OR [facility] Right: Eye BAUSCH & LOMB 07/15/2028 [id number] / [id number] / [id number] documented as of this encounter Visit Diagnoses [...] Discussed due to patient's condition Care Teams Regional Account Executive Relationship Specialty Start Date End Date Glenda Garcia DO [address] [place] [address] PCP - General Family Medicine 12/28/23 documented as of this encounter
--- OUTSIDE RECORDS SUMMARY | 2024-03-29 04:38 | External Medical Summary | Summary of Care ---
Author Name Unknown Organization [facility] Address [address] [place] [facility] [place] [address] Phone [phone] Care Team Providers Care Precision Instrument Maker And Repairer Name Role Phone Glenda Garcia DO Primary Care Provider Reason for Visit * Reason Onset Date Comments Medication Refill 01/09/202401/08 Encounter Details Date Type Department Care Team (Late st Contact Info) Description 01/09/2024 Telephone Family Practice [address], [place] [address] [place] [phone] Glenda Garcia DO [address] [place] [address] Medication Refill (01/08) Allergies Active Allergy Reactions [...] MCG/ACT Inhalation Aerosol Powder Breath Activated (umeclidinium [place])Indications:C OPD, mild (HCC) Inhale 1 Puff by [...] morning. 100 Tablet 3 10/05/2023 Active Nystatin 163781 UNIT/GM External CreamIndications:Inte rtrigo Apply topically to [...] 1,000 mcgIndications:Intestinal postoperative nonabsorption 1000 mcg IM [id number] 05/09/2023 07/02/20 24 Active documented as of [...] 08/15/2022 Other bipolar disorder 08/15/2022 PAYTON RESEARCH OTHER*[id number] 04/03/2022 Facet arthropathy, lumbar 06/20/2018 Medical marijuana use 05/16/2018 Overview: St 01/2018-[facility]--using oil vape 2/d, lotion apply knees,ankles. Renal [...] Quit 04/02 H/O colonoscopy 04/18/2017 Overview: In [place] -nl per pt Dyslipidemia, goal LDL below [...] gallbladder with chronic cholecystitis 04/22/2018 05/15/2019 Overview: 05/0236-EA-OvOlyu>Cholelithiasis with a contracted gallbladder. Please correlate with chronic cholecystitis. Mild dilation of the common duct. No radiopaque stones in the common duct(03/08/18-[facility])-was refer GI++ Body mass index [...] encounter Miscellaneous Notes * Telephone Encounter - Juliann Lezama LPN - 01/09/2024 3:25 PM EDT Call placed to patient and relayed information from Dr. Garcia. Acknowledged understanding. Agreeable to [place] for BP check. bowling floor desk clerk - please place on [place] schedule tomorrow at 1:30 for BP check - pt is aware. Thank you * Telephone Encounter - Rita Gomes OSA - 01/09/2024 2:38 PM EDT Pt returning Juliann's call. Please call her back. * Telephone Encounter - Juliann Lezama LPN - 01/09/2024 2:25 PM EDT Call placed to patient - no answer. Message left to return call to [phone]. * Telephone Encounter - Glenda Garcia DO - 01/09/2024 2:18 PM EDT Please let pt know: She needs to reschedule [place] for BP check. Pending this, we can decide where to send her amlodipine. There is a 30 day supply at [facility] if needed in meantime. Will not send 90 days until we settle on appropriate dose. * Telephone Encounter - Emely Tong PHARM Tech - 01/09/2024 12:20 PM EDT Pharmacy called to request a 90 day supply for amlodipine 2.5 mg. If agreeable please send to E [facility]/PHARMACY #[id number][facility] [address] [place] [address]. Thank You, Emely Tong [facility] Pressroom Supervisor III Central[facility] Clinical Pharmacy Services ([facility]) 01/09/2024, 12:20 PM documented in this encounter Plan of Treatment Upcoming Encounters Date Type Department Care Team (Late st Contact Info) Description 01/10/2024 1:30 PM EDT Nurse Only Family Practice 65 [facility] 293 [place] [phone] [place], Nurse [facility] Prac [address] [place] [address] 01/10/2024 3:00 PM EDT Office Visit Nutrition & Weight Management, [facility] [address] [place] [address] Nicole Samuel PA-C 132 [facility] [place] [address] 01/10/2024 3:50 PM EDT Nutrition Services Nutrition & Weight Management, [facility] 132 [facility] [place] [address] Maci Lehman RDN [facility] [place] [address] 02/11/2024 2:30 PM EDT Office Visit Otolaryngology, Christine Martin [address] [place] [address] Katerine Ravi MD [address] [place] [address] 02/26/2024 3:40 PM EDT Office Visit Family Practice [address] [place] [address] 293 [place] [address] Glenda Garcia DO 293 [place] [address] 02/29/2024 1:00 PM EDT Imaging Radiology [facility] 1st [facility], [place] 132 [facility] [place] [address] 03/03/2024 10:00 AM EDT Telemedicine Pulmonary Medicine, [place] [address] [place] [address] Jair Springer MD [address] [place] [address] 03/03/2024 12:30 PM EDT Office Visit General Surgery, [place] [address] [place] [address] Tung Doyle PA-C [address] [place] [address] 10/28/2024 11:00 AM EDT Nurse Only Ancillary 65 [facility] [address] [place] [address] College, Nurse Annual Wellness Visit [address] [address] Scheduled Procedures Name Priority Associated Diagnoses Date/Ti [...] this encounter Medical Devices Implanted Type Area Qm Nurse Device Identifier Shelf Expiration Date Model / Serial / Lot Lens Li61ao 13.00mm 19.50 - [id number] - [id number] Implanted:Qty: 1 on 10/30/2023 by Ernesto Ocasio MD at OR [facility] Left: Eye BAUSCH & LOMB 07/15/2028 [id number] / [id number] / [id number] Lens Li61ao 13.00mm 19.50 - [id number] - [id number] Implanted:Qty: 1 on 11/13/2023 by Ernesto Ocasio MD at OR [facility] Right: Eye BAUSCH & LOMB 07/15/2028 [id number] / [id number] / [id number] documented as of this encounter Visit Diagnoses [...] Discussed due to patient's condition Care Teams Precision Instrument Maker And Repairer Relationship Specialty Start Date End Date Glenda Garcia DO [address] [place] [address] PCP - General Family Medicine 12/28/23 documented as of this encounter
--- OUTSIDE RECORDS SUMMARY | 2024-03-29 04:38 | External Medical Summary ---
Author Name Unknown Address Unknown Organization K01:[facility] - [address] [address] [facility] [address] Laboratory Report Ordering Provider Test Date Status CEDRIC RUIZ 12/11/2023 15:23:59 Final Observation Date Value Abnormality Reference (Units ) Status TSH 12/11/2023 15:23:59 3.16 0.27-4.20 (uIU/mL) Final Performing Location [facility] - [address] [facility] [address]
--- OUTSIDE RECORDS SUMMARY | 2024-03-29 04:38 | External Medical Summary | Summary of Care ---
Author Name Unknown Organization [facility] Address [address] [place] [address] Phone [phone] Care Team Providers Care Warpman Name Role Phone Glenda Garcia DO Primary Care Provider [phone] Reason for Visit * Reason Comments Incontinence * Evaluate & Treat - Unlimited Visits (Within 10 days (routine)) - Authorized Specialty Diagnoses / Procedures Referred By Contgilson t Referred To Contact REMOTE SENSING RESEARCH SCIENTIST - Urogynecology / Gynecology Urology Diagnoses Urge incontinence Glenda Garcia DO [address] [place] [address] Referral ID Status Reason Start Date Expiration Date Visits Requested Visits Authorized [id number] Authorized Specialty Services Required 10/05/[phone] Encounter Details Date Type Department Care Team (Late st Contact Info) Description 01/09/2024 11:25 AM EDT Office Visit Urogynecology Billy Beard [address] [place] [address] Gilmar Jimenes MD [address] [place] [address] Nurse Lencho Beard [address] [place] [address] Urge incontinence*; Urinary urgency; Urinary frequency Allergies [...] MCG/ACT Inhalation Aerosol Powder Breath Activated (umeclidinium [place])Indications:C OPD, mild (HCC) Inhale 1 Puff by [...] morning. 100 Tablet 3 10/05/2023 Active Nystatin 956214 UNIT/GM External CreamIndications:Inte rtrigo Apply topically to [...] 1,000 mcgIndications:Intestinal postoperative nonabsorption 1000 mcg IM [id number] 05/09/2023 07/02/20 24 Active documented as of [...] 08/15/2022 Other bipolar disorder 08/15/2022 PAYTON RESEARCH OTHER*[id number] 04/03/2022 Facet arthropathy, lumbar 06/20/2018 Medical marijuana use 05/16/2018 Overview: 01/2018-[facility]--using oil vape 2/d, lotion apply knees,ankles. [...] gallbladder with chronic cholecystitis 04/22/2018 05/15/2019 Overview: 05/0290-FP-BkUdso>Cholelithiasis with a contracted gallbladder. Please correlate with [...] marijuana use Facet arthropathy, lumbar PAYTON RESEARCH OTHER*[id number] Major depressive disorder, recurrent, moderate (HCC) Other bipolar disorder (HCC) COPD, group A, by GOLD 2017 classification ([facility]) Class 3 severe obesity due [...] performed by Staci Coffey MD at OR [facility] CHEMOTHERAPY 2017 Taxol & Herceptin COLONOSCOPY, DIAGNOSTIC (RECTUM) 11/17/2022 benign adenomatous polyps, diverticulosis, repeat 5 yrs / [facility] EGD, FLEXIBLE, DIAGNOSTIC 04/21/2022 normal bx / [facility] EGD, FLEXIBLE, DIAGNOSTIC N/A 02/23/2023 ESOPHAGOGASTRODUODENOSCOPY (EGD), FLEXIBLE, TRANSORAL, DIAGNOSTIC performed by Sterling Azevedo MD at OR [facility] ERCP 06/28/2018 Choledocholithiasis/[facility] IDENTIFY SENTINEL NODE, RADIOACTIVE TRACER Right 06/20/2016 INJECTION PROCEDURE FOR IDENTIFICATION SENTINEL NODE performed by Staci Coffey MD at OR [facility] IMPLANTABLE ACCESS SYST PERC Right 07/2016 INFORMATION 1960 cyst removed from throat IR BIOPSY 11/05/2023 IR BIOPSY 12/06/2023 IR EMBOLIZATION UTERINE FIBROID 1975 LAPAROSCOPE PROCEDURE, LIVER N/A 02/23/2023 UNLISTED LAPAROSCOPIC PROCEDURE LIVER performed by Sterling Azevedo MD at OR [facility] LAPAROSCOPY; CHOLECYSTECTOMY N/A 02/23/2023 LAPAROSCOPIC CHOLECYSTECTOMY performed by Sterling Azevedo MD at [facility] MASTECTOMY, PARTIAL Right 06/20/2016 MASTECTOMY PARTIAL - right performed by Staci Coffey MD at [facility] 06/20/2016 RADIATION THERAPY Right 02/08/2016 6120 cGy REMOVAL OF OVARY(S) 1975 REMOVE CATARACT, INSERT LENS PROSTH Left 10/30/2023 LEFT EXTRACAPSULAR CATARACT REMOVAL WITH INTRAOCULAR LENS performed by Ernesto Ocasio MD at OR [facility] REMOVE CATARACT, INSERT LENS PROSTH Right 11/13/2023 RIGHT EXTRACAPSULAR CATARACT REMOVAL WITH INTRAOCULAR LENS performed by Ernesto Ocasio MDat OR [facility] SLEEVE GASTRECTOMY, LAPROSCOPY N/A 02/23/2023 LAPAROSCOPY SLEEVE GASTRECTOMY performed by Sterling Azevedo MD at [facility] SURGICAL REMOVAL, ERUPTED TOOTH AND BONE [...] MCG/ACT Inhalation Aerosol Powder Breath Activated (umeclidinium [place]) Inhale 1 Puff by mouth in the [...] in the morning. 100 Tablet 3 Nystatin 698496 UNIT/GM External Cream Apply topically to affected [...] Vaping status: Every Day Substances: THC Devices: Bencho Substance and Sexual Activity Alcohol use: No [...] Stability Do you currently live in a longterm or have no steady place to sleep [...] PSYCHIATRIC ROS: no depression and no anxiety Sales Warehouse Driver Documentation: Provider requested beauty director Name of Sales Warehouse Driver: Ayleen Toussaint Blood pressure 164/86, height 1.702 [...] size. No adnexal masses or tenderness elicited. TOBACCO CHECKOUT CLERK: neg Levator ani muscle strength 5. No [...] EDT Office Visit Nutrition & Weight Management, [facility] 132 [facility] [place] [address] Nicole Samuel PA-C 132 [facility] [place] [address] 01/10/2024 3:50 PM EDT Nutrition Services Nutrition & Weight Management, [facility] 132 [facility] [place] [address] Maci Lehman RDN 132 [facility] [place] [address] 02/11/2024 2:30 PM EDT Office Visit Otolaryngology, [place] [address] [place] [address] Katerine Ravi MD 132 [place] [address] 02/26/2024 3:40 PM EDT Office Visit Family Practice [address] [place] [address] [address] [place] [address] Glenda Garcia DO [address] [place] [address] 02/29/2024 1:00 PM EDT Imaging Radiology [facility] 132 [facility] [place] [address] 03/03/2024 10:00 AM EDT Telemedicine Pulmonary Medicine, [place] [address] [place] [address] Jair Springer MD [address] [place] [address] 03/03/2024 12:30 PM EDT Office Visit General Surgery, [place] [address] [place] [address] Tung Doyle PA-C [address] [place] [address] 10/28/2024 11:00 AM EDT Nurse Only Ancillary 65 [facility] [address] [place] [address] College, Nurse Annual Wellness Visit [address] [address] Scheduled Orders Name Type Priority Associated Diagnoses [...] this encounter Medical Devices Implanted Type Area Corporate Traffic Manager Device Identifier Shelf Expiration Date Model / Serial / Lot Lens Li61ao 13.00mm 19.50 - [id number] - [id number] Implanted:Qty: 1 on 10/30/2023 by Ernesto Ocasio MD at OR [facility] Left: Eye [employer]OM[employer] 07/15/2028 [id number] / [id number] / [id number] Lens Li61ao 13.00mm 19.50 - [id number] - [id number] Implanted:Qty: 1 on 11/13/2023 by Ernesto Ocasio MD at OR [facility] Right: Eye BAUSCH & LOMB 07/15/2028 [id number] / [id number] / [id number] documented as of this encounter Visit Diagnoses [...] Discussed due to patient's condition Care Teams Warpman Relationship Specialty Start Date End Date Glenda Garcia DO [address] [place] [address], [place] [address] PCP - General Family Medicine 12/28/23 documented as of this encounter
--- OUTSIDE RECORDS SUMMARY | 2024-03-29 04:38 | External Medical Summary | Summary of Care ---
Author Name Unknown Organization [facility] Address [address] [place] [facility] [place] [address] Phone [phone] Care Team Providers Care Repatcher Name Role Phone Glenda Garcia DO Primary Care Provider Reason for Visit * Reason Onset Date Comments Referral 12/28/202312/27 Encounter Details Date Type Department Care Team (Late st Contact Info) Description 12/28/2023 Telephone Family Practice [address] [place] [address] [place] [phone] Glenda Garcia DO [address] [place] [address] Referral (12/27) Allergies Active Allergy Reactions Criticality Noted Date Comments Adhesive Tape Rash Low 02/18/2020 Some adhesive tapes- irritation and rash Bee Venom Edema airway High 01/01/2016 Hornet-edema airway. Other bees-swelling Ciprofloxacin Nausea/vomiting 01/01/2016 Crab Extract High 11/17/2022 Other reaction(s): Vomiting Cephalexin Diarrhea 01/01/2016 documented as of this encounter (statuses as of 12/28/2023) Medications Medication Sig Dispensed Refills Start Date [...] MCG/ACT Inhalation Aerosol Powder Breath Activated (umeclidinium [place])Indications:C OPD, mild (HCC) Inhale 1 Puff by [...] morning. 100 Tablet 3 10/05/2023 Active Nystatin 664123 UNIT/GM External CreamIndications:Inte rtrigo Apply topically to [...] mouth daily 90 Tablet 1 12/24/2023 Active Hospital, Clinic, or Other Facility Administered Medication Ordered Dose Route Frequency Start Date End Date Status vitamin b-12 (Cyanocobalamin) inj 1,000 mcgIndications:Intestinal postoperative nonabsorption 1000 mcg IM [id number] 05/09/2023 07/02/20 24 Active documented as of this encounter (statuses as of 12/28/2023) Active Problems Problem Noted Date Diagnosed Date [...] 08/15/2022 Other bipolar disorder 08/15/2022 PAYTON RESEARCH OTHER*[id number] 04/03/2022 Facet arthropathy, lumbar 06/20/2018 Medical marijuana use 05/16/2018 Overview: 01/2018-[facility]--using oil vape 2/d, lotion apply knees,ankles. [...] as of this encounter (statuses as of 12/28/2023) Resolved Problems Problem Noted Date Diagnosed Date Resolved Date Body mass index (BMI) of 50. 0 to 59.9 in adult 07/29/2018 05/15/2019 Overview: Per Obesity protocol #1 - - Body mass index (BMI) of 60. 0 to 69.9 in adult 06/24/2018 08/02/2018 Overview: Per Obesity protocol #1 - Calculus of gallbladder with chronic cholecystitis 04/22/2018 05/15/2019 Overview: 05/0218-DF-WkUxke>Cholelithiasis with a contracted gallbladder. Please correlate with [...] as of this encounter (statuses as of 12/28/2023) Immunizations Name Administration Dates Next Due COVID-19 [...] Telephone Encounter - Juliann Lezama LPN - 12/28/2023 3:59 PM EDT Call placed to patient - notified her she is scheduled to Otolaryngology in [place] on 02/11/24 at2:30. She acknowledged. * Telephone Encounter - Rita Farrell OSA - 12/28/2023 3:07 PM EDT Called in and is questioning the ENT referral she was to have? If appropriate please place Will be in Sunday for BP check documented in this encounter Plan of Treatment Upcoming Encounters Date Type Department Care Team (Late st Contact Info) Description 12/31/2023 11:00 AM EDT Nurse Only Family Practice 65 [facility] 293 [place] [address] College, Nurse Fam Prac 65 [facility] 293 [facility], [place] [address] 01/09/2024 11:25 AM EDT [facility] [address] [place] [address] Gilmar Jimenes MD [address] [place] [address] Nurse Lencho Beard 132 [facility] [place] [address] 01/10/2024 3:00 PM EDT Office Visit Nutrition & Weight Management, [facility] 132 [facility] [place] [address] Nicole Samuel PA-C 132 [facility] [place] [address] 01/10/2024 3:50 PM EDT Nutrition Services Nutrition & Weight Management, [facility] 132 [facility] [place] [address] Maci Lehman RDN 132 [facility] [address] 02/11/2024 2:30 PM EDT Office Visit Otolaryngology, [address] [place] [address] [place] [address] Katerine Ravi MD 132 [facility] [address] 02/26/2024 3:40 PM EDT Office Visit Family Practice [address] [place] 293 [place] [address] Glenda Garcia DO 293 [place] [address] 02/29/2024 1:00 PM EDT Imaging Radiology [facility] 1st [facility] 132 [facility] [place] [address] 03/03/2024 10:00 AM EDT Telemedicine Pulmonary Medicine, [address] [address] Jair Springer MD [address] [place] [address] 03/03/2024 12:30 PM EDT Office Visit General Surgery, [place] [address] [place] [address] Tung Doyle PA-C [address] [place], [place] [address] 10/28/2024 11:00 AM EDT Nurse Only Ancillary 65 [facility] [address] [place] [address] College, Nurse Annual Wellness Visit [address] [facility] [address] [place] [address] Scheduled Procedures Name Priority Associated Diagnoses Date/Ti [...] this encounter Medical Devices Implanted Type Area Video Player Mechanic Device Identifier Shelf Expiration Date Model / Serial / Lot Lens Li61ao 13.00mm 19.50 - [id number] - [id number] Implanted:Qty: 1 on 10/30/2023 by Ernesto Ocasio MD at OR [facility] Left: Eye [employer]USCH [employer] LOMB 07/15/2028 [id number] / [id number] / [id number] Lens Li61ao 13.00mm 19.50 - [id number] - [id number] Implanted:Qty: 1 on 11/13/2023 by Ernesto Ocasio MD at OR [facility] Right: Eye BAUSCH & LOMB 07/15/2028 [id number] / [id number] / [id number] documented as of this encounter Advance Directives [...] Discussed due to patient's condition Care Teams Repatcher Relationship Specialty Start Date End Date Glenda Garcia DO 293 [place] [address] PCP - General Family Medicine 12/28/23 documented as of this encounter
--- OUTSIDE RECORDS SUMMARY | 2024-03-29 04:38 | External Medical Summary | Summary of Care ---
Author Name Unknown Organization [facility] Address [address] [facility] [place] [address] Phone [phone] Care Team Providers Care Bilingual Recruiter Name Role Phone Glenda Garcia DO Primary Care Provider Reason for Visit * Reason Onset Date Comments Medication Refill 01/09/202401/08 Encounter Details Date Type Department Care Team (Late st Contact Info) Description 01/09/2024 Telephone Family Practice [address], [place] [address] [place] [phone] Glenda Garcia DO [address] [place] [address] Medication Refill (01/08) Allergies Active Allergy Reactions [...] MCG/ACT Inhalation Aerosol Powder Breath Activated (umeclidinium [place])Indications:C OPD, mild (HCC) Inhale 1 Puff by [...] morning. 100 Tablet 3 10/05/2023 Active Nystatin 433490 UNIT/GM External CreamIndications:Inte rtrigo Apply topically to [...] 1,000 mcgIndications:Intestinal postoperative nonabsorption 1000 mcg IM [id number] 05/09/2023 07/02/20 24 Active documented as of [...] 08/15/2022 Other bipolar disorder 08/15/2022 PAYTON RESEARCH OTHER*[id number] 04/03/2022 Facet arthropathy, lumbar 06/20/2018 Medical marijuana use 05/16/2018 Overview: St 01/2018-[facility]--using oil vape 2/d, lotion apply [...] Quit 04/02 H/O colonoscopy 04/18/2017 Overview: In [place] -nl per pt Dyslipidemia, goal LDL below [...] gallbladder with chronic cholecystitis 04/22/2018 05/15/2019 Overview: 05/0263-KW-JeJqvm>Cholelithiasis with a contracted gallbladder. Please correlate with chronic cholecystitis. Mild dilation of the common duct. No radiopaque stones in the common duct(03/08/18-[facility])-was refer GI++ Body mass index (BMI) of [...] answer. Message left to return call to [phone]. * Telephone Encounter - Glenda Garcia DO - 01/09/2024 2:18 PM EDT Please let pt know: She needs to reschedule [place] for BP check. Pending this, we can decide where to send her amlodipine. There is a 30 day supply at [facility] if needed in meantime. Will not send 90 days until we settle on appropriate dose. * Telephone Encounter - Emely Tong PHARM Tech - 01/09/2024 12:20 PM EDT Pharmacy called to request a 90 day supply for amlodipine 2.5 mg. If agreeable please send to E [id number] [address] [facility]. Thank You, Emely Tong [facility] Scalemaker III [facility] 01/09/2024, 12:20 PM documented in this encounter Plan of Treatment Upcoming Encounters Date Type Department Care Team (Late st Contact Info) Description 01/10/2024 3:00 PM EDT Office Visit Nutrition & Weight Management, [address] [place] [address] Nicole Samuel PA-C 132 [facility] [place] [address] 01/10/2024 3:50 PM EDT Nutrition Services Nutrition & Weight Management, [facility] 132 [facility] [place] [address] Maci Lehman RDN 132 [facility] [place] [address] 02/11/2024 2:30 PM EDT Office Visit Otolaryngology, [place] [address] [place] [address] Katerine Ravi MD 132 [facility] [place] [address] 02/26/2024 3:40 PM EDT Office Visit Family Practice [address] [place] [address] 293 [place] [address] Glenda Garcia DO [address] [place] [address] 02/29/2024 1:00 PM EDT Imaging Radiology [facility] 1st [facility] 132 [facility] [place] [address] 03/03/2024 10:00 AM EDT Telemedicine Pulmonary Medicine, [address] [address] Jair Springer MD [facility] [address] [place], [place] [address] 03/03/2024 12:30 PM EDT Office Visit General Surgery, [place] [address] [place], [place] [address] Tung Doyle PA-C [address] [place], [place] [address] 10/28/2024 11:00 AM EDT Nurse Only Ancillary 65 [facility] 293 [place] [address] College, Nurse Annual Wellness Visit [address] [facility] 293 [place] [address] Scheduled Procedures Name Priority Associated Diagnoses Date/Ti [...] this encounter Medical Devices Implanted Type Area Geriatric Care Manager Device Identifier Shelf Expiration Date Model / Serial / Lot Lens Li61ao 13.00mm 19.50 - [id number] - [id number] Implanted:Qty: 1 on 10/30/2023 by Ernesto Ocasio MD at OR [facility] Left: Eye BAUSCH [employer] LOMB 07/15/2028 [id number] / [id number] / [id number] Lens Li61ao 13.00mm 19.50 - [id number] - [id number] Implanted:Qty: 1 on 11/13/2023 by Ernesto Ocasio MD at OR [facility] Right: Eye BAUSCH & LOMB 07/15/2028 [id number] / [id number] / [id number] documented as of this encounter Visit Diagnoses [...] Discussed due to patient's condition Care Teams Bilingual Recruiter Relationship Specialty Start Date End Date Glenda Garcia DO [address] [place] [address] PCP - General Family Medicine 12/28/23 documented as of this encounter
--- OUTSIDE RECORDS SUMMARY | 2024-03-29 04:38 | External Medical Summary | Summary of Care ---
Author Name Unknown Organization [facility] Address [address] [place] [address] Phone [phone] Care Team Providers Care Fabrication Engineer Name Role Phone Glenda Garcia DO Primary Care Provider Reason for Referral * Evaluate & Treat - Unlimited Visits (Within 10 days (routine)) - Authorized Specialty Diagnoses / Procedures Referred By Contac t Referred To Contact Otolaryngology Diagnoses Thyroid nodule Glenda Garcia DO [address] [place] [address] Referral ID Status Reason Start Date Expiration Date Visits Requested Visits Authorized [id number] Authorized Specialty Services Required 12/11/[phone] Question Answer Referral Priority Within 10 days [...] PM EDT Office Visit Family Practice 65 [facility], [place] [address] [place] [address] Glenda Garcia DO [address] [place] [address] HTN, goal below 140/90*; Thyroid nodule; Nasal [...] as of this encounter (statuses as of 12/11/2023) Medications Medication Sig Dispensed Refills Start Date [...] MCG/ACT Inhalation Aerosol Powder Breath Activated (umeclidinium [place])Indications:C OPD, mild (HCC) Inhale 1 Puff by [...] morning. 100 Tablet 3 10/05/2023 Active Nystatin 977322 UNIT/GM External CreamIndications:Inte rtrigo Apply topically to [...] 1,000 mcgIndications:Intestinal postoperative nonabsorption 1000 mcg IM [id number] 05/09/2023 07/02/20 24 Active documented as of this encounter (statuses as of 12/11/2023) Active Problems Problem Noted Date Diagnosed Date [...] 08/15/2022 Other bipolar disorder 08/15/2022 PAYTON RESEARCH OTHER*[id number] 04/03/2022 Facet arthropathy, lumbar 06/20/2018 Medical marijuana use 05/16/2018 Overview: 01/2018-[facility]--using oil vape 2/d, lotion apply knees,ankles. [...] as of this encounter (statuses as of 12/11/2023) Resolved Problems Problem Noted Date Diagnosed Date Resolved Date Body mass index (BMI) of 50. 0 to 59.9 in adult 07/29/2018 05/15/2019 Overview: Per Obesity protocol #1 - - Body mass index (BMI) of 60. 0 to 69.9 in adult 06/24/2018 08/02/2018 Overview: Per Obesity protocol #1 - Calculus of gallbladder with chronic cholecystitis 04/22/2018 05/15/2019 Overview: 05/0262-ZF-AdZxkg>Cholelithiasis with a contracted gallbladder. Please correlate with [...] as of this encounter (statuses as of 12/11/2023) Immunizations Name Administration Dates Next Due COVID-19 [...] as of this encounter Progress Notes * Dianna Garcia LPN - 12/11/2023 3:15 [...] Verified Shot(s) with Parent(s)/Patient: Yes * Glenda Garcia DO - 12/11/2023 2:44 PM EDT SUBJECTIVE: [...] marijuana use Facet arthropathy, lumbar PAYTON RESEARCH OTHER*[id number] Major depressive disorder, recurrent, moderate (HCC) Other bipolar disorder (HCC) COPD, group A, by GOLD 2017 classification (HCC) Class 3 severe obesity due to excess [...] MCG/ACT Inhalation Aerosol Powder Breath Activated (umeclidinium [place]) Inhale 1 Puff by mouth in the [...] in the morning. 100 Tablet 3 Nystatin 008014 UNIT/GM External Cream Apply topically to affected [...] performed by Staci Coffey MD at OR [facility] CHEMOTHERAPY 2017 Taxol & Herceptin COLONOSCOPY, DIAGNOSTIC (RECTUM) 11/17/2022 benign adenomatous polyps, diverticulosis, repeat 5 yrs / [facility] EGD, FLEXIBLE, DIAGNOSTIC 04/21/2022 normal bx / [facility] EGD, FLEXIBLE, DIAGNOSTIC N/A 02/23/2023 ESOPHAGOGASTRODUODENOSCOPY (EGD), FLEXIBLE, TRANSORAL, DIAGNOSTIC performed by Sterling Azevedo MD at [facility] ERCP 06/28/2018 Choledocholithiasis/[facility] IDENTIFY SENTINEL NODE, RADIOACTIVE TRACER Right 06/20/2016 INJECTION PROCEDURE FOR IDENTIFICATION SENTINEL NODE performed by Staci Coffey MD at OR [facility] IMPLANTABLE ACCESS SYST PERC Right 07/2016 INFORMATION 1960 cyst removed from throat IR BIOPSY 11/05/2023 IR BIOPSY 12/06/2023 IR EMBOLIZATION UTERINE FIBROID 1975 LAPAROSCOPE PROCEDURE, LIVER N/A 02/23/2023 UNLISTED LAPAROSCOPIC PROCEDURE LIVER performed by Sterling Azevedo MD at [place] [facility] LAPAROSCOPY; CHOLECYSTECTOMY N/A 02/23/2023 LAPAROSCOPIC CHOLECYSTECTOMY performed by Sterling Azevedo MD at OR [facility] MASTECTOMY, PARTIAL Right 06/20/2016 MASTECTOMY PARTIAL - right performed by Staci Coffey MD at OR [facility] 06/20/2016 RADIATION THERAPY Right 02/08/2016 6120 cGy REMOVAL OF OVARY(S) 1976 REMOVE CATARACT, INSERT LENS PROSTH Left 10/30/2023 LEFT EXTRACAPSULAR CATARACT REMOVAL WITH INTRAOCULAR LENS performed by Ernesto Ocasio MD at OR [facility] REMOVE CATARACT, INSERT LENS PROSTH Right 11/13/2023 RIGHT EXTRACAPSULAR CATARACT REMOVAL WITH INTRAOCULAR LENS performed by Ernesto Ocasio [facility] OR [facility] SLEEVE GASTRECTOMY, LAPROSCOPY N/A 02/23/2023 LAPAROSCOPY SLEEVE GASTRECTOMY performed by Sterling Azevedo MD at OR [facility] SURGICAL REMOVAL, ERUPTED TOOTH AND BONE 06/2015 [...] PF, 23-24, 30MCG/0.3ML, IM, 12YRS AND ABOVE (Project 10K) Vaccine given. See admin record. Follow-up: 2 months Total time today including reviewing chart before the visit, pertinent labs, imaging reports, face to face time, and documentation time was 34 minutes. Glenda Garcia DO documented in this encounter Plan of Treatment Upcoming Encounters Date Type Department Care Team (Late st Contact Info) Description 12/25/2023 1:00 PM EDT Nurse Only Family Practice 65 [facility] [address] [place] [address] [place], Nurse [facility] Prac [address] [place] [address] 01/09/2024 11:25 AM EDT Office Visit Urogynecology [facility] [address] [place] [address] Gilmar Jimenes MD [address] [place] [address] Nurse Lencho Beard [address] [place] [address] 01/10/2024 3:00 PM EDT Office Visit Nutrition & Weight Management, [facility] [address] [place] [address] Nicole Samuel PA-C [address] [place] [address] 01/10/2024 3:50 PM EDT Nutrition Services Nutrition & Weight Management, [facility] [address] [place] [address] Maci Lehman RDN [address] [place] [address] 02/11/2024 2:30 PM EDT Office Visit Otolaryngology, [place] [address] [place] [address] Katerine Ravi MD 132 [facility] [address] 02/26/2024 3:40 PM EDT Office Visit Family Practice 65 [facility] [address] [place] [address] Glenda Garcia DO [address] [place] [address] 02/29/2024 1:00 PM EDT Imaging Radiology [address], [place] [address] [facility] [place] [address] 03/03/2024 10:00 AM EDT Telemedicine Pulmonary Medicine, [place] [address] [place] [address] Jair Springer MD [address] [place] [address] 03/03/2024 12:30 PM EDT Office Visit General Surgery, [place] [address] [place], [place] [phone] Tung Doyle PA-C [address], [place] [id number] 10/28/2024 11:00 AM EDT Nurse Only Ancillary 65 [facility] 293 [place] [address] College, Nurse Annual Wellness Visit [address] [address] Pending Results Name Type Priority Associated Diagnoses Date /Time HEPATITIS C ANTIBODY SCREEN WITH PROGRESSION TO HEPATITIS C RNA QUANTITATIVE Lab Routine Need for hepatitis C screening test 12/11/2023 3:23 PM EDT TSH WITH FREE T4 IF INDICATED Lab Routine Thyroid nodule 12/11/2023 3:23 PM EDT HEPATITIS C ANTIBODY Lab Routine Need for hepatitis C screening test 12/11/2023 3:23 PM EDT HEPATITIS C RNA ADD ON Lab Routine Need for hepatitis C screening test 12/11/2023 3:23 PM EDT Scheduled Orders Name Type Priority Associated Diagnoses Orde r Schedule HEPATITIS C ANTIBODY SCREEN WITH PROGRESSION TO HEPATITIS C RNA QUANTITATIVE Lab Routine Need for hepatitis C screening test Expected: 12/11/2023 (Approximate), Expires: 01/10/2025 TSH WITH FREE T4 IF INDICATED Lab Routine Thyroid nodule Expected: 12/11/2023 (Approximate), Expires: 12/10/2024 Scheduled Procedures Name Priority Associated Diagnoses Date/Ti me COLONOSCOPY FLEXIBLE PROXIMAL DIAGNOSTIC Recall History of colon polyps Scheduled Referrals Name Type Priority Associated Diagnoses Order Schedule ADULT/PEDS OTOLARYNGOLOGY REFERRAL OP Referral Within 10 days (routine) Thyroid nodule Ordered: 12/11/2023 Health Maintenance Due Date Last Done Comments Alpha-1 Antitrypsin 1970 Hepatitis C Screening 1970 Cologuard 1997 Fecal Occult Blood Test [...] this encounter Medical Devices Implanted Type Area Air Bag Buffer Device Identifier Shelf Expiration Date Model / Serial / Lot Lens Li61ao 13.00mm 19.50 - [id number] - [id number] Implanted:Qty: 1 on 10/30/2023 by Ernesto Ocasio MD at OR [facility] Left: Eye [employer] 07/15/2028 [id number] / [id number] / [id number] Lens Li61ao 13.00mm 19.50 - [id number] - [id number] Implanted:Qty: 1 on 11/13/2023 by Ernesto Ocasio MD at OR [facility] Right: Eye BAUSCH [employer] LOMB 07/15/2028 [id number] / [id number] / [id number] documented as of this encounter Visit Diagnoses [...] Discussed due to patient's condition Care Teams Fabrication Engineer Relationship Specialty Start Date End Date Glenda Garcia DO [address] [place] [address], [place] [address] PCP - General Family Medicine 08/15/22 documented as of this encounter"
--- OUTSIDE RECORDS SUMMARY | 2024-03-29 04:39 | External Medical Summary | Summary of Care ---
Author Name Unknown Organization [facility] Address [address] [place] [address] Phone [phone] Care Team Providers Care Dance Artist Name Role Phone Glenda Steele DO Primary Care Provider [phone] Reason for Visit * Reason Comments Medication Refill Encounter Details Date Type Department Care Team (Late st Contact Info) Description 11/29/2023 Refill Family Practice [address], [place] [address] [place] [phone] Glenda Steele DO [address] [place] [address] Dyslipidemia, goal LDL below 100 Allergies Active Allergy Reactions Criticality Noted Date Comments Adhesive Tape Rash Low 02/18/2020 Some adhesive tapes- irritation and rash Bee Venom Edema airway High 01/01/2016 Hornet-edema airway. Other bees-swelling Ciprofloxacin Nausea/vomiting 01/01/2016 Crab Extract High 11/17/2022 Other reaction(s): Vomiting Cephalexin Diarrhea 01/01/2016 documented as of this encounter (statuses as of 11/29/2023) Medications Medication Sig Dispensed Refills Start Date End Date Status fexofenadine (CHERRI) 180 MG Tablet Take 1 Tablet by mouth in the morning. 30 Tab 11 08/21/2017 Active Spacer/Aero-Holding Chambers LIZ Use with albuterol inhaler. 1 Each 0 02/06/2020 Active ProAir HFA 108 (90 Base) MCG/ACT Inhalation Aerosol Solution Inhale 2 Puffs by mouth every 6 hours as needed for Shortness of Breath or Wheezing. 0 08/15/2022 Active Knee BraceIndications:Ac elise pain of left knee Wear while mobile 1 Each 0 10/16/2022 Active Polyethylene Glycol 3350 17 GM/SCOOP Oral Powder Take 17 g by mouth as needed for Constipation. Dissolve one heaping tablespoon in 8 ounces of water or juice. 0 01/23/2023 Active Deplin 15 15-90.314 MG Oral Capsule take 1 capsule by mouth every morning 90 Capsule 0 01/23/2023 Active CPAP every night at bedtime. 0 Active Ondansetron 4 MG Oral Tablet Disintegrating (Zofran) Place 1 Tablet on tongue every 8 hours as needed for Nausea or Vomiting. dissolve on tongue. 30 Tablet 0 02/25/2023 Active Bariatric Multivitamins/Iron Oral Capsule Take 1 Tablet by mouth in the morning. 0 Active Modafinil 200 MG Oral Tablet (Provigil) Take 1 Tablet by mouth daily. 90 Tablet 1 05/03/2023 Active Montelukast Sodium 10 MG Oral Tablet (Singulair) Take 1 Tablet by mouth daily. 100 Tablet 3 05/29/2023 Active Calcium Citrate Chewy Bite 500-12.5 MG-MCG Oral Tablet Chewable (Calcium Citrate-Vitamin D) Take 1 Tablet by mouth 3 times a day. 0 Active Incruse Ellipta 62.5 MCG/ACT Inhalation Aerosol Powder Breath Activated (umeclidinium [place])Indications :COPD, mild (HCC) Inhale 1 Puff by mouth in the morning. 90 Each 1 07/27/2023 Active Triamcinolone Acetonide 0.1 % External Cream (Aristocort)Indicat ions:Stasis dermatitis of both legs Apply topically to affected area 2 times a day 45 g 1 07/27/2023 Active Lisinopril 40 MG Oral TabletIndications:H TN, goal below 140/90 Take 1 Tablet by mouth in the morning. 100 Tablet 1 07/27/2023 Active Myrbetriq 50 MG Oral Tablet Extended Release 24 Hour (Mirabegron ER)Indications:Urge incontinence Take 1 Tablet by mouth in the morning. 100 Tablet 3 10/05/2023 Active Nystatin 784952 UNIT/GM External CreamIndications:In tertrigo Apply topically to affected area 2 times a day for two weeks. 30 g 1 10/19/2023 Active Escitalopram Oxalate 20 MG Oral Tablet (Lexapro) take 1 tablet by mouth twice a day 180 Tablet 0 11/19/2023 Active lamoTRIgine 200 MG Oral Tablet (LaMICtal) take 1 tablet by mouth every morning and 1 tablet at bedtime 180 Tablet 0 11/19/2023 Active Atorvastatin Calcium 40 MG Oral Tablet (Lipitor)Indication s:Dyslipidemia, goal LDL below 100 TAKE ONE TABLET BY MOUTH EVERY MORNING 100 Tablet 3 11/29/2023 Active Atorvastatin Calcium 40 MG Oral Tablet (Lipitor)Indication s:Dyslipidemia, goal LDL below 100 TAKE ONE TABLET BY MOUTH EVERY MORNING 100 Tablet 0 08/21/2023 4 Discontinue d(Refill) Hospital, Clinic, or Other Facility Administered Medication Ordered Dose Route Frequency Start Date End Date Status vitamin b-12 (Cyanocobalamin) inj 1,000 mcgIndications:Intestinal postoperative nonabsorption 1000 mcg IM [id number] 05/09/2023 07/02/20 24 Active documented as of this encounter (statuses as of 11/29/2023) Active Problems Problem Noted Date Diagnosed Date [...] 08/15/2022 Other bipolar disorder 08/15/2022 PAYTON RESEARCH OTHER*[id number] 04/03/2022 Facet arthropathy, lumbar 06/20/2018 Medical marijuana use 05/16/2018 Overview: St 01/2018-[facility]--using oil vape 2/d, lotion apply knees,ankles. [...] 04/02 H/O colonoscopy 04/18/2017 Overview: In [place] - per pt Dyslipidemia, goal LDL below 100 04/18/2017 Venous stasis dermatitis of right lower extremit y 04/18/2017 Uses roller walker 04/18/2017 Encounter for antineoplastic chemotherapy 2016 documented as of this encounter (statuses as of 11/29/2023) Resolved Problems Problem Noted Date Diagnosed Date Resolved Date Body mass index (BMI) of 50. 0 to 59.9 in adult 07/29/2018 05/15/2019 Overview: Per Obesity protocol #1 - - Body mass index (BMI) of 60. 0 to 69.9 in adult 06/24/2018 08/02/2018 Overview: Per Obesity protocol #1 - Calculus of gallbladder with chronic cholecystitis 04/22/2018 05/15/2019 Overview: 05/0215-XX-ZjYxob>Cholelithiasis with a contracted gallbladder. Please correlate with [...] as of this encounter (statuses as of 11/29/2023) Immunizations Name Administration Dates Next Due COVID-19 mRNA, LNP-s, No Pre serve, 2-Dose Series (Moderna) 09/13/2020,08/09/2020 COVID-19, MRNA-LNP, 23-24, P F, 50 MCG/0.5 [...] encounter Miscellaneous Notes * Telephone Encounter - Geronimo [facility] - 11/29/2023 3:03 PM EDTSigned Prescriptions: Disp Refills Atorvastatin Calcium 40 MG Oral Tablet (Li*100 Ta*3 Sig: TAKE ONE TABLET BY MOUTH EVERY MORNINGAuthorizing Provider: GLENDA STEELE User: GERONIMO CAROLINA N documented in this encounter Plan of Treatment Upcoming Encounters Date Type Department Care Team (Late st Contact Info) Description 12/06/2023 8:00 AM EDT Appointment Radiology, [address] [address] 12/11/2023 2:20 PM EDT Office Visit Family Practice [address], [place] [address] [place] [address] Glenda Steele DO [address] [place] [address] 01/09/2024 11:25 AM EDT Office Visit Urogynecology Billy Beard [address] [place] [address] Gilmar iJmenes MD 132 [facility] [place] [address] Nurse Lencho Beard 132 [facility] [place] [address] 01/10/2024 3:00 PM EDT Office Visit Nutrition & Weight Management, [facility] [address] [place] [address] Nicole Samuel PA-C 132 [facility] [place] [address] 01/10/2024 3:50 PM EDT Nutrition Services Nutrition & Weight Management, [facility] 132 [facility] [place] [address] Maci Lehman RDN 132 [facility] [place] [address] 02/29/2024 1:00 PM EDT Imaging Radiology [facility] [address] [facility] [place] [address] 03/03/2024 10:00 AM EDT Telemedicine Pulmonary Medicine, [place] [address] [place] [address] Jair Springer MD [address] [place] [address] 03/03/2024 12:30 PM EDT Office Visit General Surgery, [place] [address] [place] [address] Tung Doyle PA-C [address] [place] [address] 10/28/2024 11:00 AM EDT Nurse Only Ancillary 65 [facility] [address] [place] [address] College, Nurse Annual Wellness Visit [address] [address] Scheduled Procedures Name Priority Associated Diagnoses Date/Ti [...] Completed 04/02/2023, 04/28/2022, 05/05/2020, Additional history exists COVID-19 Vaccine Completed 05/23/2023, , 05/07/2021, Additional history exists Lung Cancer Screening Completed 08/27/2023 , 02/15/2023, 05/11/2022, Additional history exists GARDASIL-HPV IMMUNIZATION SERIES Aged Out No longer eligible based on patient's age to complete this topic Hepatitis B Aged Out No longer eligi ble based on patient's age to complete this topic MENINGOCOCCAL (MENACTRA/MENVEO) Aged Out No longer eligible based on patient's age to complete this topic documented as of this encounter Medical Devices Implanted Type Area Assistant Health Educator Device Identifier Shelf Expiration Date Model / Serial / Lot Lens Li61ao 13.00mm 19.50 - [id number] - [id number] Implanted:Qty: 1 on 10/30/2023 by Ernesto Ocasio MD at OR [facility] Left: Eye [employer]OM[employer] 07/15/2028 [id number] / [id number] / [id number] Lens Li61ao 13.00mm 19.50 - [id number] - [id number] Implanted:Qty: 1 on 11/13/2023 by Ernesto Ocasio MD at OR [facility] Right: Eye BAUSCH & LOMB 07/15/2028 [id number] / [id number] / [id number] documented as of this encounter Visit Diagnoses Diagnosis Dyslipidemia, goal LDL below 100 Other and unspecified hyperlipidemia documented in this encounter Advance Directives Latest Code Status on File Code Status Date Activated Date Inactivated Comments Full Code 11/13/2023 7:54 AM 11/13/2023 1:33 PM This order reflects the patients wishes and were consensually agreed upon. Question Answer Comments Discussion of Advance Directives occurred with: Patient Does the patient have a Living Will? No Does the patient have Health Care Power of Wafer Polishing Lead Worker? No Code Status History Code Status Date Activated Date Inactivated Comments Full Code 10/30/2023 7:31 AM 10/30/2023 2:06 PM This order reflects the patients wishes and were consensually agreed upon. Question Answer Comments Discussion of Advance Directives occurred with: Patient Does the patient have a Living Will? No Does the patient have Health Care Power of Wafer Polishing Lead Worker? No Full Code 02/23/2023 12:29 PM 02/25/2023 6:35 PM This order reflects the patients wishes and were consensually agreed upon. Question Answer Comments Discussion of Advance Directives occurred with: Patient Full Code 02/23/2023 6:22 AM 02/23/2023 12:29 PM This order reflects the patients wishes and were consensually agreed upon. Question Answer Comments Discussion of Advance Directives occurred with: Not Discussed due to patient's condition Care Teams Dance Artist Relationship Specialty Start Date End Date Glenda Steele DO [address] [place] [address] PCP - General Family Medicine 08/15/22 documented as of this encounter
--- OUTSIDE RECORDS SUMMARY | 2024-03-29 04:39 | External Medical Summary | Summary of Care ---
Author Name Unknown Organization [facility] Address [address] [facility] [place] [address] Phone [phone] Care Team Providers Care Mask Former Name Role Phone Glenda Garcia DO Primary Care Provider Reason for Visit * Reason Onset Date Comments Nutritional Services Documentation 12/05/2023 Encounter Details Date Type Department Care Team (Late st Contact Info) Description 12/05/2023 1:00 PM EDT Scheduled Telephone Nutrition Services [address] [facility], [place] [address] [place] [address] Christina Porras, CHUCKN [address] [place] [address] Arrived Allergies Active Allergy Reactions Criticality Noted Date Comments Adhesive Tape Rash Low 02/18/2020 Some adhesive tapes- irritation and rash Bee Venom Edema airway High 01/01/2016 Hornet-edema airway. Other bees-swelling Ciprofloxacin Nausea/vomiting 01/01/2016 Crab Extract High 11/17/2022 Other reaction(s): Vomiting Cephalexin Diarrhea 01/01/2016 documented as of this encounter (statuses as of 12/05/2023) Medications Medication Sig Dispensed Refills Start Date [...] MCG/ACT Inhalation Aerosol Powder Breath Activated (umeclidinium [place])Indications:C OPD, mild (HCC) Inhale 1 Puff by [...] morning. 100 Tablet 3 10/05/2023 Active Nystatin [id number] UNIT/GM External CreamIndications:Inte rtrigo Apply topically to [...] EVERY MORNING 100 Tablet 3 11/29/2023 Active Hospital, Clinic, or Other Facility Administered Medication Ordered Dose Route Frequency Start Date End Date Status vitamin b-12 (Cyanocobalamin) inj 1,000 mcgIndications:Intestinal postoperative nonabsorption 1000 mcg IM [id number] 05/09/2023 07/02/20 24 Active documented as of this encounter (statuses as of 12/05/2023) Active Problems Problem Noted Date Diagnosed Date [...] 08/15/2022 Other bipolar disorder 08/15/2022 PAYTON RESEARCH OTHER*[id number] 04/03/2022 Facet arthropathy, lumbar 06/20/2018 Medical marijuana use 05/16/2018 Overview: St 01/2018-[facility]--using oil vape 2/d, lotion apply [...] as of this encounter (statuses as of 12/05/2023) Resolved Problems Problem Noted Date Diagnosed Date Resolved Date Body mass index (BMI) of 50. 0 to 59.9 in adult 07/29/2018 05/15/2019 Overview: Per Obesity protocol #1 - - Body mass index (BMI) of 60. 0 to 69.9 in adult 06/24/2018 08/02/2018 Overview: Per Obesity protocol #1 - Calculus of gallbladder with chronic cholecystitis 04/22/2018 05/15/2019 Overview: 05/0295-QR-JuThxg>Cholelithiasis with a contracted gallbladder. Please correlate with [...] as of this encounter (statuses as of 12/05/2023) Immunizations Name Administration Dates Next Due COVID-19 [...] encounter Miscellaneous Notes * Telephone Encounter - Christina Porras RDN - 12/05/2023 2:12 PM EDT [address] [place] [address] Dietitian Phone Outreach Reached out to patient to check in on patient's nutritional status and to answer any urgent questions or concerns related to nutrition. Result of call: Noted patient followed by Nutrition and Weight Management at [facility]. Patient denies any nutrition concerns at this time. She declined setting up a nutrition visit at [address] [place] [address] and plans to continue to follow the Nutrition and Weight Management. Patient without any additional questions/concerns at this time. Patient verbalized understanding to call dietitian at [address] [place] [address] if nutrition questions/concerns arise. Electronically signed by: Christina Porras RDN, NUTRITION SERVICES [address] [place] [address] documented in this encounter Plan of Treatment Upcoming Encounters Date Type Department Care Team (Late st Contact Info) Description 12/06/2023 8:00 AM EDT Appointment Radiology, [facility] [address] [facility] [place] [address] 12/11/2023 2:20 PM EDT Office Visit Family Practice [address] [place] [address] 293 [place] [address] Glenda Garcia DO 293 [facility], [place] [address] 01/09/2024 11:25 AM EDT Office Visit Urogynecology [facility] [address] [place] [address] Gilmar Jimenes MD 132 [facility] [place] [address] Nurse Lencho Beard [address] [place] [address] 01/10/2024 3:00 PM EDT Office Visit Nutrition & Weight Management, [facility] [address] [facility] [place] [address] Nicole Samuel PA-C 132 [facility] [place] [address] 01/10/2024 3:50 PM EDT Nutrition Services Nutrition & Weight Management, [facility] 132 [facility] [place] [address] Maci Lehman RDN 132 [facility] [place] [address] 02/29/2024 1:00 PM EDT Imaging Radiology [facility] 1st [facility] [address] [facility] [place] [address] 03/03/2024 10:00 AM EDT Telemedicine Pulmonary Medicine, [place] [address] [place] [address] Jair Springer MD [address] [place] [address] 03/03/2024 12:30 PM EDT Office Visit General Surgery, [place] [address] [place] [address] Tung Doyle PA-C [address] [place] [address] 10/28/2024 11:00 AM EDT Nurse Only Ancillary 65 [facility] 293 [place] [address] College, Nurse Annual Wellness Visit 65 [facility] 293 [place] [address] Scheduled Procedures Name Priority Associated Diagnoses Date/Ti me COLONOSCOPY FLEXIBLE PROXIMAL DIAGNOSTIC Recall History of colon polyps Health Maintenance Due Date Last Done Comments Alpha-1 Antitrypsin 1970 Hepatitis C Screening 1970 Cologuard 1997 Fecal Occult Blood Test 1997 Sigmoidoscopy 1997 COVID-19 Vaccine ( season) 2023 05/23/2023, 05/08/2022, 05/07/2021, Additional history exists DXA Scan 06/19/2024 06/19/2017 [...] this encounter Medical Devices Implanted Type Area Director Life Device Identifier Shelf Expiration Date Model / Serial / Lot Lens Li61ao 13.00mm 19.50 - [id number] - [id number] Implanted:Qty: 1 on 10/30/2023 by Ernesto Ocasio MD at OR [facility] Left: Eye [employer]US[employer] LOMB 07/15/2028 [id number] / [id number] / [id number] Lens Li61ao 13.00mm 19.50 - [id number] - [id number] Implanted:Qty: 1 on 11/13/2023 by Ernesto Ocasio MD at OR [facility] Right: Eye BAUSCH [employer] LOMB 07/15/2028 [id number] / [id number] / [id number] documented as of this encounter Advance Directives [...] Discussed due to patient's condition Care Teams Mask Former Relationship Specialty Start Date End Date Glenda Garcia DO [address] [place] [address] PCP - General Family Medicine 08/15/22 documented as of this encounter
--- OUTSIDE RECORDS SUMMARY | 2024-03-29 04:39 | External Medical Summary ---
Author Name Unknown Address Unknown Organization : Laboratory Report Ordering Provider Test Date Status CEDRIC RUIZ 12/06/2023 08:25:00 Final Observation Date Value Abnormality Reference (Units ) Status REFERENCE LAB SCANNED REPORT 12/06/2023 08:25:00 See Scanned Report Final Performing Location
--- OUTSIDE RECORDS SUMMARY | 2024-03-29 04:39 | External Medical Summary | Summary of Care ---
Author Name Unknown Organization [facility] Address [address] [place] [address] Phone [phone] Care Team Providers Care Law Secretary Name Role Phone Glenda Garcia DO Primary Care Provider Reason for Referral * Precert (Within 10 days (routine)) - Pending Review Specialty Diagnoses / Procedures Referred By Tonya roper Referred To Contact Radiology Diagnoses Thyroid nodule Procedures IR BIOPSY Glenda Garcia DO [address] [place] [address] Referral ID Status Reason Start Date Expiration Date V isits Requested Visits Authorized [id number] Pending Review 11/14/2023 999 999 Reason for Visit * Reason Comments Procedure Isthmus biopsy * Precert (Within 10 days (routine)) - Pending Review Specialty Diagnoses / Procedures Referred By Tonya roper Referred To Contact Radiology Diagnoses Thyroid nodule Procedures IR BIOPSY Glenda Garcia DO [address] [place] [address] Referral ID Status Reason Start Date Expiration Date V isits Requested Visits Authorized [id number] Pending Review 11/14/2023 999 [id number] Encounter Details Date Type Department Care Team (Latest Contact Info) Description 12/06/2023 7:50 AM EDT - 12/06/2023 11:59 PM EDT Hospital Encounter Radiology, [address] [id number] Arrived Discharge Disposition: Home - Self Care Allergies Active Allergy Reactions Criticality Noted Date Comments Adhesive Tape Rash Low 02/18/2020 Some adhesive tapes- irritation and rash Bee Venom Edema airway High 01/01/2016 Hornet-edema airway. Other bees-swelling Ciprofloxacin Nausea/vomiting 01/01/2016 Crab Extract High 11/17/2022 Other reaction(s): Vomiting Cephalexin Diarrhea 01/01/2016 documented as of this encounter (statuses as of 12/07/2023) Medications Medication Sig Dispensed Refills Start Date [...] MCG/ACT Inhalation Aerosol Powder Breath Activated (umeclidinium [place])Indications:C OPD, mild (HCC) Inhale 1 Puff by [...] morning. 100 Tablet 3 10/05/2023 Active Nystatin [id number] UNIT/GM External CreamIndications:Inte rtrigo Apply topically to [...] 1,000 mcgIndications:Intestinal postoperative nonabsorption 1000 mcg IM [id number] 05/09/2023 07/02/20 24 Active documented as of this encounter (statuses as of 12/07/2023) Active Problems Problem Noted Date Diagnosed Date [...] 08/15/2022 Other bipolar disorder 08/15/2022 PAYTON RESEARCH OTHER*[id number] 04/03/2022 Facet arthropathy, lumbar 06/20/2018 Medical marijuana use 05/16/2018 Overview: 01/2018-[facility]--using oil vape 2/d, lotion apply knees,ankles. [...] 04/02 H/O colonoscopy 04/18/2017 Overview: In [place] - per pt Dyslipidemia, goal LDL below 100 04/18/2017 Venous stasis dermatitis of right lower extremit y 04/18/2017 Uses roller walker 04/18/2017 Encounter for antineoplastic chemotherapy 2016 documented as of this encounter (statuses as of 12/07/2023) Resolved Problems Problem Noted Date Diagnosed Date Resolved Date Body mass index (BMI) of 50. 0 to 59.9 in adult 07/29/2018 05/15/2019 Overview: Per Obesity protocol #1 - - Body mass index (BMI) of 60. 0 to 69.9 in adult 06/24/2018 08/02/2018 Overview: Per Obesity protocol #1 - Calculus of gallbladder with chronic cholecystitis 04/22/2018 05/15/2019 Overview: 05/0258-QV-MhTwrr>Cholelithiasis with a contracted gallbladder. Please correlate with [...] as of this encounter (statuses as of 12/07/2023) Immunizations Name Administration Dates Next Due COVID-19 [...] No 02/23/2023 documented as of this encounter Nursing Notes * Ariadna Hines RN - 12/06/2023 8:00 AM EDT Procedure: US Guided Isthmus Biopsy Pt placed on procedure table with comfort measures intact. Pt denies any current complaints. Informed consent obtained. Timeout performed by Dr. Peng Ward at 0819. Patient prepped for procedure. Skin around biopsy area cleaned with chloraprep and dried. 3 mL 1% buffered lidocaine administered locally to right isthmus by MD. Access obtained and advanced under US guidance. 5 FNA biopsies obtained. Slides prepared and given to cytogenetics laboratory manager who used telecytology method to verify adequacy of cellular material. Access removed. Pressure applied by . Bandaid and ice pack applied to site. Post procedure image obtained. Patient tolerated procedure well without complications. documented in this encounter Plan of Treatment Upcoming Encounters Date Type Department Care Team (Late st Contact Info) Description 12/11/2023 2:20 PM EDT Office Visit Family [facility] [address], [address] [address] Glenda Garcia DO [address] [place] [address] 01/09/2024 11:25 AM EDT Office Visit Urogynecology [facility] 132 [place] [address] Gilmar Jimenes MD 132 [place] [address] [facility] [address] [place] [address] 01/10/2024 3:00 PM EDT Office Visit Nutrition & Weight Management, [facility] 132 [place] [address] Nicole Samuel PA-C [address] [place] [address] 01/10/2024 3:50 PM EDT Nutrition Services Nutrition & Weight Management, [facility] [address] [place] [address] Maci Lehman RDN [address] [place] [address] 02/29/2024 1:00 PM EDT Imaging Radiology [facility] [address] [place] [address] 03/03/2024 10:00 AM EDT Telemedicine Pulmonary Medicine, [place] [address] [place] [address] Jair Springer MD [address] [place] [address] 03/03/2024 12:30 PM EDT Office Visit General Surgery, [place] [address] [place] [address] Tung Doyle PA-C [address] [place] [address] 10/28/2024 11:00 AM EDT Nurse Only Ancillary [address] [place] [address] [place] [address] College, Nurse Annual Wellness Visit [address] [address] Pending Results Name Type Priority Associated Diagnoses Date /Time CYTOLOGY Pathology Routine 12/06/2023 8:2 5 AM EDT Scheduled Orders Name Type Priority Associated Diagnoses Orde r Schedule CYTOLOGY Pathology Routine One Time for 1 Occurrences starting 12/06/2023 until 12/06/2023, 1 completed Scheduled Procedures Name Priority Associated Diagnoses Date/Ti [...] this encounter Medical Devices Implanted Type Area Biology Professor Device Identifier Shelf Expiration Date Model / Serial / Lot Lens Li61ao 13.00mm 19.50 - [id number] - [id number] Implanted:Qty: 1 on 10/30/2023 by Ernesto Ocasio MD at OR [facility] Left: Eye BAUSCH & LOMB 07/15/2028 [id number] / [id number] / [id number] Lens Li61ao 13.00mm 19.50 - [id number] - [id number] Implanted:Qty: 1 on 11/13/2023 by Ernesto Ocasio MD at OR [facility] Right: Eye BAUSCH & LOMB 07/15/2028 [id number] / [id number] / [id number] documented as of this encounter Procedures Procedure Name Priority Date/Time Associated Diagnosis Comments IR BIOPSY Routine 12/06/2023 8:38 AM EDT Thyroid nodule documented in this encounter Results * IR BIOPSY (12/06/2023 8:38 AM EDT) Anatomical Region Laterality Modality Any Ultrasound 12/06/2023 9:29 AM EDT Impressions 12/06/2023 9:26 AM EDT IMPRESSION: Successful US guided thyroid nodule fine needle biopsy as described above. PLAN: Follow up with the referring physician. Narrative 12/06/2023 9:26 AM EDT PROCEDURE: Ultrasound guided thyroid nodule fine needle aspiration biopsy INDICATION: thyroid isthmus nodule ATTENDING (OPERATING PHYSICIAN): Sylvia CONSENT: After a detailed discussion of the procedure, risks, benefits and alternative treatment options, informed consent was obtained. TIME OUT: A time out procedure was performed. The patient's identification was verified. Informed consent with agreement of procedure, site and position was obtained. All necessary equipment was available prior to procedure. CONTRAST: No contrast administered. COMPLICATIONS: None. ANESTHESIA: Local lidocaine. MEDICATIONS: See MAR PROCEDURE DESCRIPTION: Survey ultrasound of the thyroid isthmus was performed and the nodule was noted and marked. The site was prepped and draped in the usual sterile fashion. Digital ultrasound images were acquired and digitally archived. Using real-time ultrasound guidance, a 25 G fine needle was inserted into the nodule. Under guidance, using agitative motion, a total 5 fine needle samples were obtained and placed in cytology solution and on slides for evaluation by pathology staff. Hemostasis was achieved with manual compression and the site was dressed. Post procedure US showed no evidence of local bleeding. FINDINGS: Thyroid isthmus nodule noted Procedure Note Peng Ward MD - 12/06/2023 PROCEDURE: Ultrasound guided thyroid nodule fine needle aspiration biopsy INDICATION: thyroid isthmus nodule ATTENDING (OPERATING PHYSICIAN): Sylvia CONSENT: After a detailed discussion of the procedure, risks, benefits andalternative treatment options, informed consent was obtained. TIME OUT: A time out procedure was performed. The patient's identificationwas verified. Informed consent with agreement of procedure, site andposition was obtained. All necessary equipment was available prior toprocedure. CONTRAST: No contrast administered. COMPLICATIONS: None. ANESTHESIA: Local lidocaine. MEDICATIONS: See [facility] PROCEDURE DESCRIPTION: Survey ultrasound of the thyroid isthmus wasperformed and the nodule was noted and marked. The site was prepped anddraped in the usual sterile fashion. Digital ultrasound images wereacquired and digitally archived. Using real-time ultrasound guidance, a25 G fine needle was inserted into the nodule. Under guidance, usingagitative motion, a total 5 fine needle samples were obtained and placedin cytology solution and on slides for evaluation by pathology staff.Hemostasis was achieved with manual compression and the site wasdressed. Post procedure US showed no evidence of local bleeding. FINDINGS: Thyroid isthmus nodule noted IMPRESSION IMPRESSION: Successful US guided thyroid nodule fine needle biopsy as describedabove. PLAN: Follow up with the referring physician. Glenda Garcia DO RAD SPECIAL CAST ES documented in this encounter Visit Diagnoses Diagnosis Thyroid nodule Nontoxic uninodular goiter documented in this encounter [...] Discussed due to patient's condition Care Teams Law Secretary Relationship Specialty Start Date End Date Glenda Garcia DO [address] [place] [address] PCP - General Family Medicine 08/15/22 documented as of this encounter
--- OUTSIDE RECORDS SUMMARY | 2024-03-29 04:39 | External Medical Summary | Summary of Care ---
Author Name Unknown Organization [facility] Address [address] [place] [facility] [place] [address] Phone [phone] Care Team Providers Care Structures Mechanic Name Role Phone Glenda Garica DO Primary Care Provider [phone] Reason for Visit * Auth/Cert Specialty Diagnoses / Procedures Referred By Tonya t Referred To Contact Diagnoses Combined forms of age-related cataract of right eye Combined forms of age-related cataract of right eye [H25.811] Procedures REMOVE CATARACT, INSERT LENS PROSTH RIGHT EXTRACAPSULAR CATARACT REMOVAL WITH INTRAOCULAR LENS Ernesto Ocasio MD [address] [place] [id number] [address] [address] [facility] [place] [address] Referral ID Status Reason Start Date Expiration Date Visits Re quested Visits Authorized [id number] Encounter Details Date Type Department Care Team (Latest Contact Info) Description 11/13/2023 7:09 AM EDT - 11/13/2023 9:33 AM EDT Hospital Encounter [facility], Operating Room [facility] [address] [facility] [place] [address] Ernesto Ocasio MD [address] [place] [id number] Discharge Disposition: Home - Self Care Allergies Active Allergy Reactions Criticality Noted Date Comments Adhesive Tape Rash Low 02/18/2020 Some adhesive tapes- irritation and rash Bee Venom Edema airway High 01/01/2016 Hornet-edema airway. Other bees-swelling Ciprofloxacin Nausea/vomiting 01/01/2016 Crab Extract High 11/17/2022 Other reaction(s): Vomiting Cephalexin Diarrhea 01/01/2016 documented as of this encounter (statuses as of 11/13/2023) Medications Medication Sig Dispensed Refills Start Date [...] MCG/ACT Inhalation Aerosol Powder Breath Activated (umeclidinium Genoa)Indications :COPD, mild (HCC) Inhale 1 Puff by [...] the morning. 100 Tablet 1 07/27/2023 Active Escitalopram Oxalate 20 MG Oral Tablet (Lexapro) take 1 tablet by mouth twice a day 180 Tablet 0 08/14/2023 Active lamoTRIgine 200 MG Oral Tablet (LaMICtal) take 1 tablet by mouth every morning and 1 tablet at bedtime 180 Tablet 0 08/14/2023 Active Atorvastatin Calcium 40 MG Oral Tablet (Lipitor)Indication s:Dyslipidemia, goal LDL below 100 TAKE ONE TABLET BY MOUTH EVERY MORNING 100 Tablet 0 08/21/2023 Active Additional Information Patient taking differently: Taking at night, Reported on 10/05/2023 Myrbetriq 50 MG Oral Tablet Extended Release 24 Hour (Mirabegron ER)Indications:Urge incontinence Take 1 Tablet by mouth in the morning. 100 Tablet 3 10/05/2023 Active Nystatin 839366 UNIT/GM External CreamIndications:In tertrigo Apply topically to affected area 2 times a day for two weeks. 30 g 1 10/19/2023 Active Vitamin D (Ergocalciferol) 50 MCG (2000 UT) Oral Capsule Take 1 Capsule by mouth once. 0 4 Discontinu ed(Medicat ion List Clean Up) Myrbetriq 25 MG Oral Tablet Extended Release 24 Hour (Mirabegron ER) Take 1 Tablet by mouth in the morning. 100 Tablet 3 07/19/2023 4 Discontinu ed(Medicat ion/Dose Changed) documented as of this encounter (statuses as of 11/13/2023) Active Problems Problem Noted Date Diagnosed Date [...] 08/15/2022 Other bipolar disorder 08/15/2022 [facility] OTHER*[id number] 04/03/2022 Facet arthropathy, lumbar 06/20/2018 Medical marijuana use 05/16/2018 Overview: 01/2018-[facility]--using oil vape 2/d, lotion apply knees,ankles. [...] Quit 04/02 H/O colonoscopy 04/18/2017 Overview: In [place] -nl per pt Dyslipidemia, goal LDL below 100 04/18/2017 Venous stasis dermatitis of right lower extremit y 04/18/2017 Uses roller walker 04/18/2017 Encounter for antineoplastic chemotherapy 2016 documented as of this encounter (statuses as of 11/13/2023) Resolved Problems Problem Noted Date Diagnosed Date Resolved Date Body mass index (BMI) of 50. 0 to 59.9 in adult 07/29/2018 05/15/2019 Overview: Per Obesity protocol #1 - - Body mass index (BMI) of 60. 0 to 69.9 in adult 06/24/2018 08/02/2018 Overview: Per Obesity protocol #1 - Calculus of gallbladder with chronic cholecystitis 04/22/2018 05/15/2019 Overview: 05/0286-GF-[id number]>Cholelithiasis with a contracted gallbladder. Please correlate with [...] as of this encounter (statuses as of 11/13/2023) Immunizations Name Administration Dates Next Due COVID-19 [...] Sign Reading Time Taken Comments Blood Pressure 148/74 11/13/2023 9:25 AM EDT Pulse 56 11/13/2023 9:25 AM EDT Temperature 36.2 C (97.2 F) 11/13/2023 9:10 AM ED T Respiratory Rate 16 11/13/2023 9:25 AM EDT Oxygen Saturation 94% 11/13/2023 9:25 AM EDT Inhaled Oxygen Concentration - - Weight 103.4 kg (228 lb) 11/13/2023 8:06 AM EDT Height - - Body Mass Index 35.98 10/26/2023 11:12 AM EDT documented in this [...] No 02/23/2023 documented as of this encounter Discharge Instructions * Discharge Instr - AVS* Ernesto Ocasio MD - 10/30/2023 9:40 AM EDT Discharge Date: 11/13/23 You may call Doctor Ocasio at during business hours and for after-hours emergencies. Your attending physician at the time of your discharge was: Ernesto Ocasio MD The information below provides you with the instructions and the list of medications you need to betaking following discharge from the hospital. If you have any questions, please ask before leaving.Please carry this letter with you when you see your doctor in the clinic. Diet: Normal diet Activity: No heavy lifting, pushing, pulling (anything over 10 lbs.), no bending at the waist or straining for 1 week. Driving: Do not drive for 24 hours after surgery. Date you may return to work or school: N/A Follow Up - Return appointment(s): 11/14/23 @10:[address] Casillas See your medical secretary receptionist in 1day(s). SPECIAL INSTRUCTIONS Remove eye patch and begin eye drops @ [facility] for healing and infection prevention. Duration PGB- 1 drop 4 times a day for today. X X X X Day of surgery. 8 am (Breakfast) 12 noon (Lunch) 6 pm (Supper) 10 pm (Bedtime) PGB- 1 drop 4 times a day for 1 week. X X X X 1 Week PGB- 1 drop 3 times a day for 1 week. X X X 1 Week PGB- 1 drop 2 times a day for 1 week. X X 1 Week PGB- 1 drop once a day for 1 week. X 1 Week 1. Use your eye drops 4 times on the afternoon and evening after your surgery. 2. DO NOT RUB OR PUT PRESSURE ON THE EYE for 4 weeks after surgery. 3. Please keep your surgical eye closed on the ride home and then at home for a total of 1-2 hours after surgery. 4. You may sit, walk, watch TV, read, and perform routine activities. 5. NO exercise for 2 weeks after surgery. It is OK to walk. 6. DO NOT go underwater for 2 weeks after surgery, e.g. no swimming or hot-tubs. 7. It is OK to shower, wash your face, shave, shampoo your hair the day AFTER Surgery (a few drops of water are OK). 8. Continue warm compresses for 5 minutes, 2 times per day. 9. Sleep with the shield taped over your eyes for 2 weeks after surgery. 10. NO eye make-up for 2 weeks after surgery. 11. DO NOT make any eye drop changes to your other eye. 12. Dr. Ocasio suggests that all patients remain in the area for a minimum of the one week following surgery if traveling within the [place]. Patients traveling internationally should wait 4 weeks. 13. You may return to work soon after surgery; please discuss this with Dr. Ocasio. 14. You can expect the following after surgery during the first 4-6 weeks. Itchiness/scratchiness around the eye. Redness in the white of the eye. Double vision/ Fluctuation in vision. Droopiness of the eyelid. 15. Your vision should gradually improve in days and weeks after surgery. If your vision is gettingworse (not better), or your eye more red, or you are having increasing pain, or you are having new floaters or flashing lights, CALL US IMMEDIATELY. IF YOU HAVE ANY PROBLEMS, QUESTIONS OR CONCERNS, DO NOT HESITATE TO CALL US AT [phone] AT ANY TIME IErnesto MD personally performed the services described in this documentation. All medical record entries made by the scribe were at my direction and in my presence. I have reviewed the chart and agree that the record reflects my personal performance and is accurate and complete. Ernesto palma MD. 11/13/2023. 9:08 AM. 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 Discharge instructions were given to the patient. Note has been documented by Erica Benavides on 11/13/2023 documented in this encounter H&P Notes * Ernesto Ocasio MD - 11/13/2023 7:37 AM EDT Images from the original note were not included. Office Visit 10/19/2023 Family Practice [address], [place] Glenda Garcia DO Family Medicine Pre-operative clearance +2 more Dx pre-op exam; Referred by Self Reason for Visit Progress Notes Glenda Garcia DO (Physician) Family Medicine Expand All Collapse All SUBJECTIVE: Chief Complaint Patient presents with pre-op exam HPI: Yelena Mcclure is a 73 year old female who presents today for pre-operative clearance. Pt will have cataract removal with Dr. Ocasio starting with the left and then the right on 10/29 and 11/12 respectively. No issues with anesthesia in the past. She has been told it took her a bit to wake up. Shenotes a couple of implants. She notes some dyspnea in the morning that resolves once she takes her Incruse. She did see Dr. Phipps this week and she is back on nuvigil. Her CPAP has not been transmitting to them. She may get a new one. No recent illnesses. Pt has had some frustration as she feels that her weight loss has stalled. She did meet with GI nutrition. She will get her B12 shot today. 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 Amaya's cyst, unruptured, unspecified laterality M71.20 Tobacco use disorder F17.200 H/O colonoscopy Z98.890 Dyslipidemia, goal LDL below 100 E78.5 Venous stasis dermatitis of right lower extremity I87.2 Uses roller walker Z99.89 Primary osteoarthritis of both knees M17.0 Urge incontinence N39.41 Renal cyst N28.1 Medical marijuana use Z79.899 Facet arthropathy, lumbar M47.816 [facility] [employer] OTHER*[id number] Major depressive disorder, recurrent, moderate ([facility]) F33.1 Other bipolar disorder ([facility]) F31.89 COPD, group A, by GOLD 2017 classification ([facility]) J44.9 Class 3 severe obesity due to excess calories with serious comorbidity and body mass index (BMI) of45.0 to 49.9 in adult ([facility]) E66.01, Z68.42 Primary osteoarthritis of one knee, left M17.12 Dehydration E86.0 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 30 Tab 11 ProAir HFA 108 (90 Base) MCG/ACT Inhalation Aerosol Solution Inhale 2 Puffs by mouth every 6 hours as needed for Shortness of Breath or Wheezing. Polyethylene Glycol 3350 17 GM/SCOOP Oral Powder [...] MCG/ACT Inhalation Aerosol Powder Breath Activated (umeclidinium Genoa) Inhale 1 Puff by mouth in the morning. 90 Each 1 Triamcinolone Acetonide 0.1 % External Cream (Aristocort) Apply topically to affected area 2 times a day 45 g 1 Lisinopril 40 MG Oral Tablet Take 1 Tablet by mouth in the morning. 100 Tablet 1 Escitalopram Oxalate 20 MG Oral Tablet (Lexapro) take 1 tablet by mouth twice a day 180 Tablet 0 lamoTRIgine 200 MG Oral Tablet (LaMICtal) take 1 tablet by mouth every morning and 1 tablet at bedtime 180 Tablet 0 Atorvastatin Calcium 40 MG Oral Tablet (Lipitor) TAKE ONE TABLET BY MOUTH EVERY MORNING (Patient taking differently: Taking at night) 100 Tablet 0 Myrbetriq 50 MG Oral Tablet Extended Release 24 Hour (Mirabegron ER) Take 1 Tablet by mouth in the morning. 100 Tablet 3 Spacer/Aero-Holding Chambers LIZ Use with albuterol inhaler. 1 Each 0 Knee Brace Wear while mobile 1 Each 0 Vitamin D (Ergocalciferol) 50 MCG (2000 UT) Oral Capsule Take 1 Capsule by mouth once. (Patient nottaking: Reported on 10/19/2023) Myrbetriq 25 MG Oral Tablet Extended Release 24 Hour (Mirabegron ER) Take 1 Tablet by mouth in the morning. (Patient not taking: Reported on 10/19/2023) 100 Tablet 3 Current Facility-Administered Medications Medication Dose Route Frequency Provider Last Rate Last Admin vitamin b-12 (Cyanocobalamin) inj 1,000 mcg 1,000 mcg Intramuscular Q12 Weeks Nicole Samuel PA-C 1,000 mcg at 08/10/23 1321 Past Medical History Past Medical History: Diagnosis Date Acute bronchitis Arthritis Breast cancer (HCC) 05/10/2016 Invasive Carcinoma Cellulitis of right leg COPD, mild (HCC) Herpes zoster Impaired fasting glucose INFORMATION lyphadema Left knee pain Measles Mumps Muscle spasm Obesity Uterine leiomyoma Varicella Past Surgical History Past Surgical History: Procedure Laterality Date BIOPSY OF BREAST, OPEN Right 05/10/2016 invasive carcinoma BX LYMPH NODE DEEP AXIL Right 06/20/2016 BIOPSY LYMPH NODE DEEP AXILLARY OPEN performed by Staci Coffey MD at OR [facility] CHEMOTHERAPY 2017 Taxol & Herceptin COLONOSCOPY, DIAGNOSTIC (RECTUM) 11/17/2022 benign adenomatous polyps, diverticulosis, repeat 5 yrs / [facility] EGD, FLEXIBLE, DIAGNOSTIC 04/21/2022 normal bx / [facility] EGD, FLEXIBLE, DIAGNOSTIC N/A 02/23/2023 ESOPHAGOGASTRODUODENOSCOPY (EGD), FLEXIBLE, TRANSORAL, DIAGNOSTIC performed by Sterling Azevedo MD at OR [facility] ERCP 06/28/2018 Choledocholithiasis/[facility] IDENTIFY SENTINEL NODE, RADIOACTIVE TRACER Right 06/20/2016 INJECTION PROCEDURE FOR IDENTIFICATION SENTINEL NODE performed by Staci Coffey MD at OR [facility] IMPLANTABLE ACCESS SYST PERC Right 07/2016 INFORMATION 1960 cyst removed from throat IR EMBOLIZATION UTERINE FIBROID 1975 LAPAROSCOPE PROCEDURE, LIVER N/A 02/23/2023 UNLISTED LAPAROSCOPIC PROCEDURE LIVER performed by Sterling Azevedo MD at [facility] LAPAROSCOPY; CHOLECYSTECTOMY N/A 02/23/2023 LAPAROSCOPIC CHOLECYSTECTOMY performed by Sterling Azevedo MD at [facility] MASTECTOMY, PARTIAL Right 06/20/2016 MASTECTOMY PARTIAL - right performed by Staci Coffey MD at [facility] 06/20/2016 RADIATION THERAPY Right 02/08/2016 6120 cGy REMOVAL OF OVARY(S) 1975 SLEEVE GASTRECTOMY, LAPROSCOPY N/A 02/23/2023 LAPAROSCOPY SLEEVE GASTRECTOMY performed by Sterling Azevedo MD at [facility] SURGICAL REMOVAL, ERUPTED TOOTH AND BONE 06/2015 multiple extractions and implants UMBIL HERNIA REPAIR (REDUCIBLE) AGE 5+YR 2000 Allergies Review of patient's allergies indicates: Allergen Reactions Bee Venom Edema airway Hornet-edema airway. Other bees-swelling Crab Extract Other reaction(s): Vomiting Ciprofloxacin Nausea/vomiting Keflex [Cephalexin] Diarrhea Adhesive Tape Rash Some adhesive tapes- irritation and rash Family History Problem Relation Age of Onset Arthritis Mother passed at [...] Cancer No significant family history Family Status Family Status Relation Status Mo Fa Bro Alive MGMA (Not Specified) No history (Not Specified) Social History - Alcohol and Tobacco Use Social History Tobacco Use Smoking status: Former Current packs/day: 0.00 Average packs/day: 1 pack/day for 35.0 years (35.0 ttl pk-yrs) Types: Cigarettes Start date: 11/17/1987 Quit date: 11/16/2022 Years since quittin.9 Passive exposure: Past Smokeless tobacco: Never Substance Use Topics Alcohol use: No Comment: very occasionally in past, none now Vaping History Vaping/E-Cigarette Use Vaping/E-Cigarette Use Current Every Day User Vaping History Vaping/E-Cigarette Substances THC Yes Vaping History Vaping/E-Cigarette Devices Other volcano REVIEW OF SYSTEMS: Review of Systems Constitutional: Negative for activity change, chills, diaphoresis, fatigue and fever. HENT: Negative for congestion, ear discharge, ear pain, hearing loss and tinnitus. Eyes: Negative for pain, discharge, redness and visual disturbance. Respiratory: Negative for cough, chest tightness, shortness of breath and wheezing. Cardiovascular: Negative for chest pain, palpitations and leg swelling. Gastrointestinal: Negative for abdominal pain, constipation, diarrhea, nausea and vomiting. Musculoskeletal: Negative for arthralgias, back pain, gait problem and joint swelling. Skin: Negative for color change, pallor and rash. OBJECTIVE: BP 134/72 (BP Site: Left Arm, BP Position: Sitting, BP Cuff Size: Large) | Pulse 61 | Temp 36.3 C(97.3 F) (Tympanic) | Resp 12 | Ht 1.689 m (5' 6.5") | Wt 103.6 kg (228 lb 8 oz) | SpO2 93% | BMI36.33 kg/m | BSA 2.2 m PHYSICAL EXAM: Physical Exam Constitutional: General: She is not in acute distress. Appearance: She is well-developed. HENT: Head: Normocephalic and atraumatic. Right Ear: Tympanic membrane, ear canal and external ear normal. Left Ear: Tympanic membrane, ear canal and external ear normal. Nose: Nose normal. No mucosal edema or rhinorrhea. Mouth/Throat: Pharynx: No oropharyngeal exudate. Eyes: General: No scleral icterus. Conjunctiva/sclera: Conjunctivae normal. Pupils: Pupils are equal, round, and reactive to light. Neck: Thyroid: No thyromegaly. Cardiovascular: Rate and Rhythm: Normal rate and regular rhythm. Heart sounds: No murmur heard. No friction rub. No gallop. Pulmonary: Effort: No respiratory distress. Breath sounds: Normal breath sounds. No wheezing, rhonchi or rales. Chest: Chest wall: No tenderness. Abdominal: General: Bowel sounds are normal. Palpations: Abdomen is soft. There is no mass. Tenderness: There is no abdominal tenderness. There is no guarding. Musculoskeletal: General: No tenderness or deformity. Normal range of motion. Cervical back: Normal range of motion and neck supple. Lymphadenopathy: Cervical: No cervical adenopathy. Skin: General: Skin is warm and dry. Findings: Rash (minimal rash left buttock, groin) present. Neurological: Mental Status: She is alert and oriented to person, place, and time. Psychiatric: Speech: Speech normal. Behavior: Behavior normal. Thought Content: Thought content normal. ASSESSMENT/PLAN: (Z01.818) Pre-operative clearance (primary encounter diagnosis) (H25.89) Other age-related cataract of both eyes Plan: pt for pre-operative clearance. Doing well overall. More active since gastric bypass. She is overall maximized for OR. (L30.4) Intertrigo Plan: Nystatin 802801 UNIT/GM External Cream Nystatin sent. Pt will use when needed. Keep area clean and dry. Follow-up: as scheduled Total time today including reviewing chart before the visit, pertinent labs, imaging reports, face to face time, and documentation time was 34 minutes. Glenda Garcia DO Other Notes All notes Nursing Note from Juliann Lezama LPN Nursing Note from Juliann Lezama LPN Instructions Patient declined After Visit Summary Additional Documentation Vitals: BP 134/72 (BP Site: Left Arm, BP Position: Sitting, BP Cuff Size: Large) Pulse 61 Temp 36.3 C (97.3 F) (Tympanic) Resp 12 Ht 1.689 m (5' 6.5") Wt 103.6 kg (228 lb 8 oz) SpO2 93% BMI 36.33 kg/m BSA 2.2 m Flowsheets: Patient Information Encounter Info: Billing Info, History, Allergies, Detailed Report, Questionnaires Patient Handouts No notes of this type exist for this encounter. Orders Placed None Medication Changes Nystatin 000638 UNIT/GM Apply topically to affected area 2 times a day for two weeks. Medication List Medications Administered Cyanocobalamin 1000 mcg Visit Diagnoses Pre-operative clearance Other age-related cataract of both eyes Intertrigo Problem List Note has been documented by Ercia Benavides on 11/13/2023 * Ernesto Ocasio MD - 11/13/2023 7:36 AM EDT HISTORY & PHYSICAL INTERVAL NOTE [facility] [place] [address] [place] [facility] [address] History and Physical Update: Name: Yelena Mcclure Location: OR [facility]/OR Date: 11/13/2023 Time: 7:37 AM DATE OF HISTORY AND PHYSICAL: 10/19/23 BP: 164 mmHg/75 mmHg (11/13/23805) Pulse: 60 (11/13/23805) Temp: 36.11 C (11/13/23805) Temp Summary: Temp Min: 36.1 C (97 F) Max: 36.1 C (97 F) SpO2: 94 % (11/13/23805) O2 flow rate: Supplemental O2 Delivery: Room Air, None (11/13/23805) Does patient take a beta vinay? No Did patient stop anticoagulants? No Heart Exam: regular rate and rhythm Lung Exam: clear to auscultation bilaterally Other Pertinent Physical Exam: none I have reviewed the H&P previously performed and examined the patient today. There are no new findings noted. documented in this encounter Nursing Notes * Re Alatorre RN - 11/13/2023 9:10 AM EDT Patient transferred to pacu 2 status post right cataract removal and lens placement. No drainage noted. Patient awake. Denies pain and nausea. Respirations are even and unlabored on room air. Abdomensoft and non distended. Vital signs stable. * Lucas Jackson RN - 11/13/2023 7:53 AM EDT Surgical consent verified with patient. Patient agrees with listed procedure and verified signature. documented in this encounter OR Notes * OR Surgeon - Ernesto Ocasio MD - 11/13/2023 9:16 AM EDT [facility] [address] [address] OPERATIVE REPORT Name: Yelena Mcclure Date: 11/13/2023 Time: 9:17 AM Location: OR [facility] Service: Ophthalmology Date of Operation: 11/13/2023 Pre-op Diagnosis: Visually significant combined cataract, right eye Post-op Diagnosis: Same Operative Procedure: Phacoemulsification with posterior chamber intraocular lens implantation, right eye (14723 Standard Cataract) Surgeon: Ernesto Ocasio MD Assistants: None Anesthesia: topical Implant/Graft: B&L: 19.5 [id number]; SN: [id number] Complications: none Drains: none Urine Output: minimal Specimen and Disposition: none Estimated Blood Loss: minimal Indications: The patient has noticed a decrease in their visual acuity now interfering with their activities of daily living. Slit-lamp examination revealed a visually significant lens opacity which appears to be a significant component of the decrease in visual acuity. After discussion of risks, benefits, and alternatives, the patient has elected to proceed with cataract extraction and lens implantation. Description of Procedure: The patient was brought to the operating room. A "time out" was called toconfirm the correct patient, the correct eye, the correct diagnosis, the correct procedure, relevant allergies and surgical considerations. The patient's eye was prepped and draped in the usual fashion. A wire lid speculum was placed between the lids. A paracentesis site was made, approximately three oclock hours away from the incision site. Intracameral lidocaine was injected into the anterior chamber. A clear cornea incision was then made with a keratome, and then viscoelastic was injected into the anterior chamber. A continuous curvilinearcapsulorrhexis was created using a cystitome and Utrata forcep. Hydrodissection was then performed using balanced salt solution. The nucleus was emulsified using the phacoemulsification handpiece. The cortex was removed using the automated irrigation aspiration unit. Viscoelastic was then used to deepen the capsular bag. A posterior chamber lens was then inserted into the capsular bag. The capsular bag was polished and then excess viscoelastic was aspirated using the irrigation aspiration unit. The wound was hydrated, tested and found to be water tight. Intracameral Moxifloxacin was given. After the post-operative drops were given, including topical antibiotic, and steroid, a shield was placed. The patient tolerated the procedure well. Condition: The patient left the operating room in good condition. Disposition: In and Out Recovery Unit Attestation: I performed the procedure Note has been documented by Erica Benavides on 11/13/2023 documented in this encounter Plan of Treatment Upcoming Encounters Date Type Department Care Team (Late st Contact Info) Description 12/11/2023 2:20 PM EDT Office Visit Family [address] [place] [address] Glenda Garcia DO [address] [place] [address] 01/09/2024 11:25 AM EDT Office Visit [facility] [place] [address] Gilmar Jimenes MD [address] [facility] [place] [address] Nurse Lencho Beard 132 [place] [address] 01/10/2024 3:00 PM EDT Office Visit Nutrition & Weight Management, [facility] [place] [address] Nicole Samuel PA-C [address] [facility] [place] [address] 01/10/2024 3:50 PM EDT Nutrition Services Nutrition & Weight Management, [facility] [address] [place] [address] Maci Lehman RDN [address] [place] [address] 02/29/2024 1:00 PM EDT Imaging Radiology [facility] [address] [facility] [address] [place] [address] 03/03/2024 10:00 AM EDT Telemedicine Pulmonary Medicine, [address] [address] Jair Springer MD [facility] [place] [address] 03/03/2024 12:30 PM EDT Office Visit General Surgery, [place] [address] [place] [address] Tung Doyle PA-C [address] [place] [address] 10/28/2024 11:00 AM EDT Nurse Only Ancillary [address] [facility] [address] [place] [address] College, Nurse Annual Wellness Visit [address] [address] Scheduled Procedures Name Priority Associated Diagnoses Date/Ti me EXTRACAPSULAR CATARACT REMOVAL WITH INTRAOCULAR LENS Combined forms of age-related cataract of right eye 11/13/2023 8:35 AM EDT COLONOSCOPY FLEXIBLE PROXIMAL DIAGNOSTIC Recall History of [...] this encounter Medical Devices Implanted Type Area Therapist Physical Device Identifier Shelf Expiration Date Model / Serial / Lot Lens Li61ao 13.00mm 19.50 - [id number] - [id number] Implanted:Qty: 1 on 10/30/2023 by Ernesto Ocasio MD at OR [facility] Left: Eye [employer] 07/15/2028 [id number] / [id number] / [id number] Lens Li61ao 13.00mm 19.50 - [id number] - [id number] Implanted:Qty: 1 on 11/13/2023 by Ernesto Ocasio MD at OR [facility] Right: Eye [employer] 07/15/2028 [id number] / [id number] / [id number] documented as of this encounter Administered Medications Inactive Administered Medications - up to 3 most recent administrations Medication Order MAR Action Action Date Dose Rate Site Diclofenac Sodium (Voltaren) 0.1 % ophthalmic solution 1 Drop 1 Drop, Right eye, Q5 MINUTES, First dose on Sun11/13/23 at 0830, Last dose on Sun11/13/23 at 0840, For 3 doses, PRE-OP: One drop to right eye every 5 minutes for 3 doses, Pre-Op Given 11/13/2023 8:18 AM EDT 1 Drop Ey e Right Given 11/13/2023 8:09 AM EDT 1 Drop Ey e Right Given 11/13/2023 8:03 AM EDT 1 Drop Ey e Right isolyte-S pH 7.4 infusion Intravenous, at 75 mL/hr, Plasma-LYTE 148, isolyte-S, and isolyte-S pH 7.4 are considered equivalent - including for MAR barcode scanning., CONTINUOUS, Starting on Sun11/13/23 at 0830, Until Sun11/13/23 at 1333, Pre-Op Restarted 11/13/2023 9:11 AM EDT Continue from Pre-Op 11/13/2023 8:41 AM EDT 75 mL/hr New Bag 11/13/2023 8:19 AM EDT 75 mL/hr An tecubital Left proparacaine (Alcaine) 0.5 % ophthalmic solution 1 Drop 1 Drop, Right eye, ONCE, On Sun11/13/23 at 0830, For 1 dose, PRE-OP: 15 minutes prior to scheduled surgery time for 1 dose, Pre-Op Given 11/13/2023 8:03 AM EDT 1 Drop Eye Right tropicamide 1%-cyclopentolate 1%-phenylephrine 2.5% ophthalmic solution 1 Drop 1 Drop, Right eye, Q5 MINUTES, First dose on Sun11/13/23 at 0830, Last dose on Sun11/13/23 at 0840, For 3 doses, Pre-Op Given 11/13/2023 8:18 AM EDT 1 Drop Eye Right Given 11/13/2023 8:09 AM EDT 1 Drop Ey e Right Given 11/13/2023 8:04 AM EDT 1 Drop Ey e Right documented in this encounter Active and Recently Administered Medications Times are shown in EDT. Scheduled Medication Order 11/11/2023 11/12/2023 11/13/2023 Diclofenac Sodium (Voltaren) 0.1 % ophthalmic solution 1 Drop (COMPLETED) 1 Drop, Right eye, Q5 MINUTES, First dose on Sun11/13/23 at 0830, Last dose on Sun11/13/23 at 0840, For 3 doses, PRE-OP: One drop to right eye every 5 minutes for 3 doses, Pre-Op 0803 (Given - Provid er: Lucas Jackson RN)0809 (Given - Provider: Lucas Jackson RN)0818 (Given - Provider: Lucas Jackson RN) Povidone-Iodine (Betadine) 5 % 2 mL syringe ophthalmic solution 1 Drop 1 Drop, Right eye, ONCE, On Sun11/13/23 at 0830, For 1 dose, Pre-Op 0830 (Due) proparacaine (Alcaine) 0.5 % ophthalmic solution 1 Drop (COMPLETED) 1 Drop, Right eye, ONCE, On Sun11/13/23 at 0830, For 1 dose, PRE-OP: 15 minutes prior to scheduled surgery time for 1 dose, Pre-Op 0803 (Given - Provid er: Lucas Jackson RN) Trimethoprim-Polymyxin B (Polytrim) ophthalmic solution 1 Drop 1 Drop, Right eye, Q5 MINUTES, First dose on Sun11/13/23 at 0830, Last dose on Sun11/13/23 at 0840, For 3 doses, PRE-OP: One drop to right eye every 5 minutes for 3 doses, Pre-Op 0830 (Due)0835 (Due) 0840 (Due) tropicamide 1%-cyclopentolate 1%-phenylephrine 2.5% ophthalmic solution 1 Drop (COMPLETED) 1 Drop, Right eye, Q5 MINUTES, First dose on Sun11/13/23 at 0830, Last dose on Sun11/13/23 at 0840, For 3 doses, Pre-Op 0804 (Given - Provid er: Lucas Jackson RN)0809 (Given - Provider: Lucas Jackson RN)0818 (Given - Provider: Lucas Jackson RN) Continuous Medication Order 11/11/2023 11/12/2023 11/13/2023 isolyte-S pH 7.4 infusion Intravenous, at 75 mL/hr, Plasma-LYTE 148, isolyte-S, and isolyte-S pH 7.4 are considered equivalent - including for MAR barcode scanning., CONTINUOUS, Starting on Sun11/13/23 at 0830, Until Sun11/13/23 at 1333, Pre-Op 0819 (New Bag - Prov ider: Lucas Jackson RN)0841 (Continue from Pre-Op - Provider: Sandra Lei CRNA)0910 (Paused - Provider: Sandra Lei CRNA - Comment: Switch to gravity)0911 (Restarted - Provider: Sandra Lei CRNA) PRN Medication Order 11/11/2023 11/12/2023 11/13/2023 balanced salt solution (Bss) ophthalmic solution (CANCELED) ONCE PRN INTRA PROCEDURE, Starting on Sun11/13/23 at 0855, Until Sun11/13/23 at 0905, Intra-Op 0855 (Given - Provid er: Ernesto Ocasio MD - Comment: qs) DUOVISC inj KIT (CANCELED) ONCE PRN INTRA PROCEDURE, Starting on Sun11/13/23 at 0855, Until Sun11/13/23 at 0905, Intra-Op 0855 (Given - Provid er: Ernesto Ocasio MD - Comment: qs) hydroxypropyl methylcellulose ([place]) 2 % intraocular inj (CANCELED) ONCE PRN INTRA PROCEDURE, Starting on Sun11/13/23 at 0855, Until Sun11/13/23 at 0905, Intra-Op 0855 (Given - Provid er: Ernesto Ocasio MD - Comment: qs) Lidocaine 1 % (PF) inj (CANCELED) ONCE PRN INTRA PROCEDURE, Starting on Sun11/13/23 at 0855, Until Sun11/13/23 at 0905, Intra-Op 0855 (Given - Provid er: Ernesto Ocasio MD - Comment: qs) Moxifloxacin intracameral inj (CANCELED) ONCE PRN INTRA PROCEDURE, Starting on Sun11/13/23 at 0855, Until Sun11/13/23 at 0905, Intra-Op 0855 (Given - Provid er: Ernesto Ocasio MD - Comment: qs) prednisoLONE Acetate (Pred Forte) 1 % ophthalmic suspension (CANCELED) ONCE PRN INTRA PROCEDURE, Starting on Sun11/13/23 at 0855, Until Sun11/13/23 at 0905, Intra-Op 0855 (Given - Provid er: Holly Pickard RN) Tetracaine (Pontocaine) 0.5 % ophthalmic solution (CANCELED) ONCE PRN INTRA PROCEDURE, Starting on Sun11/13/23 at 0849, Until Sun11/13/23 at 0905, Intra-Op 0849 (Given - Provid er: Holly Pickard RN) documented in this encounter Advance Directives Latest Code Status on File Code Status Date Activated Date Inactivated Comments Full Code 11/13/2023 7:54 AM 11/13/2023 1:33 PM This order reflects the patients wishes and were consensually agreed upon. Question Answer Comments Discussion of Advance Directives occurred with: Patient Does the patient have a Living Will? No Does the patient have Health Care Power of Senior Functional Analyst? No Code Status History Code Status Date Activated Date Inactivated Comments Full Code 10/30/2023 7:31 AM 10/30/2023 2:06 PM This order reflects the patients wishes and were consensually agreed upon. Question Answer Comments Discussion of Advance Directives occurred with: Patient Does the patient have a Living Will? No Does the patient have Health Care Power of Senior Functional Analyst? No Full Code 02/23/2023 12:29 PM 02/25/2023 [...] Discussed due to patient's condition Care Teams Structures Mechanic Relationship Specialty Start Date End Date Glenda Garcia DO [address] [place] [address] PCP - General Family Medicine 08/15/22 documented as of this encounter
--- OUTSIDE RECORDS SUMMARY | 2024-03-29 04:39 | External Medical Summary | Summary of Care ---
Author Name Unknown Organization [facility] Address [address] [place] [address] Phone [phone] Care Team Providers Care Stock Shaper Name Role Phone Glenda Garcia DO Primary Care Provider Reason for Referral * Precert (Within 10 days (routine)) - Pending Review Specialty Diagnoses / Procedures Referred By Tonya roper Referred To Contact Radiology Diagnoses Thyroid nodule Procedures IR BIOPSY Glenda Garcia DO [address] [place] [address] Referral ID Status Reason Start Date Expiration Date V isits Requested Visits Authorized [id number] Pending Review 08/09/2023 999 [id number] Reason for Visit * Reason Comments Procedure Isthmus biopsy * Precert (Within 10 days (routine)) - Pending Review Specialty Diagnoses / Procedures Referred By Tonya roper Referred To Contact Radiology Diagnoses Thyroid nodule Procedures IR BIOPSY Glenda Garcia DO [address] [place] [address] Referral ID Status Reason Start Date Expiration Date V isits Requested Visits Authorized [id number] Pending Review 08/09/[phone] Encounter Details Date Type Department Care Team (Latest Contact Info) Description 11/05/2023 11:18 AM EDT - 11/05/2023 11:59 PM EDT Hospital Encounter Radiology, [address] [id number] Arrived Discharge Disposition: Home - Self Care Allergies Active Allergy Reactions Criticality Noted Date Comments Adhesive Tape Rash Low 02/18/2020 Some adhesive tapes- irritation and rash Bee Venom Edema airway High 01/01/2016 Hornet-edema airway. Other bees-swelling Ciprofloxacin Nausea/vomiting 01/01/2016 Crab Extract High 11/17/2022 Other reaction(s): Vomiting Cephalexin Diarrhea 01/01/2016 documented as of this encounter (statuses as of 11/06/2023) Medications Medication Sig Dispensed Refills Start Date [...] Breath or Wheezing. 0 08/15/2022 Active Knee BraceIndications:Acu te pain of [...] MCG/ACT Inhalation Aerosol Powder Breath Activated (umeclidinium [place])Indications: COPD, mild (HCC) Inhale 1 Puff by [...] morning. 100 Tablet 3 10/05/2023 Active Nystatin 227169 UNIT/GM External CreamIndications:Int ertrigo Apply topically to affected area 2 times a day for two weeks. 30 g 1 10/19/2023 Active Hospital, Clinic, or Other Facility Administered Medication Ordered Dose Route Frequency Start Date End Date Status vitamin b-12 (Cyanocobalamin) inj 1,000 mcgIndications:Intestinal postoperative nonabsorption 1000 mcg IM [id number] 05/09/2023 07/02/20 24 Active documented as of this encounter (statuses as of 11/06/2023) Active Problems Problem Noted Date Diagnosed Date [...] 08/15/2022 Other bipolar disorder 08/15/2022 PAYTON RESEARCH OTHER*[id number] 04/03/2022 Facet arthropathy, lumbar 06/20/2018 Medical marijuana use 05/16/2018 Overview: 01/2018-[facility]--using oil vape 2/d, lotion apply knees,ankles. [...] as of this encounter (statuses as of 11/06/2023) Resolved Problems Problem Noted Date Diagnosed Date Resolved Date Body mass index (BMI) of 50. 0 to 59.9 in adult 07/29/2018 05/15/2019 Overview: Per Obesity protocol #1 - - Body mass index (BMI) of 60. 0 to 69.9 in adult 06/24/2018 08/02/2018 Overview: Per Obesity protocol #1 - Calculus of gallbladder with chronic cholecystitis 04/22/2018 05/15/2019 Overview: 05/0220-KG-OkLmai>Cholelithiasis with a contracted gallbladder. Please correlate with [...] as of this encounter (statuses as of 11/06/2023) Immunizations Name Administration Dates Next Due COVID-19 [...] Discharge Instructions * Discharge Instr - AVS* Jose Baird MD - 11/05/2023 1:01 PM EDT Discharge Date: 11/05/2023 Provider: Dr. Jose Baird If you are experiencing any problems related to your procedure, please contact Interventional Radiology at [phone] during normal business hours: Sunday- Sunday 7:30 am - 4 pm. If a problem occursoutside of normal business hours, please call the hospital hydroelectric plant operator at [phone] and ask for theInterventional Radiologist law firm consultant. Contact scheduling for Interventional Radiology at [phone] during normal business hours: Sunday-Sunday, 7:30 am - 4 pm. The information below provides you with the instructions and the list of medications you need to betaking following discharge from the hospital. If you have any questions, please ask before leaving.Please carry this letter with you when you see your doctor in the clinic. If you have questions, you can reach us at the numbers above. SPECIAL INSTRUCTIONS Thyroid Biopsy Care After Your Biopsy If you experience pain or discomfort at the site you may use a cold pack on the site and/or take acetaminophen (Tylenol) or your preferred pain medicine as directed. Avoid strenuous activity for 24 hours after the procedure. Gradually increase your activity 24 hours after the procedure. Keep the dressing clean and dry. Dressing can be removed in 4 hours. You may shower this evening. Gently wash the area and pat it dry. Follow Up Your requesting physician will contact you with the results of your test. Please allow 5 to 7 business days for your results. If you receive a result of "atypical" the sample will undergo additional testing and results will be available in another 1 - 2 weeks. Please check [facility] messages or contact the referring physician for results. Even with an adequate sample, 10% of samples are non-diagnostic. If your sample is non-diagnostic, your requesting physician will provide further instructions. When to Call Interventional Radiology Call Interventional Radiology right away if you have any of the following: Fever above 100 degrees Fahrenheit Increased bleeding, redness, swelling, warmth, or discharge at the incision site. Constant or increasing pain, numbness, coldness, or tingling around the incision area. Vomiting or nausea that does not go away If at any time you experience any of the following or feel you are having a medical emergency, [id number] for emergency assistance. Chest Pain Sudden, severe shortness of breath Rapid heart rate Sudden onset of weakness Coughing up blood See your referring physician for follow-up appointment. Do not smoke or use tobacco products in any way! If you feel suicidal or homicidal, please call the crisis hotline at 3-024-359-WBCS (2093) Driving: You may resume driving after the procedure if previously permitted . Diet: You may resume your current diet as tolerated. Return to work or school: You may return to school or work after the procedure, unless otherwise instructed by the physician. documented in this encounter Nursing Notes * Ariadna Hines I RN - 11/05/2023 12:30 PM EDT Procedure: US Guided Right Isthmus Biopsy Pt placed on procedure table with comfort measures intact. Pt denies any current complaints. Informed consent obtained. Timeout performed by Dr. Jose Baird at 1243. Patient prepped for procedure. Skin around biopsy area cleaned with chloraprep and dried. 5 mL 1% buffered lidocaine administered locally to right thyroid by . Access obtained and advanced under US guidance. 5 FNA biopsies obtained. Slides prepared and given to medical lab technologist who used telecytology method to verify adequacy of cellular material. Access removed. Pressure applied by MD. Bandaid applied to site. Post procedure image obtained. Patient tolerated procedure well without complications. documented in this encounter Miscellaneous Notes * Postprocedure Note - Jose Baird MD - 11/05/2023 12:30 PM EDT PROCEDURE NOTE - Interventional Radiology [facility] [address] Name: Yelena Mcclure Location: Room/bed info not found Date: 11/05/2023 Time: 1:02 PM PROCEDURE: Isthmus nodule fine needle aspirations SENIOR QA TESTER: Dr. Jose Baird ASSISTANTS: None ANESTHESIA: local COMPLICATIONS: none SPECIMEN: Cytology ESTIMATED BLOOD LOSS: negligible FINDINGS: Five 25g fine needle aspirations of isthmus nodule. PLAN: Referring provider to follow up results with patient. documented in this encounter Plan of Treatment Upcoming Encounters Date Type Department Care Team (Latest Contact Info) Description 11/13/2023 8:32 AM EDT Hospital Encounter OR [facility], Operating Room [facility] [address] [place] [id number] Ernesto Ocasio MD [address], [place] [address] 11/13/2023 8:32 AM EDT - 11/13/2023 9:08 AM EDT Surgery OR [facility], Operating Room [facility] [address] [phone] Ernesto Ocasio MD [address] [place] [address] RIGHT EXTRACAPSULAR CATARACT REMOVAL WITH INTRAOCULAR LENS 12/11/2023 2:20 PM EDT Office Visit Family Practice [address], [place] [address] [place] [address] Glenda Garcia DO [address] [facility] [place] [address] 01/09/2024 11:25 AM EDT Office Visit Urogynecology [facility] [address] [facility] [place] [address] Gilmar Jimenes MD [address] [place] [address] Nurse Lencho Beard [facility] [address] [facility] [place] [address] 01/10/2024 3:00 PM EDT Office Visit Nutrition & Weight Management, [facility] [address] [facility] [place], [place] [address] Nicole Samuel PA-C [address] [facility] [place] [address] 01/10/2024 3:50 PM EDT Nutrition Services Nutrition & Weight Management, [facility] [address] [facility] [place] [address] Maci Lehman RDN [address] [facility] [place] [address] 02/29/2024 1:00 PM EDT Imaging Radiology [facility] [address] [facility] [place] [address] 03/03/2024 10:00 AM EDT Telemedicine Pulmonary Medicine, [address] [place] [address] Jair Springer MD [address] [place] [address] 03/03/2024 12:30 PM EDT Office Visit General Surgery, [place] [address] [place] [address] Tung Doyle PA-C [address], [place] [id number] 10/28/2024 11:00 AM EDT Nurse Only Ancillary [address] [place] [address] College, Nurse Annual Wellness Visit [address] [place] [address] Pending Results Name Type Priority Associated Diagnoses Date /Time CYTOLOGY Pathology Routine 11/05/2023 12: 45 PM EDT Scheduled Orders Name Type Priority Associated Diagnoses Orde r Schedule CYTOLOGY Pathology Routine One Time for 1 Occurrences starting 11/05/2023 until 11/05/2023, 1 completed Scheduled Procedures Name Priority Associated Diagnoses Date/Ti me EXTRACAPSULAR CATARACT REMOVAL WITH INTRAOCULAR LENS Combined forms of age-related cataract of right eye 11/13/2023 8:32 AM EDT COLONOSCOPY FLEXIBLE PROXIMAL DIAGNOSTIC Recall History of colon polyps Health Maintenance Due Date Last Done Comments Alpha-1 Antitrypsin 1970 Hepatitis C Screening 1968 DXA Scan 06/19/2024 06/19/2017 Mammogram 09/05/2024 09/05/2023, 08/16, 11/18/2021, Additional history exists GFR 10/18/2024 10/19/2023, 02/13, 02/24/2023, Additional history exists O2 ASSESSMENT COMPLETED IN PAST YEAR FOR COPD 10/29/2024 10/30/2023 Albumin/Creatinine Ratio 08/15/2025 08/15/2022 COLONOSCOPY-EVERY 5 YRS AGES 18-100 11/18/2027 11/17/2022 Lipid Panel 10/18/2028 10/19/2023, 03/16, 09/27/2020, Additional history exists DTaP,Tdap,and Td Vaccines (3 - Td or Tdap) 02/03/2031 02/03/2021, 06/24/2018 Pneumococcal Vaccine: 65+ Years Completed 08/22/2019, 12/04/2017 Zoster Vaccines Completed 10/16/2022, 08/15/2022 Colonoscopy Discontinued 11/17/2022 Colorectal Cancer Screening Discontinued Influenza Vaccine (FLU shot) Completed 04/02/2023, 04/28/2022, 05/05/2020, Additional history exists COVID-19 Vaccine Completed 05/23/2023, , 05/07/2021, Additional history exists Lung Cancer Screening Completed 08/27/2023 , 02/15/2023, 05/11/2022, Additional history exists Cologuard Discontinued Fecal Occult Blood Test Discontinued GARDASIL-HPV IMMUNIZATION SERIES Aged Out No longer eligible based on patient's age to complete this topic Hepatitis B Aged Out No longer eligi ble based on patient's age to complete this topic MENINGOCOCCAL (MENACTRA/MENVEO) Aged Out No longer eligible based on patient's age to complete this topic Sigmoidoscopy Discontinued documented as of this encounter Medical Devices Implanted Type Area Is Consultant Device Identifier Shelf Expiration Date Model / Serial / Lot Lens Li61ao 13.00mm 19.50 - [id number] - [id number] Implanted:Qty: 1 on 10/30/2023 by Ernesto Ocasio MD at OR [facility] Left: Eye BAUSCH & LOMB 07/15/2028 [id number] / [id number] / [id number] documented as of this encounter Procedures Procedure Name Priority Date/Time Associated Diagnosis Comments IR BIOPSY Routine 11/05/2023 1:24 PM EDT Thyroid nodule documented in this encounter Results * IR BIOPSY (11/05/2023 1:24 PM EDT) Anatomical Region Laterality Modality Any Ultrasound 11/05/2023 2:46 PM EDT Impressions 11/05/2023 2:44 PM EDT IMPRESSION: Ultrasound-guided percutaneous thyroid isthmus nodule fine needle aspiration. PLAN: Ordering clinician to follow up results with the patient. Narrative 11/05/2023 2:44 PM EDT PROCEDURE: Ultrasound-guided percutaneous thyroid isthmus nodule fine-needle aspiration. INDICATION: TI-RADS 4 isthmus nodule. ATTENDING (OPERATING PHYSICIAN): Jose Baird MD SCRUBBED RESIDENT (OPERATING PHYSICIAN): None. SUPPORTING PROVIDER (TUBE MOLDER FIBERGLASS): None. CONSENT: After a detailed discussion of the procedure, risks, benefits and alternative treatment options, informed consent was obtained. TIME OUT: A time out procedure was performed. The patient's identification was verified. Informed consent with agreement of procedure, site and position was obtained. All necessary equipment was available prior to procedure. CONTRAST: No contrast administered. COMPLICATIONS: None. ANESTHESIA: Local lidocaine. SEDATION TIME: N/A MEDICATIONS: See MAR PROCEDURE DESCRIPTION: After survey ultrasound images of the neck were performed, the isthmus nodule was studied. Then the access site was selected and prepped and draped in the usual sterile fashion. The skin and deep soft tissues were anesthetized. Under ultrasound guidance 5 fine needle aspiration samples were obtained using 25 gauge spinal needles. Specimens were evaluated by the cytopathologist. All specimen samples were given to the clerk general. Hemostasis was achieved and the site was dressed. The patient tolerated the procedure well. The procedure was performed by Dr. Baird. FINDINGS: Limited survey ultrasound demonstrates solid isthmus nodule. Further imaging shows the needle is seen within the margin of the target. No immediate complication on post biopsy imaging. Procedure Note Jose Baird MD - 11/05/2023 PROCEDURE: Ultrasound-guided percutaneous thyroid isthmus nodule fine-needleaspiration. INDICATION: TI-RADS 4 isthmus nodule. ATTENDING (OPERATING PHYSICIAN): Jose Baird MD SCRUBBED RESIDENT (OPERATING PHYSICIAN): None. SUPPORTING PROVIDER (TUBE MOLDER FIBERGLASS): None. CONSENT: After a detailed discussion of the procedure, risks, benefits andalternative treatment options, informed consent was obtained. TIME OUT: A time out procedure was performed. The patient's identificationwas verified. Informed consent with agreement of procedure, site andposition was obtained. All necessary equipment was available prior toprocedure. CONTRAST: No contrast administered. COMPLICATIONS: None. ANESTHESIA: Local lidocaine. SEDATION TIME: N/A MEDICATIONS: See MAR PROCEDURE DESCRIPTION: After survey ultrasound images of the neck wereperformed, the isthmus nodule was studied. Then the access site wasselected and prepped and draped in the usual sterile fashion. The skin anddeep soft tissues were anesthetized. Under ultrasound guidance 5 fineneedle aspiration samples were obtained using 25 gauge spinal needles.Specimens were evaluated by the cytopathologist. All specimen samples weregiven to the clerk general. Hemostasis was achieved and the site was dressed.The patient tolerated the procedure well. The procedure was performed by Dr. Baird. FINDINGS: Limited survey ultrasound demonstrates solid isthmus nodule. Further imaging shows the needle is seen within the margin of the target.No immediate complication on post biopsy imaging. IMPRESSION IMPRESSION: Ultrasound-guided percutaneous thyroid isthmus nodule fine needleaspiration. PLAN: Ordering clinician to follow up results with the patient. Glenda Garcia DO RAD SPECIAL PROCEDUR ES documented in this encounter Visit Diagnoses Diagnosis Thyroid nodule Nontoxic uninodular goiter Combined forms of age-related cataract of right eye Other and combined forms of senile cataract documented in this encounter Advance Directives Latest Code Status on File Code Status Date Activated Date Inactivated Comments Full Code 10/30/2023 7:31 AM 10/30/2023 2:06 PM This order reflects the patients wishes and were consensually agreed upon. Question Answer Comments Discussion of Advance Directives occurred with: Patient Does the patient have a Living Will? No Does the patient have Health Care Power of [employer] Architect? No Code Status History Code Status Date Activated Date Inactivated Comments Full Code 02/23/2023 12:29 PM 02/25/2023 6:35 [...] Discussed due to patient's condition Care Teams Stock Shaper Relationship Specialty Start Date End Date Glenda Garcia DO [address] [place] [address] PCP - General Family Medicine 08/15/22 documented as of this encounter
--- OUTSIDE RECORDS SUMMARY | 2024-03-29 04:39 | External Medical Summary | Summary of Care ---
Author Name Unknown Organization [facility] Address [address] [place] [place] [address] Phone [phone] Care Team Providers Care Slabber Name Role Phone Glenda Garcia DO Primary Care Provider Reason for Visit * Reason Onset Date Comments Scheduling 11/15/2023 Encounter Details Date Type Department Care Team (Late st Contact Info) Description 11/15/2023 Telephone Family Practice [address], [place] [address] [place] [address] Glenda Garcia DO [address] [place], [place] [phone] Scheduling Allergies Active Allergy Reactions Criticality Noted Date Comments Adhesive Tape Rash Low 02/18/2020 Some adhesive tapes- irritation and rash Bee Venom Edema airway High 01/01/2016 Hornet-edema airway. Other bees-swelling Ciprofloxacin Nausea/vomiting 01/01/2016 Crab Extract High 11/17/2022 Other reaction(s): Vomiting Cephalexin Diarrhea 01/01/2016 documented as of this encounter (statuses as of 11/15/2023) Medications Medication Sig Dispensed Refills Start Date [...] MCG/ACT Inhalation Aerosol Powder Breath Activated (umeclidinium [place])Indications: COPD, mild (HCC) Inhale 1 Puff by [...] morning. 100 Tablet 3 10/05/2023 Active Nystatin 526761 UNIT/GM External CreamIndications:Int ertrigo Apply topically to affected area 2 times a day for two weeks. 30 g 1 10/19/2023 Active Hospital, Clinic, or Other Facility Administered Medication Ordered Dose Route Frequency Start Date End Date Status vitamin b-12 (Cyanocobalamin) inj 1,000 mcgIndications:Intestinal postoperative nonabsorption 1000 mcg IM [id number] 05/09/2023 07/02/20 24 Active documented as of this encounter (statuses as of 11/15/2023) Active Problems Problem Noted Date Diagnosed Date [...] 08/15/2022 Other bipolar disorder 08/15/2022 PAYTON RESEARCH OTHER*[id number] 04/03/2022 Facet arthropathy, lumbar 06/20/2018 Medical marijuana use 05/16/2018 Overview: St 01/2018-[facility]--using oil vape 2/d, lotion apply knees,ankles. Renal [...] Quit 04/02 H/O colonoscopy 04/18/2017 Overview: In [place] -[place] per pt Dyslipidemia, goal LDL below 100 04/18/2017 Venous stasis dermatitis of right lower extremit y 04/18/2017 Uses roller walker 04/18/2017 Encounter for antineoplastic chemotherapy 2016 documented as of this encounter (statuses as of 11/15/2023) Resolved Problems Problem Noted Date Diagnosed Date Resolved Date Body mass index (BMI) of 50. 0 to 59.9 in adult 07/29/2018 05/15/2019 Overview: Per Obesity protocol #1 - - Body mass index (BMI) of 60. 0 to 69.9 in adult 06/24/2018 08/02/2018 Overview: Per Obesity protocol #1 - Calculus of gallbladder with chronic cholecystitis 04/22/2018 05/15/2019 Overview: 05/0268-BU-AxFgqt>Cholelithiasis with a contracted gallbladder. Please correlate with [...] as of this encounter (statuses as of 11/15/2023) Immunizations Name Administration Dates Next Due COVID-19 [...] encounter Miscellaneous Notes * Telephone Encounter - Felicia Ortiz OSA - 11/15/2023 10:47 AM EDT Called patient to schedule Thyroid biopsy. No answer. Left message for patient to return call. documented in this encounter Plan of Treatment Upcoming Encounters Date Type Department Care Team (Late st Contact Info) Description 12/11/2023 2:20 PM EDT Office Visit Family Practice [address] [place] [address] 293 [facility] [place] [address] Glenda Garcia DO 293 [place] [address] 01/09/2024 11:25 AM EDT Office Visit Urogynecology [facility] [address] [place] [address] Gilmar Jimenes MD [address] [place] [address] Nurse Lencho Beard [address] [facility] [place] [address] 01/10/2024 3:00 PM EDT Office Visit Nutrition & Weight Management, [facility] [address] [place] [address] Nicole Samuel PA-C [address] [place] [address] 01/10/2024 3:50 PM EDT Nutrition Services Nutrition & Weight Management, [facility] [address] [place] [address] Maci Lehman RDN 132 [facility] [place] [address] 02/29/2024 1:00 PM EDT Imaging Radiology [address], [place] 132 [facility] [place] [address] 03/03/2024 10:00 AM EDT Telemedicine Pulmonary Medicine, [address] [address] Jair Springer MD [facility] [place] [address] 03/03/2024 12:30 PM EDT Office Visit General Surgery, [place] [address] [place] [address] Tung Doyle PA-C [address] [place] [address] 10/28/2024 11:00 AM EDT Nurse Only Ancillary 65 [facility] [address] [place] [address] College, Nurse Annual Wellness Visit [address] [address] Scheduled Procedures Name Priority Associated Diagnoses Date/Ti [...] this encounter Medical Devices Implanted Type Area Clinical Information Systems Director Device Identifier Shelf Expiration Date Model / Serial / Lot Lens Li61ao 13.00mm 19.50 - [id number] - [id number] Implanted:Qty: 1 on 10/30/2023 by Ernesto Ocasoi MD at OR [facility] Left: Eye [employer]USCH [employer] LOMB 07/15/2028 [id number] / [id number] / [id number] Lens Li61ao 13.00mm 19.50 - [id number] - [id number] Implanted:Qty: 1 on 11/13/2023 by Ernesto Ocasio MD at OR [facility] Right: Eye BAUSCH & LOMB 07/15/2028 [id number] / [id number] / [id number] documented as of this encounter Advance Directives Latest Code Status on File Code Status Date Activated Date Inactivated Comments Full Code 11/13/2023 7:54 AM 11/13/2023 1:33 PM This order reflects the patients wishes and were consensually agreed upon. Question Answer Comments Discussion of Advance Directives occurred with: Patient Does the patient have a Living Will? No Does the patient have Health Care Power of Band Top Maker? No Code Status History Code Status Date Activated Date Inactivated Comments Full Code 10/30/2023 7:31 AM 10/30/2023 2:06 PM This order reflects the patients wishes and were consensually agreed upon. Question Answer Comments Discussion of Advance Directives occurred with: Patient Does the patient have a Living Will? No Does the patient have Health Care Power of Band Top Maker? No Full Code 02/23/2023 12:29 PM 02/25/2023 [...] Discussed due to patient's condition Care Teams Slabber Relationship Specialty Start Date End Date Glenda Garcia DO [address] [place] [address] PCP - General Family Medicine 08/15/22 documented as of this encounter
--- OUTSIDE RECORDS SUMMARY | 2024-03-29 04:39 | External Medical Summary | Summary of Care ---
Author Name Unknown Organization [facility] Address [address] [place] [address] Phone [phone] Care Team Providers Care Lens Inspector Name Role Phone Glenda Garcia DO Primary Care Provider Reason for Visit * Reason Onset Date Comments Scheduling 11/15/2023 Encounter Details Date Type Department Care Team (Late st Contact Info) Description 11/15/2023 Telephone Family Practice [address] [place] [address] [place] [address] Glenda Garcia DO [address] [place], [place] [id number] Scheduling Allergies Active Allergy Reactions Criticality Noted Date Comments Adhesive Tape Rash Low 02/18/2020 Some adhesive tapes- irritation and rash Bee Venom Edema airway High 01/01/2016 Hornet-edema airway. Other bees-swelling Ciprofloxacin Nausea/vomiting 01/01/2016 Crab Extract High 11/17/2022 Other reaction(s): Vomiting Cephalexin Diarrhea 01/01/2016 documented as of this encounter (statuses as of 11/27/2023) Medications Medication Sig Dispensed Refills Start Date [...] MCG/ACT Inhalation Aerosol Powder Breath Activated (umeclidinium Sherman)Indications :COPD, mild (HCC) Inhale 1 Puff by [...] the morning. 100 Tablet 1 07/27/2023 Active Atorvastatin Calcium 40 MG Oral Tablet (Lipitor)Indication s:Dyslipidemia, goal LDL below 100 TAKE ONE TABLET BY MOUTH EVERY MORNING 100 Tablet 0 08/21/2023 Active Additional Information Patient taking differently: Taking at night, Reported on 10/05/2023 Myrbetriq 50 MG Oral Tablet Extended Release 24 Hour (Mirabegron ER)Indications:Urge incontinence Take 1 Tablet by mouth in the morning. 100 Tablet 3 10/05/2023 Active Nystatin 080401 UNIT/GM External CreamIndications:In tertrigo Apply topically to affected area 2 times a day for two weeks. 30 g 1 10/19/2023 Active Escitalopram Oxalate 20 MG Oral Tablet (Lexapro) take 1 tablet by mouth twice a day 180 Tablet 0 08/14/2023 4 Discontinu ed(Medicat ion List Clean Up) lamoTRIgine 200 MG Oral Tablet (LaMICtal) take 1 tablet by mouth every morning and 1 tablet at bedtime 180 Tablet 0 08/14/2023 4 Discontinu ed(Refill) Hospital, Clinic, or Other Facility Administered Medication Ordered Dose Route Frequency Start Date End Date Status vitamin b-12 (Cyanocobalamin) inj 1,000 mcgIndications:Intestinal postoperative nonabsorption 1000 mcg IM [id number] 05/09/2023 07/02/20 24 Active documented as of this encounter (statuses as of 11/27/2023) Active Problems Problem Noted Date Diagnosed Date [...] 08/15/2022 Other bipolar disorder 08/15/2022 PAYTON RESEARCH OTHER*[id number] 04/03/2022 Facet arthropathy, lumbar 06/20/2018 Medical marijuana use 05/16/2018 Overview: St 01/2018-[facility]--using oil vape 2/d, lotion apply knees,ankles. [...] as of this encounter (statuses as of 11/27/2023) Resolved Problems Problem Noted Date Diagnosed Date Resolved Date Body mass index (BMI) of 50. 0 to 59.9 in adult 07/29/2018 05/15/2019 Overview: Per Obesity protocol #1 - - Body mass index (BMI) of 60. 0 to 69.9 in adult 06/24/2018 08/02/2018 Overview: Per Obesity protocol #1 - Calculus of gallbladder with chronic cholecystitis 04/22/2018 05/15/2019 Overview: 05/0294-BL-[id number]>Cholelithiasis with a contracted gallbladder. Please correlate with [...] as of this encounter (statuses as of 11/27/2023) Immunizations Name Administration Dates Next Due COVID-19 [...] encounter Miscellaneous Notes * Telephone Encounter - Cb Gonsalez RN - 11/27/2023 1:17 PM EDT Spoke with patient over the phone to schedule repeat US guided Thyroid Isthmus nodule biopsy, agreed to schedule on 12/05 at 0800 . Pt verbalized understanding of instructions and had no further questions at this time. Patient identified by: name and date of Person taught: Patient METHOD: Lecture-telephone interview PATIENT INSTRUCTIONS GIVEN: - Medication Instructions Reviewed - No food or fluid restrictions prior procedure - Yacht Captain recommended Location and check-in instructions Verbalizes understanding of education: Yes Procedure date at time of Imaging Encounter: 12/05 at 0800 What procedure is patient having? repeat US guided Thyroid Isthmus nodule biopsy Laterality confirmed as Not Applicable Does the patient have a yellow bar? did not The Patient was given the opportunity to ask questions concerning the procedure. Signature: Cb Gonsalez RN 11/27/2023 * Telephone Encounter - Felicia Ortiz OSA - 11/15/2023 10:47 AM EDT Called patient to schedule Thyroid biopsy. No answer. Left message for patient to return call. documented in this encounter Plan of Treatment Upcoming Encounters Date Type Department Care Team (Late st Contact Info) Description 12/11/2023 2:20 PM EDT Office Visit Family Practice [address] [place] [address] [place] [address] Glenda Garcia DO [address] [place] [address] 01/09/2024 11:25 AM EDT Office Visit Urogynecology [facility] [address] [facility] [place] [address] Gilmar Jimenes MD [address] [place] [address] BeardNurse Lencho tom [facility] [address] [facility] [place] [address] 01/10/2024 3:00 PM EDT Office Visit Nutrition & Weight Management, [facility] [address] [place] [address] Nicole Samuel PA-C [address] [place] [address] 01/10/2024 3:50 PM EDT Nutrition Services Nutrition & Weight Management, [facility] [address] [place] [address] Maci Lehman RDN [address] [place] [address] 02/29/2024 1:00 PM EDT Imaging Radiology [facility] [address], [place] [address] [place] [address] 03/03/2024 10:00 AM EDT Telemedicine Pulmonary Medicine, [place] [address] [place] [address] Jair Springer MD [address] [place] [address] 03/03/2024 12:30 PM EDT Office Visit General Surgery, [place] [address] [place] [address] Tung Doyle PA-C [address] [place] [address] 10/28/2024 11:00 AM EDT Nurse Only Ancillary [address] [facility] [address] [place] [address] College, Nurse Annual Wellness Visit [address] [facility] [address] [place] [address] Scheduled Procedures Name Priority Associated Diagnoses Date/Ti [...] this encounter Medical Devices Implanted Type Area Line Tester Device Identifier Shelf Expiration Date Model / Serial / Lot Lens Li61ao 13.00mm 19.50 - [id number] - [id number] Implanted:Qty: 1 on 10/30/2023 by Ernesto Ocasio MD at OR [facility] Left: Eye [employer] 07/15/2028 [id number] / [id number] / [id number] Lens Li61ao 13.00mm 19.50 - [id number] - [id number] Implanted:Qty: 1 on 11/13/2023 by Ernesto Ocasio MD at OR [facility] Right: Eye [employer] 07/15/2028 [id number] / [id number] / [id number] documented as of this encounter Advance Directives [...] the patient have Health Care Power of [place]? No Code Status History Code Status Date Activated Date Inactivated Comments Full Code 10/30/2023 7:31 AM 10/30/2023 2:06 PM This order reflects the patients wishes and were consensually agreed upon. Question Answer Comments Discussion of Advance Directives occurred with: Patient Does the patient have a Living Will? No Does the patient have Health Care Power of [place]? No Full Code 02/23/2023 12:29 PM 02/25/2023 [...] Discussed due to patient's condition Care Teams Lens Inspector Relationship Specialty Start Date End Date Glenda Garcia DO [address] [facility] [place] [address] PCP - General Family Medicine 08/15/22 documented as of this encounter
--- OUTSIDE RECORDS SUMMARY | 2024-03-29 04:39 | External Medical Summary | Summary of Care ---
Author Name Unknown Organization [facility] Address [address] [facility] [place] [address] Phone [phone] Care Team Providers Care Riveting Machine Operator Tape Control Name Role Phone Glenda Garcia DO Primary Care Provider Reason for Visit * Auth/Cert Specialty Diagnoses / Procedures Referred By Tonya t Referred To Contact Diagnoses Combined forms of age-related cataract of left eye Combined forms of age-related cataract of left eye [H25.812] Procedures REMOVE CATARACT, INSERT LENS PROSTH LEFT EXTRACAPSULAR CATARACT REMOVAL WITH INTRAOCULAR LENS Ernesto Ocasio MD [address] [place] [id number] [address] [address] [place] [phone] Referral ID Status Reason Start Date Expiration Date Visits Re quested Visits Authorized [id number] Encounter Details Date Type Department Care Team (Latest Contact Info) Description 10/30/2023 7:28 AM EDT - 10/30/2023 10:01 AM EDT Hospital Encounter [facility], Operating Room [facility] [address] [place] [address] Ernesto Ocasio MD [address] [place] [phone] Discharge Disposition: Home - Self Care Allergies Active Allergy Reactions Criticality Noted Date Comments Adhesive Tape Rash Low 02/18/2020 Some adhesive tapes- irritation and rash Bee Venom Edema airway High 01/01/2016 Hornet-edema airway. Other bees-swelling Ciprofloxacin Nausea/vomiting 01/01/2016 Crab Extract High 11/17/2022 Other reaction(s): Vomiting Cephalexin Diarrhea 01/01/2016 documented as of this encounter (statuses as of 10/30/2023) Medications Medication Sig Dispensed Refills Start Date [...] or Wheezing. 0 08/15/2022 Active Knee BraceIndications:Ac kaibab pain of left knee Wear while mobile [...] mouth daily. 100 Tablet 3 05/29/2023 Active Myrbetriq 25 MG Oral Tablet Extended Release 24 Hour (Mirabegron ER) Take 1 Tablet by mouth in the morning. 100 Tablet 3 07/19/2023 Active Additional Information Patient not taking.Reported on 10/26/2023 Calcium Citrate Chewy Bite 500-12.5 MG-MCG Oral Tablet Chewable (Calcium Citrate-Vitamin D) Take 1 Tablet by mouth 3 times a day. 0 Active Incruse Ellipta 62.5 MCG/ACT Inhalation Aerosol Powder Breath Activated (umeclidinium [place])Indications :COPD, mild (HCC) Inhale 1 Puff by [...] the morning. 100 Tablet 3 10/05/2023 Active Vitamin D (Ergocalciferol) 50 MCG (2000 UT) Oral Capsule Take 1 Capsule by mouth once. 0 4 Discontinu ed(Medicat ion List Clean Up) documented as of this encounter (statuses as of 10/30/2023) Active Problems Problem Noted Date Diagnosed Date [...] 08/15/2022 Other bipolar disorder 08/15/2022 [employer] OTHER*[id number] 04/03/2022 Facet arthropathy, lumbar 06/20/2018 Medical marijuana use 05/16/2018 Overview: [facility] oil vape 2/d, lotion apply knees,ankles. [...] Quit 04/02 H/O colonoscopy 04/18/2017 Overview: In [place] -nl per pt Dyslipidemia, goal LDL below 100 04/18/2017 Venous stasis dermatitis of right lower extremit y 04/18/2017 Uses roller walker 04/18/2017 Encounter for antineoplastic chemotherapy 2016 documented as of this encounter (statuses as of 10/30/2023) Resolved Problems Problem Noted Date Diagnosed Date Resolved Date Body mass index (BMI) of 50. 0 to 59.9 in adult 07/29/2018 05/15/2019 Overview: Per Obesity protocol #1 - - Body mass index (BMI) of 60. 0 to 69.9 in adult 06/24/2018 08/02/2018 Overview: Per Obesity protocol #1 - Calculus of gallbladder with chronic cholecystitis 04/22/2018 05/15/2019 Overview: 05/0247-VV-[id number]>Cholelithiasis with a contracted gallbladder. Please correlate with [...] as of this encounter (statuses as of 10/30/2023) Immunizations Name Administration Dates Next Due COVID-19 [...] Sign Reading Time Taken Comments Blood Pressure 154/66 10/30/2023 9:51 AM EDT Pulse 53 10/30/2023 9:51 AM EDT Temperature 36.4 C (97.5 F) 10/30/2023 9:51 AM ED T Respiratory Rate 16 10/30/2023 9:51 AM EDT Oxygen Saturation 96% 10/30/2023 9:51 AM EDT Inhaled Oxygen Concentration - - Weight 103.4 kg (228 lb) 10/23/2023 1:55 PM EDT Height 168.9 cm (5' 6.5") 10/23/2023 1:55 PM EDT Body Mass Index 36.25 10/23/2023 1:55 PM EDT documented in this encounter Functional [...] Instr - AVS* Ernesto Ocasio MD - 10/25/2023 3:00 PM EDT Discharge Date: 10/30/23 You may call Doctor Ocasio at during [...] school: N/A Follow Up - Return appointment(s): 10/31/23 @11:[address] Casillas See your medical delivery driver in 1day(s). SPECIAL INSTRUCTIONS Remove eye patch [...] DO NOT HESITATE TO CALL US AT [phone] AT ANY TIME IErnesto MD personally performed the services described in this documentation. All medical record entries made by the scribe were at my direction and in my presence. I have reviewed the chart and agree that the record reflects my personal performance and is accurate and complete. Ernesto palma MD. 10/30/2023. 9:34 AM. documented in this encounter Progress Notes * Ernesto Ocasio MD - 10/30/2023 9:38 AM EDT [facility] [address] [place] [address] OUTPATIENT SURGERY DISCHARGE SUMMARY NOTE Name: Yelena Mcclure Location: OR [facility]/OR Date: 10/30/2023 Time: 9:38 AM Surgery Date: 10/30/2023 Procedure: LEFT EXTRACAPSULAR CATARACT REMOVAL WITH INTRAOCULAR LENS Left Surgeon: Ernesto Ocasio MD Discharge Diagnosis: Combined Senile Cataract left eye- H25.812 After examination of this patient, I have determined she is ready for discharge to home when the patient meets criteria. Discharge instructions were given to the patient. Note has been documented by Erica Benavides on 10/30/2023 documented in this encounter H&P Notes * Ernesto Ocasio MD - 10/30/2023 7:33 AM EDT Images from the original note were not included. Office Visit 10/19/2023 Family Practice [address], [place] Glenda Garcia DO Family Medicine Pre-operative clearance [...] marijuana use Z79.899 Facet arthropathy, lumbar M47.816 [employer] OTHER*[id number] Major depressive disorder, recurrent, moderate ([facility]) F33.1 Other bipolar disorder ([facility]) F31.89 COPD, group A, by GOLD 2017 classification ([facility]) J44.9 Class 3 severe obesity due to excess calories with serious comorbidity and body mass index (BMI) of45.0 to 49.9 in adult ([facility]) E66.01, Z68.42 Primary osteoarthritis of one [...] MCG/ACT Inhalation Aerosol Powder Breath Activated (umeclidinium [place]) Inhale 1 Puff by mouth in the [...] Each 0 Vitamin D (Ergocalciferol) 50 MCG (1999 UT) Oral Capsule Take 1 Capsule by [...] performed by Staci Coffey MD at OR [facility] CHEMOTHERAPY 2017 Taxol & Herceptin COLONOSCOPY, DIAGNOSTIC (RECTUM) 11/17/2022 benign adenomatous polyps, diverticulosis, repeat 5 yrs / [facility] EGD, FLEXIBLE, DIAGNOSTIC 04/21/2022 normal bx / [facility] EGD, FLEXIBLE, DIAGNOSTIC N/A 02/23/2023 ESOPHAGOGASTRODUODENOSCOPY (EGD), FLEXIBLE, TRANSORAL, DIAGNOSTIC performed by Sterling Azevedo MD at OR [facility] ERCP 06/28/2018 Choledocholithiasis/[facility] IDENTIFY SENTINEL NODE, RADIOACTIVE TRACER Right 06/20/2016 INJECTION PROCEDURE FOR IDENTIFICATION SENTINEL NODE performed by Staci Coffey MD at OR [facility] IMPLANTABLE ACCESS SYST PERC Right 07/2016 INFORMATION 1960 cyst removed from throat IR EMBOLIZATION UTERINE FIBROID 1975 LAPAROSCOPE PROCEDURE, LIVER N/A 02/23/2023 UNLISTED LAPAROSCOPIC PROCEDURE LIVER performed by Sterling Azevedo MD at [facility] LAPAROSCOPY; CHOLECYSTECTOMY N/A 02/23/2023 LAPAROSCOPIC CHOLECYSTECTOMY performed by Sterling Azevedo MD at [facility] MASTECTOMY, PARTIAL Right 06/20/2016 MASTECTOMY PARTIAL - right performed by Staci Coffey MD at [facility] 06/20/2016 RADIATION THERAPY Right 02/08/2016 6120 cGy REMOVAL OF OVARY(S) 1975 SLEEVE GASTRECTOMY, LAPROSCOPY N/A 02/23/2023 LAPAROSCOPY SLEEVE GASTRECTOMY performed by Sterling Azevedo MD at [facility] SURGICAL REMOVAL, ERUPTED TOOTH AND BONE [...] maximized for OR. (L30.4) Intertrigo Plan: Nystatin [id number] UNIT/GM External Cream Nystatin sent. Pt will [...] encounter. Orders Placed None Medication Changes Nystatin 556217 UNIT/GM Apply topically to affected area 2 times a day for two weeks. Medication List Medications Administered Cyanocobalamin 1000 mcg Visit Diagnoses Pre-operative clearance Other age-related cataract of both eyes Intertrigo Problem List Note has been documented by Erica Benavides on 10/30/2023 * Ernesto Ocasio MD - 10/30/2023 7:33 AM EDT HISTORY & PHYSICAL INTERVAL NOTE [facility] OUT[facility] [place] [address] [place] [address] History and Physical Update: Name: Yelena Mcclure Location: OR [facility]/OR Date: 10/30/2023 Time: 7:33 AM DATE OF HISTORY AND PHYSICAL: 10/19/23 BP: 163 mmHg/75 mmHg (10/30/23747) Pulse: 52 (10/30/23747) Temp: 35.56 C (10/30/23747) Temp Summary: Temp Min: 35.6 C (96 F) Max: 35.6 C (96 F) SpO2: 96 % (10/30/23747) O2 flow rate: Supplemental O2 Delivery: Room Air, None (10/30/23747) Does patient take a beta vinay? No Did patient stop anticoagulants? No Heart Exam: regular rate and rhythm Lung Exam: clear to auscultation bilaterally Other Pertinent Physical Exam: none I have reviewed the H&P previously performed and examined the patient today. There are no new findings noted. documented in this encounter Nursing Notes * Dora Gifford RN - 10/30/2023 10:00 AM EDT picking eye drops up @ discharge. * Dora Gifford RN - 10/30/2023 10:00 AM EDT Patient awake and oriented x3. Denies pain. No drainage from eye noted. Tolerating PO fluids. Discharge instructions given and patient verbalizes understanding. Patient ambulated to private vehicle and discharged to home. * Dora Gifford RN - 10/30/2023 9:36 AM EDT Patient transferred to pacu 2 status post left cataract removal and lens placement. No drainage noted. Patient awake. Denies pain and nausea. Respirations are even and unlabored on room air. Abdomen soft and non distended. Vital signs stable. * Joana Dent RN - 10/30/2023 8:00 AM EDT Surgical consent verified with patient. Patient agrees with listed procedure and verified signature. documented in this encounter OR Notes * OR Surgeon - Ernesto Ocasio MD - 10/30/2023 9:37 AM EDT [facility] [address] [address] OPERATIVE REPORT Name: Yelena Mcclure Date: 10/30/2023 Time: 9:37 AM Location: [facility] Service: Ophthalmology Date of Operation: 10/30/2023 Pre-op Diagnosis: Visually significant combined cataract, left eye Post-op Diagnosis: Same Operative Procedure: Phacoemulsification with posterior chamber intraocular lens implantation, taylor (88111 Standard Cataract) Surgeon: Ernetso Ocasio MD Assistants: None Anesthesia: topical Implant/Graft: 19.5 [id number]; SN: [id number] Complications: none Drains: none Urine Output: minimal [...] has been documented by Erica Benavides on 10/30/2023 documented in this encounter Plan of Treatment Upcoming Encounters Date Type Department Care Team (Latest Contact Info) Description 11/05/2023 12:30 PM EDT Appointment Radiology, [address] [place] [address] 11/13/2023 8:32 AM EDT Hospital Encounter [facility], Operating Room [facility] [address] [place] [phone] Ernesto Ocasio MD [facility] [address] [address] 11/13/2023 8:32 AM EDT - 11/13/2023 9:08 AM EDT Surgery [facility], Operating Room [facility] [address] [place] [phone] Ernesto Ocasio MD [address] [place] [address], [place] [address] RIGHT EXTRACAPSULAR CATARACT REMOVAL WITH INTRAOCULAR LENS 12/11/2023 2:20 PM EDT Office Visit Family Practice [address], [place] [address] [place] [address] Glenda Garcia DO [address] [place] [address] 01/09/2024 11:25 AM EDT Office Visit Urogynecology [facility] [address] [facility] [place] [address] Gilmar Jimenes MD [facility] [place] [address] Nurse Lencho Beard [facility] [address] [place] [address] 01/10/2024 3:00 PM EDT Office Visit Nutrition & Weight Management, [facility] [address] [facility] [place] [address] Nicole Samuel PA-C [address] [facility] [place] [address] 01/10/2024 3:50 PM EDT Nutrition Services Nutrition & Weight Management, [facility] [address] [facility] [place] [address] Maci Lehman RDN [address] [facility] [place] [address] 02/29/2024 1:00 PM EDT Imaging Radiology [facility] [address] [facility] [place] [address] 03/03/2024 10:00 AM EDT Telemedicine Pulmonary Medicine, [place] [address] [place] [address] Jair Springer MD [address] [place] [address] 03/03/2024 12:30 PM EDT Office Visit General Surgery, [place] [address] [place] [address] Tung Doyle PA-C [facility] [place], [place] [id number] 10/28/2024 11:00 AM EDT Nurse Only Ancillary [address] [place] [address] [place] [address] College, Nurse Annual Wellness Visit [address] [address] Scheduled Procedures Name Priority Associated Diagnoses Date/Ti me EXTRACAPSULAR CATARACT REMOVAL WITH INTRAOCULAR LENS Combined forms of age-related cataract of left eye 10/30/2023 8:59 AM EDT EXTRACAPSULAR CATARACT REMOVAL WITH INTRAOCULAR LENS Combined [...] encounter Medical Devices Implanted Type Area Buying Intern Device Identifier Shelf Expiration Date Model / Serial / Lot Lens Li61ao 13.00mm 19.50 - [id number] - [id number] Implanted:Qty: 1 on 10/30/2023 by Ernesto Ocasio MD at [facility] Left: Eye [employer] 07/15/2028 [id number] / [id number] / [id number] documented as of this encounter Administered Medications Inactive Administered Medications - up to 3 most recent administrations Medication Order MAR Action Action Date Dose Rate Site Diclofenac Sodium (Voltaren) 0.1 % ophthalmic solution 1 Drop 1 Drop, Left eye, Q5 MINUTES, First dose on Sun10/30/23 at 0815, Last dose on Sun10/30/23 at 0825, For 3 doses, PRE-OP: One drop to left eye every 5 minutes for 3 doses, Pre-Op Given 10/30/2023 8:09 AM EDT 1 Drop Given 10/30/2023 8:01 AM EDT 1 Drop Given 10/30/2023 7:53 AM EDT 1 Drop isolyte-S pH 7.4 infusion Intravenous, at 100 mL/hr, Plasma-LYTE 148, isolyte-S, and isolyte-S pH 7.4 are considered equivalent - including for MAR barcode scanning., CONTINUOUS, Starting on Sun10/30/23 at 0815, Until Sun10/30/23 at 1401, Pre-Op Restarted 10/30/2023 9:34 AM EDT Continue from Pre-Op 10/30/2023 9:01 AM EDT 100 mL/hr New Bag 10/30/2023 8:01 AM EDT 100 mL/hr proparacaine (Alcaine) 0.5 % ophthalmic solution 1 Drop 1 Drop, Left eye, ONCE, On Sun10/30/23 at 0815, For 1 dose, PRE-OP: 15 minutes prior to scheduled surgery time for 1 dose, Pre-Op Given 10/30/2023 7:53 AM EDT 1 Drop Trimethoprim-Polymyxin B (Polytrim) ophthalmic solution 1 Drop 1 Drop, Left eye, Q5 MINUTES, First dose on Sun10/30/23 at 0815, Last dose on Sun10/30/23 at 0825, For 3 doses, PRE-OP: One drop to left eye every 5 minutes for 3 doses, Pre-Op Given 10/30/2023 8:09 AM EDT 1 Drop Given 10/30/2023 8:02 AM EDT 1 Drop Given 10/30/2023 7:57 AM EDT 1 Drop tropicamide 1%-cyclopentolate 1%-phenylephrine 2.5% ophthalmic solution 1 Drop 1 Drop, Left eye, Q5 MINUTES, First dose on Sun10/30/23 at 0815, Last dose on Sun10/30/23 at 0825, For 3 doses, Pre-Op Given 10/30/2023 8:09 AM EDT 1 Drop Given 10/30/2023 8:01 AM EDT 1 Drop Given 10/30/2023 7:53 AM EDT 1 Drop documented in this encounter Active and Recently Administered Medications Times are shown in EDT. Scheduled Medication Order 10/28/2023 10/29/2023 10/30/2023 Diclofenac Sodium (Voltaren) 0.1 % ophthalmic solution 1 Drop (COMPLETED) 1 Drop, Left eye, Q5 MINUTES, First dose on Sun10/30/23 at 0815, Last dose on Sun10/30/23 at 0825, For 3 doses, PRE-OP: One drop to left eye every 5 minutes for 3 doses, Pre-Op 0753 (Given - Provid er: Joana Dent RN)0801 (Given - Provider: Joana Dent RN)0809 (Given - Provider: Joana Dent RN) Povidone-Iodine (Betadine) 5 % 2 mL syringe ophthalmic solution 1 Drop 1 Drop, Left eye, ONCE, On Sun10/30/23 at 0815, For 1 dose, Pre-Op 0815 (Due) proparacaine (Alcaine) 0.5 % ophthalmic solution 1 Drop (COMPLETED) 1 Drop, Left eye, ONCE, On Sun10/30/23 at 0815, For 1 dose, PRE-OP: 15 minutes prior to scheduled surgery time for 1 dose, Pre-Op 0753 (Given - Provid er: Joana Dent RN) Trimethoprim-Polymyxin B (Polytrim) ophthalmic solution 1 Drop (COMPLETED) 1 Drop, Left eye, Q5 MINUTES, First dose on Sun10/30/23 at 0815, Last dose on Sun10/30/23 at 0825, For 3 doses, PRE-OP: One drop to left eye every 5 minutes for 3 doses, Pre-Op 0757 (Given - Provid er: Joana Dent RN)0802 (Given - Provider: Joana Dent RN)0809 (Given - Provider: Joana eDnt RN) tropicamide 1%-cyclopentolate 1%-phenylephrine 2.5% ophthalmic solution 1 Drop (COMPLETED) 1 Drop, Left eye, Q5 MINUTES, First dose on Sun10/30/23 at 0815, Last dose on Sun10/30/23 at 0825, For 3 doses, Pre-Op 0753 (Given - Provid er: Joana Dent RN)0801 (Given - Provider: Joana Dent RN)0809 (Given - Provider: Joana Dent RN) Continuous Medication Order 10/28/2023 10/29/2023 10/30/2023 isolyte-S pH 7.4 infusion Intravenous, at 100 mL/hr, Plasma-LYTE 148, isolyte-S, and isolyte-S pH 7.4 are considered equivalent - including for MAR barcode scanning., CONTINUOUS, Starting on Sun10/30/23 at 0815, Until Sun10/30/23 at 1401, Pre-Op 0801 (New Bag - Prov ider: Joana Dent RN)09 (Continue from Pre-Op - Provider: Sandra Lei CRNA)0933 (Paused - Provider: Sandra Lei CRNA - Comment: Switch to gravity)0934 (Restarted - Provider: Sandra Lei CRNA) PRN Medication Order 10/28/2023 10/29/2023 10/30/2023 balanced salt solution (Bss) ophthalmic solution (CANCELED) ONCE PRN INTRA PROCEDURE, Starting on Sun10/30/23 at 0925, Until Sun10/30/23 at 0932, Intra-Op 0925 (Given - Provid er: Ernesto Ocasio MD - Comment: qs) DUOVISC inj KIT (CANCELED) ONCE PRN INTRA PROCEDURE, Starting on Sun10/30/23 at 0924, Until Sun10/30/23 at 0932, Intra-Op 0924 (Given - Provid er: Ernesto Ocasio MD - Comment: qs) hydroxypropyl methylcellulose (Ocucoat) 2 % intraocular inj (CANCELED) ONCE PRN INTRA PROCEDURE, Starting on Sun10/30/23 at 0923, Until Sun10/30/23 at 0932, Intra-Op 0923 (Given - Provid er: Ernesto Ocasio MD - Comment: qs) Lidocaine 1 % (PF) inj (CANCELED) ONCE PRN INTRA PROCEDURE, Starting on Sun10/30/23 at 0924, Until Sun10/30/23 at 0932, Intra-Op 0924 (Given - Provid er: Ernesto Ocasio MD - Comment: qs) Moxifloxacin intracameral inj (CANCELED) ONCE PRN INTRA PROCEDURE, Starting on Sun10/30/23 at 0930, Until Sun10/30/23 at 0932, Intra-Op 0932 (Given - Provid er: Ernesto Ocasio MD - Comment: qs; Dr. Ocasio aware of allergy and reaction) prednisoLONE Acetate (Pred Forte) 1 % ophthalmic suspension (CANCELED) ONCE PRN INTRA PROCEDURE, Starting on Sun10/30/23 at 0931, Until Sun10/30/23 at 0932, Intra-Op 0933 (Given - Provid er: Cristal Gomes RN - Comment: qs) Tetracaine (Pontocaine) 0.5 % ophthalmic solution (CANCELED) ONCE PRN INTRA PROCEDURE, Starting on Sun10/30/23 at 0916, Until Sun10/30/23 at 0932, Intra-Op 0916 (Given - Provid er: Cristal Gomes RN - Comment: qs) documented in this encounter Advance Directives Latest Code Status on File Code Status Date Activated Date Inactivated Comments Full Code 10/30/2023 7:31 AM 10/30/2023 2:06 PM This order reflects the patients wishes and were consensually agreed upon. Question Answer Comments Discussion of Advance Directives occurred with: Patient Does the patient have a Living Will? No Does the patient have Health Care Power of Termite Control Technician? No Code Status History Code Status Date [...] Discussed due to patient's condition Care Teams Riveting Machine Operator Tape Control Relationship Specialty Start Date End Date Glenda Garcia DO [address] [place] [address] PCP - General Family Medicine 08/15/22 documented as of this encounter
--- OUTSIDE RECORDS SUMMARY | 2024-03-29 04:39 | External Medical Summary | Summary of Care ---
Author Name Unknown Organization [facility] Address [address] [place] [address] Phone [phone] Care Team Providers Care Technical Solution Architect Name Role Phone Glenda Garcia DO Primary Care Provider [phone] Reason for Referral * Precert (Within 10 days (routine)) - Pending Review Specialty Diagnoses / Procedures Referred By Contgilson t Referred To Contact Radiology Diagnoses Thyroid nodule Procedures IR BIOPSY Glenda Garcia DO [address] [place] [address] Referral ID Status Reason Start Date Expiration Date V isits Requested Visits Authorized [id number] Pending Review 11/14/2023 999 [id number] Reason for Visit * Reason Onset Date Comments Test Results 11/07/202311/06, 11/08, 11/11 Encounter Details Date Type Department Care Team (Late st Contact Info) Description 11/07/2023 Telephone Family Practice [facility] [place] [address] [place] [id number] Glenda Garcia DO [address] [place], [place] [id number] Test Results (11/06, 11/08, 11/11) Allergies Active Allergy Reactions Criticality Noted Date Comments Adhesive Tape Rash Low 02/18/2020 Some adhesive tapes- irritation and rash Bee Venom Edema airway High 01/01/2016 Hornet-edema airway. Other bees-swelling Ciprofloxacin Nausea/vomiting 01/01/2016 Crab Extract High 11/17/2022 Other reaction(s): Vomiting Cephalexin Diarrhea 01/01/2016 documented as of this encounter (statuses as of 12/04/2023) Medications Medication Sig Dispensed Refills Start Date [...] of Breath or Wheezing. 08/15/2022 Active Knee BraceIndications:Ac elise pain of [...] MCG/ACT Inhalation Aerosol Powder Breath Activated (umeclidinium [place])Indications :COPD, mild (HCC) Inhale 1 Puff by [...] morning. 100 Tablet 3 10/05/2023 Active Nystatin [id number] UNIT/GM External CreamIndications:In tertrigo Apply topically to affected area 2 times a day for two weeks. 30 g 1 10/19/2023 Active Escitalopram Oxalate 20 MG Oral Tablet (Lexapro) take 1 tablet by mouth twice a day 180 Tablet 08/14/2023 4 Discontinue d(Medicatio n List Clean Up) lamoTRIgine 200 MG Oral Tablet (LaMICtal) take 1 tablet by mouth every morning and 1 tablet at bedtime 180 Tablet 08/14/2023 4 Discontinue d(Refill) Atorvastatin Calcium 40 MG Oral Tablet (Lipitor)Indication s:Dyslipidemia, goal LDL below 100 TAKE ONE TABLET BY MOUTH EVERY MORNING 100 Tablet 08/21/2023 4 Discontinue d(Refill) Hospital, Clinic, or Other Facility Administered Medication Ordered Dose Route Frequency Start Date End Date Status vitamin b-12 (Cyanocobalamin) inj 1,000 mcgIndications:Intestinal postoperative nonabsorption 1000 mcg IM [id number] 05/09/2023 07/02/20 24 Active documented as of this encounter (statuses as of 12/04/2023) Active Problems Problem Noted Date Diagnosed Date [...] 08/15/2022 Other bipolar disorder 08/15/2022 [employer] OTHER*[id number] 04/03/2022 Facet arthropathy, lumbar 06/20/2018 Medical marijuana use 05/16/2018 Overview: 01/2018-[facility]--using oil vape 2/d, lotion apply [...] as of this encounter (statuses as of 12/04/2023) Resolved Problems Problem Noted Date Diagnosed Date Resolved Date Body mass index (BMI) of 50. 0 to 59.9 in adult 07/29/2018 05/15/2019 Overview: Per Obesity protocol #1 - - Body mass index (BMI) of 60. 0 to 69.9 in adult 06/24/2018 08/02/2018 Overview: Per Obesity protocol #1 - Calculus of gallbladder with chronic cholecystitis 04/22/2018 05/15/2019 Overview: 05/0225-OO-XjWikz>Cholelithiasis with a contracted gallbladder. Please correlate with [...] as of this encounter (statuses as of 12/04/2023) Immunizations Name Administration Dates Next Due COVID-19 [...] Telephone Encounter - Rita Gomes OSA - 12/04/2023 7:55 AM EDT Pt scheduled 524 thru dept * Telephone Encounter - Rita Gomes OSA - 11/14/2023 4:13 PM EDT Pt will be contacted by IR to schedule this appt. They triage first. * Telephone Encounter - Glenda Garcia DO - 11/14/2023 2:03 PM EDT Order signed. * Telephone Encounter - Yelena Kay LPN - 11/12/2023 3:49 PM EDT Patient is aware and will comply. Please place referral for IR, will be having cataract surgery tomorrow Please schedule next week. Thank you * Telephone Encounter - Juliann Lezama LPN - 11/12/2023 3:30 PM EDT Return call placed to patient - no answer. Message left to return call. * Telephone Encounter - Rita Gomes OSA - 11/12/2023 3:24 PM EDT Patient returning our call. Pt states somehow she has our number programmed to go straight to voicemail so she may not hear when you return the call.. * Telephone Encounter - Juliann Lezama LPN - 11/12/2023 1:52 PM EDT Call placed to patient - no answer. Message left to return call to [phone]. * Telephone Encounter - Rita Farrell OSA - 11/12/2023 1:49 PM EDT Returned call * Telephone Encounter - Yelena Kay LPN - 11/12/2023 10:05 AM EDT Called, left message for patient to return call. Sent my iConText message. Thank you * Telephone Encounter - Yelena Kay LPN - 11/09/2023 1:43 PM EDT Called, left message for patient to return call. Thank you * Telephone Encounter - Rahul Saige, LPN - 11/08/2023 2:25 PM EDT Called, left message for patient to return call. Once patient has been made aware, will ask Dr Garcia to place order and assist with scheduling. Thank you * Telephone Encounter - Glenda Garcia DO - 11/07/2023 2:19 PM EDT Please let pt know: The biopsy was not adequate enough to get a clear diagnosis. We will contact IR to see if they can repeat. Sometimes this occurs with these thyroid nodules. Please call to see if IR will repeat the biopsy as the cytology showed the specimen was inadequate. documented in this encounter Plan of Treatment Upcoming Encounters Date Type Department Care Team (Late st Contact Info) Description 12/06/2023 8:00 AM EDT Appointment Radiology, [address] [address] 12/11/2023 2:20 PM EDT Office Visit Family Practice 65 [facility] [address] [place] [address] Glenda Garcia DO [address] [place] [address] 01/09/2024 11:25 AM EDT Office Visit Urogynecology Billy Beard [address] [facility] [place] [address] Gilmar Jimenes MD [address] [place] [address] Nurse Lencho Beard [address] [place] [address] 01/10/2024 3:00 PM EDT Office Visit Nutrition & Weight Management, [facility] [address] [facility] [place] [address] Nicole Samuel PA-C [address] [facility] [place] [address] 01/10/2024 3:50 PM EDT Nutrition Services Nutrition & Weight Management, [facility] [address] [facility] [place] [address] Maci Lehman RDN [facility] [address] 02/29/2024 1:00 PM EDT Imaging Radiology [facility] [address] [facility] [place] [address] 03/03/2024 10:00 AM EDT Telemedicine Pulmonary Medicine, [place] [address] [place] [address] Jair Springer MD [address] [place] [address] 03/03/2024 12:30 PM EDT Office Visit General Surgery, [place] [address] [place] [address] Tung Doyle PA-C [address], [place] [id number] 10/28/2024 11:00 AM EDT Nurse Only Ancillary 65 [facility] [place] [address] [place] [address] College, Nurse Annual Wellness Visit [address] [place] [address] Scheduled Orders Name Type Priority Associated Diagnoses Orde r Schedule IR BIOPSY Medical Imaging Routine Thyroid nodule Expected: 11/14/2023, Expires: 12/14/2024 Scheduled Procedures Name Priority Associated Diagnoses Date/Ti me COLONOSCOPY FLEXIBLE PROXIMAL DIAGNOSTIC Recall History of colon polyps Health Maintenance Due Date Last Done Comments Alpha-1 Antitrypsin 1970 Hepatitis C Screening 1970 Cologuard 1997 Fecal Occult Blood Test 1997 Sigmoidoscopy 1997 COVID-19 Vaccine (2022- season) 2023 05/23/2023, 05/08/2022, 05/07/2021, Additional history [...] this encounter Medical Devices Implanted Type Area Burn Out Scarfing Operator Device Identifier Shelf Expiration Date Model / Serial / Lot Lens Li61ao 13.00mm 19.50 - [id number] - [id number] Implanted:Qty: 1 on 10/30/2023 by Ernesto Ocasio MD at OR [facility] Left: Eye [employer] 07/15/2028 [id number] / [id number] / [id number] Lens Li61ao 13.00mm 19.50 - [id number] - [id number] Implanted:Qty: 1 on 11/13/2023 by Ernesto Ocasio MD at OR [facility] Right: Eye [employer] 07/15/2028 [id number] / [id number] / [id number] documented as of this encounter Visit Diagnoses [...] Discussed due to patient's condition Care Teams Technical Solution Architect Relationship Specialty Start Date End Date Glenda Garcia DO [address] [facility] [place] [address] PCP - General Family Medicine 08/15/22 documented as of this encounter
--- NOTE | 2024-03-29 05:43 | Emergency Department Note ---
ED Visit Note CHIEF COMPLAINT: Ankle pain HISTORY OF PRESENT ILLNESS: This 73-year-old patient presents to the emergency department with family after sustaining an injury to the right ankle and foot with a twisting, inversion motion tripping over a hose. The patient complains of pain over the entire ankle. The patient denies pain of the foot. The patie nt rates the pain as throbbing and 7/10. The patient is not able to bear weight on the foot. Constant pain, worse with movement, weight bearing, and the dependent position. No knee pain, the patient is able to move their toes. No numbness or weakness of the foot, no laceration. The patient has not had a previous fracture to this ankle. The patient has taken Tylenol for the pain. The patient denies any other injury. REVIEW OF SYSTEMS: A 6 system review of systems was completed with positives and pertinent negatives listed in the HPI. ALLERGIES: Reviewed from nursing note MEDICATIONS: Reviewed from nursing note PMH: Reviewed from nursing note SOCIAL HISTORY: Reviewed from nursing note PHYSICAL EXAM: Vital Signs: Reviewed Nurse's notes, vital signs stable. GENERAL: Pleasant patient, no acute distress, but appears in pain, well- developed, well-nourished. MENTAL STATUS: Alert, oriented to person place and time, and cooperative. MUSCULOSKELETAL: The right ankle is swollen and tender over the medial and lateral malleolus, but the skin is intact and there is no ligamentous instability. There is no fifth metatarsal tenderness. There is no tenderness over the rest of the foot. There is tibia/fibular tenderness. There is no visual deformity. The foot and toes are warm and well-perfused. Dorsalis pedis pulse 2+. Sensation to pain and light touch is intact. Capillary refill less than 2 seconds. EMERGENCY DEPARTMENT COURSE: I examined the patient. Patient was given Tylenol. X-rays of the tib-fib and ankle were reviewed by myself and concerning for medial malleolus fracture. Stirrup and posterior Ortho-Glass splint was applied to the ankle under my direction and the position was satisfactory. Neurovascular status was rechecked and intact. Patient states she cannot go home as she has steps. Consultation: Medicine was consulted case discussed. Patient will be admitted to the medical service. Differential diagnosis includes sprain, strain, fracture, dislocation and other etiologies were considered. DIAGNOSIS: Right ankle fracture The chart was completed utilizing Dragon Speech voice recognition software. Grammatical errors, random word insertions, pronoun errors, and incomplete sentences are an occassional consequence of this system due to software limitations, ambient noise, and hardware issues. Any formal questions or c oncerns about the content, text, or information contained within the body of this dictation should be directly addressed to the physician metallurgical laboratory assistant for clarification. .
[2024-03-29] MEDS: ACETAMINOPHEN 500 MG TAB PO STA (05:48)
--- NOTE | 2024-03-29 08:23 | History & Physical Report ---
Date of Service March 29, 2024 Assessment & Plan (1) Ankle fracture: Plan: 73-year-old female with past medical history significant for hypothyroidism, hyperlipidemia, COPD, obstructive sleep apnea on BiPAP, hypertension, bilateral varicose veins of leg, venous stasis dermatitis, obesity, intestinal postoperative nonobstruction, urinary incontinence, osteoarthritis, bipolar disease chronic, narcolepsy, tobacco use disorder, comes because of fall and found to have right ankle fracture. Patient states yesterday later in the day she fell as she stepped over a hose. It took some time to get up. After getting up she ambulated with a cane into the house and laid down on the recliner. And she also has a rollator walker. She was sitting on rollator walker and scooting over the house. Was having difficulty going to the bathroom. And she decided come to the ER and imaging studies shows right ankle fracture. S/p splint in the ER. Patient states that she did not hit her head. No loss of consciousness. No headache. Vision is okay. Has some runny nose from her allergies. No cough. No fevers. No chest pain or shortness of breath. Currently no nausea. No abdominal pain. Hemodynamics are okay. Status post fall Right ankle fracture S/p splint in ER Pain control Consult orthopedics PT OT when stable Hypertension On amlodipine and lisinopril Will monitor. Hyperlipidemia On statin. History of COPD Continue home inhalers Obstructive sleep apnea On BiPAP nightly Narcolepsy On modafinil Hypothyroidism Seems not on meds Will follow TSH Bipolar disease Depression On Lamictal and Lexapro DVT prophylaxis Lovenox if no procedures planned Disposition Medical floor Full code History of Present Illness Chief Complaint: Status post fall and right ankle fracture Primary Care Provider: Glenda Garcia DO 73-year-old female with past medical history significant for hypothyroidism, hyperlipidemia, COPD, obstructive sleep apnea on BiPAP, hypertension, bilateral varicose veins of leg, venous stasis dermatitis, obesity, intestinal postoperative nonobstruction, urinary incontinence, osteoarthritis, bipolar disease chronic, narcolepsy, tobacco use disorder, comes because of fall and found to have right ankle fracture. Patient states yesterday later in the day she fell as she stepped over a hose. It took some time to get up. After getting up she ambulated with a cane into the house and laid down on the recliner. And she also has a rollator walker. She was sitting on rollator walker and scooting over the house. Was having difficulty going to the bathroom. And she decided come to the ER and imaging studies shows right ankle fracture. S/p splint in the ER. Patient states that she did not hit her head. No loss of consciousness. No headache. Vision is okay. Has some runny nose from her allergies. No cough. No fevers. No chest pain or shortness of breath. Currently no nausea. No abdominal pain. Hemodynamics are okay. Past medical history. As mentioned above. Past surgical history. Right breast biopsy. Biopsy of the right axilla lymph n ode. Colonoscopy and EGD. Status post ERCP for choledocholithiasis. Cyst removed throat. IR biopsy. IR embolization of uterine fibroid. Laparoscopic procedure liver. Laparoscopic cholecystectomy. Right partial mastectomy. Radiation therapy. Removal of ovaries. Bilateral cataracts. Laparoscopic sleeve gastrectomy. Surgical removal of ruptured tooth. Umbilical hernia repair. Social history. Quit smoking in 2022. Smoked 1 pack/day for 35 years. Alcohol occasional. Uses medical marijuana as per [employer]. Family history. Mother had arthritis. Stroke. Varicose veins. Vascular dem entia. Father had Parkinson's. Varicose veins. CAD .CABG. Allergies Allergy/AdvReac Type Severity Reaction Status Date / Time bee venom protein (honey bee) Allergy Severe swelling, Verified 10/16/23 14:00 cephalexin Allergy Intermediate diarrhea, Verified 10/16/23 14:00 "out of it" ciprofloxacin Allergy Intermediate feels Verified 10/16/23 14:00 faint,SEVERE DIARRHEA crab Allergy Intermediate Vomiting Verified 10/16/23 14:00 adhesive Allergy Mild SKIN Verified 10/16/23 14:00 IRRITATION Home Medications Medication Instructions Recorded Confirmed Type albuterol sulfate 90 mcg/actuation 2 puff inhalation Q6H PRN 03/29/24 03/29/24 History aerosol inhaler Shortness Of Breath Or Wheezing amlodipine 5 mg tablet 10 mg PO DAILY 03/29/24 03/29/24 History atorvastatin 40 mg tablet 40 mg PO DAILY 03/29/24 03/29/24 History azelastine 137 mcg (0.1 %) nasal 1 spray intranasal BID 03/29/24 03/29/24 History spray escitalopram oxalate 20 mg tablet 20 mg PO DAILY 03/29/24 03/29/24 History lamotrigine 200 mg tablet 200 mg PO BID 03/29/24 03/29/24 History lisinopril 40 mg tablet 40 mg PO DAILY 03/29/24 03/29/24 History mirabegron 50 mg tablet,extended 50 mg PO DAILY 03/29/24 03/29/24 History release 24 hr (Myrbetriq) modafinil 200 mg tablet 200 mg PO DAILY 03/29/24 03/29/24 History montelukast 10 mg tablet 10 mg PO DAILY 03/29/24 03/29/24 History solifenacin 5 mg tablet 5 mg PO DAILY 03/29/24 03/29/24 History umeclidinium 62.5 mcg/actuation 1 inh inhalation DAILY 03/29/24 03/29/24 History blister powder for inhalation (Incruse Ellipta) Past Med/Surg History Problem List (Updated 03/29/24 @ 05:44 by Cheri Figueroa PA-C) Ankle fracture (Acute) Colon cancer screening High cholesterol (Chronic) Stress incontinence (Chronic) Morbid obesity (Chronic) Choledocholithiasis (Chronic) Chronic low back pain (Chronic) Severe obstructive sleep apnea Nocturnal hypoxemia Urge incontinence COPD exacerbation (Acute) Pre-op exam Hypertension (Chronic) Hypothyroid (Chronic) Medical cannabis use (Chronic) PAtient uses for chronic pain and anxiety in the form of a vap "about 4 times per day". 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) Chronic obstructive pulmonary disease (Chronic) controlled w/ inhalers Seasonal allergies (Chronic) Medical History Morbid obesity with BMI of 45.0-49.9, adult Sleep apnea Hyperlipidemia Narcolepsy due to underlying condition without cataplexy Arthritis Sciatica Depression Anxiety Medical cannabis use Seasonal allergies Chronic obstructive pulmonary disease Hypothyroid Hypertension Breast cancer (05/10/16) Surgical History Hx of colonoscopy History of esophagogastroduodenoscopy (EGD) Hx of removal of neck cyst Hx of oophorectomy History of herniorrhaphy Hx of partial mastectomy Family History Father Heart disease Other No family history of adverse response to anesthesia Social History Smoking Status: Former smoker Tobacco Type: Cigarettes Cigarettes Per Day: 10 a day (advised on policy); Second Hand Exposure: No; Do You Dip or Chew Tobacco: No; Hx Alcohol Use: No Hx Substance Use: Yes (daily use- vapes - ADVISED) Substance Use Type Other:: Medical Marijuana Preferred Language: [place] Communication Ability: Effective Visual Impairment: No Limitations Hearing Ability: Normal Binder Technician Required: No Beliefs That Will Affect Care: None marital status: Current Living Situation: Significant Other current occupational status: retired Feels Safe at Home: Yes Assistive Devices: BiPap Review of Systems Review of Systems: All systems reviewed & are unremarkable except as noted in HPI & below Physical Exam Physical Exam: General- Not in distress. Head- atraumatic ENT- oropharynx clear Neck- supple, no JVD. Lungs- clear to auscultation no wheezing or crackles Heart- regular rate and rhythm; no murmur, no gallop. Abdomen- normal bowel sounds, soft, nontender, no distension Extremities- Right lower extremity in splint Neuro- alert, oriented ; no facial palsy; no dysarthria; obeys simple commands Results & Data Results & Data Vital Signs (Past 12 Hours) Vital Signs Temp Pulse Pulse Resp BP BP Pulse Ox 03/29/24 07:00 86 16 140/67 99 03/29/24 04:41 36.7 C 60 20 152/81 H 97 O2 Del Method 03/29/24 07:00 03/29/24 04:41 Room Air Code Status & VTE Plan VTE Prophylaxis Plan VTE Prophylaxis will be ordered: Yes (1) Ankle fracture Encounter type: initial encounter Fracture type: closed Laterality: right Qualified Code(s): S82.891A - Other fracture of right lower leg, initial encounter for closed fracture
--- NOTE | 2024-03-29 08:32 | XRay Report ---
XR ankle RT min 3V routine CLINICAL HISTORY: pain TECHNIQUE: 3 views of the right ankle were obtained. Comparison: None available at the time of this dictation. FINDINGS: There is a fracture of the medial malleolus. Degenerative changes are seen. Apparent irregularity of the talus is degenerative with pes planus deformity. Soft tissue swelling is seen about the ankle. IMPRESSION: Fracture of the medial malleolus . There is degenerative changes and soft tissue swelling. ACT 112: Negative or not required by law. Electronically signed by: Yamil Rose M.D. 03/29/2024 8:29 AM
[2024-03-29] MEDS ORDERED: POLYETHYLENE (MIRALAX) 17 GM PACK PO PRN (09:17)
[2024-03-29] MEDS ORDERED: HYDROmorphone INJ 0.5 MG/0.5 ML SYR IV PRN (09:17)
[2024-03-29] MEDS ORDERED: ALBUTEROL HFA 8 GM INHALER INH PRN (09:17)
[2024-03-29 10:07] LABS: Basophils # (auto) 0.05 K/uL (0.00-0.20); Basophils % (auto) 0.6 %; Eosinophils % (auto) 3.3 %; Hematocrit (blood only) 38.3 % (37.0-47.0); Hemoglobin 13.1 g/dl (12.0-16.0); Immature Granulocytes # (auto) 0.02 K/uL (0.01-0.20); Immature Granulocytes % (auto) 0.2 %; Lymphocytes % (auto) 18.7 %; Mean Corpuscular Hemoglobin 32.2 pg (25.0-34.0); Mean Corpuscular Hgb Conc 34.2 g/dL (32.0-36.0); Mean Corpuscular Volume 94.1 fL (80.0-100.0); Mean Platelet Volume 9.4 fL (9.4-12.4); Monocytes # (auto) 0.96 K/uL (0.11-0.59); Monocytes % (auto) 10.6 %; Neutrophils # (auto) 6.04 K/uL (1.40-6.50); Neutrophils % (auto) 66.6 %; Platelet Count 183 K/uL (130-400); RDW Coefficient of Variation 12.5 % (11.5-14.5); RDW Standard Deviation 43.1 fL (36.4-46.3); Red Blood Count 4.07 M/uL (4.20-5.40); White Blood Count 9.07 K/ul (4.8-10.8)
[2024-03-29 10:20] LABS: Albumin Globulin Ratio 1.3 (0.9-2); Albumin Level 4.2 gm/dl (3.4-5.0); BUN Creatinine Ratio 24.7 (10-20); Bilirubin,Total 1.3 mg/dl (0.2-1.0); Calcium 9.6 mg/dl (8.6-10.3); Est GFR (African American) 84.7 ml/min; Est GFR (Non-African American) 73.1 ml/min; Globulin 3.3 gm/dl (2.5-4.0); Magnesium 1.8 mg/dl (1.7-2.4); Potassium 3.7 mmol/L (3.5-5.1); Total Protein 7.5 gm/dl (6.0-8.3)
--- NOTE | 2024-03-29 10:25 | XRay Report ---
XR tibia fibula RT 2V CLINICAL HISTORY: fall, pain TECHNIQUE: 2 radiographic views of the right leg were obtained. Comparison: None available at the time of this dictation. FINDINGS: There is no evidence of an acute fracture. Osteophyte formation and joint space narrowing is seen. No soft tissue abnormality is seen. IMPRESSION: Degenerative changes are seen. No fracture of the tibial or fibular shaft is seen. Please see ankle r adiograph for findings of medial malleolus fracture. ACT 112: Negative or not required by law. Electronically signed by: Yamil Rose M.D. 03/29/2024 10:23 AM
[2024-03-29 10:35] LABS: Thyroid Stimulating Hormone 3.854 uIu/ml (0.300-4.500)
[2024-03-29] MEDS: MONTELUKAST SODIUM 10 MG TABLET PO SCH (10:48)
[2024-03-29] MEDS: lisinopril 40 MG TAB PO SCH (10:48)
[2024-03-29] MEDS: lamoTRIgine 100 MG TAB PO SCH (10:48)
[2024-03-29] MEDS: VIBEGRON 75 MG TAB PO SCH (10:48)
[2024-03-29] MEDS: OXYBUTYNIN CHLORIDE XL 5 MG TABCR PO SCH (10:48)
[2024-03-29] MEDS: SODIUM CHLORIDE 0.9% 1,000 ML IV SCH (10:49)
[2024-03-29] MEDS: ESCITALOPRAM OXALATE 20 MG TAB PO SCH ×2 (10:49→20:43)
[2024-03-29] MEDS: UMECLIDINIUM BROMIDE 62.5MCG/BLISTER 7 PUFFS/INHALER INH SCH (10:49)
[2024-03-29] MEDS: amLODIPine BESYLATE 5 MG TAB PO SCH (10:49)
[2024-03-29] MEDS: AZELASTINE HCL 0.1% NASAL 200 SPRAYS/27,400 MCG BTL SCH (10:50)
[2024-03-29] MEDS: modafiniL 100 MG TAB PO SCH (10:52)
[2024-03-29] MEDS: ACETAMINOPHEN 325 MG TAB PO PRN (11:02)
[2024-03-29] MEDS: ATORVASTATIN 40 MG TAB PO SCH ×2 (11:05→20:42)
--- NOTE | 2024-03-29 12:32 | Communication Note ---
Date of Service: March 29, 2024 evaluated patient at bedside denies any acute concerns and states pain is controlled Exam revealed RLE in splint, motor sensation intact #Right medial malleolus fracture #Mechanical Fall Accidental fall, no preceding symptoms--trip over a "garden hose" -Pending ortho consult -Continue analgesia prn #Hx of Hypothyroidism Normal TSH on admission #Bipolar disorder #Depression Resume home medication rest of plan per HP
[2024-03-29] MEDS: oxyCODONE HCL IR 5 MG TAB (IMMEDIATE RELEASE) PO PRN (14:12)
[2024-03-29] MEDS ORDERED: ESCITALOPRAM OXALATE 20 MG TAB PO SCH (20:30)
--- NOTE | 2024-03-29 23:18 | Orthopedic Consultation ---
Date of Consultation March 29, 2024 Assessment & Plan (1) Ankle fracture: The patient was educated regarding today's findings. Conservative care measures were discussed. Option of surgical intervention versus casting was reviewed. Casting was recommended, and the patient is in agreement. A short leg fiberglass cast was placed by Dr. Young. Neurovascular status was checked before and after cast placement. Cast care precautions were reviewed with the patient. She will be strict nonweightbearing on the right leg. She may require placement after her hospital stay. Start PT/OT tomorrow with walker training. Continue with ice and elevation of the ankle to reduce pain and swelling. C ontinue oral pain medication as needed. She does not need to be n.p.o. after midnight, as no surgical intervention is warranted. Call the office at [phone] for follow-up appointment in 1 week with pictures in the cast. Supervising Physician Co-Signing Physician Notes I saw and examined the patient, reviewed her imaging studies, applied her cast, formulated the plan and performed the substantive portion of the visit. Agree with above note. History of Present Illness Reason for Consultation: Right ankle fracture Attending Physician: Tanya Kirby MD History of Present Illness This 73-year-old female with a history of elevated cholesterol, stress incontinence, morbid obesity, chronic low back pain, obstructive sleep apnea, COPD, hypertension, hypothyroidism, anxiety, depression, osteoarthritis, and breast cancer, is seen tonight in her room, for evaluation of her right ankle. The patient states yesterday she tripped on a hose and fell, injuring her right ankle. She was unable to bear weight. She reported to the ED today for evaluation. Radiographic imaging there found a nondisplaced medial malleolus fracture. The patient was admitted for further care given her inability to ambulate and care for herself. She denies any prior history of significant ankle injury. Her only previous fracture was a thumb. She denies any numbness or tingling. She has known osteoarthritis as well as significant pes planus bilaterally. Allergies Allergy/AdvReac Type Severity Reaction Status Date / Time bee venom protein (honey bee) Allergy Severe swelling, Verified 10/16/23 14:00 cephalexin Allergy Intermediate diarrhea, Verified 10/16/23 14:00 "out of it" ciprofloxacin Allergy Intermediate feels Verified 10/16/23 14:00 faint,SEVERE DIARRHEA crab Allergy Intermediate Vomiting Verified 10/16/23 14:00 adhesive Allergy Mild SKIN Verified 10/16/23 14:00 IRRITATION Home Medications Medication Instructions Recorded Confirmed Type albuterol sulfate 90 mcg/actuation 2 puff inhalation Q6H PRN 03/29/24 03/29/24 History aerosol inhaler Shortness Of Breath Or Wheezing amlodipine 5 mg tablet 10 mg PO DAILY 03/29/24 03/29/24 History atorvastatin 40 mg tablet 40 mg PO DAILY 03/29/24 03/29/24 History azelastine 137 mcg (0.1 %) nasal 1 spray intranasal BID 03/29/24 03/29/24 History spray escitalopram oxalate 20 mg tablet 20 mg PO BID 03/29/24 03/29/24 History lamotrigine 200 mg tablet 200 mg PO BID 03/29/24 03/29/24 History lisinopril 40 mg tablet 40 mg PO DAILY 03/29/24 03/29/24 History mirabegron 50 mg tablet,extended 50 mg PO DAILY 03/29/24 03/29/24 History release 24 hr (Myrbetriq) modafinil 200 mg tablet 200 mg PO DAILY 03/29/24 03/29/24 History montelukast 10 mg tablet 10 mg PO DAILY 03/29/24 03/29/24 History solifenacin 5 mg tablet 5 mg PO DAILY 03/29/24 03/29/24 History umeclidinium 62.5 mcg/actuation 1 inh inhalation DAILY 03/29/24 03/29/24 History blister powder for inhalation (Incruse Ellipta) Patient History Medical History Morbid obesity with BMI of 45.0-49.9, adult Sleep apnea bi pap Hyperlipidemia Sciatica Surgical History Hx of colonoscopy History of esophagogastroduodenoscopy (EGD) last 04/2022 @ [facility] Hx of removal of neck cyst as child Hx of oophorectomy fibroids History of herniorrhaphy Hx of partial mastectomy right- chemo and radiation following Family History Father Heart disease Other No family history of adverse response to anesthesia Social History Smoking Status: Former smoker Tobacco Type: Cigarettes Cigarettes Per Day: 10 a day (advised on policy); Second Hand Exposure: No; Do You Dip or Chew Tobacco: No; Tobacco Cessation Education Requested by Patient: No Hx Alcohol Use: Yes Alcohol type: wine Alcohol type Comment: occassionally Hx Substance Use: Yes Last Used Substance: Days (ago) Last Used Substance Other:: Last night 2100 Substance Use Type Other:: Medical Marijuana Preferred Language: Slovak Communication Ability: Effective Visual Impairment: No Limitations Hearing Ability: Normal Certified Drug Counselor Required: No Beliefs That Will Affect Care: None marital status: Current Living Situation: Alone current occupational status: retired Other Information That Helps Us Care for You: No Feels Safe at Home: Yes Safety Concerns: Feels Safe At This Time Assistive Devices: Cane Review of Systems Review of Systems: All systems reviewed & are unremarkable except as noted in Subjective Physical Exam Physical Exam: General: Well-developed, elderly female, in no acute distress. Laying in bed. Alert and oriented. Skin: Warm and dry with fair turgor. No rashes. Venous stasis changes are present in her right lower extremity. No significant edema or ecchymosis yet from her injury. No pitting edema. No open wounds. Musculoskeletal: Right ankle evaluation reveals visible osteoarthritic changes and significant pes planus of the foot. She has focal discomfort with palpation over the medial malleolus. No significant pain with palpation over the proximal tibia or fibula, lateral malleolus, calcaneus, midfoot, or forefoot. She is fairly good range of motion of the ankle despite her ankle fracture. She has palpable crepitus at the knee with motion. Motor function of the toes is intact and unremarkable. Achilles tendon is palpated through its entirety and found to be intact and without defect. Neurologic: Gross sensation is intact across all aspects of the right lower leg and foot by soft touch. Peripheral pulses are 2+. Results & Data Vital Signs (Past 12 Hours) Vital Signs Temp Pulse Pulse Resp BP Pulse Ox O2 Del Method 03/29/24 21:00 60 22 93 03/29/24 20:00 37 C 58 L 20 126/67 94 Room Air 03/29/24 14:08 36.8 C 66 18 150/70 H 92 Room Air Diagnostic Findings Radiographic imaging previous obtained was reviewed. She has a minimally displaced medial malleolus fracture. No additional fractures are identified. She has osteoarthritic changes of the ankle joint, and specifically of the anterior talus. Pes planus is noted on the lateral film. (1) Ankle fracture Encounter type: initial encounter Fracture type: closed Laterality: right Qualified Code(s): S82.891A - Other fracture of right lower leg, initial encounter for closed fracture
--- NOTE | 2024-03-30 11:50 | Hospitalist Progress Note ---
Date of Service March 30, 2024 Assessment & Plan (1) Ankle fracture: Plan: Ms. Garcia is a 73-year-old female with past medical history significant for hypothyroidism, hyperlipidemia, COPD, obstructive sleep apnea on BiPAP, hypertension, bilateral varicose veins of leg, venous stasis dermatitis, obesity, intestinal postoperative nonobstruction, urinary incontinence, osteoarthritis, bipolar disease chronic, narcolepsy, tobacco use disorder admitted 03/29 after mechanical fall. Patient with right ankle fracture. Ortho evaluated 03/29, cast in place with planned PT/OT and no further surgical intervention. #Mechanical fall c/b Right ankle fracture Ortho evaluated -No surgery indicated -Casted on 03/29 -PT/OT -1 week follow up for imaging Pain control #Hypertension On amlodipine and lisinopril Will monitor. #Hyperlipidemia On statin. #History of COPD Continue home inhalers #Obstructive sleep apnea On BiPAP nightly #Narcolepsy On modafinil #Prioe Hypothyroidism tsh wnl #Bipolar disease Depression On Lamictal and Lexapro DVT prophylaxis Lovenox Disposition Medical floor Full code Admission and Anticipated Discharge Date Admission Date: March 29, 2024 Subjective NAEO Right ankle casted overnight with NWB patient denies any acute concerns and realizes she might required rehab Physical Exam Constitutional: WD/WN, vitals as above Respiratory: normal respiratory effort, lungs clear to auscultation Cardiovascular: RRR, no murmur, no edema Musculoskeletal: RLE in hard cast, sensation motor intact Results & Data Results & Data Vital Signs (Past 12 Hours) Vital Signs Temp Pulse Pulse Resp BP Pulse Ox O2 Del Method 03/30/24 08:00 36.9 C 60 18 139/74 92 Room Air 03/30/24 07:35 Room Air, CPAP 03/30/24 03:40 60 22 92 Medications Administered Home Medications Medication Instructions Recorded Confirmed Last Taken albuterol sulfate 90 mcg/actuation 2 puff inhalation Q6H PRN 03/29/24 03/29/24 Unknown aerosol inhaler Shortness Of Breath Or Wheezing amlodipine 5 mg tablet 10 mg PO DAILY 03/29/24 03/29/24 Unknown atorvastatin 40 mg tablet 40 mg PO DAILY 03/29/24 03/29/24 Unknown azelastine 137 mcg (0.1 %) nasal 1 spray intranasal BID 03/29/24 03/29/24 Unknown spray escitalopram oxalate 20 mg tablet 20 mg PO BID 03/29/24 03/29/24 Unknown lamotrigine 200 mg tablet 200 mg PO BID 03/29/24 03/29/24 Unknown lisinopril 40 mg tablet 40 mg PO DAILY 03/29/24 03/29/24 Unknown mirabegron 50 mg tablet,extended 50 mg PO DAILY 03/29/24 03/29/24 Unknown release 24 hr (Myrbetriq) modafinil 200 mg tablet 200 mg PO DAILY 03/29/24 03/29/24 Unknown montelukast 10 mg tablet 10 mg PO DAILY 03/29/24 03/29/24 Unknown solifenacin 5 mg tablet 5 mg PO DAILY 03/29/24 03/29/24 Unknown umeclidinium 62.5 mcg/actuation 1 inh inhalation DAILY 03/29/24 03/29/24 Unknown blister powder for inhalation (Incruse Ellipta) Active Medications Generic Name Dose Route Start Last Admin Trade Name Freq PRN Reason Stop Dose Admin Acetaminophen 650 mg 03/29/24 09:17 03/30/24 09:10 Acetaminophen 325 Mg Tab PO 04/28/24 09:16 650 mg Q4H PRN Administration pain/fever Amlodipine Besylate 10 mg 03/29/24 09:17 03/30/24 09:07 Amlodipine Besylate 5 Mg Tab PO 04/28/24 09:16 10 mg DAILY KERRY Administration Atorvastatin Calcium 40 mg 03/29/24 21:00 03/29/24 20:42 Atorvastatin 40 Mg Tab PO 04/28/24 20:59 40 mg QPM KERRY Administration Azelastine HCl 1 sprays 03/29/24 09:17 03/30/24 09:08 Azelastine Hcl 0.1% Nasal 200 Sprays/27,400 Mcg Btl NA 04/28/24 09:16 1 sprays BID KERRY Administration Escitalopram Oxalate 20 mg 03/29/24 21:00 03/29/24 20:43 Escitalopram Oxalate 20 Mg Tab PO 04/28/24 20:59 20 mg BID KERRY Administration Lamotrigine 200 mg 03/29/24 09:17 03/30/24 09:06 Lamotrigine 100 Mg Tab PO 04/28/24 09:16 200 mg BID KERRY Administration Protocol Lisinopril 40 mg 03/29/24 09:17 03/30/24 09:07 Lisinopril 40 Mg Tab PO 04/28/24 09:16 40 mg DAILY KERRY Administration Modafinil 200 mg 03/29/24 10:00 03/30/24 09:10 Modafinil 100 Mg Tab PO 04/28/24 09:59 200 mg DAILY KERRY Administration Montelukast Sodium 10 mg 03/29/24 09:45 03/30/24 09:06 Montelukast Sodium 10 Mg Tablet PO 04/28/24 09:44 10 mg DAILY KERRY Administration Oxybutynin Chloride 5 mg 03/29/24 09:45 03/30/24 09:07 Oxybutynin Chloride Xl 5 Mg Tabcr PO 04/28/24 09:44 5 mg DAILY KERRY Administration Oxycodone HCl 5 mg 03/29/24 09:17 03/29/24 20:50 Oxycodone Hcl Ir 5 Mg Tab (Immediate Release) PO 04/12/24 09:16 5 mg Q6H PRN Administration Moderate Pain (Scale 4, 5, 6) Umeclidinium [place] 1 puffs 03/29/24 09:45 03/30/24 09:08 Umeclidinium [place] 62.5mcg/Blister 7 Puffs/Inhaler INH 04/28/24 09:44 1 puffs DAILY KERRY Administration Vibegron 75 mg 03/29/24 09:45 03/29/24 10:48 Vibegron 75 Mg Tab PO 04/28/24 09:44 75 mg DAILY KERRY Administration (1) Ankle fracture Encounter type: initial encounter Fracture type: closed Laterality: right Qualified Code(s): S82.891A - Other fracture of right lower leg, initial encounter for closed fracture
[2024-03-30] MEDS: FEXOFENADINE 60 MG TAB PO ONE (14:00)
[2024-03-30] MEDS: ENOXAPARIN INJ 40 MG/0.4 ML SYR SQ SCH (14:01)
[2024-03-31] MEDS: diphenhydrAMINE Capsule 25 MG CAP PO ONE ×2 (00:26→14:37)
[2024-03-31 07:05] LABS: Hematocrit (blood only) 38.2 % (37.0-47.0); Hemoglobin 12.6 g/dl (12.0-16.0); Mean Corpuscular Hemoglobin 31.4 pg (25.0-34.0); Mean Corpuscular Volume 95.3 fL (80.0-100.0); Mean Platelet Volume 9.9 fL (9.4-12.4); Platelet Count 180 K/uL (130-400); RDW Coefficient of Variation 12.5 % (11.5-14.5); RDW Standard Deviation 43.4 fL (36.4-46.3); Red Blood Count 4.01 M/uL (4.20-5.40); White Blood Count 7.25 K/ul (4.8-10.8)
[2024-03-31 07:28] LABS: BUN Creatinine Ratio 25.6 (10-20); Calcium 9.3 mg/dl (8.6-10.3); Creatinine Clr Calc Pharmacy 75.4 ml/min; Est GFR (African American) 78.8 ml/min; Potassium 3.8 mmol/L (3.5-5.1)
[2024-03-31] MEDS: FEXOFENADINE HCL 180 MG TAB PO SCH (07:57)
--- NOTE | 2024-03-31 09:14 | Orthopedic Progress Note ---
Date of Service March 31, 2024 Assessment & Plan (1) Medial malleolar fracture: Plan: The patient was educated regarding today's findings. Conservative care measures were discussed. Continue with ice and elevation to reduce pain and swelling. New imaging of the ankle was ordered for today to assess her fracture stability and to be sure there was no displacement during casting. Continue nonweightbearing status on the right leg. She has worked with PT for transfers. She may continue PT. Follow-up in the office on Sunday for imaging in the cast. We will continue to follow while admitted. Admission and Anticipated Discharge Date Admission Date: March 29, 2024 Subjective This 73-year-old female seen today in her room. She is 2 days status post casting of a nondisplaced medial malleolus fracture. She has no complaints this morning. There is minimal pain. She states the ezwrap gel pack is improving her comfort. Physical Exam Physical Exam: General: Well-developed, well-nourished, elderly female, in no acute distress. Laying in bed. Alert and oriented. Skin: Warm dry with good turgor. There is a short leg cast present on her right lower extremity. Examination of the ivory reveals no areas of abrasion or e cchymosis. She has no ecchymosis or edema in her toes. Musculoskeletal: The patient has intact motor function of her knee and toes. Crepitus is palpable and audible with motion of the knee. Neurologic: Gross sensation is intact across each of the toes of the right foot by soft touch. Capillary refill is equal for each of the digits. Results & Data Vital Signs (Past 12 Hours) Vital Signs Temp Pulse Pulse Resp BP Pulse Ox O2 Del Method 03/31/24 07:10 36.6 C 80 18 143/73 H 93 Room Air 03/30/24 22:45 65 19 94 Laboratory Results CBC obtained this morning shows a white count of 7.25. H&H of 12.6 and 38.2. Electrolytes are unremarkable. (1) Medial malleolar fracture Encounter type: subsequent encounter Fracture alignment: nondisplaced Fracture type: closed Laterality: right
--- NOTE | 2024-03-31 12:04 | XRay Report ---
XR ankle RT min 3V routine HISTORY: 73 years-old Female in cast, post application imaging COMPARISON: 03/29/2024 TECHNIQUE: 3 views of the right ankle FINDINGS: Status post reduction and casting of the acute medial malleolar fracture with unchanged alignment. Fi ne bony detail is limited secondary to cast material. There is persistent soft tissue swelling. Demin eralized appearance of the bones with osteoarthritis. IMPRESSION: Unchanged alignment of the acute medial malleolar fracture status post reduction and cast ing. ACT 112: Negative or not required by law. The above report was generated using voice recognition software. It may contain grammatical, syntax o r spelling errors. Electronically signed by: Ilya Tobar M.D. 03/31/2024 12:02 PM
--- NOTE | 2024-03-31 16:20 | Hospitalist Progress Note ---
Date of Service March 31, 2024 Assessment & Plan (1) Ankle fracture: Plan: Ms. Garcia is a 73-year-old female with past medical history significant for hypothyroidism, hyperlipidemia, COPD, obstructive sleep apnea on BiPAP, hypertension, bilateral varicose veins of leg, venous stasis dermatitis, obesity, intestinal postoperative nonobstruction, urinary incontinence, osteoarthritis, bipolar disease chronic, narcolepsy, tobacco use disorder admitted 03/29 after mechanical fall. Patient with right ankle fracture. Ortho evaluated 03/29, cast in place with planned PT/OT and no further surgical intervention. Pending placement #Mechanical fall c/b Right ankle fracture Ortho evaluated -No surgery indicated -Casted on 03/29 -PT/OT -1 week follow up for imaging Pain control #Hypertension On amlodipine and lisinopril Will monitor. #Hyperlipidemia On statin. #History of COPD Continue home inhalers #Obstructive sleep apnea On BiPAP nightly #Narcolepsy On modafinil #Prioe Hypothyroidism tsh wnl #Bipolar disease Depression On Lamictal and Lexapro DVT prophylaxis Lovenox Disposition Medical floor Full code Admission and Anticipated Discharge Date Admission Date: March 29, 2024 Subjective NAEO Reports feeling well and pain controlled on current regimen States itching in cast is aggrevating, but otherwise no other concerns Physical Exam Constitutional: WD/WN, vitals as above Cardiovascular: RRR, no murmur, no edema Chest (Breasts): normal inspection/palpation of breasts Gastrointestinal (Abdomen): normal bowel sounds, soft, nontender, no hepatosplenomegaly Results & Data Results & Data Vital Signs (Past 12 Hours) Vital Signs Temp Pulse Resp BP Pulse Ox O2 Del Method 03/31/24 15:44 37.3 C 65 16 110/62 95 Room Air 03/31/24 07:10 36.6 C 80 18 143/73 H 93 Room Air Laboratory Results Short CBC 03/31/24 Range/Units 06:04 WBC 7.25 (4.8-10.8) K/ul Hgb 12.6 (12.0-16.0) g/dl Hct 38.2 (37.0-47.0) % Plt Count 180 (130-400) K/uL BMP 03/31/24 06:04 Sodium 143 Potassium 3.8 Chloride 106 Carbon Dioxide 33 H BUN 22 Creatinine 0.86 Glucose 89 Calcium 9.3 Medications Administered Home Medications Medication Instructions Recorded Confirmed Last Taken albuterol sulfate 90 mcg/actuation 2 puff inhalation Q6H PRN 03/29/24 03/29/24 Unknown aerosol inhaler Shortness Of Breath Or Wheezing amlodipine 5 mg tablet 10 mg PO DAILY 03/29/24 03/29/24 Unknown atorvastatin 40 mg tablet 40 mg PO DAILY 03/29/24 03/29/24 Unknown azelastine 137 mcg (0.1 %) nasal 1 spray intranasal BID 03/29/24 03/29/24 Unknown spray escitalopram oxalate 20 mg tablet 20 mg PO BID 03/29/24 03/29/24 Unknown lamotrigine 200 mg tablet 200 mg PO BID 03/29/24 03/29/24 Unknown lisinopril 40 mg tablet 40 mg PO DAILY 03/29/24 03/29/24 Unknown mirabegron 50 mg tablet,extended 50 mg PO DAILY 03/29/24 03/29/24 Unknown release 24 hr (Myrbetriq) modafinil 200 mg tablet 200 mg PO DAILY 03/29/24 03/29/24 Unknown montelukast 10 mg tablet 10 mg PO DAILY 03/29/24 03/29/24 Unknown solifenacin 5 mg tablet 5 mg PO DAILY 03/29/24 03/29/24 Unknown umeclidinium 62.5 mcg/actuation 1 inh inhalation DAILY 03/29/24 03/29/24 Unknown blister powder for inhalation (Incruse Ellipta) Active Medications Generic Name Dose Route Start Last Admin Trade Name Freq PRN Reason Stop Dose Admin Acetaminophen 650 mg 03/29/24 09:17 03/30/24 20:08 Acetaminophen 325 Mg Tab PO 04/28/24 09:16 650 mg Q4H PRN Administration pain/fever Amlodipine Besylate 10 mg 03/29/24 09:17 03/31/24 07:57 Amlodipine Besylate 5 Mg Tab PO 04/28/24 09:16 10 mg DAILY KERRY Administration Atorvastatin Calcium 40 mg 03/29/24 21:00 03/30/24 20:04 Atorvastatin 40 Mg Tab PO 04/28/24 20:59 40 mg QPM KERRY Administration Azelastine HCl 1 sprays 03/29/24 09:17 03/31/24 07:56 Azelastine Hcl 0.1% Nasal 200 Sprays/27,400 Mcg Btl NA 04/28/24 09:16 1 sprays BID KERRY Administration Enoxaparin Sodium 40 mg 03/30/24 12:00 03/31/24 07:57 Enoxaparin Inj 40 Mg/0.4 Ml Syr SQ 04/29/24 11:59 40 mg QAM KERRY Administration Escitalopram Oxalate 20 mg 03/29/24 21:00 03/31/24 07:56 Escitalopram Oxalate 20 Mg Tab PO 04/28/24 20:59 20 mg BID KERRY Administration Fexofenadine HCl 180 mg 03/31/24 09:00 03/31/24 07:57 Fexofenadine Hcl 180 Mg Tab PO 04/30/24 08:59 180 mg QAM KERRY Administration Lamotrigine 200 mg 03/29/24 09:17 03/31/24 07:56 Lamotrigine 100 Mg Tab PO 04/28/24 09:16 200 mg BID KERRY Administration Protocol Lisinopril 40 mg 03/29/24 09:17 03/31/24 07:56 Lisinopril 40 Mg Tab PO 04/28/24 09:16 40 mg DAILY KERRY Administration Modafinil 200 mg 03/29/24 10:00 03/31/24 07:59 Modafinil 100 Mg Tab PO 04/28/24 09:59 200 mg DAILY KERRY Administration Montelukast Sodium 10 mg 03/29/24 09:45 03/31/24 07:56 Montelukast Sodium 10 Mg Tablet PO 04/28/24 09:44 10 mg DAILY KERRY Administration Oxybutynin Chloride 5 mg 03/29/24 09:45 03/31/24 07:56 Oxybutynin Chloride Xl 5 Mg Tabcr PO 04/28/24 09:44 5 mg DAILY KERRY Administration Oxycodone HCl 5 mg 03/29/24 09:17 03/31/24 13:09 Oxycodone Hcl Ir 5 Mg Tab (Immediate Release) PO 04/12/24 09:16 5 mg Q6H PRN Administration Moderate Pain (Scale 4, 5, 6) Umeclidinium [place] 1 puffs 03/29/24 09:45 03/31/24 07:55 Umeclidinium [place] 62.5mcg/Blister 7 Puffs/Inhaler INH 04/28/24 09:44 1 puffs DAILY KERRY Administration Vibegron 75 mg 03/29/24 09:45 03/31/24 07:57 Vibegron 75 Mg Tab PO 04/28/24 09:44 75 mg DAILY KERRY Administration (1) Ankle fracture Encounter type: initial encounter Fracture type: closed Laterality: right Qualified Code(s): S82.891A - Other fracture of right lower leg, initial encounter for closed fracture
[2024-03-31] MEDS ORDERED: diphenhydrAMINE Capsule 25 MG CAP PO PRN (16:22)
--- NOTE | 2024-04-01 05:17 | Electrocardiogram Report ---
Test Reason : Blood Pressure : */* mmHG Vent. Rate : 66 BPM Atrial Rate : 66 BPM P-R Int : 196 ms QRS Dur : 80 ms QT Int : 408 ms P-R-T Axes : 80 66 30 degrees QTcB Int : 427 ms Poor data quality, interpretation may be adversely affected Normal sinus rhythm Normal ECG When compared with ECG of 30-Sep-2021 09:29, No significant change was found Confirmed by Yoan Louise ([id number]) on 04/01/2024 5:17:36 AM Referred By: REFERRED SELF Confirmed By: Yoan Louise
--- NOTE | 2024-04-01 10:08 | Orthopedic Progress Note ---
Date of Service April 01, 2024 Assessment & Plan (1) Medial malleolar fracture: Plan: The patient was educated regarding today's findings. Conservative care measures were discussed. Continue with ice and elevation to reduce pain and swelling. Continue nonweightbearing status on the right leg. She has worked with PT for transfers. She may continue PT. Follow-up in the office on Sunday for imaging in the cast. Will need placement in a rehab facility. We will continue to follow while admitted. Admission and Anticipated Discharge Date Admission Date: March 29, 2024 Subjective This 73-year-old female is seen today for follow-up of a right medial malleolus fracture being treated conservatively with casting. She states that her cast is fairly comfortable. She states she is able to lift her leg. She states she currently lives on her own and understands that she will need to go to a rehab facility. She states that upon discharge she will most likely stay with her boyfriend. Currently she denies chest pain, shortness of breath, fever, chills, sweats, nausea, vomiting, diarrhea or difficulty voiding. She is currently nonweightbearing on the right lower extremity. Review of Systems Review of Systems: All systems reviewed & are unremarkable except as noted in Subjective Physical Exam Physical Exam: Right lower extremity: Cast is clean dry and intact left in place. Patient is able to perform active straight leg raise test. She is able to detect light sensation to touch over the pads of all digits. She is able to actively extend her knee to 0 degrees and flex beyond 90 degrees. Patient is neurovascularly intact. Results & Data Vital Signs (Past 12 Hours) Vital Signs Temp Pulse Pulse Resp BP Pulse Ox O2 Del Method 04/01/24 07:20 36.6 C 57 L 18 126/72 96 Room Air 04/01/24 04:06 19 94 03/31/24 23:14 65 23 95 FiO2 04/01/24 07:20 04/01/24 04:06 21 03/31/24 23:14 21 Diagnostic Findings Laboratory Results WBC 7.25 K/ul (4.8-10.8) 03/31/24 06:04 RBC 4.01 M/uL (4.20-5.40) L 03/31/24 06:04 Hgb 12.6 g/dl (12.0-16.0) 03/31/24 06:04 Hct 38.2 % (37.0-47.0) 03/31/24 06:04 MCV 95.3 fL (80.0-100.0) 03/31/24 06:04 MCH 31.4 pg (25.0-34.0) 03/31/24 06:04 MCHC 33.0 g/dL (32.0-36.0) 03/31/24 06:04 RDW Std Deviation 43.4 fL (36.4-46.3) 03/31/24 06:04 RDW Coeff of [place] 12.5 % (11.5-14.5) 03/31/24 06:04 Plt Count 180 K/uL (130-400) 03/31/24 06:04 MPV 9.9 fL (9.4-12.4) 03/31/24 06:04 Immature Gran % (Auto) 0.2 % 03/29/24 09:39 Neut % (Auto) 66.6 % 03/29/24 09:39 Lymph % (Auto) 18.7 % 03/29/24 09:39 [place] % (Auto) 10.6 % 03/29/24 09:39 Eos % (Auto) 3.3 % 03/29/24 09:39 Baso % (Auto) 0.6 % 03/29/24 09:39 Neut # (Auto) 6.04 K/uL (1.40-6.50) 03/29/24 09:39 Lymph # (Auto) 1.70 K/uL (1.20-3.40) 03/29/24 09:39 [place] # (Auto) 0.96 K/uL (0.11-0.59) H 03/29/24 09:39 Eos # (Auto) 0.30 K/uL (0.00-0.50) 03/29/24 09:39 Baso # (Auto) 0.05 K/uL (0.00-0.20) 03/29/24 09:39 Immature Gran # (Auto) 0.02 K/uL (0.01-0.20) 03/29/24 09:39 Sodium 143 mmol/L (136-145) 03/31/24 06:04 Potassium 3.8 mmol/L (3.5-5.1) 03/31/24 06:04 Chloride 106 mmol/L (98-107) 03/31/24 06:04 Carbon Dioxide 33 mmol/L (21-32) H 03/31/24 06:04 Anion Gap 4 (3-11) 03/31/24 06:04 BUN 22 mg/dl (6-23) 03/31/24 06:04 Creatinine 0.86 mg/dl (0.6-1.2) 03/31/24 06:04 Est Cr Clr Drug Dosing 75.4 ml/min 03/31/24 06:04 Est GFR ( Amer) 78.8 ml/min 03/31/24 06:04 Est GFR (Non-Af Amer) 68.0 ml/min 03/31/24 06:04 BUN/Creatinine Ratio 25.6 (10-20) H 03/31/24 06:04 Glucose 89 mg/dl (70-99(Fasting)) 03/31/24 06:04 Calcium 9.3 mg/dl (8.6-10.3) 03/31/24 06:04 Magnesium 1.8 mg/dl (1.7-2.4) 03/29/24 09:39 Total Bilirubin 1.3 mg/dl (0.2-1.0) H 03/29/24 09:39 AST 33 U/L (13-39) 03/29/24 09:39 ALT 38 U/L (7-52) 03/29/24 09:39 Alkaline Phosphatase 74 U/L (34-104) 03/29/24 09:39 Total Protein 7.5 gm/dl (6.0-8.3) 03/29/24 09:39 Albumin 4.2 gm/dl (3.4-5.0) 03/29/24 09:39 Globulin 3.3 gm/dl (2.5-4.0) 03/29/24 09:39 Albumin/Globulin Ratio 1.3 (0.9-2) 03/29/24 09:39 TSH 3.854 uIu/ml (0.300-4.500) 03/29/24 09:39 Impressions Tibia/Fibula X-Ray 03/29/24 05:28 XR tibia fibula RT 2V CLINICAL HISTORY: fall, pain TECHNIQUE: 2 radiographic views of the right leg were obtained. Comparison: None available at the time of this dictation. FINDINGS: There is no evidence of an acute fracture. Osteophyte formation and joint space narrowing is seen. No soft tissue abnormality is seen. IMPRESSION: Degenerative changes are seen. No fracture of the tibial or fibular shaft is seen. Please see ankle radiograph for findings of medial malleolus fracture. ACT 112: Negative or not required by law. Electronically signed by: Yamil Rose M.D. 03/29/2024 10:23 AM Ankle X-Ray 03/31/24 09:11 XR ankle RT min 3V routine HISTORY: 73 years-old Female in cast, post application imaging COMPARISON: 03/29/2024 TECHNIQUE: 3 views of the right ankle FINDINGS: Status post reduction and casting of the acute medial malleolar fracture with unchanged alignment. Fine bony detail is limited secondary to cast material. There is persistent soft tissue swelling. Demineralized appearance of the bones with osteoarthritis. IMPRESSION: Unchanged alignment of the acute medial malleolar fracture status post reduction and casting. ACT 112: Negative or not required by law. The above report was generated using voice recognition software. It may contain grammatical, syntax or spelling errors. Electronically signed by: Ilya Tobar M.D. 03/31/2024 12:02 PM (1) Medial malleolar fracture Encounter type: subsequent encounter Fracture type: closed Fracture alignment: nondisplaced Laterality: right
--- NOTE | 2024-04-01 12:25 | Hospitalist Progress Note ---
Date of Service April 01, 2024 Assessment & Plan (1) Ankle fracture: Plan: Ms. Garcia is a 73-year-old female with past medical history significant for hypothyroidism, hyperlipidemia, COPD, obstructive sleep apnea on BiPAP, hypertension, bilateral varicose veins of leg, venous stasis dermatitis, obesity, intestinal postoperative nonobstruction, urinary incontinence, osteoarthritis, bipolar disease chronic, narcolepsy, tobacco use disorder admitted 03/29 after mechanical fall. Patient with right ankle fracture. Ortho evaluated 03/29, cast in place with planned PT/OT and no further surgical intervention. Pending placement #Mechanical fall c/b Right ankle fracture Ortho evaluated -No surgery indicated -Casted on 03/29 -PT/OT: [facility], SNF pending -1 week follow up for imaging with ortho Pain control prn #Hypertension On amlodipine and lisinopril Will monitor. #Hyperlipidemia On statin. #History of COPD Continue home inhalers #Obstructive sleep apnea On BiPAP nightly #Narcolepsy On modafinil #Prioe Hypothyroidism tsh wnl #Bipolar disease Depression On Lamictal and Lexapro DVT prophylaxis Lovenox Disposition Medical floor Full code Admission and Anticipated Discharge Date Admission Date: March 29, 2024 Subjective Patient is doing well overall. She states her pain is controlled and she otherw ise is stable outside of intermittent itching She denies any new concerns Physical Exam Constitutional: WD/WN, vitals as above Respiratory: normal respiratory effort, lungs clear to auscultation Cardiovascular: RRR, no murmur, no edema Musculoskeletal: RLE in hard cast, motor and sensation in tact of digits Results & Data Results & Data Vital Signs (Past 12 Hours) Vital Signs Temp Pulse Resp BP Pulse Ox O2 Del Method FiO2 04/01/24 07:20 36.6 C 57 L 18 126/72 96 Room Air 04/01/24 04:06 19 94 21 Medications Administered Home Medications Medication Instructions Recorded Confirmed Last Taken albuterol sulfate 90 mcg/actuation 2 puff inhalation Q6H PRN 03/29/24 03/29/24 Unknown aerosol inhaler Shortness Of Breath Or Wheezing amlodipine 5 mg tablet 10 mg PO DAILY 03/29/24 03/29/24 Unknown atorvastatin 40 mg tablet 40 mg PO DAILY 03/29/24 03/29/24 Unknown azelastine 137 mcg (0.1 %) nasal 1 spray intranasal BID 03/29/24 03/29/24 Unknown spray escitalopram oxalate 20 mg tablet 20 mg PO BID 03/29/24 03/29/24 Unknown lamotrigine 200 mg tablet 200 mg PO BID 03/29/24 03/29/24 Unknown lisinopril 40 mg tablet 40 mg PO DAILY 03/29/24 03/29/24 Unknown mirabegron 50 mg tablet,extended 50 mg PO DAILY 03/29/24 03/29/24 Unknown release 24 hr (Myrbetriq) modafinil 200 mg tablet 200 mg PO DAILY 03/29/24 03/29/24 Unknown montelukast 10 mg tablet 10 mg PO DAILY 03/29/24 03/29/24 Unknown solifenacin 5 mg tablet 5 mg PO DAILY 03/29/24 03/29/24 Unknown umeclidinium 62.5 mcg/actuation 1 inh inhalation DAILY 03/29/24 03/29/24 Unknown blister powder for inhalation (Incruse Ellipta) Active Medications Generic Name Dose Route Start Last Admin Trade Name Freq PRN Reason Stop Dose Admin Acetaminophen 650 mg 03/29/24 09:17 03/30/24 20:08 Acetaminophen 325 Mg Tab PO 04/28/24 09:16 650 mg Q4H PRN Administration pain/fever Amlodipine Besylate 10 mg 03/29/24 09:17 04/01/24 08:28 Amlodipine Besylate 5 Mg Tab PO 04/28/24 09:16 10 mg DAILY KERRY Administration Atorvastatin Calcium 40 mg 03/29/24 21:00 03/31/24 21:05 Atorvastatin 40 Mg Tab PO 04/28/24 20:59 40 mg QPM KERRY Administration Azelastine HCl 1 sprays 03/29/24 09:17 04/01/24 10:45 Azelastine Hcl 0.1% Nasal 200 Sprays/27,400 Mcg Btl NA 04/28/24 09:16 1 sprays BID KERRY Administration Enoxaparin Sodium 40 mg 03/30/24 12:00 04/01/24 08:27 Enoxaparin Inj 40 Mg/0.4 Ml Syr SQ 04/29/24 11:59 40 mg QAM KERRY Administration Escitalopram Oxalate 20 mg 03/29/24 21:00 04/01/24 10:45 Escitalopram Oxalate 20 Mg Tab PO 04/28/24 20:59 20 mg BID KERRY Administration Fexofenadine HCl 180 mg 03/31/24 09:00 04/01/24 08:28 Fexofenadine Hcl 180 Mg Tab PO 04/30/24 08:59 180 mg QAM KERRY Administration Lamotrigine 200 mg 03/29/24 09:17 04/01/24 10:45 Lamotrigine 100 Mg Tab PO 04/28/24 09:16 200 mg BID KERRY Administration Protocol Lisinopril 40 mg 03/29/24 09:17 04/01/24 08:28 Lisinopril 40 Mg Tab PO 04/28/24 09:16 40 mg DAILY KERRY Administration Modafinil 200 mg 03/29/24 10:00 04/01/24 10:44 Modafinil 100 Mg Tab PO 04/28/24 09:59 200 mg DAILY KERRY Administration Montelukast Sodium 10 mg 03/29/24 09:45 04/01/24 08:28 Montelukast Sodium 10 Mg Tablet PO 04/28/24 09:44 10 mg DAILY KERRY Administration Oxybutynin Chloride 5 mg 03/29/24 09:45 04/01/24 08:28 Oxybutynin Chloride Xl 5 Mg Tabcr PO 04/28/24 09:44 5 mg DAILY KERRY Administration Oxycodone HCl 5 mg 03/29/24 09:17 03/31/24 13:09 Oxycodone Hcl Ir 5 Mg Tab (Immediate Release) PO 04/12/24 09:16 5 mg Q6H PRN Administration Moderate Pain (Scale 4, 5, 6) Umeclidinium [place] 1 puffs 03/29/24 09:45 04/01/24 08:30 Umeclidinium [place] 62.5mcg/Blister 7 Puffs/Inhaler INH 04/28/24 09:44 1 puffs DAILY KERRY Administration Vibegron 75 mg 03/29/24 09:45 04/01/24 08:28 Vibegron 75 Mg Tab PO 04/28/24 09:44 75 mg DAILY KERRY Administration (1) Ankle fracture Encounter type: initial encounter Fracture type: closed Laterality: right Qualified Code(s): S82.891A - Other fracture of right lower leg, initial encounter for closed fracture
[2024-04-01] MEDS: ONDANSETRON INJ 2 MG/ML 2 ML VIAL IV STA (17:38)
--- NOTE | 2024-04-02 17:04 | Hospitalist Progress Note ---
Date of Service April 02, 2024 Assessment & Plan (1) Ankle fracture: Plan: per previous hospitalist notes with addendum: Ms. Garcia is a 73-year-old female with past medical history significant for hypothyroidism, hyperlipidemia, COPD, obstructive sleep apnea on BiPAP, hypertension, bilateral varicose veins of leg, venous stasis dermatitis, obesity, intestinal postoperative nonobstruction, urinary incontinence, osteoarthritis, bipolar disease chronic, narcolepsy, tobacco use disorder admitted 03/29 after mechanical fall. Patient with right ankle fracture. Ortho evaluated 03/29, cast in place with planned PT/OT and no further surgical intervention. Pending placement #Mechanical fall c/b Right ankle fracture Ortho evaluated -No surgery indicated -Casted on 03/29 -PT/OT: [facility], SNF pending -1 week follow up for imaging with ortho Pain control prn 04/02 Stable overall Continue pain control transition to Acute Rehab tomorrow #Hypertension On amlodipine and lisinopril Will monitor. #Hyperlipidemia On statin. #History of COPD Continue home inhalers #Obstructive sleep apnea On BiPAP nightly #Narcolepsy On modafinil #Prioe Hypothyroidism tsh wnl #Bipolar disease Depression On Lamictal and Lexapro DVT prophylaxis Lovenox Disposition Medical floor Full code Admission and Anticipated Discharge Date Admission Date: March 29, 2024 Subjective Follow-up for right ankle fracture, etc. Seen resting in bed, comfortable, not in distress States she feels fine overall Mild discomfort over the right ankle, well-controlled Reports some mild epigastric discomfort and nausea this morning, seems to be improving No chest pain, shortness of breath, palpitations, dizziness, etc. No other new symptoms Review of Systems Review of Systems: all noted and negative except for above Physical Exam Physical Exam: General- oriented x 3, not in distress, speaks in sentences with no effort or accessory muscle use Eyes- anicteric Neck- no JVD Lungs- clear breath sounds bilaterally, no crackles/wheezing Heart- normal rate, regular rhythm; no murmurs Abdomen- normal bowel sounds, nondistended, soft, nontender Extremities- no pretibial edema, no calf tenderness Right lower extremity: Ankle Cast in place Neuro- alert, oriented x 3; no gross focal neurologic deficits Skin- warm & dry Results & Data Results & Data Vital Signs (Past 12 Hours) Vital Signs Temp Pulse Resp BP Pulse Ox O2 Del Method 04/02/24 15:18 36.9 C 64 16 115/69 94 Room Air 04/02/24 07:10 36.7 C 65 16 125/73 93 Room Air (1) Ankle fracture Encounter type: initial encounter Fracture type: closed Laterality: right Qualified Code(s): S82.891A - Other fracture of right lower leg, initial encounter for closed fracture
[2024-04-02 19:54] VITALS: O2SAT 93
[2024-04-03 08:38] VITALS: BP 154/72; PULSE 69; RESP 18; TEMP 98.1
--- NOTE | 2024-04-03 12:40 | Discharge Summary ---
Discharge Summary Date of Service April 03, 2024 Principal Dx & Hospital Course #1 = Principal Diagnosis (1) Ankle fracture: per previous hospitalist notes with addendum: Ms. Garcia is a 73-year-old female with past medical history significant for hypothyroidism, hyperlipidemia, COPD, obstructive sleep apnea on BiPAP, hypertension, bilateral varicose veins of leg, venous stasis dermatitis, obesity, intestinal postoperative nonobstruction, urinary incontinence, osteoarthritis, bipolar disease chronic, narcolepsy, tobacco use disorder admitted 03/29 after mechanical fall. Patient with right ankle fracture. Ortho evaluated 03/29, cast in place with planned PT/OT and no further surgical intervention. #Mechanical fall c/b Right ankle fracture Ortho evaluated -No surgery indicated -Casted on 03/29 -PT/OT: [facility], SNF Pain control prn 04/03 Stable overall Continue pain control transition to SNF -Ff up with Ortho Dr. Lima 04/04/24 #Hypertension On amlodipine and lisinopril #Hyperlipidemia On statin. #History of COPD Continue home inhalers #Obstructive sleep apnea On BiPAP nightly #Narcolepsy On modafinil #Prioe Hypothyroidism tsh wnl #Bipolar disease Depression On Lamictal and Lexapro DVT prophylaxis Lovenox Disposition transition to SNF Notes For Next Care Provider Medication Changes From Visit None Admission HPI Per Admitting Provider 73-year-old female with past medical history significant for hypothyroidism, hyperlipidemia, COPD, obstructive sleep apnea on BiPAP, hypertension, bilateral varicose veins of leg, venous stasis dermatitis, obesity, intestinal postoperative nonobstruction, urinary incontinence, osteoarthritis, bipolar disease chronic, narcolepsy, tobacco use disorder, comes because of fall and found to have right ankle fracture. Patient states yesterday later in the day she fell as she stepped over a hose. It took some time to get up. After getting up she ambulated with a cane into the house and laid down on the recliner. And she also has a rollator walker. She was sitting on rollator walker and scooting over the house. Was having difficulty going to the bathroom. And she decided come to the ER and imaging studies shows right ankle fracture. S/p splint in the ER. Patient states that she did not hit her head. No loss of consciousness. No headache. Vision is okay. Has some runny nose from her allergies. No cough. No fevers. No chest pain or shortness of breath. Currently no nausea. No abdominal pain. Hemodynamics are okay. Past medical history. As mentioned above. Past surgical history. Right breast biopsy. Biopsy of the right axilla lymph node. Colonoscopy and EGD. Status post ERCP for choledocholithiasis. Cyst removed throat. IR biopsy. IR embolization of uterine fibroid. Laparoscopic procedure liver. Laparoscopic cholecystectomy. Right partial mastectomy. Radiation therapy. Removal of ovaries. Bilateral cataracts. Laparoscopic sleeve gastrectomy. Surgical removal of ruptured tooth. Umbilical hernia repair. Social history. Quit smoking in 2022. Smoked 1 pack/day for 35 years. Alcohol occasional. Uses medical marijuana as per [employer]. Family history. Mother had arthritis. Stroke. Varicose veins. Vascular dementia. Father had Parkinson's. Varicose veins. CAD .CABG. Admission Exam Per Admitting Provider General- Not in distress. Head- atraumatic ENT- oropharynx clear Neck- supple, no JVD. Lungs- clear to auscultation no wheezing or crackles Heart- regular rate and rhythm; no murmur, no gallop. Abdomen- normal bowel sounds, soft, nontender, no distension Extremities- Right lower extremity in splint Neuro- alert, oriented ; no facial palsy; no dysarthria; obeys simple commands Discharge Exam General- oriented x 3, not in distress, speaks in sentences with no effort or accessory muscle use Eyes- anicteric Neck- no JVD Lungs- clear breath sounds bilaterally, no crackles/wheezing Heart- normal rate, regular rhythm; no murmurs Abdomen- normal bowel sounds, nondistended, soft, nontender Extremities- no pretibial edema, no calf tenderness Right lower extremity: Ankle Cast in place Neuro- alert, oriented x 3; no gross focal neurologic deficits Skin- warm & dry Updated Medication List Medication Instructions Recorded Confirmed Type albuterol sulfate 90 mcg/actuation 2 puff inhalation Q6H PRN 03/29/24 03/29/24 History aerosol inhaler Shortness Of Breath Or Wheezing amlodipine 5 mg tablet 10 mg PO DAILY 03/29/24 03/29/24 History atorvastatin 40 mg tablet 40 mg PO DAILY 03/29/24 03/29/24 History azelastine 137 mcg (0.1 %) nasal 1 spray intranasal BID 03/29/24 03/29/24 History spray escitalopram oxalate 20 mg tablet 20 mg PO BID 03/29/24 03/29/24 History lamotrigine 200 mg tablet 200 mg PO BID 03/29/24 03/29/24 History lisinopril 40 mg tablet 40 mg PO DAILY 03/29/24 03/29/24 History mirabegron 50 mg tablet,extended 50 mg PO DAILY 03/29/24 03/29/24 History release 24 hr (Myrbetriq) modafinil 200 mg tablet 200 mg PO DAILY 03/29/24 03/29/24 History montelukast 10 mg tablet 10 mg PO DAILY 03/29/24 03/29/24 History solifenacin 5 mg tablet 5 mg PO DAILY 03/29/24 03/29/24 History umeclidinium 62.5 mcg/actuation 1 inh inhalation DAILY 03/29/24 03/29/24 History blister powder for inhalation (Incruse Ellipta) enoxaparin 40 mg/0.4 mL 40 mg (0.4 mL) subcut QAM 30 days 04/03/24 Rx subcutaneous syringe (Lovenox) #12 mL Hospital Stay Data Consultations 03/29/24 05:39 ED Decision to Admit Stat 03/29/24 09:17 Consult Orthopedic Surgery Routine Diagnostic Imagining Performed Laboratory Results WBC 7.25 K/ul (4.8-10.8) 03/31/24 06:04 RBC 4.01 M/uL (4.20-5.40) L 03/31/24 06:04 Hgb 12.6 g/dl (12.0-16.0) 03/31/24 06:04 Hct 38.2 % (37.0-47.0) 03/31/24 06:04 MCV 95.3 fL (80.0-100.0) 03/31/24 06:04 MCH 31.4 pg (25.0-34.0) 03/31/24 06:04 MCHC 33.0 g/dL (32.0-36.0) 03/31/24 06:04 RDW Std Deviation 43.4 fL (36.4-46.3) 03/31/24 06:04 RDW Coeff of [place] 12.5 % (11.5-14.5) 03/31/24 06:04 Plt Count 180 K/uL (130-400) 03/31/24 06:04 MPV 9.9 fL (9.4-12.4) 03/31/24 06:04 Immature Gran % (Auto) 0.2 % 03/29/24 09:39 Neut % (Auto) 66.6 % 03/29/24 09:39 Lymph % (Auto) 18.7 % 03/29/24 09:39 [place] % (Auto) 10.6 % 03/29/24 09:39 Eos % (Auto) 3.3 % 03/29/24 09:39 Baso % (Auto) 0.6 % 03/29/24 09:39 Neut # (Auto) 6.04 K/uL (1.40-6.50) 03/29/24 09:39 Lymph # (Auto) 1.70 K/uL (1.20-3.40) 03/29/24 09:39 [place] # (Auto) 0.96 K/uL (0.11-0.59) H 03/29/24 09:39 Eos # (Auto) 0.30 K/uL (0.00-0.50) 03/29/24 09:39 Baso # (Auto) 0.05 K/uL (0.00-0.20) 03/29/24 09:39 Immature Gran # (Auto) 0.02 K/uL (0.01-0.20) 03/29/24 09:39 Sodium 143 mmol/L (136-145) 03/31/24 06:04 Potassium 3.8 mmol/L (3.5-5.1) 03/31/24 06:04 Chloride 106 mmol/L (98-107) 03/31/24 06:04 Carbon Dioxide 33 mmol/L (21-32) H 03/31/24 06:04 Anion Gap 4 (3-11) 03/31/24 06:04 BUN 22 mg/dl (6-23) 03/31/24 06:04 Creatinine 0.86 mg/dl (0.6-1.2) 03/31/24 06:04 Est Cr Clr Drug Dosing 75.4 ml/min 03/31/24 06:04 Est GFR ( Amer) 78.8 ml/min 03/31/24 06:04 Est GFR (Non-Af Amer) 68.0 ml/min 03/31/24 06:04 BUN/Creatinine Ratio 25.6 (10-20) H 03/31/24 06:04 Glucose 89 mg/dl (70-99(Fasting)) 03/31/24 06:04 Calcium 9.3 mg/dl (8.6-10.3) 03/31/24 06:04 Magnesium 1.8 mg/dl (1.7-2.4) 03/29/24 09:39 Total Bilirubin 1.3 mg/dl (0.2-1.0) H 03/29/24 09:39 AST 33 U/L (13-39) 03/29/24 09:39 ALT 38 U/L (7-52) 03/29/24 09:39 Alkaline Phosphatase 74 U/L (34-104) 03/29/24 09:39 Total Protein 7.5 gm/dl (6.0-8.3) 03/29/24 09:39 Albumin 4.2 gm/dl (3.4-5.0) 03/29/24 09:39 Globulin 3.3 gm/dl (2.5-4.0) 03/29/24 09:39 Albumin/Globulin Ratio 1.3 (0.9-2) 03/29/24 09:39 TSH 3.854 uIu/ml (0.300-4.500) 03/29/24 09:39 Impressions XR ankle RT min 3V routine CLINICAL HISTORY: pain TECHNIQUE: 3 views of the right ankle were obtained. Comparison: None available at the time of this dictation. FINDINGS: There is a fracture of the medial malleolus. Degenerative changes are seen. Apparent irregularity of the talus is degenerative with pes planus deformity. Soft tissue swelling is seen about the ankle. IMPRESSION: Fracture of the medial malleolus . There is degenerative changes and soft tissue swelling. ACT 112: Negative or not required by law. Electronically signed by: Yamil Rose M.D. 03/29/2024 8:29 AM Tibia/Fibula X-Ray 03/29/24 05:28 XR tibia fibula RT 2V CLINICAL HISTORY: fall, pain TECHNIQUE: 2 radiographic views of the right leg were obtained. Comparison: None available at the time of this dictation. FINDINGS: There is no evidence of an acute fracture. Osteophyte formation and joint space narrowing is seen. No soft tissue abnormality is seen. IMPRESSION: Degenerative changes are seen. No fracture of the tibial or fibular shaft is seen. Please see ankle radiograph for findings of medial malleolus fracture. ACT 112: Negative or not required by law. Electronically signed by: Yamil Rose M.D. 03/29/2024 10:23 AM Ankle X-Ray 03/31/24 09:11 XR ankle RT min 3V routine HISTORY: 73 years-old Female in cast, post application imaging COMPARISON: 03/29/2024 TECHNIQUE: 3 views of the right ankle FINDINGS: Status post reduction and casting of the acute medial malleolar fracture with unchanged alignment. Fine bony detail is limited secondary to cast material. There is persistent soft tissue swelling. Demineralized appearance of the bones with osteoarthritis. IMPRESSION: Unchanged alignment of the acute medial malleolar fracture status post reduction and casting. ACT 112: Negative or not required by law. The above report was generated using voice recognition software. It may contain grammatical, syntax or spelling errors. Electronically signed by: Ilya Tobar M.D. 03/31/2024 12:02 PM Pending Results Patient Have Any Pending Studies at Discharge: No Discharge Instructions Given to Patient (Per Discharging Provider) FOLLOW UP WITH ORTHOPEDIC SURGEON DR. LIMA/JACQUELYN BAKER ON Sunday. Total Time Total Time Spent Total Time Spent (In Minutes): 35 minutes
== END 2024-04-03 13:03 | DRG 563 ==
LOC: ED 04:27 → SUATTDRO 06:14 → 3E 06:14
DX: G47.33 Obstructive sleep apnea (adult) (pediatric); I10 Essential (primary) hypertension; E78.5 Hyperlipidemia, unspecified; E66.9 Obesity, unspecified; Z87.891 Personal history of nicotine dependence; W01.0XXA Fall on same level from slipping, tripping and stumbling without subsequent striking against object, initial encounter; S82.51XA Displaced fracture of medial malleolus of right tibia, initial encounter for closed fracture; F31.9 Bipolar disorder, unspecified; Z68.36 Body mass index [BMI] 36.0-36.9, adult; Z79.899 Other long term (current) drug therapy; J44.9 Chronic obstructive pulmonary disease, unspecified; G47.419 Narcolepsy without cataplexy; Z88.1 Allergy status to other antibiotic agents; M19.90 Unspecified osteoarthritis, unspecified site